=== PATIENT | male | born 1935 | race Caucasian/White ===

== ENCOUNTER 2019-11-10 13:42 | Outpatient (RCR) | payer MEDICARE, SELFPAY ==
[2019-11-17 15:25] VITALS: BMI 32.1
[2020-01-16 23:02] LABS: Glucose Urine UA NEG (NEG); Leukocyte Esterase Urine 3+ (NEG); Nitrite Urine POS (NEG); Specific Gravity - Urine 1.015 (1.005-1.025); Urine Blood 1+ (NEG); Urine Ketones NEG (NEG); Urine Protein NEG (NEG-TRACE)
[2020-01-16 23:07] LABS: Appearance Urine CLOUDY; Color Urine YELLOW
[2020-01-17 00:43] LABS: Bacteria Urine 1+ /LPF; Squamous Epithelial Cell Urine TRACE /LPF; WBC Clumps Urine NOTED; WBC Urine TNTC /HPF (0-4)
[2020-01-17 11:55] LABS: Influenza A PCR NEGATIVE (Negative); Influenza B PCR NEGATIVE (Negative); Resp Syncy Virus RNA Qual PCR NEGATIVE (Negative); SARS COV2 PCR INHOUSE NEGATIVE (Negative)
[2020-01-19 14:53] LABS: Influenza A PCR NEGATIVE (Negative); Influenza B PCR NEGATIVE (Negative); Resp Syncy Virus RNA Qual PCR NEGATIVE (Negative); SARS COV2 PCR INHOUSE NEGATIVE (Negative)
[2020-01-25 14:02] LABS: Influenza A PCR NEGATIVE (Negative); Influenza B PCR NEGATIVE (Negative); Resp Syncy Virus RNA Qual PCR NEGATIVE (Negative); SARS COV2 PCR INHOUSE NEGATIVE (Negative)
[2020-02-12 14:35] LABS: Influenza A PCR NEGATIVE (Negative); Influenza B PCR NEGATIVE (Negative); Resp Syncy Virus RNA Qual PCR NEGATIVE (Negative); SARS COV2 PCR INHOUSE NEGATIVE (Negative)
[2020-02-14 15:45] LABS: COVID-19 Test Negative (Negative); IDNOW Serial# 9DD0AD1C
[2020-02-16 11:40] LABS: COVID-19 Test Negative (Negative); IDNOW Serial# 9DD0AD1C
[2020-02-20 12:43] LABS: SARS-COV-2 PCR UMBRL Not Detected
[2020-02-22 09:39] LABS: SARS-COV-2 PCR UMBRL Not Detected
[2020-02-23 09:20] LABS: SARS-COV-2 PCR UMBRL Not Detected
[2020-02-29 09:58] LABS: SARS-COV-2 PCR UMBRL NOT DETECTED
--- NOTE | 2020-03-01 07:51 | PM.DS ---
DS: Providers Provider Date of Service: 03/01/20 DS: Transfer Hospital Acceptance Name of Facility: [facility] DS: Diagnosis Discharge Diagnosis (1) Dementia: Status: Acute (2) Parkinsons: Status: Acute (3) Postural drop in blood pressure on standing: Status: Acute (4) Rhinitis: Status: Acute (5) Factor 5 Leiden mutation, heterozygous: Status: Acute (6) Hyperlipidemia: Status: Acute (7) Osteopenia: Status: Acute (8) Vitamin B12 deficiency: Status: Acute (9) Anemia: Status: Acute (10) Lymphadenopathy: Status: Acute (11) BPH (benign prostatic hyperplasia): Status: Acute (12) Hyponatremia: Status: Acute DS: Medications Discharge Medications Home Medications: Previous Rx's Medication Instructions Recorded acetic acid 1 appl TOPICAL DAILY@0600 #30 ml 03/01/20 albuterol sulfate 2.5 mg INHALATION Q4H PRN #30 ml 03/01/20 alendronate 70 mg PO [place]@0630 #30 tab 03/01/20 bicalutamide 50 mg PO DAILY@1000 #30 tab 03/01/20 bisacodyl [Gentle Laxative 10 mg AL DAILY PRN #30 ea 03/01/20 (bisacodyl)] carbidopa-levodopa 1 tab PO 1000,1400,1800,2200 #30 03/01/20 tab cholecalciferol (vitamin D3) 25 mcg PO DAILY@1000 #30 tab 03/01/20 cyanocobalamin (vitamin B-12) 1,000 mcg PO DAILY@1000 #30 tab 03/01/20 [Vitamin B-12] finasteride [Proscar] 5 mg PO DAILY@1000 #30 tab 03/01/20 lisinopril 5 mg PO DAILY #30 tab 03/01/20 loperamide 2 mg PO QID PRN #30 cap 03/01/20 loratadine 10 mg PO DAILY PRN #30 tab 03/01/20 magnesium hydroxide [Milk of 30 ml PO BEDTIME PRN #30 ml 03/01/20 Magnesia] miconazole nitrate [Inzo 1 appl TOPICAL DAILY PRN #30 g 03/01/20 Antifungal] midodrine 5 mg PO BID@1000,2200 #30 tab 03/01/20 polyvinyl alcohol [Artificial 1 drp OPHTHALMIC (EYE) 03/01/20 Tears (polyvin alc)] BID@1000,2200 #30 ml quetiapine 12.5 mg PO BEDTIME@2200 #30 tab 03/01/20 ropinirole 1 mg PO BID@1000,2200 #30 tab 03/01/20 vits A and D-white pet-lanolin [A 1 appl TOPICAL DAILY PRN #30 g 03/01/20 and D (mily, pet)] zinc oxide 1 appl TOPICAL DAILY@0600 #30 g 03/01/20 DS: Summary Hospital Course Hospital Course: Mr. Bustos is an 84 year old gentleman with an extensive past medical and surgical history including dementia and parkinsons disease. He can ambulate with a wheeled walker with assistance and wheelchair follow. At baseline he has slurred speech and is alert, but confused. He also has a prior history of DVT with factor V leiden but is not on anticoagulation. He has prostate cancer an is taking casodex and followed by Dr. Haider at [facility] oncology. He is incontinent. He has a history of orthostatic hypotension as well as hypertension and is on lisinopril and midodrine simultaneously. BP should be checked prior to midodrine administration. Mr. Steve has a MOLST indicating he is DNR/I, and do not reshospitalize except for comfort. He had no hospitalizations or significant medical events under our care, and remains COVID negative. Time Spent with Patient Time attestation: Total time spent providing and/or coordinating discharge services: Discharge coordination time: Greater than 30 minutes Physical Exam Vital Signs: Vital Signs: Body Mass Index 32.1 DS: Data Data Completed and Pending Labs on day of discharge: Laboratory Tests 01/16/20 01/17/20 01/19/20 21:53 11:35 12:58 Urine Color YELLOW Urine Appearance CLOUDY Urine pH 6.0 Ur Specific [place] 1.015 Urine Protein NEG Urine Glucose (UA) NEG Urine Ketones NEG Urine Blood 1+ H Urine Nitrite POS H Ur Leukocyte Esterase 3+ H Urine RBC 1-4 Urine WBC TNTC H Urine WBC Clumps NOTED Ur Squamous Epith Cells TRACE Urine Bacteria 1+ Coronavirus (PCR) NEGATIVE NEGATIVE COVID-19 (JOY) COVID-19 Clin Com Influenza Type A (PCR) NEGATIVE NEGATIVE Influenza Type B (PCR) NEGATIVE NEGATIVE RSV RNA Qual (PCR) NEGATIVE NEGATIVE 12/09/20 12/27/20 12/29/20 12:55 12:10 15:00 Urine Color Urine Appearance Urine pH Ur Specific [place] Urine Protein Urine Glucose (UA) Urine Ketones Urine Blood Urine Nitrite Ur Leukocyte Esterase Urine RBC Urine WBC Urine WBC Clumps Ur Squamous Epith Cells Urine Bacteria Coronavirus (PCR) NEGATIVE NEGATIVE COVID-19 (JOY) Negative COVID-19 Clin Com See Note Influenza Type A (PCR) NEGATIVE NEGATIVE Influenza Type B (PCR) NEGATIVE NEGATIVE RSV RNA Qual (PCR) NEGATIVE NEGATIVE 02/16/20 11:00 Urine Color Urine Appearance Urine pH Ur Specific [place] Urine Protein Urine Glucose (UA) Urine Ketones Urine Blood Urine Nitrite Ur Leukocyte Esterase Urine RBC Urine WBC Urine WBC Clumps Ur Squamous Epith Cells Urine Bacteria Coronavirus (PCR) COVID-19 (JOY) Negative COVID-19 Clin Com See Note Influenza Type A (PCR) Influenza Type B (PCR) RSV RNA Qual (PCR) Discharge Plan Discharge Attending provider: Bairon Castrejon Additional Instructions: See summary sheet, re special needs regarding medication and ointments Crush meds in applesauce Medications: New quetiapine 25 mg Tablet 12.5 mg PO BEDTIME@2199 Qty: 30 RF: 0 bicalutamide 50 mg Tablet 50 mg PO DAILY@999 Qty: 30 RF: 0 ropinirole 1 mg Tablet 1 mg PO BID@999,2199 Qty: 30 RF: 0 albuterol sulfate 2.5 mg /3 mL (0.083 %) Solution For Nebulization 2.5 mg inhalation Q4H PRN (Reason: Shortness Of Breath/Wheezing) Qty: 30 RF: 0 loperamide 2 mg Capsule 2 mg PO QID PRN (Reason: Diarrhea) Qty: 30 RF: 0 miconazole nitrate [Inzo Antifungal] 2 % Cream 1 appl topical DAILY PRN (Reason: SKIN IRRITATION) Qty: 30 RF: 0 polyvinyl alcohol [Artificial Tears (polyvin alc)] 1.4 % Drops 1 drp ophthalmic (eye) BID@999,2199 Qty: 30 RF: 0 alendronate 70 mg Tablet 70 mg PO Hercules@0630 Qty: 30 RF: 0 midodrine 5 mg Tablet 5 mg PO BID@999,2199 Qty: 30 RF: 0 cyanocobalamin (vitamin B-12) [Vitamin B-12] 1,000 mcg Tablet 1,000 mcg PO DAILY@1000 Qty: 30 RF: 0 zinc oxide 20 % Ointment 1 appl topical DAILY@0600 Qty: 30 RF: 0 magnesium hydroxide [Milk of Magnesia] 400 mg/5 mL Suspension 30 ml PO BEDTIME PRN (Reason: Constipation) Qty: 30 RF: 0 bisacodyl [Gentle Laxative (bisacodyl)] 10 mg Suppository 10 mg AL DAILY PRN (Reason: Constipation) Qty: 30 RF: 0 acetic acid 0.25 % Solution 1 appl topical DAILY@0600 Qty: 30 RF: 0 lisinopril 5 mg Tablet 5 mg PO DAILY Qty: 30 RF: 0 carbidopa-levodopa 25-100 mg Tablet 1 tab PO 1000,1400,1800,2200 Qty: 30 RF: 0 finasteride [Proscar] 5 mg Tablet 5 mg PO DAILY@1000 Qty: 30 RF: 0 loratadine 10 mg Tablet 10 mg PO DAILY PRN (Reason: Runny Nose) Qty: 30 RF: 0 cholecalciferol (vitamin D3) 25 mcg (1,000 unit) Tablet 25 mcg PO DAILY@1000 Qty: 30 RF: 0 vits A and D-white pet-lanolin [A and D (mily, pet)] Ointment 1 appl topical DAILY PRN (Reason: DISCOMFORT) Qty: 30 RF: 0
== END 2020-03-01 13:58 | disposition home or self-care (01) ==
LOC: HO.SHU3 13:42
PROVIDERS: Internal Medicine; Visit Provider Hospitalist
DX: Z51.89 Encounter for other specified aftercare (principal)
CPT/HCPCS: 0241U; 36415; 81001; 87086; 87088; 87186; 87635; 99217; U0003

== ENCOUNTER 2020-03-02 06:11 | Outpatient (REF) | payer MEDICARE, MEDICAID, SELFPAY ==
[2020-03-02 08:04] LABS: Basophils Percent Auto 0.2 % (0-2); Eosinophils Absolute Auto 0.1 X10*3/uL (0.0-0.4); Eosinophils Percent Auto 2.1 % (0-4); Hematocrit 29.3 % (42-52); Hemoglobin 9.4 g/dl (14.0-18.0); Imm Gran Abs Auto 0.02 X10*3/uL (0.00-0.03); Imm Gran Pct Auto 0.3 % (0.0-0.4); Lymphocytes Absolute Auto 0.7 X10*3/uL (1.2-4.9); Lymphocytes Percent Auto 11.4 % (20-40); MANUAL DIFF FLAG SCAN; Mean Corpuscular HGB Conc 32.1 g/dl (31.0-36.0); Mean Corpuscular Volume 93.6 fL (80-98); Monocytes Absolute Auto 0.6 X10*3/uL (0.1-1.2); Monocytes Percent Auto 10.2 % (2-11); Neutrophils Absolute Auto 4.6 X10*3/uL (2.0-8.3); Neutrophils Percent Auto 75.8 % (45-73); Platelet Count 180 X10*3/uL (160-400); Red Blood Count 3.13 X10*6/uL (4.60-5.80); Red Cell Distribution Width 13.4 % (11.0-16.0); SCAN SMEAR FLAG 1; White Blood Count 6.1 X10*3/uL (4.8-10.8)
[2020-03-02 08:23] LABS: Alanine Aminotransferase < 6 U/L (0-40); Albumin Level 3.6 g/dL (3.5-5.0); Alkaline Phosphatase 56 U/L (39-117); Anion Gap 11 (12-20); Aspartate Amino Transferase 12 U/L (5-37); Bilirubin Total 0.5 mg/dL (0.0-1.0); Blood Urea Nitrogen 31 mg/dL (9-16); Calcium 8.5 mg/dL (8.4-10.2); Carbon Dioxide 29 mmol/L (22-29); Chloride 106 mmol/L (96-108); Estimated Glomerular Filt Rate 47; Glucose Fasting 88 mg/dL (60-99); Potassium 4.3 mmol/l (3.3-5.1); Sodium 142 mmol/L (135-145); Total Protein 6.2 g/dL (6.5-8.0)
[2020-03-02 08:43] LABS: SLIDE REVIEW VERIFIED
[2020-03-02 08:44] LABS: Thyroid Stimulating Hormone 0.64 uIU/mL (0.32-4.0); Vitamin D 25-OH Total 36.9 ng/mL (>30)
[2020-03-02 08:48] LABS: Vitamin B12 922 pg/mL (200-900)
== END 2020-03-02 06:12 | disposition home or self-care (01) ==
LOC: HO.HSH2E 06:11
PROVIDERS: Visit Provider Internal Medicine
DX: D64.9 Anemia, unspecified (principal); G20 Parkinson's disease; E78.5 Hyperlipidemia, unspecified
CPT/HCPCS: 36415; 80053; 82306; 82607; 84443; 85025

== ENCOUNTER 2020-03-19 12:33 | Inpatient (IN) | payer MEDICARE, MEDICAID, SELFPAY ==
[2020-03-19 12:41] VITALS: BP 176/100; PULSE 72; RESP 18; TEMP 36.8; O2SAT 99; BMI 38.0
--- NOTE | 2020-03-19 12:41 | XR_ITS ---
EXAMINATION: XR CHEST CLINICAL INFORMATION: Cough COMPARISON: Previous chest x-ray most recent September 2019 TECHNIQUE: Frontal view of the chest was obtained. FINDINGS: The cardiac and mediastinal contours are stable. There is atelectasis or small infiltrate at the left lung base. Similar to previous exam September 2019 and it is possible findings are chronic. The right lung is clear. There is no pleural effusion or pneumothorax. There are degenerative changes of the spine. XR/XR chest 1V IMPRESSION: Atelectasis or small infiltrate at the left lung base. This finding is similar to most recent chest x-ray September 2019 and may be chronic.
--- NOTE | 2020-03-19 12:41 | ECG_ITS ---
Test Reason : AMS Blood Pressure : / mmHG Vent. Rate : 072 BPM Atrial Rate : 072 BPM P-R Int : 186 ms QRS Dur : 088 ms QT Int : 410 ms P-R-T Axes : 063 007 015 degrees QTc Int : 448 ms Normal sinus rhythm Normal ECG No previous ECGs available Referred By: Wiley Celeste Electronically Signed By:TYSON DOS SANTOS MD
--- NOTE | 2020-03-19 12:45 | CT_ITS ---
EXAMINATION: CT HEAD WITHOUT CONTRAST CLINICAL INFORMATION: Lethargy per COMPARISON: None TECHNIQUE: Contiguous axial imaging was performed from the skull base to vertex without intravenous administration of contrast. This CT examination was performed using dose optimization techniques as appropriate, variously including the following: *Automated exposure control *Adjustment of mA and/or kV according to patient size (this includes techniques or standardized protocols for targeted exams where dose is matched to indication/reason for exam; i.e. extremities or head) *Use of iterative reconstruction technique DLP: 816 mGy-cm FINDINGS: There is no acute intra-axial, extra-axial bleed, masses or midline shift. There is no acute infarction in evolution. There is diffuse periventricular hypodensity in both cerebral hemispheres without mass effect. The lateral ventricles are asymmetrical but enlarged. Prominent bilateral cortical sulci noted. Atherosclerotic changes of basilar and internal carotid artery are noted. Bone windows reveal no calvarial abnormality. There is mild mucoperiosteal thickening left frontal and anterior ethmoid sinus. Rest of the paranasal sinuses are clear. No scalp soft tissue abnormality seen. CT/CT head/brain wo con IMPRESSION: No acute intracranial process seen. Age-related cerebral atrophy and chronic small vessel ischemic changes.
--- NOTE | 2020-03-19 13:05 | ED.GENADULT ---
HPI - General Adult General Chief complaint: Altered Mental Status Stated complaint: AMS,- COVID ON THURSDAY PER SNF Time Seen by Provider: 03/19/20 12:41 Source: EMS Mode of arrival: EMS History of Present Illness HPI narrative: Brought to the ED for worsening of the origin and AMS since Thursday. Patient at baseline is totally demented. Patient has recently discharged from [facility] this past Thursday for UTI. Negative for neuro deficit. As per EMS report patient usually Silva still cells but as per half-way since Thursday he has been more lethargic and altered. Patient also has had a slight cough. Patient COVID test on Thursday was negative. Patient's last known well as per EMS was this past Thursday. Related Data Home Medications Medication Instructions Recorded Confirmed levalbuterol tartrate [Xopenex HFA] 2 puff INHALATION Q4H 03/19/20 03/19/20 midodrine 5 mg PO BID PRN 03/19/20 03/19/20 Previous Rx's Medication Instructions Recorded acetic acid 1 appl TOPICAL DAILY@0600 #30 ml 03/01/20 alendronate 70 mg PO Hercules@0630 #30 tab 03/01/20 bicalutamide 50 mg PO DAILY@1000 #30 tab 03/01/20 bisacodyl [Gentle Laxative 10 mg [place] DAILY PRN #30 ea 03/01/20 (bisacodyl)] carbidopa-levodopa 1 tab PO 1000,1400,1800,2200 #30 03/01/20 tab cholecalciferol (vitamin D3) 25 mcg PO DAILY@1000 #30 tab 03/01/20 cyanocobalamin (vitamin B-12) 1,000 mcg PO DAILY@1000 #30 tab 03/01/20 [Vitamin B-12] finasteride [Proscar] 5 mg PO DAILY@1000 #30 tab 03/01/20 loperamide 2 mg PO QID PRN #30 cap 03/01/20 loratadine 10 mg PO DAILY PRN #30 tab 03/01/20 magnesium hydroxide [Milk of 30 ml PO BEDTIME PRN #30 ml 03/01/20 Magnesia] miconazole nitrate [Inzo 1 appl TOPICAL DAILY PRN #30 g 03/01/20 Antifungal] polyvinyl alcohol [Artificial 1 drp OPHTHALMIC (EYE) 03/01/20 Tears (polyvin alc)] BID@1000,2200 #30 ml quetiapine 12.5 mg PO BEDTIME@2200 #30 tab 03/01/20 ropinirole 1 mg PO BID@1000,2200 #30 tab 03/01/20 vits A and D-white pet-lanolin [A 1 appl TOPICAL DAILY PRN #30 g 03/01/20 and D (miyl, pet)] zinc oxide 1 appl TOPICAL DAILY@0600 #30 g 03/01/20 Allergies Allergy/AdvReac Type Severity Reaction Status Date / Time No Known Allergies Allergy Unverified 11/03/19 19:50 [No Known Allergies*] Review of Systems Review of Systems: Patient is not toxic appearing. Patient know his name. Patient does no one in the hospital. He Yes Unobtainable due to mental status (Dementia) [facility] Past Medical History Medical History Anemia BPH (benign prostatic hyperplasia) Carotid body tumor Dementia Factor 5 Leiden mutation, heterozygous Hyperlipidemia Hyponatremia Lymphadenopathy Osteopenia Parkinsons Postural drop in blood pressure on standing Prostate cancer Prostate cancer Rhinitis Vitamin B12 deficiency Surgical History H/O aortic aneurysm repair History of nephrectomy Total knee replacement status Social History Social History Alcohol intake: unknown Smoking Status: Unknown if ever smoked Use of substances other than those prescribed or required for medical reasons: Unknown Advance Directives: No Advance Directives Information Provided: No Physical Exam Vital Signs: Vital Signs: Last Vital Signs Temp 98.3 F 03/19/20 12:41 Pulse 84 03/19/20 15:55 Resp 20 03/19/20 15:55 BP 185/100 H 03/19/20 15:55 Pulse Ox 93 03/19/20 15:55 Body Mass Index 38.0 Const: General: cooperative, healthy appearing, comfortable and no acute distress HENMT: Head: Yes normal to inspection and Yes No palpable skull fracture present Eyes: General: appearance normal, both eyes and all related structures Neck: Neck: Yes normal visual inspection, Yes full ROM, Yes no lymphadenopathy, Yes no meningeal signs, Yes trachea midline, Yes supple and No tender Chest: Chest palpation & inspection: normal inspection of the chest Resp: Effort & Inspection: normal respiratory effort and able to speak in complete sentences Auscultation: clear to auscultation bilaterally Cardio: Jugular venous distension: no JVD Heart sounds: S1 normal heart sound present and S2 normal heart sound present GI: Inspection: Yes normal to inspection and No abdominal wall ecchymosis Palpation (GI): Soft to palpation, not firm, nontender, no guarding and not rigid : General: No CVA tenderness and Yes no CVA tenderness Back/Spine/Pelvis: Back: no CVA tenderness and No CVA tenderness Skin: General skin exam: no rashes or lesions noted Neuro: Other: Negative for any facial droop. Negative for any pronator drift. All extremities have equal strength. Patient baseline is demented. Negative for slurred speech General: no meningeal signs Extrem: General: Yes normal to inspection and Yes full ROM Psych: Other: Severe dementia Course Course Course Narrative: Patient will have evaluation for worsening altered mental status. Patient presently is not lethargic or toxic appearing. Patient will have chest x-ray, UA ordered. COVID, head CT, and labs including ammonia. EKG also ordered. Patient last known well was this past Thursday so patient is out the window if this is a stroke. Reevaluation(s) Reevaluation #1: Patient COVID cell came back negative. Patient's chest x-ray shows chronic atelectasis/infiltrate. Patient's troponin came back elevated. Will do repeat troponin in 3 hours. Patient presently not in any distress and denies any chest pain. Patient's initial EKG negative for STEMI Time: 14:15 Reevaluation #2: Due to patient's history factor 5 laden mutation which within and high risk of blood clot and patient not being on any blood thinners patient will be sent for chest CT to rule out PE. Patient will have a secondary troponin ordered also Time: 14:38 Reevaluation #3: Patient came back positive for PE. Patient given 1st dose of Lovenox. Spoke with who is the patient's health care proxy and she was informed of patient diagnosis. She requests only receive comfort care and continues Lovenox injection. She would like patient to congenitally be DNI and DNR. Son Amrit smith informed of diagnosis. Hospitalist Rhonda states she will call patient's , and discussed with her of patient going back to [facility] home with Lovenox injection if they only want comfort care. Time: 17:20 Additional Reevaluation(s): Hospitalist spoke with son Amrit smith who requests along with mother for patient to be admitted and patient will receive Lovenox injection. Case accepted by hospitalist. Medical Decision Making MDM Narrative Medical decision making narrative: Pumonary Embolus Lab Data Result diagrams: 03/19/20 13:15 03/19/20 13:15 Labs: Lab Results 03/19/20 03/19/20 03/19/20 Range/Units 13:13 13:14 13:14 WBC (4.8-10.8) X10*3/uL RBC (4.60-5.80) X10*6/uL Hgb (14.0-18.0) g/dl Hct (42-52) % MCV (80-98) fL MCH (27.0-33.0) pg MCHC (31.0-36.0) g/dl RDW (11.0-16.0) % Plt Count (160-400) X10*3/uL MPV (9.4-12.4) fL Immature Gran % (Auto) (0.0-0.4) % Neut % (Auto) (45-73) % Lymph % (Auto) (20-40) % Norman % (Auto) (2-11) % Eos % (Auto) (0-4) % Baso % (Auto) (0-2) % Lymph # (Auto) (1.2-4.9) X10*3/uL [place] # (Auto) (0.1-1.2) X10*3/uL Eos # (Auto) (0.0-0.4) X10*3/uL Baso # (Auto) (0.0-0.2) X10*3/uL Abs Immat Gran (auto) (0.00-0.03) X10*3/uL Absolute Neuts (auto) (2.0-8.3) X10*3/uL Absolute Nucleated RBC (0.0-0.012) X10*3/uL Nucleated RBC % (auto) (0.0-0.2) /100WBC PT (10.8-13.0) SEC INR (0.9-1.1) APTT (24.1-38.0) SEC Sodium (135-145) mmol/L Potassium (3.3-5.1) mmol/L Chloride (96-108) mmol/L Carbon Dioxide (22-29) mmol/L Anion Gap (12-20) BUN (9-16) mg/dL Creatinine (0.5-1.4) mg/dL Estim Creat Clear Calc Estimated GFR Random Glucose (60-115) mg/dL Lactic Acid 0.9 (0.5-2.0) mmol/L Calcium (8.4-10.2) mg/dL Ferritin (20-250) ng/mL Total Bilirubin (0.0-1.0) mg/dL Direct Bilirubin (0.0-0.5) mg/dL AST (5-37) U/L ALT (0-40) U/L Alkaline Phosphatase (39-117) U/L Ammonia 27 (13-55) umol/L Lactate Dehydrogenase (118-273) U/L Total Creatine Kinase (38-174) U/L Troponin I High Sens (<3.5-35.0) ng/L B-Natriuretic Peptide (<100) pg/mL Total Protein (6.5-8.0) g/dL Albumin (3.5-5.0) g/dL Procalcitonin ng/mL Urine Color YELLOW Urine Appearance CLEAR Urine pH 6.5 (5.0-8.0) Ur Specific [place] 1.020 (1.005-1.025) Urine Protein NEG (NEG-TRACE) MG/DL Urine Glucose (UA) NEG (NEG) MG/DL Urine Ketones NEG (NEG) MG/DL Urine Blood TRACE (NEG) Urine Nitrite NEG (NEG) Ur Leukocyte Esterase NEG (NEG) Urine RBC 5-9 H (0) /HPF Urine WBC 0 (0-4) /HPF Ur Squamous Epith Cells TRACE /LPF Urine Bacteria NONE /LPF Coronavirus (PCR) (Negative) Influenza Type A (PCR) (Negative) Influenza Type B (PCR) (Negative) RSV RNA Qual (PCR) (Negative) 03/19/20 03/19/20 03/19/20 Range/Units 13:15 13:15 13:15 WBC 6.3 (4.8-10.8) X10*3/uL RBC 3.73 L (4.60-5.80) X10*6/uL Hgb 11.0 L (14.0-18.0) g/dl Hct 35.1 L (42-52) % MCV 94.1 (80-98) fL MCH 29.5 (27.0-33.0) pg MCHC 31.3 (31.0-36.0) g/dl RDW 13.0 (11.0-16.0) % Plt Count 305 D (160-400) X10*3/uL MPV 9.7 (9.4-12.4) fL Immature Gran % (Auto) 0.3 (0.0-0.4) % Neut % (Auto) 80.8 H (45-73) % Lymph % (Auto) 11.2 L (20-40) % Norman % (Auto) 6.7 (2-11) % Eos % (Auto) 0.8 (0-4) % Baso % (Auto) 0.2 (0-2) % Lymph # (Auto) 0.7 L (1.2-4.9) X10*3/uL [place] # (Auto) 0.4 (0.1-1.2) X10*3/uL Eos # (Auto) 0.1 (0.0-0.4) X10*3/uL Baso # (Auto) 0.0 (0.0-0.2) X10*3/uL Abs Immat Gran (auto) 0.02 (0.00-0.03) X10*3/uL Absolute Neuts (auto) 5.1 (2.0-8.3) X10*3/uL Absolute Nucleated RBC 0.000 (0.0-0.012) X10*3/uL Nucleated RBC % (auto) 0.0 (0.0-0.2) /100WBC PT 12.2 (10.8-13.0) SEC INR 1.0 (0.9-1.1) APTT 32.4 (24.1-38.0) SEC Sodium 139 (135-145) mmol/L Potassium 5.1 (3.3-5.1) mmol/L Chloride 100 (96-108) mmol/L Carbon Dioxide 29 (22-29) mmol/L Anion Gap 15 (12-20) BUN 25 H (9-16) mg/dL Creatinine 0.87 (0.5-1.4) mg/dL Estim Creat Clear Calc 77.2 Estimated GFR > 60 Random Glucose 96 (60-115) mg/dL Lactic Acid (0.5-2.0) mmol/L Calcium 8.5 (8.4-10.2) mg/dL Ferritin (20-250) ng/mL Total Bilirubin 0.7 (0.0-1.0) mg/dL Direct Bilirubin 0.2 (0.0-0.5) mg/dL AST 23 D (5-37) U/L ALT 17 (0-40) U/L Alkaline Phosphatase 60 (39-117) U/L Ammonia (13-55) umol/L Lactate Dehydrogenase 208 (118-273) U/L Total Creatine Kinase 111 (38-174) U/L Troponin I High Sens (<3.5-35.0) ng/L B-Natriuretic Peptide (<100) pg/mL Total Protein 7.1 (6.5-8.0) g/dL Albumin 3.8 (3.5-5.0) g/dL Procalcitonin ng/mL Urine Color Urine Appearance Urine pH (5.0-8.0) Ur Specific [place] (1.005-1.025) Urine Protein (NEG-TRACE) MG/DL Urine Glucose (UA) (NEG) MG/DL Urine Ketones (NEG) MG/DL Urine Blood (NEG) Urine Nitrite (NEG) Ur Leukocyte Esterase (NEG) Urine RBC (0) /HPF Urine WBC (0-4) /HPF Ur Squamous Epith Cells /LPF Urine Bacteria /LPF Coronavirus (PCR) (Negative) Influenza Type A (PCR) (Negative) Influenza Type B (PCR) (Negative) RSV RNA Qual (PCR) (Negative) 03/19/20 03/19/20 03/19/20 Range/Units 13:15 13:15 13:15 WBC (4.8-10.8) X10*3/uL RBC (4.60-5.80) X10*6/uL Hgb (14.0-18.0) g/dl Hct (42-52) % MCV (80-98) fL MCH (27.0-33.0) pg MCHC (31.0-36.0) g/dl RDW (11.0-16.0) % Plt Count (160-400) X10*3/uL MPV (9.4-12.4) fL Immature Gran % (Auto) (0.0-0.4) % Neut % (Auto) (45-73) % Lymph % (Auto) (20-40) % [place] % (Auto) (2-11) % Eos % (Auto) (0-4) % Baso % (Auto) (0-2) % Lymph # (Auto) (1.2-4.9) X10*3/uL [place] # (Auto) (0.1-1.2) X10*3/uL Eos # (Auto) (0.0-0.4) X10*3/uL Baso # (Auto) (0.0-0.2) X10*3/uL Abs Immat Gran (auto) (0.00-0.03) X10*3/uL Absolute Neuts (auto) (2.0-8.3) X10*3/uL Absolute Nucleated RBC (0.0-0.012) X10*3/uL Nucleated RBC % (auto) (0.0-0.2) /100WBC PT (10.8-13.0) SEC INR (0.9-1.1) APTT (24.1-38.0) SEC Sodium (135-145) mmol/L Potassium (3.3-5.1) mmol/L Chloride (96-108) mmol/L Carbon Dioxide (22-29) mmol/L Anion Gap (12-20) BUN (9-16) mg/dL Creatinine (0.5-1.4) mg/dL Estim Creat Clear Calc Estimated GFR Random Glucose (60-115) mg/dL Lactic Acid (0.5-2.0) mmol/L Calcium (8.4-10.2) mg/dL Ferritin 413 H (20-250) ng/mL Total Bilirubin (0.0-1.0) mg/dL Direct Bilirubin (0.0-0.5) mg/dL AST (5-37) U/L ALT (0-40) U/L Alkaline Phosphatase (39-117) U/L Ammonia (13-55) umol/L Lactate Dehydrogenase (118-273) U/L Total Creatine Kinase (38-174) U/L Troponin I High Sens 95.9 H (<3.5-35.0) ng/L B-Natriuretic Peptide 320 H (<100) pg/mL Total Protein (6.5-8.0) g/dL Albumin (3.5-5.0) g/dL Procalcitonin ng/mL Urine Color Urine Appearance Urine pH (5.0-8.0) Ur Specific [place] (1.005-1.025) Urine Protein (NEG-TRACE) MG/DL Urine Glucose (UA) (NEG) MG/DL Urine Ketones (NEG) MG/DL Urine Blood (NEG) Urine Nitrite (NEG) Ur Leukocyte Esterase (NEG) Urine RBC (0) /HPF Urine WBC (0-4) /HPF Ur Squamous Epith Cells /LPF Urine Bacteria /LPF Coronavirus (PCR) NEGATIVE (Negative) Influenza Type A (PCR) NEGATIVE (Negative) Influenza Type B (PCR) NEGATIVE (Negative) RSV RNA Qual (PCR) NEGATIVE (Negative) 03/19/20 03/19/20 Range/Units 13:15 16:30 WBC (4.8-10.8) X10*3/uL RBC (4.60-5.80) X10*6/uL Hgb (14.0-18.0) g/dl Hct (42-52) % MCV (80-98) fL MCH (27.0-33.0) pg MCHC (31.0-36.0) g/dl RDW (11.0-16.0) % Plt Count (160-400) X10*3/uL MPV (9.4-12.4) fL Immature Gran % (Auto) (0.0-0.4) % Neut % (Auto) (45-73) % Lymph % (Auto) (20-40) % [place] % (Auto) (2-11) % Eos % (Auto) (0-4) % Baso % (Auto) (0-2) % Lymph # (Auto) (1.2-4.9) X10*3/uL [place] # (Auto) (0.1-1.2) X10*3/uL Eos # (Auto) (0.0-0.4) X10*3/uL Baso # (Auto) (0.0-0.2) X10*3/uL Abs Immat Gran (auto) (0.00-0.03) X10*3/uL Absolute Neuts (auto) (2.0-8.3) X10*3/uL Absolute Nucleated RBC (0.0-0.012) X10*3/uL Nucleated RBC % (auto) (0.0-0.2) /100WBC PT (10.8-13.0) SEC INR (0.9-1.1) APTT (24.1-38.0) SEC Sodium (135-145) mmol/L Potassium (3.3-5.1) mmol/L Chloride (96-108) mmol/L Carbon Dioxide (22-29) mmol/L Anion Gap (12-20) BUN (9-16) mg/dL Creatinine (0.5-1.4) mg/dL Estim Creat Clear Calc Estimated GFR Random Glucose (60-115) mg/dL Lactic Acid (0.5-2.0) mmol/L Calcium (8.4-10.2) mg/dL Ferritin (20-250) ng/mL Total Bilirubin (0.0-1.0) mg/dL Direct Bilirubin (0.0-0.5) mg/dL AST (5-37) U/L ALT (0-40) U/L Alkaline Phosphatase (39-117) U/L Ammonia (13-55) umol/L Lactate Dehydrogenase (118-273) U/L Total Creatine Kinase (38-174) U/L Troponin I High Sens 77.9 H (<3.5-35.0) ng/L B-Natriuretic Peptide (<100) pg/mL Total Protein (6.5-8.0) g/dL Albumin (3.5-5.0) g/dL Procalcitonin 0.07 ng/mL Urine Color Urine Appearance Urine pH (5.0-8.0) Ur Specific [place] (1.005-1.025) Urine Protein (NEG-TRACE) MG/DL Urine Glucose (UA) (NEG) MG/DL Urine Ketones (NEG) MG/DL Urine Blood (NEG) Urine Nitrite (NEG) Ur Leukocyte Esterase (NEG) Urine RBC (0) /HPF Urine WBC (0-4) /HPF Ur Squamous Epith Cells /LPF Urine Bacteria /LPF Coronavirus (PCR) (Negative) Influenza Type A (PCR) (Negative) Influenza Type B (PCR) (Negative) RSV RNA Qual (PCR) (Negative) ECG Data Interpretation: Normal sinus rhythm. Ventricular rate 72. Pr interval 186. QRS 88. QTC 448. Normal EKG. Negative STEMI Discharge Plan Discharge Clinical Impression: Pulmonary embolism Patient Disposition: Admitted As Inpatient
[2020-03-19 13:27] LABS: MANUAL DIFF FLAG NO
[2020-03-19 13:33] LABS: Prothrombin Time 12.2 SEC (10.8-13.0)
[2020-03-19 13:35] LABS: Basophils Percent Auto 0.2 % (0-2); Eosinophils Absolute Auto 0.1 X10*3/uL (0.0-0.4); Eosinophils Percent Auto 0.8 % (0-4); Hematocrit 35.1 % (42-52); Imm Gran Abs Auto 0.02 X10*3/uL (0.00-0.03); Imm Gran Pct Auto 0.3 % (0.0-0.4); Lymphocytes Absolute Auto 0.7 X10*3/uL (1.2-4.9); Lymphocytes Percent Auto 11.2 % (20-40); Mean Corpuscular HGB Conc 31.3 g/dl (31.0-36.0); Mean Corpuscular Hemoglobin 29.5 pg (27.0-33.0); Mean Corpuscular Volume 94.1 fL (80-98); Mean Platelet Volume 9.7 fL (9.4-12.4); Monocytes Absolute Auto 0.4 X10*3/uL (0.1-1.2); Monocytes Percent Auto 6.7 % (2-11); Neutrophils Absolute Auto 5.1 X10*3/uL (2.0-8.3); Neutrophils Percent Auto 80.8 % (45-73); Platelet Count 305 X10*3/uL (160-400); Red Blood Count 3.73 X10*6/uL (4.60-5.80); White Blood Count 6.3 X10*3/uL (4.8-10.8)
[2020-03-19 13:36] LABS: Partial Thromboplastin Time 32.4 SEC (24.1-38.0)
[2020-03-19 13:37] LABS: Glucose Urine UA NEG (NEG); Leukocyte Esterase Urine NEG (NEG); Nitrite Urine NEG (NEG); PH 6.5 (5.0-8.0); Urine Blood TRACE (NEG); Urine Ketones NEG (NEG); Urine Protein NEG (NEG-TRACE)
[2020-03-19 13:39] LABS: Appearance Urine CLEAR; Color Urine YELLOW
[2020-03-19] MEDS: 0.9 % Sodium Chloride 1,000 ML 999 ML IV (13:44)
[2020-03-19 13:45] LABS: Ammonia 27 umol/L (13-55)
[2020-03-19 13:46] LABS: Squamous Epithelial Cell Urine TRACE /LPF; WBC Urine 0 /HPF (0-4)
[2020-03-19 13:48] LABS: Lactic Acid 0.9 mmol/L (0.5-2.0)
[2020-03-19 13:54] LABS: Alanine Aminotransferase 17 U/L (0-40); Albumin Level 3.8 g/dL (3.5-5.0); Alkaline Phosphatase 60 U/L (39-117); Anion Gap 15 (12-20); Aspartate Amino Transferase 23 U/L (5-37); Bilirubin Direct 0.2 mg/dL (0.0-0.5); Bilirubin Total 0.7 mg/dL (0.0-1.0); Blood Urea Nitrogen 25 mg/dL (9-16); Calcium 8.5 mg/dL (8.4-10.2); Carbon Dioxide 29 mmol/L (22-29); Chloride 100 mmol/L (96-108); Creatinine Clr Calc Pharmacy 77.2; Estimated Glomerular Filt Rate > 60; Glucose Random 96 mg/dL (60-115); Lactate Dehydrogenase 208 U/L (118-273); Potassium 5.1 mmol/L (3.3-5.1); Sodium 139 mmol/L (135-145); Total Protein 7.1 g/dL (6.5-8.0)
[2020-03-19 14:05] LABS: Influenza A PCR NEGATIVE (Negative); Influenza B PCR NEGATIVE (Negative); Resp Syncy Virus RNA Qual PCR NEGATIVE (Negative); SARS COV2 PCR INHOUSE NEGATIVE (Negative)
[2020-03-19 14:08] LABS: B Type Natriuretic Peptide 320 pg/mL (<100); Troponin-I High Sensitivity 95.9 ng/L (<3.5-35.0)
[2020-03-19 14:11] LABS: Ferritin 413 ng/mL (20-250)
[2020-03-19 14:14] LABS: Procalcitonin 0.07 ng/mL
--- NOTE | 2020-03-19 14:36 | CT_ITS ---
EXAMINATION: CT ANGIOGRAM OF THE CHEST WITH AND WITHOUT CONTRAST (CT PULMONARY ANGIOGRAM FOR PE) EXAMINATION: CT CHEST PE STUDY CLINICAL INFORMATION: Positive troponin. Question PE. COMPARISON: Chest x-ray dated 03/19/2020. TECHNIQUE: Prior to contrast administration, localization images were obtained. After the administration of 65 mL of intravenous Omnipaque 350, multidetector CT volume acquisition of the chest was performed. 3-D postprocessing was performed with multiplanar reconstructions and MIP images obtained at the acquisition workstation under concurrent physician supervision. This CT examination was performed using dose optimization techniques as appropriate, variously including the following: *Automated exposure control *Adjustment of mA and/or kV according to patient size (this includes techniques or standardized protocols for targeted exams where dose is matched to indication/reason for exam; i.e. extremities or head) *Use of iterative reconstruction technique DLP: 427.8 mGy-cm. FINDINGS: Pulmonary arteries: The bolus timing on this study is suboptimal for visualization of the pulmonary arterial tree. Evaluation is, however, significantly limited due to extensive stairstep artifact through the pulmonary artery tree bilaterally related to dense contrast within the SVC. The study is, however, of sufficient diagnostic value. There is a large central pulmonary embolus in the distal right main pulmonary artery, extending into the interlobar pulmonary artery and right lower lobe segmental branches. There may also be a few small segmental filling defects within the right upper and middle lobe pulmonary arteries, though evaluation is limited by artifact. No evidence of elevated right heart pressures is seen. Interventricular septum is not deviated towards the left side and no intrahepatic reflux of contrast is noted. Lungs: There are bilateral scattered areas of linear and dependent atelectasis seen in the lungs bilaterally, most prominent in the left lower lobe with associated small left pleural effusion. Asymmetric elevation of the right hemidiaphragm is noted. No suspicious pulmonary nodules, masses or pneumothorax. The central airways are patent. Aorta and heart: The heart is normal in size. The thoracic aorta is aneurysmal with the ascending aorta measuring 4.3 cm of the level of the right main pulmonary artery and the descending aorta at the same level measuring 3.6 cm. The aortic arch just beyond the takeoff of the left subclavian artery measures 4 cm in diameter,. There is no pericardial effusion Lymphatic structures: There is no lymphadenopathy. Upper abdomen: Limited evaluation of the upper abdominal viscera demonstrates several calcified gallstones seen layering within the mildly distended gallbladder, which is otherwise unremarkable with no wall thickening or pericholecystic fluid seen. Solid organs and upper abdomen grossly unremarkable. Bones: Diffuse osteopenia, ossification along the anterior longitudinal ligament in the thoracolumbar spine and multilevel degenerative changes seen. CT/CT angio chest PE protocol IMPRESSION: 1. Large central pulmonary embolism is seen with extension into the right lower lobe. There may be additional smaller segmental filling defects within the right upper lobe and right middle lobe pulmonary arteries versus artifact related to beam hardening from the dense contrast bolus in the SVC. 2. Aneurysmal thoracic aorta with maximal AP diameter of the ascending aorta measuring 4.3 cm. 3. Scattered areas of atelectasis in the lungs bilaterally. VTE: Positive This critical result was discussed with Dr. Wiley Celeste, 03/19/2020, 3:58 PM and it was ascertained that the content and urgency of this report was understood at the time of direct communication.
[2020-03-19] MEDS: iohexoL 350 MG/ML 100 ML INFUS..BTL IV (15:31)
[2020-03-19 15:55] VITALS: BP 185/100; PULSE 84; RESP 20; O2SAT 93
[2020-03-19] MEDS: Enoxaparin Sodium 100 MG/ML SYRINGE 115 MG SUBCUT (16:25)
--- NOTE | 2020-03-19 16:32 | PC.NURSE ---
PT FOUND TO HAVE PE ON CTA, STARTED ON ANTICOAGULANT TX. REPEAT TROPONIN DRAWN, PT WILL BE ADMITTED INPT. PT IS EXHIBITING INCREASED IRRITABILITY AND AGITATION. PROVIDER AWARE. DAVID.
[2020-03-19 17:20] LABS: Troponin-I High Sensitivity 77.9 ng/L (<3.5-35.0)
--- NOTE | 2020-03-19 18:21 | PM.IMHP ---
History of Present Illness Date of Service: 03/19/20 Chief Complaint: Increasing lethargy This is a 84-year-old resident of the [facility] who presents to the hospital after he was sent in for increasing lethargy as reported by the ED providers. The patient himself does not talk much and so history is basically obtained from the ED doctors as well as the patient's family, and son over the phone. Per ER providers, the patient over the last 2-3 days has been increasingly lethargic and so was sent in [facility] [place] [facility]. There was some reports of a slight cough but otherwise patient basically at his baseline other than the lethargy. Upon arrival to the emergency room he was tested for multiple things. His troponin came back elevated and given his history of factor 5 Leiden deficiency a CTA was completed which showed a large central pulmonary embolism extending into the right side as well. The patient was not tachypneic, did not have any pain, was not hypoxic nor tachycardic. He was given a dose of Lovenox and admission was requested. I spoke with the patient's (Arianne @ [phone]) and son (Amrit Melendez @ [phone]) about the patient's current status as well as expected outcomes. We talked about treatment options for his clot with it included anticoagulation. I briefly discussed other more invasive options given the size of the clot reported on the CT scan, however they elected no invasive procedures which given his advanced age and dementia is reasonable. They also reported that he was previously on Coumadin but are not sure when and why he was taken off. I offered him the [facility] since they have elected not to do any intervention should his condition decline. However the opted for inpatient treatment and as such patient will be admitted to the hospital. Review of Systems Review of Systems: Unable to ROS due to the patient's baseline status. He does deny chest pain or shortness of breath. He denies being hungry at this time. [facility] Medical History (Updated 03/19/20 @ 18:33 by Jonn Reyes MD) Anemia BPH (benign prostatic hyperplasia) Carotid body tumor Dementia Factor 5 Leiden mutation, heterozygous Hyperlipidemia Hyponatremia Lymphadenopathy Osteopenia Parkinsons Postural drop in blood pressure on standing Prostate cancer Prostate cancer Rhinitis Vitamin B12 deficiency Functional capacity: wheelchair bound Pertinent family history: Unable to review due to patient's baseline status, dementia. Surgical History H/O aortic aneurysm repair History of nephrectomy Total knee replacement status Social History Alcohol intake: unknown Smoking Status: Unknown if ever smoked Use of substances other than those prescribed or required for medical reasons: Unknown Advance Directives: No Advance Directives Information Provided: No Meds Allergies Allergy/AdvReac Type Severity Reaction Status Date / Time No Known Allergies Allergy Unverified 11/03/19 19:50 [No Known Allergies*] Physical Exam Vital Signs and Narrative: Vital Signs: Last Vital Signs Temp 98.3 F 03/19/20 12:41 Pulse 84 03/19/20 15:55 Resp 20 03/19/20 15:55 BP 185/100 H 03/19/20 15:55 Pulse Ox 93 03/19/20 15:55 Body Mass Index 38.0 Const: Other: Constitutional - Awake and Alert, No apparent distress Eyes - PERRLA, EOMI Cardiovascular - S1S2, RRR, Respiratory - Normal lung expansion, Normal respiratory effort, No respiratory distress, CTA bilaterally Gastrointestinal - NT / ND; +BS; No rebound or guarding - No CVA tenderness Extremities - no calf tenderness bilaterally, no swelling Musculoskeletal - Normal inspection Skin - Warm/Dry Neurological - talks slowly, whispering; disoriented Psychological - Appropriate affect Results Labs CBC and Chem 7: 03/19/20 13:15 03/19/20 13:15 Labs: Laboratory Results - last 24 hr 03/19/20 03/19/20 03/19/20 13:13 13:14 13:14 MCV MCH MCHC RDW Plt Count MPV Immature Gran % (Auto) Neut % (Auto) Lymph % (Auto) Trinity % (Auto) Eos % (Auto) Baso % (Auto) Lymph # (Auto) Trinity # (Auto) Eos # (Auto) Baso # (Auto) Abs Immat Gran (auto) Absolute Neuts (auto) Absolute Nucleated RBC Nucleated RBC % (auto) PT INR APTT Anion Gap Estim Creat Clear Calc Estimated GFR Random Glucose Lactic Acid 0.9 Calcium Ferritin Total Bilirubin Direct Bilirubin AST ALT Alkaline Phosphatase Ammonia 27 Lactate Dehydrogenase Total Creatine Kinase Troponin I High Sens B-Natriuretic Peptide Total Protein Albumin Procalcitonin Urine Color YELLOW Urine Appearance CLEAR Urine pH 6.5 Ur Specific [place] 1.020 Urine Protein NEG Urine Glucose (UA) NEG Urine Ketones NEG Urine Blood TRACE Urine Nitrite NEG Ur Leukocyte Esterase NEG Urine RBC 5-9 H Urine WBC 0 Ur Squamous Epith Cells TRACE Urine Bacteria NONE Coronavirus (PCR) Influenza Type A (PCR) Influenza Type B (PCR) RSV RNA Qual (PCR) 03/19/20 03/19/20 03/19/20 13:15 13:15 13:15 MCV 94.1 MCH 29.5 MCHC 31.3 RDW 13.0 Plt Count 305 D MPV 9.7 Immature Gran % (Auto) 0.3 Neut % (Auto) 80.8 H Lymph % (Auto) 11.2 L Trinity % (Auto) 6.7 Eos % (Auto) 0.8 Baso % (Auto) 0.2 Lymph # (Auto) 0.7 L Trinity # (Auto) 0.4 Eos # (Auto) 0.1 Baso # (Auto) 0.0 Abs Immat Gran (auto) 0.02 Absolute Neuts (auto) 5.1 Absolute Nucleated RBC 0.000 Nucleated RBC % (auto) 0.0 PT 12.2 INR 1.0 APTT 32.4 Anion Gap 15 Estim Creat Clear Calc 77.2 Estimated GFR > 60 Random Glucose 96 Lactic Acid Calcium 8.5 Ferritin Total Bilirubin 0.7 Direct Bilirubin 0.2 AST 23 D ALT 17 Alkaline Phosphatase 60 Ammonia Lactate Dehydrogenase 208 Total Creatine Kinase 111 Troponin I High Sens B-Natriuretic Peptide Total Protein 7.1 Albumin 3.8 Procalcitonin Urine Color Urine Appearance Urine pH Ur Specific [place] Urine Protein Urine Glucose (UA) Urine Ketones Urine Blood Urine Nitrite Ur Leukocyte Esterase Urine RBC Urine WBC Ur Squamous Epith Cells Urine Bacteria Coronavirus (PCR) Influenza Type A (PCR) Influenza Type B (PCR) RSV RNA Qual (PCR) 03/19/20 03/19/20 03/19/20 13:15 13:15 13:15 MCV MCH MCHC RDW Plt Count MPV Immature Gran % (Auto) Neut % (Auto) Lymph % (Auto) Trinity % (Auto) Eos % (Auto) Baso % (Auto) Lymph # (Auto) Trinity # (Auto) Eos # (Auto) Baso # (Auto) Abs Immat Gran (auto) Absolute Neuts (auto) Absolute Nucleated RBC Nucleated RBC % (auto) PT INR APTT Anion Gap Estim Creat Clear Calc Estimated GFR Random Glucose Lactic Acid Calcium Ferritin 413 H Total Bilirubin Direct Bilirubin AST ALT Alkaline Phosphatase Ammonia Lactate Dehydrogenase Total Creatine Kinase Troponin I High Sens 95.9 H B-Natriuretic Peptide 320 H Total Protein Albumin Procalcitonin Urine Color Urine Appearance Urine pH Ur Specific [place] Urine Protein Urine Glucose (UA) Urine Ketones Urine Blood Urine Nitrite Ur Leukocyte Esterase Urine RBC Urine WBC Ur Squamous Epith Cells Urine Bacteria Coronavirus (PCR) NEGATIVE Influenza Type A (PCR) NEGATIVE Influenza Type B (PCR) NEGATIVE RSV RNA Qual (PCR) NEGATIVE 03/19/20 03/19/20 13:15 16:30 MCV MCH MCHC RDW Plt Count MPV Immature Gran % (Auto) Neut % (Auto) Lymph % (Auto) Trinity % (Auto) Eos % (Auto) Baso % (Auto) Lymph # (Auto) Trinity # (Auto) Eos # (Auto) Baso # (Auto) Abs Immat Gran (auto) Absolute Neuts (auto) Absolute Nucleated RBC Nucleated RBC % (auto) PT INR APTT Anion Gap Estim Creat Clear Calc Estimated GFR Random Glucose Lactic Acid Calcium Ferritin Total Bilirubin Direct Bilirubin AST ALT Alkaline Phosphatase Ammonia Lactate Dehydrogenase Total Creatine Kinase Troponin I High Sens 77.9 H B-Natriuretic Peptide Total Protein Albumin Procalcitonin 0.07 Urine Color Urine Appearance Urine pH Ur Specific [place] Urine Protein Urine Glucose (UA) Urine Ketones Urine Blood Urine Nitrite Ur Leukocyte Esterase Urine RBC Urine WBC Ur Squamous Epith Cells Urine Bacteria Coronavirus (PCR) Influenza Type A (PCR) Influenza Type B (PCR) RSV RNA Qual (PCR) Imaging Radiologist's Impressions: Impressions Chest X-Ray 03/19/20 12:41 IMPRESSION: Atelectasis or small infiltrate at the left lung base. This finding is similar to most recent chest x-ray September 2019 and may be chronic. Head CT 03/19/20 12:45 IMPRESSION: No acute intracranial process seen. Age-related cerebral atrophy and chronic small vessel ischemic changes. Chest CTA 03/19/20 14:36 IMPRESSION: 1. Large central pulmonary embolism is seen with extension into the right lower lobe. There may be additional smaller segmental filling defects within the right upper lobe and right middle lobe pulmonary arteries versus artifact related to beam hardening from the dense contrast bolus in the SVC. 2. Aneurysmal thoracic aorta with maximal AP diameter of the ascending aorta measuring 4.3 cm. 3. Scattered areas of atelectasis in the lungs bilaterally. VTE: Positive This critical result was discussed with Dr. Wiley Celeste, 03/19/2020, 3:58 PM and it was ascertained that the content and urgency of this report was understood at the time of direct communication. Assessment and Plan (1) Dementia: Status: Inactive (2) Parkinsons: Status: Inactive (3) Pulmonary embolism: Status: Acute (4) Elevated troponin: Status: Acute (5) Lethargy: Status: Acute (6) Elevated brain natriuretic peptide (BNP) level: Status: Acute This is a 84-year-old male with a history of Parkinson's, advanced dementia, prostate cancer, factor 5 Leiden deficiency and previous DVT who was previously on Coumadin and was taken off anticoagulation, unclear when and why and now presenting to the hospital with increasing lethargy. He is diagnosed with a large central pulmonary embolism which is extending into the right side. Family has elected for noninvasive treatment with anticoagulation and should his condition decline, they would likely make him comfort. 1. Large central pulmonary embolism In the setting of poor mobility and known Factor 5 Leiden deficiency. Tropes and BNP are elevated, however the patient is not hypoxic nor tachypneic. In either case, patient's family has elected for noninvasive treatment with anticoagulation. Will continue Lovenox for 24-48 hours and transition him to oral anticoagulation. Was previously on Coumadin, however would prefer the NOAC. Will defer cardiac monitoring and 2D echo as they are unlikely to change any management. Med rec pending, will continue his baseline home medications. Discussed at length with his son and .
[2020-03-19 19:11] VITALS: BP 183/83; PULSE 71; RESP 18; TEMP 36.6; O2SAT 95
[2020-03-19] MEDS: Carbidopa/Levodopa 25/100 TABLET 1 TAB PO (20:16)
[2020-03-19] MEDS: rOPINIRole HCL 1 MG TABLET PO (20:16)
[2020-03-19] MEDS: QUEtiapine Fumarate 25 MG TABLET 12.5 MG PO (20:16)
[2020-03-19 23:06] VITALS: BP 105/49; PULSE 54; RESP 17; O2SAT 95
[2020-03-19 23:39] VITALS: BP 104/57; PULSE 56; RESP 14; O2SAT 95
[2020-03-20] VITALS (7 sets, daily range): BP systolic 97–162; BP diastolic 51–94; PULSE 56–75; RESP 14–24; TEMP 36.3–36.8; O2SAT 95–100
[2020-03-20] MEDS: 0.9 % Sodium Chloride Flush 3 ML SYRINGE IVFLUSH ×4 (01:22→23:43)
[2020-03-20 06:51] LABS: MANUAL DIFF FLAG NO
[2020-03-20 07:00] LABS: Basophils Percent Auto 0.3 % (0-2); Eosinophils Absolute Auto 0.2 X10*3/uL (0.0-0.4); Eosinophils Percent Auto 3.3 % (0-4); Hematocrit 31.6 % (42-52); Hemoglobin 9.7 g/dl (14.0-18.0); Imm Gran Abs Auto 0.02 X10*3/uL (0.00-0.03); Imm Gran Pct Auto 0.3 % (0.0-0.4); Lymphocytes Absolute Auto 1.1 X10*3/uL (1.2-4.9); Lymphocytes Percent Auto 15.3 % (20-40); Mean Corpuscular HGB Conc 30.7 g/dl (31.0-36.0); Mean Corpuscular Hemoglobin 28.8 pg (27.0-33.0); Mean Corpuscular Volume 93.8 fL (80-98); Mean Platelet Volume 9.9 fL (9.4-12.4); Monocytes Absolute Auto 0.7 X10*3/uL (0.1-1.2); Monocytes Percent Auto 9.7 % (2-11); Neutrophils Absolute Auto 4.9 X10*3/uL (2.0-8.3); Neutrophils Percent Auto 71.1 % (45-73); Platelet Count 277 X10*3/uL (160-400); Red Blood Count 3.37 X10*6/uL (4.60-5.80); Red Cell Distribution Width 13.1 % (11.0-16.0); White Blood Count 6.9 X10*3/uL (4.8-10.8)
--- NOTE | 2020-03-20 07:42 | PC.NURSE ---
REPORT FROM [facility]. PT SLEEPING. WILL GIVE MORNING MEDS SHORTLY.
[2020-03-20] MEDS: rOPINIRole HCL 1 MG TABLET PO ×2 (08:18→21:26)
[2020-03-20] MEDS: Finasteride 5 MG TABLET PO (08:18)
[2020-03-20] MEDS: Bicalutamide 50 MG TABLET PO (08:19)
[2020-03-20] MEDS: Enoxaparin Sodium 100 MG/ML SYRINGE 115 MG SUBCUT (08:19)
[2020-03-20] MEDS: Carbidopa/Levodopa 25/100 TABLET 1 TAB PO ×4 (08:19→21:27)
--- NOTE | 2020-03-20 11:52 | MHC.CM.PN ---
Attempted to meet with patient in regards to discharge planning. Patient has advanced dementia. Spoke with patient's /HCP, Arianne via telephone at [phone]. 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 [facility] [place] [facility] [place] [facility]. Patient is dependent in care and is typically bed bound. PCP verified. COpy of HCP and MLOST provided by the [facility]. IMM explained and sent via certified mail. Anticipate patient will return to [facility] via BLS when medically stable. Continue to monitor for d/c needs.
--- NOTE | 2020-03-20 13:46 | PC.NURSE ---
Pt incont of urine- ro area cleaned, linen changed, barrier cream applied. Pt respositioned to L side as requested. Pt requires full assistance with eating- ate approx 25% of meal with 8oz of water. meds crushed and placed in applesauce of easer of administration
--- NOTE | 2020-03-20 15:38 | HO.PM.IMPN ---
Subjective Subjective Date of Service: 03/20/20 Interval History: Seen in f/u for acute PE, no sob, no other specific compln Review of Systems Review of Systems: Yes Unobtainable due to mental condition Physical Exam Vital Signs: Vital Signs: Last Vital Signs Temp 98.2 F 03/20/20 13:24 Pulse 59 03/20/20 13:24 Resp 14 03/20/20 13:24 BP 162/75 H 03/20/20 13:24 Pulse Ox 100 03/20/20 13:24 Body Mass Index 38.0 General: Oriented to self, no acute distress Resp: CTA bilateral CVS: S1,S2,RRR GI: +BS, NT, no distention Skin: No rash Neuro: motor grossly intact Psych: appropriate affect Objective Data Current Medications Generic Name Dose Route Start Last Admin Trade Name Freq PRN Reason Stop Dose Admin Acetaminophen 650 mg 03/19/20 18:20 Acetaminophen 325 Mg Tablet PO Q6H PRN Pain, Mild (Pain Scale 1-3) Bicalutamide 50 mg 03/20/20 09:00 03/20/20 08:19 Bicalutamide 50 Mg Tablet PO 50 mg DAILY JOE Administration Carbidopa/Levodopa 1 tab 03/19/20 21:00 03/20/20 13:26 Carbidopa/Levodopa 25/100 Tablet PO 1 tab QID JOE Administration Enoxaparin Sodium 115 mg 03/20/20 06:00 03/20/20 08:19 Enoxaparin Sodium 100 Mg/Ml Syringe 1 mg/kg (115 mg) 115 mg SUBCUT Administration Q12H JOE Finasteride 5 mg 03/20/20 09:00 03/20/20 08:18 Finasteride 5 Mg Tablet PO 5 mg DAILY JOE Administration Pharmacy Consult 1 each 03/19/20 18:08 Consult Rx Perform Med Rec MISCELLANE ONCE PRN Consult order Quetiapine Fumarate 12.5 mg 03/19/20 21:00 03/19/20 20:16 Quetiapine Fumarate 25 Mg Tablet PO 12.5 mg BEDTIME JEO Administration Ropinirole HCl 1 mg 03/19/20 21:00 03/20/20 08:18 Ropinirole Hcl 1 Mg Tablet PO 1 mg BID JOE Administration Sodium Chloride 3 ml 03/20/20 00:00 03/20/20 08:21 0.9 % Sodium Chloride Flush 3 Ml Syringe IVFLUSH 3 ml QSHIFT JOE Administration Labs CBC & Chem 7: 03/20/20 06:29 03/19/20 13:15 Microbiology Microbiology Results: Microbiology 03/19/20 13:15 Blood - Venous Blood Culture - Preliminary No growth after 24 hours. 03/19/20 13:15 Blood - Venous Blood Culture - Preliminary No growth after 24 hours. Assessment and Plan (1) Dementia: Status: Inactive (2) Parkinsons: Status: Inactive (3) Pulmonary embolism: Status: Acute (4) Elevated troponin: Status: Acute (5) Lethargy: Status: Acute (6) Elevated brain natriuretic peptide (BNP) level: Status: Acute Assessment and Plan: a 84-year-old male with a history of Parkinson's, advanced dementia, prostate cancer, factor 5 Leiden deficiency and previous DVT who was previously on Coumadin and was taken off anticoagulation, unclear when and why and now presenting to the hospital with increasing lethargy. He is diagnosed with a large central Pulmonary embolism which is extending into the right side. Family has elected for noninvasive treatment with anticoagulation and should his condition decline, they would likely make him comfort. 1. Large central pulmonary embolism in setting of history of malignancy and Factor Leiden In the setting of poor mobility and known Factor 5 Leiden deficiency. Tropes and BNP are elevated, however the patient is not hypoxic nor tachypneic. In either case, patient's family has elected for noninvasive treatment with anticoagulation. Given underlying malignancy and failed coumadin Lovenox is the prefered treatment option, although recent study shows that NOAC such Eliquis is just as good. Will defer cardiac monitoring and 2D echo as they are unlikely to change any management. Dr. Reyes discused at length with his son and , will discharge tomorrow .
--- NOTE | 2020-03-20 16:32 | PC.NURSE ---
x1 attempt to give report to med surg
[2020-03-20] MEDS: Apixaban 5 MG TABLET 10 MG PO (18:13)
[2020-03-20] MEDS: QUEtiapine Fumarate 25 MG TABLET 12.5 MG PO (21:26)
[2020-03-21] VITALS: BP 149/78; PULSE 65; RESP 20; TEMP 36.8; O2SAT 95
[2020-03-21 04:00] VITALS: BP 160/79; PULSE 61; RESP 20; TEMP 36.6; O2SAT 98
[2020-03-21] MEDS: Apixaban 5 MG TABLET 10 MG PO (06:26)
[2020-03-21 07:42] VITALS: BP 168/88; PULSE 60; RESP 19; TEMP 36.2; O2SAT 97
[2020-03-21] MEDS: Bicalutamide 50 MG TABLET PO (08:24)
[2020-03-21] MEDS: 0.9 % Sodium Chloride Flush 3 ML SYRINGE IVFLUSH (08:24)
[2020-03-21] MEDS: rOPINIRole HCL 1 MG TABLET PO (08:24)
[2020-03-21] MEDS: Carbidopa/Levodopa 25/100 TABLET 1 TAB PO ×2 (08:24→12:16)
[2020-03-21] MEDS: Finasteride 5 MG TABLET PO (08:24)
--- NOTE | 2020-03-21 09:45 | P.DS_ITS ---
DS: Providers Provider Date of Service: 06/16/20 Date of admission: 03/19/20 18:20 Primary care physician: Bairon Castrejon DO DS: Diagnosis Discharge Diagnosis (1) Dementia: Status: Inactive (2) Parkinsons: Status: Inactive (3) Pulmonary embolism: Status: Acute (4) Elevated troponin: Status: Acute (5) Lethargy: Status: Acute (6) Elevated brain natriuretic peptide (BNP) level: Status: Acute DS: Medications Discharge Medications Home Medications: Home Medications Medication Instructions Recorded Confirmed levalbuterol tartrate [Xopenex HFA] 2 puff INHALATION Q4H 03/19/20 03/19/20 midodrine 5 mg PO BID PRN 03/19/20 03/19/20 Previous Rx's Medication Instructions Recorded acetic acid 1 appl TOPICAL DAILY@0600 #30 ml 03/01/20 alendronate 70 mg PO Hercules@0630 #30 tab 03/01/20 bicalutamide 50 mg PO DAILY@1000 #30 tab 03/01/20 bisacodyl [Gentle Laxative 10 mg NV DAILY PRN #30 ea 03/01/20 (bisacodyl)] carbidopa-levodopa 1 tab PO 1000,1400,1800,2200 #30 03/01/20 tab cholecalciferol (vitamin D3) 25 mcg PO DAILY@1000 #30 tab 03/01/20 cyanocobalamin (vitamin B-12) 1,000 mcg PO DAILY@1000 #30 tab 03/01/20 [Vitamin B-12] finasteride [Proscar] 5 mg PO DAILY@1000 #30 tab 03/01/20 loperamide 2 mg PO QID PRN #30 cap 03/01/20 loratadine 10 mg PO DAILY PRN #30 tab 03/01/20 magnesium hydroxide [Milk of 30 ml PO BEDTIME PRN #30 ml 03/01/20 Magnesia] miconazole nitrate [Inzo 1 appl TOPICAL DAILY PRN #30 g 03/01/20 Antifungal] polyvinyl alcohol [Artificial 1 drp OPHTHALMIC (EYE) 03/01/20 Tears (polyvin alc)] BID@1000,2200 #30 ml quetiapine 12.5 mg PO BEDTIME@2200 #30 tab 03/01/20 ropinirole 1 mg PO BID@1000,2200 #30 tab 03/01/20 vits A and D-white pet-lanolin [A 1 appl TOPICAL DAILY PRN #30 g 03/01/20 and D (mily, pet)] zinc oxide 1 appl TOPICAL DAILY@0600 #30 g 03/01/20 DS: Summary Hospital Course Hospital Course: Chief Complaint: Increasing lethargy This is a 84-year-old resident of the [facility] who presents to the hospital after he was sent in for increasing lethargy as reported by the ED providers. The patient himself does not talk much and so history is basically obtained from the ED doctors as well as the patient's family, and son over the phone. Per ER providers, the patient over the last 2-3 days has been increasingly lethargic and so was sent in by the snf. There was some reports of a slight cough but otherwise patient basically at his baseline other than the lethargy. Upon arrival to the emergency room he was tested for multiple things. His troponin came back elevated and given his history of factor 5 Leiden deficiency a CTA was completed which showed a large central pulmonary embolism e xtending into the right side as well. The patient was not tachypneic, did not have any pain, was not hypoxic nor tachycardic. He was given a dose of Lovenox and admission was requested. I spoke with the patient's (Arianne @ [phone]) and son (Amrit Melendez @ [phone]) about the patient's current status as well as expected outcomes. We talked about treatment options for his clot with it included anticoagulation. I briefly discussed other more invasive options given the size of the clot reported on the CT scan, however they elected no invasive procedures which given his advanced age and dementia is reasonable. They also reported that he was previously on Coumadin but are not sure when and why he was taken off. I [facility] since they have elected not to do any intervention should his condition decline. However the opted for inpatient treatment and as such patient will be admitted to the hospital. Hospital course: a 84-year-old male with a history of Parkinson's, advanced dementia, prostate cancer, factor 5 Leiden deficiency and previous DVT who was previously on Coumadin and was taken off anticoagulation, unclear when and why and now presenting to the hospital with increasing lethargy. He is diagnosed with a large central Pulmonary embolism which is extending into the right side. Family has elected for noninvasive treatment with anticoagulation and should his condition decline, they would likely make him comfort. 1. Large central pulmonary embolism in setting of history of malignancy and Factor Leiden In the setting of poor mobility and known Factor 5 Leiden deficiency. Tropes and BNP are elevated, however the patient is not hypoxic nor tachypneic. In either case, patient's family has elected for noninvasive treatment with anticoagulation. Given underlying malignancy and failed coumadin, Lovenox is the prefered treatment option, although recent study shows that NOAC such Eliquis is just as good and therefore was switched from Lovenox to Eliquis and seem to be tolerating at this time and will discharge with Eliquis 10 bid for 7 days and then 5 bid Will defer cardiac monitoring and 2D echo as they are unlikely to change any management. Time Spent with Patient Time attestation: Total time spent providing and/or coordinating discharge services: Discharge coordination time: Greater than 30 minutes Physical Exam Vital Signs: Vital Signs: Last Vital Signs Temp 97.2 F 03/21/20 07:42 Pulse 60 03/21/20 07:42 Resp 19 03/21/20 07:42 BP 168/88 H 03/21/20 07:42 Pulse Ox 97 03/21/20 07:42 Body Mass Index 38.0 DS: Data Data Completed and Pending Labs on day of discharge: Laboratory Tests 03/19/20 03/19/20 03/19/20 13:13 13:14 13:14 WBC RBC Hgb Hct MCV MCH MCHC RDW Plt Count MPV Immature Gran % (Auto) Neut % (Auto) Lymph % (Auto) [place] % (Auto) Eos % (Auto) Baso % (Auto) Lymph # (Auto) [place] # (Auto) Eos # (Auto) Baso # (Auto) Abs Immat Gran (auto) Absolute Neuts (auto) Absolute Nucleated RBC Nucleated RBC % (auto) PT INR APTT Sodium Potassium Chloride Carbon Dioxide Anion Gap BUN Creatinine Estim Creat Clear Calc Estimated GFR Random Glucose Lactic Acid 0.9 Calcium Ferritin Total Bilirubin Direct Bilirubin AST ALT Alkaline Phosphatase Ammonia 27 Lactate Dehydrogenase Total Creatine Kinase Troponin I High Sens B-Natriuretic Peptide Total Protein Albumin Procalcitonin Urine Color YELLOW Urine Appearance CLEAR Urine pH 6.5 Ur Specific [place] 1.020 Urine Protein NEG Urine Glucose (UA) NEG Urine Ketones NEG Urine Blood TRACE Urine Nitrite NEG Ur Leukocyte Esterase NEG Urine RBC 5-9 H Urine WBC 0 Ur Squamous Epith Cells TRACE Urine Bacteria NONE Coronavirus (PCR) Influenza Type A (PCR) Influenza Type B (PCR) RSV RNA Qual (PCR) 03/19/20 03/19/20 03/19/20 13:15 13:15 13:15 WBC 6.3 RBC 3.73 L Hgb 11.0 L Hct 35.1 L MCV 94.1 MCH 29.5 MCHC 31.3 RDW 13.0 Plt Count 305 D MPV 9.7 Immature Gran % (Auto) 0.3 Neut % (Auto) 80.8 H Lymph % (Auto) 11.2 L [place] % (Auto) 6.7 Eos % (Auto) 0.8 Baso % (Auto) 0.2 Lymph # (Auto) 0.7 L [place] # (Auto) 0.4 Eos # (Auto) 0.1 Baso # (Auto) 0.0 Abs Immat Gran (auto) 0.02 Absolute Neuts (auto) 5.1 Absolute Nucleated RBC 0.000 Nucleated RBC % (auto) 0.0 PT 12.2 INR 1.0 APTT 32.4 Sodium 139 Potassium 5.1 Chloride 100 Carbon Dioxide 29 Anion Gap 15 BUN 25 H Creatinine 0.87 Estim Creat Clear Calc 77.2 Estimated GFR > 60 Random Glucose 96 Lactic Acid Calcium 8.5 Ferritin Total Bilirubin 0.7 Direct Bilirubin 0.2 AST 23 D ALT 17 Alkaline Phosphatase 60 Ammonia Lactate Dehydrogenase 208 Total Creatine Kinase 111 Troponin I High Sens B-Natriuretic Peptide Total Protein 7.1 Albumin 3.8 Procalcitonin Urine Color Urine Appearance Urine pH Ur Specific [place] Urine Protein Urine Glucose (UA) Urine Ketones Urine Blood Urine Nitrite Ur Leukocyte Esterase Urine RBC Urine WBC Ur Squamous Epith Cells Urine Bacteria Coronavirus (PCR) Influenza Type A (PCR) Influenza Type B (PCR) RSV RNA Qual (PCR) 03/19/20 03/19/20 03/19/20 13:15 13:15 13:15 WBC RBC Hgb Hct MCV MCH MCHC RDW Plt Count MPV Immature Gran % (Auto) Neut % (Auto) Lymph % (Auto) [place] % (Auto) Eos % (Auto) Baso % (Auto) Lymph # (Auto) [place] # (Auto) Eos # (Auto) Baso # (Auto) Abs Immat Gran (auto) Absolute Neuts (auto) Absolute Nucleated RBC Nucleated RBC % (auto) PT INR APTT Sodium Potassium Chloride Carbon Dioxide Anion Gap BUN Creatinine Estim Creat Clear Calc Estimated GFR Random Glucose Lactic Acid Calcium Ferritin 413 H Total Bilirubin Direct Bilirubin AST ALT Alkaline Phosphatase Ammonia Lactate Dehydrogenase Total Creatine Kinase Troponin I High Sens 95.9 H B-Natriuretic Peptide 320 H Total Protein Albumin Procalcitonin Urine Color Urine Appearance Urine pH Ur Specific [place] Urine Protein Urine Glucose (UA) Urine Ketones Urine Blood Urine Nitrite Ur Leukocyte Esterase Urine RBC Urine WBC Ur Squamous Epith Cells Urine Bacteria Coronavirus (PCR) NEGATIVE Influenza Type A (PCR) NEGATIVE Influenza Type B (PCR) NEGATIVE RSV RNA Qual (PCR) NEGATIVE 03/19/20 03/19/20 03/20/20 13:15 16:30 06:29 WBC 6.9 RBC 3.37 L Hgb 9.7 L Hct 31.6 L MCV 93.8 MCH 28.8 MCHC 30.7 L RDW 13.1 Plt Count 277 MPV 9.9 Immature Gran % (Auto) 0.3 Neut % (Auto) 71.1 Lymph % (Auto) 15.3 L [place] % (Auto) 9.7 Eos % (Auto) 3.3 Baso % (Auto) 0.3 Lymph # (Auto) 1.1 L [place] # (Auto) 0.7 Eos # (Auto) 0.2 Baso # (Auto) 0.0 Abs Immat Gran (auto) 0.02 Absolute Neuts (auto) 4.9 Absolute Nucleated RBC 0.000 Nucleated RBC % (auto) 0.0 PT INR APTT Sodium Potassium Chloride Carbon Dioxide Anion Gap BUN Creatinine Estim Creat Clear Calc Estimated GFR Random Glucose Lactic Acid Calcium Ferritin Total Bilirubin Direct Bilirubin AST ALT Alkaline Phosphatase Ammonia Lactate Dehydrogenase Total Creatine Kinase Troponin I High Sens 77.9 H B-Natriuretic Peptide Total Protein Albumin Procalcitonin 0.07 Urine Color Urine Appearance Urine pH Ur Specific [place] Urine Protein Urine Glucose (UA) Urine Ketones Urine Blood Urine Nitrite Ur Leukocyte Esterase Urine RBC Urine WBC Ur Squamous Epith Cells Urine Bacteria Coronavirus (PCR) Influenza Type A (PCR) Influenza Type B (PCR) RSV RNA Qual (PCR) Preliminary micro results at discharge 03/19/20 13:15 Blood Culture - Preliminary Blood - Venous No growth after 24 hours. 03/19/20 13:15 Blood Culture - Preliminary Blood - Venous No growth after 24 hours. Discharge Plan Discharge Anticipated Discharge Date/Time: 03/21/20 09:36 Patient Disposition: Xfer SNF Discharge Diagnosis: pE Referrals: [facility] [Outside] Bairon Castrejon DO [Primary Care Provider] - Discharge Medications: New Eliquis 5 mg tablet 5 mg PO BID Qty: 60 RF: 4 Continued quetiapine 25 mg Tablet 12.5 mg PO BEDTIME@2200 Qty: 30 RF: 0 bicalutamide 50 mg Tablet 50 mg PO DAILY@1000 Qty: 30 RF: 0 ropinirole 1 mg Tablet 1 mg PO BID@1000,2200 Qty: 30 RF: 0 loperamide 2 mg Capsule 2 mg PO QID PRN (Reason: Diarrhea) Qty: 30 RF: 0 miconazole nitrate [Inzo Antifungal] 2 % Cream 1 appl topical DAILY PRN (Reason: SKIN IRRITATION) Qty: 30 RF: 0 polyvinyl alcohol [Artificial Tears (polyvin alc)] 1.4 % Drops 1 drp ophthalmic (eye) BID@1000,2200 Qty: 30 RF: 0 alendronate 70 mg Tablet 70 mg PO Hercules@0630 Qty: 30 RF: 0 cyanocobalamin (vitamin B-12) [Vitamin B-12] 1,000 mcg Tablet 1,000 mcg PO DAILY@1000 Qty: 30 RF: 0 zinc oxide 20 % Ointment 1 appl topical DAILY@0600 Qty: 30 RF: 0 magnesium hydroxide [Milk of Magnesia] 400 mg/5 mL Suspension 30 ml PO BEDTIME PRN (Reason: Constipation) Qty: 30 RF: 0 bisacodyl [Gentle Laxative (bisacodyl)] 10 mg Suppository 10 mg NV DAILY PRN (Reason: Constipation) Qty: 30 RF: 0 acetic acid 0.25 % Solution 1 appl topical DAILY@0600 Qty: 30 RF: 0 carbidopa-levodopa 25-100 mg Tablet 1 tab PO 1000,1400,1800,2200 Qty: 30 RF: 0 finasteride [Proscar] 5 mg Tablet 5 mg PO DAILY@1000 Qty: 30 RF: 0 loratadine 10 mg Tablet 10 mg PO DAILY PRN (Reason: Runny Nose) Qty: 30 RF: 0 cholecalciferol (vitamin D3) 25 mcg (1,000 unit) Tablet 25 mcg PO DAILY@1000 Qty: 30 RF: 0 vits A and D-white pet-lanolin [A and D (mily, pet)] Ointment 1 appl topical DAILY PRN (Reason: DISCOMFORT) Qty: 30 RF: 0 levalbuterol tartrate [Xopenex HFA] 45 mcg/actuation Hfa Aerosol Inhaler 2 puff INHALATION Q4H RF: 0 midodrine 5 mg tablet 5 mg PO BID PRN (Reason: SBP <90) RF: 0 Discharge Orders: Discharge Order (Routine); Ordered 03/21/20 Ordered By: Julio Mensah Diet: advance to usual diet Activity on Discharge: As tolerated Stand Alone Forms: Patient Portal Discharge page Visit Report Forms: Patient Portal Discharge page Care Plan Goals: prevent complications of PE Health Concerns: blood clots Plan of Treatment: Take Eliquis as directed with 10 mg twice daily for 7 days, then 5 twice daily thereafter Assessment: PE Discharge Date/Time: 03/21/20 13:34
--- NOTE | 2020-03-21 11:13 | MHC.CM.PN ---
Patient has been medically cleared for dc to return to [facility] today at 1PM. Patient's /HCP is aware of and pleased with the dc plan.Last IMM addressed on 03/20/20.
[2020-03-21 11:19] VITALS: BP 115/62; PULSE 58; RESP 20; TEMP 36.1; O2SAT 93
--- NOTE | 2020-03-21 12:20 | MHC.INPTTRAN ---
Ambulates with walker and assist short distance. Is on aspiration precautions. thickened liq. Gricelda diet. Denies pain. Will cont with eliquis. see orders for dose change. MEds in applesauce. VSS. thanks.
== END 2020-03-21 13:34 | disposition skilled nursing facility (03) | DRG 176 ==
LOC: HO.ED 14:58 → HO.EDOVER 18:45 → HO.S3 03-20 16:00
PROVIDERS: Physician Assistant; Admitting Provider Family Medicine; Emergency Provider Emergency Medicine; PCP Hospitalist; Visit Provider Internal Medicine
DX: I26.99 Other pulmonary embolism without acute cor pulmonale (principal); D68.51 Activated protein C resistance; F02.81 Dementia in other diseases classified elsewhere, unspecified severity, with behavioral disturbance; E78.5 Hyperlipidemia, unspecified; G20 Parkinson's disease; Z85.46 Personal history of malignant neoplasm of prostate; Z20.822 Contact with and (suspected) exposure to COVID-19; Z79.01 Long term (current) use of anticoagulants; Z79.899 Other long term (current) drug therapy
CPT/HCPCS: 0241U; 36415; 70450; 71045; 71275; 80053; 80076; 81001; 82140; 82550; 82728; 83605; 83615; 83880; 84145; 84484; 85025; 85610; 85730; 87040; 93005; 96360; 96372; 99285; J1650; Q9967

== ENCOUNTER 2020-03-22 00:04 | Inpatient (IN) | payer MEDICARE, MEDICAID, SELFPAY ==
[2020-03-22] VITALS (8 sets, daily range): BP systolic 104–162; BP diastolic 50–78; PULSE 60–80; RESP 16–21; TEMP 36.2–37; O2SAT 90–99; BMI 33.5
--- NOTE | ~2020-03-22 | XR_ITS ---
EXAMINATION: PORTABLE CHEST 1 VIEW CLINICAL INFORMATION: ngt placement . COMPARISON: 03/19/2020. TECHNIQUE: Portable frontal view of the chest was obtained. FINDINGS: Lungs mildly hypoexpanded. Persistent obscuration left hemidiaphragm system with mild layering left-sided effusion and associated left basilar consolidation/atelectasis, better appreciated on the 03/19/2020 CT scan. Patient is rotated to the left. No overt edema or pneumothorax. Cardiac silhouette within normal limits for size with vascular calcification in the aorta. Nasogastric tube below level the diaphragm. XR/XR chest 1V IMPRESSION: Persistent left basilar airspace changes likely representing a component of small layering effusion and associated left basilar consolidation/atelectasis
--- NOTE | 2020-03-22 00:42 | ED_ITS ---
HPI - General Adult General Chief complaint: General Medical Stated complaint: GI BLEED Time Seen by Provider: 03/22/20 00:26 Source: family and EMS Mode of arrival: EMS Limitations: altered mental status History of Present Illness HPI narrative: [facility] Patient was discharged yesterday from this facility. Patient was admitted for a large pulmonary embolism, he was started on Lovenox and then switched to Eliquis. Patient's family did not want aggressive intervention for the large pulmonary embolism. Patient was discharged to the [facility]. Earlier this evening, they were doing rounds at the [facility], they noticed that the patient had black stool per rectum. He was brought to the emergency room for further evaluation and treatment. Patient's who is the healthcare proxy states that the patient is DNR DNI, if needed we can hospitalize the patient and blood transfusion if needed is acceptable as well. Patient is unable to give any history due to his advanced dementia. MD complaint: Rectal bleeding Related Data Home Medications Medication Instructions Recorded Confirmed levalbuterol tartrate [Xopenex HFA] 2 puff INHALATION Q4H 03/19/20 03/19/20 midodrine 5 mg PO BID PRN 03/19/20 03/19/20 Previous Rx's Medication Instructions Recorded acetic acid 1 appl TOPICAL DAILY@0600 #30 ml 03/01/20 alendronate 70 mg PO Hercules@0630 #30 tab 03/01/20 bicalutamide 50 mg PO DAILY@1000 #30 tab 03/01/20 bisacodyl [Gentle Laxative 10 mg NM DAILY PRN #30 ea 03/01/20 (bisacodyl)] carbidopa-levodopa 1 tab PO 1000,1400,1800,2200 #30 03/01/20 tab cholecalciferol (vitamin D3) 25 mcg PO DAILY@1000 #30 tab 03/01/20 cyanocobalamin (vitamin B-12) 1,000 mcg PO DAILY@1000 #30 tab 03/01/20 [Vitamin B-12] finasteride [Proscar] 5 mg PO DAILY@1000 #30 tab 03/01/20 loperamide 2 mg PO QID PRN #30 cap 03/01/20 loratadine 10 mg PO DAILY PRN #30 tab 03/01/20 magnesium hydroxide [Milk of 30 ml PO BEDTIME PRN #30 ml 01/14/21 Magnesia] miconazole nitrate [Inzo 1 appl TOPICAL DAILY PRN #30 g 03/01/20 Antifungal] polyvinyl alcohol [Artificial 1 drp OPHTHALMIC (EYE) 03/01/20 Tears (polyvin alc)] BID@1000,2200 #30 ml quetiapine 12.5 mg PO BEDTIME@2200 #30 tab 03/01/20 ropinirole 1 mg PO BID@1000,2200 #30 tab 03/01/20 vits A and D-white pet-lanolin [A 1 appl TOPICAL DAILY PRN #30 g 03/01/20 and D (mily, pet)] zinc oxide 1 appl TOPICAL DAILY@0600 #30 g 03/01/20 apixaban [Eliquis] 5 mg PO BID #60 tab 03/21/20 apixaban [Eliquis] 10 mg PO Q12H #24 tab 03/21/20 Allergies Allergy/AdvReac Type Severity Reaction Status Date / Time No Known Allergies Allergy Unverified 11/03/19 19:50 [No Known Allergies*] Review of Systems Review of Systems: Yes Unobtainable due to mental condition [facility] Past Medical History Medical History Anemia BPH (benign prostatic hyperplasia) Carotid body tumor Dementia Factor 5 Leiden mutation, heterozygous Hyperlipidemia Hyponatremia Lymphadenopathy Osteopenia Parkinsons Postural drop in blood pressure on standing Prostate cancer Prostate cancer Rhinitis Vitamin B12 deficiency Surgical History H/O aortic aneurysm repair History of nephrectomy Total knee replacement status Social History Social History Household Members: None Housing: Correction Alcohol intake: unknown Smoking Status: Unknown if ever smoked Advance Directives: No service: Yes Current occupational status: retired Physical Exam Vital Signs: Vital Signs: Last Vital Signs Temp 98.5 F 03/22/20 00:43 Pulse 60 03/22/20 00:43 Resp 16 03/22/20 00:43 BP 104/50 L 03/22/20 00:43 Pulse Ox 90 L 03/22/20 00:43 Body Mass Index 33.5 Appearance: Patient is awake, does not seem in distress, answers yes no questions Eyes: Pupils equal, round and reactive to light. ENT: Pharynx normal. Neck: Normal inspection. Neck supple. No lymph nodes noted. No crepitus CVS: Normal heart rate and rhythm. Pulses normal. Normal S1 and S2 Respiratory: No respiratory distress. Breath sounds normal. No Wheezing. No rales Abdomen: Soft, seems nontender. No rigidity. No distention. ROJAS: Moderate amount mucus mixed with blood in the diapers Skin: Skin warm and dry. Slightly pale, Normal skin turgor. Extremities: No lower extremity edema. No lower extremity edema. No Lacerations. No Rash Neuro: Moving all extermities. Course Course Course Narrative: Patient's H&H is stable at the moment, however he did have a fair amount of blood and mucus in his diapers. I discussed the patient with Dr. Templeton, we will go ahead and admit the patient. Of note, patient's oxygen saturation is 90 91% on room air, he is currently on nasal cannula at 2 L saturating at 99%. Low oxygen saturation likely secondary to the large pulmonary embolism. We discussed with the patient's that the patient may need a colonoscopy in the morning, states that if needed, the patient may get a colonoscopy Medical Decision Making Lab Data Result diagrams: 03/22/20 01:02 03/22/20 01:02 Labs: Lab Results 03/22/20 03/22/20 03/22/20 Range/Units 01:02 01:02 01:05 WBC 7.4 (4.8-10.8) X10*3/uL RBC 3.22 L (4.60-5.80) X10*6/uL Hgb 9.5 L (14.0-18.0) g/dl Hct 30.2 L (42-52) % MCV 93.8 (80-98) fL MCH 29.5 (27.0-33.0) pg MCHC 31.5 (31.0-36.0) g/dl RDW 13.0 (11.0-16.0) % Plt Count 273 (160-400) X10*3/uL MPV 9.6 (9.4-12.4) fL Immature Gran % (Auto) 0.3 (0.0-0.4) % Neut % (Auto) 82.2 H (45-73) % Lymph % (Auto) 8.4 L (20-40) % [place] % (Auto) 6.2 (2-11) % Eos % (Auto) 2.8 (0-4) % Baso % (Auto) 0.1 (0-2) % Lymph # (Auto) 0.6 L (1.2-4.9) X10*3/uL [place] # (Auto) 0.5 (0.1-1.2) X10*3/uL Eos # (Auto) 0.2 (0.0-0.4) X10*3/uL Baso # (Auto) 0.0 (0.0-0.2) X10*3/uL Abs Immat Gran (auto) 0.02 (0.00-0.03) X10*3/uL Absolute Neuts (auto) 6.1 (2.0-8.3) X10*3/uL Absolute Nucleated RBC 0.000 (0.0-0.012) X10*3/uL Nucleated RBC % (auto) 0.0 (0.0-0.2) /100WBC Smear Tech's Comments VERIFIED Sodium 142 (135-145) mmol/L Potassium 4.5 (3.3-5.1) mmol/L Chloride 104 (96-108) mmol/L Carbon Dioxide 28 (22-29) mmol/L Anion Gap 15 (12-20) BUN 27 H (9-16) mg/dL Creatinine 0.94 (0.5-1.4) mg/dL Estim Creat Clear Calc 67.0 Estimated GFR > 60 Random Glucose 107 (60-115) mg/dL Calcium 8.1 L (8.4-10.2) mg/dL Total Bilirubin 0.4 (0.0-1.0) mg/dL Direct Bilirubin 0.2 (0.0-0.5) mg/dL AST 17 (5-37) U/L ALT < 6 (0-40) U/L Alkaline Phosphatase 54 (39-117) U/L Total Protein 6.2 L (6.5-8.0) g/dL Albumin 3.3 L (3.5-5.0) g/dL Stool Occult Blood POS (NEG) Discharge Plan Discharge Clinical Impression: Bright red rectal bleeding Patient Disposition: Admitted As Inpatient
[2020-03-22 01:09] LABS: Basophils Percent Auto 0.1 % (0-2); Eosinophils Absolute Auto 0.2 X10*3/uL (0.0-0.4); Eosinophils Percent Auto 2.8 % (0-4); Hematocrit 30.2 % (42-52); Hemoglobin 9.5 g/dl (14.0-18.0); Imm Gran Abs Auto 0.02 X10*3/uL (0.00-0.03); Imm Gran Pct Auto 0.3 % (0.0-0.4); Lymphocytes Absolute Auto 0.6 X10*3/uL (1.2-4.9); Lymphocytes Percent Auto 8.4 % (20-40); MANUAL DIFF FLAG SCAN; Mean Corpuscular HGB Conc 31.5 g/dl (31.0-36.0); Mean Corpuscular Hemoglobin 29.5 pg (27.0-33.0); Mean Corpuscular Volume 93.8 fL (80-98); Mean Platelet Volume 9.6 fL (9.4-12.4); Monocytes Absolute Auto 0.5 X10*3/uL (0.1-1.2); Monocytes Percent Auto 6.2 % (2-11); Neutrophils Absolute Auto 6.1 X10*3/uL (2.0-8.3); Neutrophils Percent Auto 82.2 % (45-73); Platelet Count 273 X10*3/uL (160-400); Red Blood Count 3.22 X10*6/uL (4.60-5.80); SCAN SMEAR FLAG 1; White Blood Count 7.4 X10*3/uL (4.8-10.8)
[2020-03-22 01:09] LABS: OBS Int Ctl Valid YES; OBS1 POS (NEG)
[2020-03-22] MEDS: 0.9 % Sodium Chloride 1,000 ML 999 ML IVCONT (01:18)
[2020-03-22 01:28] LABS: SLIDE REVIEW VERIFIED
[2020-03-22 01:37] LABS: Alanine Aminotransferase < 6 U/L (0-40); Albumin Level 3.3 g/dL (3.5-5.0); Alkaline Phosphatase 54 U/L (39-117); Anion Gap 15 (12-20); Aspartate Amino Transferase 17 U/L (5-37); Bilirubin Direct 0.2 mg/dL (0.0-0.5); Bilirubin Total 0.4 mg/dL (0.0-1.0); Blood Urea Nitrogen 27 mg/dL (9-16); Calcium 8.1 mg/dL (8.4-10.2); Carbon Dioxide 28 mmol/L (22-29); Chloride 104 mmol/L (96-108); Estimated Glomerular Filt Rate > 60; Glucose Random 107 mg/dL (60-115); Potassium 4.5 mmol/L (3.3-5.1); Sodium 142 mmol/L (135-145); Total Protein 6.2 g/dL (6.5-8.0)
--- NOTE | 2020-03-22 02:11 | P.HPHOSP_ITS ---
History of Present Illness Date of Service: 03/22/20 Chief Complaint: BRBPR 84-year-old male with a past medical history of advanced dementia, factor 5 laden deficiency with a history of DVT, patient was just discharged on 03/21/2020 from the hospital. Patient was discharged on Eliquis for large central pulmonary embolism ER Dr. donaldson-> had an extensive discussion about the blood clots and treatment options with the patient's and finally decided to continue on conservative management with Eliquis. And sent back to [facility]. Patient presented to the hospital with a chief complaint of bright red blood per rectum. Patient is a poor historian secondary to dementia. Most of the history obtained from the ER team. I also spoke to the patient's Arianne at phone [phone]; ER course: ER team also mentioned that patient's hemoglobin was stable at 9.5; rectal exam showed guaiac-positive stool with blood clots and mucus. Blood pressure was 104/50-improved to 128/78 after IV fluids. Admitted to the hospital for further management [facility] [place] Medical History Anemia BPH (benign prostatic hyperplasia) Carotid body tumor Dementia Factor 5 Leiden mutation, heterozygous Hyperlipidemia Hyponatremia Lymphadenopathy Osteopenia Parkinsons Postural drop in blood pressure on standing Prostate cancer Prostate cancer Rhinitis Vitamin B12 deficiency Surgical History H/O aortic aneurysm repair History of nephrectomy Total knee replacement status Social History Household Members: None Housing: Custodial Alcohol intake: unknown Smoking Status: Unknown if ever smoked Advance Directives: No service: Yes Current occupational status: retired Meds Allergies Allergy/AdvReac Type Severity Reaction Status Date / Time No Known Allergies Allergy Unverified 11/03/19 19:50 [No Known Allergies*] Home Medications Medication Instructions Recorded Confirmed Type levalbuterol tartrate [Xopenex HFA] 2 puff INHALATION Q4H 03/19/20 03/22/20 History midodrine 5 mg PO BID PRN 03/19/20 03/22/20 History Physical Exam Vital Signs and Narrative: Vital Signs: Last Vital Signs Temp 98.5 F 03/22/20 00:43 Pulse 60 03/22/20 00:43 Resp 16 03/22/20 00:43 BP 104/50 L 03/22/20 00:43 Pulse Ox 90 L 03/22/20 00:43 Body Mass Index 33.5 Gen: Appears be in no acute distress HEENT: NCAT, Moist mucosa. Pulmonary: Vesicular breath sounds, fair air entry CVS: Normal S1-S2 Abdomen: BS+, Soft, Nontender Extremities: Warm well perfused Neuro: Alert and awake. Results Labs CBC and Chem 7: 03/22/20 01:02 03/22/20 01:02 Labs: Laboratory Results - last 24 hr 03/22/20 03/22/20 03/22/20 01:02 01:02 01:05 MCV 93.8 MCH 29.5 MCHC 31.5 RDW 13.0 Plt Count 273 MPV 9.6 Immature Gran % (Auto) 0.3 Neut % (Auto) 82.2 H Lymph % (Auto) 8.4 L [place] % (Auto) 6.2 Eos % (Auto) 2.8 Baso % (Auto) 0.1 Lymph # (Auto) 0.6 L [place] # (Auto) 0.5 Eos # (Auto) 0.2 Baso # (Auto) 0.0 Abs Immat Gran (auto) 0.02 Absolute Neuts (auto) 6.1 Absolute Nucleated RBC 0.000 Nucleated RBC % (auto) 0.0 Smear Tech's Comments VERIFIED Anion Gap 15 Estim Creat Clear Calc 67.0 Estimated GFR > 60 Random Glucose 107 Calcium 8.1 L Total Bilirubin 0.4 Direct Bilirubin 0.2 AST 17 ALT < 6 Alkaline Phosphatase 54 Total Protein 6.2 L Albumin 3.3 L Stool Occult Blood POS Assessment and Plan (1) Bright red rectal bleeding: Status: Acute 84-year-old male with a past medical history of hyperlipidemia, hypo natremia, osteopenia, Parkinson's, postural hypotension, vitamin B12 deficiency, BPH, advanced dementia, factor 5 laden mutation; was just discharged from the hospital on Eliquis for large pulmonary embolism; presented back to the hospital with a chief complaint of bright red blood per rectum. Bright red blood per rectum: Per ER physician rectal exam showed blood clots and mucus. Hemoglobin was 9.5. Given IV fluids. Monitor serial H&H. Gastroenterology consult. Ppi. I spoke to the patient's -Arianne; mentioned that she is agreeable for colonoscopy if deemed necessary by the swing type lathe operator. NPO Gentle IV fluids History of factor 5 laden deficiency/large central pulmonary embolism: Eliquis on hold in the setting of GI bleed. Will resume once cleared by Gastroenterology. History of postural hypotension patient on midodrine at home. Blood pressure currently stable. Will continue to monitor. For all other chronic conditions, home medications will be continued once med r ec is done. Will hold Eliquis as mentioned Code status: DNR/DNI. Spoke to the patient's . The
--- NOTE | 2020-03-22 02:11 | PC.NURSE ---
SPOKE WITH REGARDING COLONOSCOPY AND AGREES TO PROCEDURE IN THE MORNING. PT IS BEING ADMITTED FOR TONIGHT. PT RESTING IN STRETCHER AND DENIES ANY COMPLAINTS AT THIS TIME. WILL CONTINUE TO MONITOR PT.
--- NOTE | 2020-03-22 02:24 | PC.NURSE ---
MED REC DONE
[2020-03-22 03:46] LABS: COVID-19 Test Negative (Negative); IDNOW Serial# 9DD0AD1C
--- NOTE | 2020-03-22 03:54 | PC.NURSE ---
PT SLEEPING IN STRETCHER IN NAD. VS OBTAINED. PT DENIES ANY COMPLAINTS. NS UP AND RUNNING W/O, SITE INTACT. PT AWAITING FOR PENDING ADMISSION. WILL CONTINUE TO MONITOR PT. PT WAKES AND WHEN SPEAKING PT IS DIFFICULT TO UNDERSTAND. RESPIRATIONS EASY, N/L. SKIN W/D PT AWAITING FOR COLONOSCOPY.
[2020-03-22 04:21] LABS: Basophils Percent Auto 0.2 % (0-2); Eosinophils Absolute Auto 0.3 X10*3/uL (0.0-0.4); Eosinophils Percent Auto 3.4 % (0-4); Imm Gran Abs Auto 0.02 X10*3/uL (0.00-0.03); Imm Gran Pct Auto 0.2 % (0.0-0.4); Lymphocytes Absolute Auto 0.8 X10*3/uL (1.2-4.9); Lymphocytes Percent Auto 8.5 % (20-40); MANUAL DIFF FLAG NO; Mean Corpuscular HGB Conc 31.3 g/dl (31.0-36.0); Mean Corpuscular Hemoglobin 29.6 pg (27.0-33.0); Mean Corpuscular Volume 94.7 fL (80-98); Mean Platelet Volume 9.9 fL (9.4-12.4); Monocytes Absolute Auto 0.7 X10*3/uL (0.1-1.2); Monocytes Percent Auto 7.5 % (2-11); Neutrophils Absolute Auto 7.7 X10*3/uL (2.0-8.3); Neutrophils Percent Auto 80.2 % (45-73); Platelet Count 267 X10*3/uL (160-400); Red Blood Count 3.38 X10*6/uL (4.60-5.80); Red Cell Distribution Width 12.9 % (11.0-16.0); White Blood Count 9.5 X10*3/uL (4.8-10.8)
--- NOTE | 2020-03-22 04:22 | PC.NURSE ---
PT RESTING IN STRETCHER. VS OBTAINED. PT IS STRAIGHT CATH FOR URINE SAMPLE. LABS DRAWN TO LAB FOR EVAL. WILL CONTINUE TO MONITOR PT.
[2020-03-22 04:25] LABS: Glucose Urine UA NEG (NEG); Leukocyte Esterase Urine NEG (NEG); Nitrite Urine NEG (NEG); PH 5.5 (5.0-8.0); Urine Blood 3+ (NEG); Urine Ketones NEG (NEG); Urine Protein NEG (NEG-TRACE)
[2020-03-22 04:27] LABS: Appearance Urine CLEAR; Color Urine YELLOW
[2020-03-22 04:33] LABS: Amorphous Sediment Urine 2+ /LPF; Squamous Epithelial Cell Urine 2+ /LPF
--- NOTE | 2020-03-22 05:32 | PC.NURSE ---
PT WAKES TO VERBAL STIMULI, RESPIRAITONS EASY, N/L. SKIN W/D. WILL CONTINUE TO MONITOR PT. PT IN NAD.
--- NOTE | 2020-03-22 05:40 | PC.NURSE ---
SPOKE WITH JOSÉ, DELIVERY RN, FOR AN UPDATE.
[2020-03-22] MEDS: 0.9 % Sodium Chloride Flush 3 ML SYRINGE IVFLUSH ×2 (09:57→18:04)
--- NOTE | 2020-03-22 10:10 | PC.NURSE ---
unable to give morning meds r/t patient needs a swallow eval. pt failed bedside eval.
[2020-03-22] MEDS: Pantoprazole Sodium 40 MG/10 ML VIAL IVPUSH (10:16)
--- NOTE | 2020-03-22 11:31 | PC.NURSE ---
patient awakes to verbal stimulus, monitoring tech intact, vitals stable patient currently watching tv, will continue to monitor.
[2020-03-22 12:23] LABS: Hematocrit 33.3 % (42-52); Hemoglobin 10.4 g/dl (14.0-18.0)
--- NOTE | 2020-03-22 12:33 | PM.EVENT ---
Event Note Date of Service: 03/22/20 Event Note: GI consult dictated 84 yo with rectal bleeding on Eliquis for PE. hematocrit stable. discussed colonoscopy with pt's Arianne. scheduled for tomorrow after bowel prep.
--- NOTE | 2020-03-22 13:32 | CONS_ITS ---
DATE OF SERVICE: 03/22/2020 REFERRING PHYSICIAN: Cha Silva MD REASON FOR CONSULTATION: Rectal bleeding. HISTORY OF PRESENT ILLNESS: The patient is an 84-year-old man, who was admitted to the hospital after presenting to the emergency room with rectal bleeding. He has a history of dementia and the history is obtained from the medical record. He was recently discharged on Eliquis because of a pulmonary embolism and reportedly had rectal bleeding and was sent back to the emergency room. There were no complaints of abdominal pain. He was evaluated in the emergency department with a stable hematocrit. He was noted to have blood clots and mucus on rectal examination and in his diaper. He had no complaints of abdominal pain. He does have a family history of colon cancer in his father and his stated he had regular colonoscopies done in [place] prior to his admission to the [facility]. He has a history of dementia and is unable to provide any history, but does deny abdominal pain. PAST MEDICAL HISTORY: 1. Pulmonary embolism with recent therapy with Eliquis. 2. Postural hypotension. 3. BPH. 4. Hyperlipidemia. 5. Osteopenia. 6. Prostate cancer. 7. Heterozygous for factor 5 Leiden mutation. 8. Dementia. 9. Parkinson disease. 10. Neurogenic bladder. PAST SURGICAL HISTORY: Includes aortic aneurysm repair and knee replacement as well as nephrectomy. CURRENT MEDICATIONS: His current medication list is reviewed in the chart. His Eliquis has been held. ALLERGIES: THERE ARE NONE REPORTED. FAMILY HISTORY: Positive for colon cancer in his father. SOCIAL HISTORY: There is no current tobacco, alcohol, or substance abuse. He has been residing at the [facility]. REVIEW OF SYSTEMS: Not obtainable secondary to dementia. PHYSICAL EXAMINATION: GENERAL: Reveals a pleasant male, in no acute distress. He is lying in bed, watching television. VITAL SIGNS: Reviewed in the electronic medical record and are stable. SKIN: Pale. HEENT: Shows no scleral icterus. NECK: Without lymphadenopathy or thyromegaly. LUNGS: Clear. HEART: Regular rate and rhythm. S1, S2. No murmur. ABDOMEN: Soft without focal masses or tenderness. Bowel sounds are present. No organomegaly is noted. EXTREMITIES: Without edema. LABORATORY DATA: Shows a white blood cell count of 9.5, hematocrit 32. Chemistries show slight elevation of the BUN at 27. IMPRESSION: Gastrointestinal bleeding. The differential diagnosis for this includes diverticular bleeding, hemorrhoidal bleeding, AVMs, and malignancy. I discussed colonoscopy with the patient's including risks and benefits. She understands these and agrees to proceed. This will be arranged for tomorrow after a bowel prep today pending his clinical course. Thanks for asking me to see him. I will follow him in the hospital with you. MD FINESSE Shelton/TIM / [id number]
--- NOTE | 2020-03-22 13:51 | PC.NURSE ---
speech is here to perform swallow eval on patient.
--- NOTE | 2020-03-22 14:09 | PC.NURSE ---
speech suggests crushed meds, ground food with honey thick liquids, they will contact Dr. burnett regarding bowel prep that was ordered by GI.
--- NOTE | 2020-03-22 15:10 | PC.NURSE ---
attempted to call floor, no answer to give report
--- NOTE | 2020-03-22 15:10 | PC.NURSE ---
gi was called (dr. romero), if patient is not agreeable to NG tube to administer medication to call dr. romero back and he will change the patient to a flexible sigmoidoscopy with colace tonight and in the am, and will give enemas until clear in the am.
[2020-03-22] MEDS: PEG 3350/Na Sulf,Bicarb,Cl/KCL 4,000 ML SOLN.RECON 4000 ML PO (18:03)
--- NOTE | 2020-03-22 18:28 | PM.EVENT ---
Event Note Date of Service: 03/23/20 Event Note: Patient seen and examined already by the hospital service mushroom cultivator. Seen and examined again denies any chest pain or shortness of breath As per the staff-no new bloody bowel movement today. Stable around 10 Physical exam: Cvs: rrr, [id number] , no murmur res: clear to auscultation ,no rhonchii or wheezing abd: no rebound or guarding ,nt, bs present. ext pulses present , no cyanosis neuro: nonfocal. Assessment and plan coordinated in H&P Seen by GI: Planned for colonoscopy, patient colon prep was ordered by GI Continue to monitor If new episode of bleed, repeat H&H and also good if aggressive bleeding consider recalling GI
[2020-03-22] MEDS: QUEtiapine Fumarate 25 MG TABLET 12.5 MG PO (21:37)
[2020-03-22] MEDS: rOPINIRole HCL 1 MG TABLET PO (21:37)
[2020-03-23] VITALS (12 sets, daily range): BP systolic 97–162; BP diastolic 52–84; PULSE 53–70; RESP 14–20; TEMP 35.9–37.2; O2SAT 95–100; BMI 33.5
[2020-03-23 03:18] LABS: Hematocrit 30.5 % (42-52); Hemoglobin 9.4 g/dl (14.0-18.0); Mean Corpuscular HGB Conc 30.8 g/dl (31.0-36.0); Mean Corpuscular Hemoglobin 29.4 pg (27.0-33.0); Mean Corpuscular Volume 95.3 fL (80-98); Mean Platelet Volume 9.9 fL (9.4-12.4); Platelet Count 297 X10*3/uL (160-400); Red Cell Distribution Width 12.9 % (11.0-16.0); White Blood Count 9.3 X10*3/uL (4.8-10.8)
[2020-03-23 03:45] LABS: Anion Gap 14 (12-20); Blood Urea Nitrogen 18 mg/dL (9-16); Calcium 7.9 mg/dL (8.4-10.2); Carbon Dioxide 28 mmol/L (22-29); Chloride 105 mmol/L (96-108); Creatinine Clr Calc Pharmacy 76.8; Estimated Glomerular Filt Rate > 60; Glucose Random 87 mg/dL (60-115); Potassium 4.1 mmol/L (3.3-5.1); Sodium 143 mmol/L (135-145)
[2020-03-23] MEDS: Pantoprazole Sodium 40 MG/10 ML VIAL IVPUSH (06:00)
[2020-03-23] MEDS: 0.9 % Sodium Chloride Flush 3 ML SYRINGE IVFLUSH ×3 (06:00→20:20)
--- NOTE | 2020-03-23 08:49 | HO.ANESPROP2 ---
HPI - Anesthesia Eval Consult details Narrative: 84yo male patient here for coloniscopy. Recent diagnosis 03/19/2020 of large central pulmonary embolus. Started on eliquis(family elected no invasive treatment considerin patient's history)and he was [facility] on 03[facility]2020 but returned 03/22/2020 with GIB PMFSH Past Medical History Medical History (Updated 03/23/20 @ 09:26 by Lydia Meraz) Anemia BPH (benign prostatic hyperplasia) Carotid body tumor Dementia Factor 5 Leiden mutation, heterozygous Hematuria Hyperlipidemia Hyponatremia Lymphadenopathy Osteopenia Parkinsons Postural drop in blood pressure on standing Prostate cancer Prostate cancer Pulmonary embolism Rhinitis Vitamin B12 deficiency Surgical History Surgical History H/O aortic aneurysm repair History of nephrectomy Total knee replacement status Social History Social History Household Members: None Housing: Prison Unable to assess alcohol history related to: Unable to respond Alcohol intake: unknown Smoking Status: Unknown if ever smoked Smoked in Last 30 Days: No Patient Interested in Nicotine Replacement: No Patient Given Instructions on How to Stop Smoking: No Second Hand Smoke Exposure: No Use of substances other than those prescribed or required for medical reasons: Unknown Advance Directives: No Advance Directives Information Provided: No (DECLINED) Do you have thoughts of harming others: None Recently lost weight without trying: Unsure service: Yes Current occupational status: retired Meds Allergies Allergy/AdvReac Type Severity Reaction Status Date / Time No Known Allergies Allergy Unverified 11/03/19 19:50 [No Known Allergies*] Home Medications Medication Instructions Recorded Confirmed Type levalbuterol tartrate [Xopenex HFA] 2 puff INHALATION Q4H 03/19/20 03/22/20 History midodrine 5 mg PO BID PRN 03/19/20 03/22/20 History Exam Exam Date and Time: March 23, 2020 0849 Height,Weight and Vital Signs: Height 5 ft 8 in Weight 100 kg Last Vital Signs Temp 98.9 F 03/23/20 08:47 Pulse 64 03/23/20 08:47 Resp 16 03/23/20 08:47 BP 140/74 03/23/20 08:47 Pulse Ox 98 03/23/20 08:47 Pertinent Lab Results Pertinent Lab Results: Laboratory Tests 03/22/20 03/22/20 03/22/20 01:02 01:02 01:05 WBC 7.4 RBC 3.22 L Hgb 9.5 L Hct 30.2 L MCV 93.8 MCH 29.5 MCHC 31.5 RDW 13.0 Plt Count 273 MPV 9.6 Immature Gran % (Auto) 0.3 Neut % (Auto) 82.2 H Lymph % (Auto) 8.4 L [place] % (Auto) 6.2 Eos % (Auto) 2.8 Baso % (Auto) 0.1 Lymph # (Auto) 0.6 L [place] # (Auto) 0.5 Eos # (Auto) 0.2 Baso # (Auto) 0.0 Abs Immat Gran (auto) 0.02 Absolute Neuts (auto) 6.1 Absolute Nucleated RBC 0.000 Nucleated RBC % (auto) 0.0 Smear Tech's Comments VERIFIED Sodium 142 Potassium 4.5 Chloride 104 Carbon Dioxide 28 Anion Gap 15 BUN 27 H Creatinine 0.94 Estim Creat Clear Calc 67.0 Estimated GFR > 60 Random Glucose 107 Calcium 8.1 L Total Bilirubin 0.4 Direct Bilirubin 0.2 AST 17 ALT < 6 Alkaline Phosphatase 54 Total Protein 6.2 L Albumin 3.3 L Urine Color Urine Appearance Urine pH Ur Specific [place] Urine Protein Urine Glucose (UA) Urine Ketones Urine Blood Urine Nitrite Ur Leukocyte Esterase Urine RBC Urine WBC Ur Squamous Epith Cells Amorphous Sediment Urine Bacteria Stool Occult Blood POS COVID-19 (JOY) COVID-19 Clin Com Blood Type Antibody Screen 03/22/20 03/22/20 03/22/20 03:28 04:03 04:03 WBC 9.5 RBC 3.38 L Hgb 10.0 L Hct 32.0 L MCV 94.7 MCH 29.6 MCHC 31.3 RDW 12.9 Plt Count 267 MPV 9.9 Immature Gran % (Auto) 0.2 Neut % (Auto) 80.2 H Lymph % (Auto) 8.5 L [place] % (Auto) 7.5 Eos % (Auto) 3.4 Baso % (Auto) 0.2 Lymph # (Auto) 0.8 L [place] # (Auto) 0.7 Eos # (Auto) 0.3 Baso # (Auto) 0.0 Abs Immat Gran (auto) 0.02 Absolute Neuts (auto) 7.7 Absolute Nucleated RBC 0.000 Nucleated RBC % (auto) 0.0 Smear Tech's Comments Sodium Potassium Chloride Carbon Dioxide Anion Gap BUN Creatinine Estim Creat Clear Calc Estimated GFR Random Glucose Calcium Total Bilirubin Direct Bilirubin AST ALT Alkaline Phosphatase Total Protein Albumin Urine Color YELLOW Urine Appearance CLEAR Urine pH 5.5 Ur Specific [place] 1.020 Urine Protein NEG Urine Glucose (UA) NEG Urine Ketones NEG Urine Blood 3+ H Urine Nitrite NEG Ur Leukocyte Esterase NEG Urine RBC 5-9 H Urine WBC 1-4 Ur Squamous Epith Cells 2+ Amorphous Sediment 2+ Urine Bacteria NONE Stool Occult Blood COVID-19 (JOY) Negative COVID-19 Clin Com See Note Blood Type Antibody Screen 03/22/20 03/22/20 03/23/20 04:49 12:02 02:49 WBC 9.3 RBC 3.20 L Hgb 10.4 L 9.4 L Hct 33.3 L 30.5 L MCV 95.3 MCH 29.4 MCHC 30.8 L RDW 12.9 Plt Count 297 MPV 9.9 Immature Gran % (Auto) Neut % (Auto) Lymph % (Auto) [place] % (Auto) Eos % (Auto) Baso % (Auto) Lymph # (Auto) [place] # (Auto) Eos # (Auto) Baso # (Auto) Abs Immat Gran (auto) Absolute Neuts (auto) Absolute Nucleated RBC 0.000 Nucleated RBC % (auto) 0.0 Smear Tech's Comments Sodium Potassium Chloride Carbon Dioxide Anion Gap BUN Creatinine Estim Creat Clear Calc Estimated GFR Random Glucose Calcium Total Bilirubin Direct Bilirubin AST ALT Alkaline Phosphatase Total Protein Albumin Urine Color Urine Appearance Urine pH Ur Specific [place] Urine Protein Urine Glucose (UA) Urine Ketones Urine Blood Urine Nitrite Ur Leukocyte Esterase Urine RBC Urine WBC Ur Squamous Epith Cells Amorphous Sediment Urine Bacteria Stool Occult Blood COVID-19 (JOY) COVID-19 Clin Com Blood Type A Positive Antibody Screen NEGATIVE 03/23/20 02:49 WBC RBC Hgb Hct MCV MCH MCHC RDW Plt Count MPV Immature Gran % (Auto) Neut % (Auto) Lymph % (Auto) [place] % (Auto) Eos % (Auto) Baso % (Auto) Lymph # (Auto) [place] # (Auto) Eos # (Auto) Baso # (Auto) Abs Immat Gran (auto) Absolute Neuts (auto) Absolute Nucleated RBC Nucleated RBC % (auto) Smear Tech's Comments Sodium 143 Potassium 4.1 Chloride 105 Carbon Dioxide 28 Anion Gap 14 BUN 18 H Creatinine 0.82 Estim Creat Clear Calc 76.8 Estimated GFR > 60 Random Glucose 87 Calcium 7.9 L Total Bilirubin Direct Bilirubin AST ALT Alkaline Phosphatase Total Protein Albumin Urine Color Urine Appearance Urine pH Ur Specific [place] Urine Protein Urine Glucose (UA) Urine Ketones Urine Blood Urine Nitrite Ur Leukocyte Esterase Urine RBC Urine WBC Ur Squamous Epith Cells Amorphous Sediment Urine Bacteria Stool Occult Blood COVID-19 (JOY) COVID-19 Clin Com Blood Type Antibody Screen 12 lead EKG 03/19/2020: Test Reason : AMS Blood Pressure : / mmHG Vent. Rate : 072 BPM Atrial Rate : 072 BPM P-R Int : 186 ms QRS Dur : 088 ms QT Int : 410 ms P-R-T Axes : 063 007 015 degrees QTc Int : 448 ms Normal sinus rhythm Normal ECG No previous ECGs available CT CHEST PE STUDY 1. Large central pulmonary embolism is seen with extension into the right lower lobe. There may be additional smaller segmental filling defects within the right upper lobe and right middle lobe pulmonary arteries versus artifact related to beam hardening from the dense contrast bolus in the SVC. 2. Aneurysmal thoracic aorta with maximal AP diameter of the ascending aorta measuring 4.3 cm. 3. Scattered areas of atelectasis in the lungs bilaterally. VTE: Positive Narrative Narrative: Unable to assess airway. Patient with advanced dementia Airway Heart: Irregula Lungs: ? diminished left lung base Assessment and Plan Assessment Anesthesia Assessment: Anesthesia Plan Discussed and Chart Reviewed Final Anesthetic Review NPO: Yes ASA Class: IV Final Preanesthetic Review: No Changes in Pt Med Stat, Meds/Allgs Chart Reviewed, Consent Obtained/Reviewed, Anes Risks/Benef Reviewed and DNR Form (If Appl.) Patient Risk: High Procedure Risk: Intermediate Assessment/Block/Sedation in SS: Assess/Block/Sedation-SS Anesthetic Plan Anesthetic Plan: MAC: Disposition: Standard PACU
--- NOTE | 2020-03-23 08:57 | MHC.SHP ---
Pre-Procedural Eval Section A The patient is an INPATIENT: Yes Changes since office visit: No Cold of Flu in the past 2 weeks, No New Medical Problems, No Changes in Medication and No Patient answered all questions The History & Physical has been completed within 30 days and I have reviewed it.: Yes Section B Chief Complaint: BRBPR Allergies: Allergies Allergy/AdvReac Type Severity Reaction Status Date / Time No Known Allergies Allergy Unverified 11/03/19 19:50 [No Known Allergies*] Plan I have reviewed the history and physical and performed a pertinent physical examination on my patient. No changes have occurred unless specified.
--- NOTE | 2020-03-23 09:08 | MHC.CM.PN ---
pt is a resident at [facility]. pt's HCP is , delaney, ph: [phone]. dc plan is to return to [facility] when medically stable. cm to cont. to follow.
[2020-03-23] MEDS: Lactated Ringers 1,000 ML 100 ML IVCONT (09:09)
--- NOTE | 2020-03-23 09:36 | PM.OP ---
Brief Operative Note Date of Service: 03/23/20 Pre-op diagnosis: rectal bleeding Post-op diagnosis: same (colitis) Surgeon: Lucas Fernandez Anesthesia: MAC Estimated blood loss (mL): 5 Pathology: other (sigmoid biopsies) Condition: stable Disposition: PACU
--- NOTE | 2020-03-23 09:38 | PM.EVENT ---
Event Note Date of Service: 03/23/20 Event Note: colonoscopy shows sigmoid colitis, acute possibly ischemic. biopsies and culture obtained advance diet, f/u bx and culture results hold ac for now.
--- NOTE | 2020-03-23 09:59 | OP_ITS ---
SURGEON: Lucas Fernandez MD INDICATIONS: Rectal bleeding. PREOPERATIVE DIAGNOSIS: POSTOPERATIVE DIAGNOSIS: PROCEDURE PERFORMED: Colonoscopy to the terminal ileum with biopsy. ESTIMATED BLOOD LOSS: COMPLICATIONS: ANESTHESIA: ASSISTANTS: SPECIMENS: MEDICATIONS: Monitored anesthesia care. DESCRIPTION OF PROCEDURE: History and Physical was performed. The risks and benefits of the procedure were explained to the patient's and informed consent was obtained. The patient was placed in the left lateral decubitus position. A digital rectal exam was performed and was found to be normal. The Olympus pediatric video colonoscope was introduced into the rectum and advanced into the cecum without difficulty. The cecum was identified by transillumination, palpation, and identification of ileocecal valve. Examination was performed and the scope was removed. He tolerated the procedure well and was taken to recovery area in stable condition. FINDINGS: The terminal ileum was normal. The visualized colonic mucosa was normal until about 35 cm where colitis was noted. The colitis extended from 30 cm through the sigmoid and down to the last 5 cm of the rectum with relative rectal sparing. The colitis appeared acute, possibly ischemic in nature. Biopsies were obtained from the sigmoid. Retroflexed examination was normal. The prep was good. Liquid was suctioned for culture. IMPRESSION: Colitis. RECOMMENDATION: 1. Follow up with the biopsy results. 2. Stool for culture was obtained during the procedure. 3. Avoid anticoagulation for now. MD FINESSE Shelton/TIM / [id number] MTDD
--- NOTE | 2020-03-23 13:01 | P.CNHO_ITS ---
Subjective - Subjective Chief complaint: None Patient: new to practice Consult date: 03/23/20 Requesting Physician: Dr. Silva Primary Care Provider: Unknown Physician HPI - Consult Narrative Reason for consult: GI bleeding on Eliquis, recent pulmonary embolism Narrative: Amrit Steve is a 84 year old male who was is admitted with rectal bleeding on Eliquis. Patient was recently diagnosed with central pulmonary embolism and started on Eliquis this to few days ago. Patient is unable to give a history, obtained by chart review and talking to his Arianne. He has undergone a colonoscopy and found to have colitis. Anticoagulation/Eliquis is on hold. His hemoglobin is stable and his vital signs are stable with good oxygen saturation on 2 L nasal cannula. [facility] Medical History: Medical History (Last Updated 03/23/20 @ 09:26 by Lydia Meraz) Anemia BPH (benign prostatic hyperplasia) Carotid body tumor Dementia Factor 5 Leiden mutation, heterozygous Hematuria Hyperlipidemia Hyponatremia Lymphadenopathy Osteopenia Parkinsons Postural drop in blood pressure on standing Prostate cancer Prostate cancer Pulmonary embolism Rhinitis Vitamin B12 deficiency Surgical History: Surgical History (Last Reviewed 03/23/20 @ 08:50 by Lydia Meraz) H/O aortic aneurysm repair History of nephrectomy Total knee replacement status Social History: Social History (Last Reviewed 03/23/20 @ 08:50 by Lydia Meraz) Living Situation History: Household Members: None Housing: [facility] Alcohol History: Unable to assess alcohol history related to: Unable to respond Alcohol intake: unknown Tobacco History: Smoking Status: Unknown if ever smoked Smoked in Last 30 Days: No Patient Interested in Nicotine Replacement: No Patient Given Instructions on How to Stop Smoking: No Second Hand Smoke Exposure: No Substance Use History: Use of substances other than those prescribed or required for medical reasons : Unknown Currently Displaying Signs/Symptoms of Drug Intoxication Withdrawal: No Advance Directives: Advance Directives: No Advance Directives Information Provided: No Advance Directives Information Provided comment: DECLINED Homicidal Assessment: Do you have thoughts of harming others: None Do you have a plan to hurt others: No Plan Nutrition Assessment: Recently lost weight without trying: Unsure Eating poorly because of decreased appetite: Yes Nutrition Risks: Difficulty chewing Nutrition Risks: Difficulty swallowing Occupation Assessmet: service: Yes Current occupational status: retired Smoking status: Unknown if ever smoked Home Medications and Allergies Current Medications: Current Medications Generic Name Dose Route Start Last Admin Trade Name Freq PRN Reason Stop Dose Admin Acetaminophen 650 mg 03/22/20 02:07 Acetaminophen Supp 650 Mg Supp.Rect [place] Q6H PRN Pain, Mild (Pain Scale 1-3) Bicalutamide 50 mg 03/22/20 10:00 03/23/20 10:35 Bicalutamide 50 Mg Tablet PO Not Given DAILY@1000 [facility] Cyanocobalamin 1,000 mcg 03/22/20 10:00 03/23/20 10:36 Cyanocobalamin (Vitamin B-12) 1,000 Mcg Tablet PO Not Given DAILY@1000 [facility] Finasteride 5 mg 03/22/20 10:00 03/23/20 10:36 Finasteride 5 Mg Tablet PO Not Given DAILY@1000 [facility] Lactated Ringer's 1,000 mls @ 70 mls/hr 03/23/20 09:00 03/23/20 11:11 Lr IVCONT 70 mls/hr .[id number] [facility] Infusion Midodrine 5 mg 03/22/20 02:28 Midodrine Hcl 5 Mg Tablet PO BID PRN SBP <90 Ondansetron HCl 4 mg 03/23/20 09:36 Ondansetron Hcl 4 Mg/2 Ml Vial IVPUSH ONCE PRN Nausea and Vomiting Pantoprazole Sodium 40 mg 03/22/20 06:30 03/23/20 06:00 Pantoprazole Sodium 40 Mg/10 Ml Vial IVPUSH 40 mg DAILY@0630 [facility] Administration Quetiapine Fumarate 12.5 mg 03/22/20 22:00 03/22/20 21:37 Quetiapine Fumarate 25 Mg Tablet PO 12.5 mg BEDTIME@2200 [facility] Administration Ropinirole HCl 1 mg 03/22/20 10:23 03/23/20 10:36 Ropinirole Hcl 1 Mg Tablet PO Not Given BID@1000,2200 [facility] Sodium Chloride 3 ml 03/22/20 08:00 03/23/20 07:59 0.9 % Sodium Chloride Flush 3 Ml Syringe IVFLUSH 3 ml QSHIFT [facility] Administration Vitamin D 25 mcg 03/22/20 10:00 03/23/20 10:36 Cholecalciferol (Vitamin D3) 25 Mcg Tablet PO Not Given DAILY@1000 [facility] Home Medications Medication Instructions Recorded Confirmed Type levalbuterol tartrate [Xopenex HFA] 2 puff INHALATION Q4H 03/19/20 03/22/20 History midodrine 5 mg PO BID PRN 03/19/20 03/22/20 History Allergies Allergy/AdvReac Type Severity Reaction Status Date / Time No Known Allergies Allergy Unverified 11/03/19 19:50 [No Known Allergies*] Physical Exam Vital signs: Vital Signs Temp 96.6 F L 03/23/20 11:31 Pulse 69 03/23/20 11:31 Resp 20 03/23/20 11:31 BP 149/68 H 03/23/20 11:31 Pulse Ox 99 03/23/20 11:31 Intake & Output 03/22/20 03/23/20 03/23/20 18:59 06:59 18:59 Intake Total 1000 / 1000 228.333 / 228.333 Balance 1000 / 1000 228.333 / 228.333 Intake: Intake, Other Amount 25 / 25 Intake, IV Amount 1000 / 1000 203.333 / 203.333 0.9 % Sodium Chloride 1,000 ml 1000 / 1000 @ 999 mls/hr IVCONT .Q1H1M ONE Rx#:[id number] Lactated Ringers 1,000 ml @ 100 203.333 / 203.333 mls/hr IVCONT .Q10H JOE Rx#: [id number] Other: IV Intake, Intraoperative 100 Amount NPO Yes Number of Incontinent Voids 1 Number of Bowel Movements 1 Last Bowel Movement 03/22/20 03/23/20 03/23/20 Stool Incontinent Stool Amount Large Stool Color Huber Weight 100 kg - Constitutional Present: no acute distress Hem/Onc Consult Result - Labs CBC & Chem 7: 03/23/20 02:49 03/23/20 02:49 Labs: Short CBC 03/23/20 Range/Units 02:49 WBC 9.3 (4.8-10.8) X10*3/uL Hgb 9.4 L (14.0-18.0) g/dl Hct 30.5 L (42-52) % Plt Count 297 (160-400) X10*3/uL BMP 03/23/20 02:49 Sodium 143 Potassium 4.1 Chloride 105 Carbon Dioxide 28 BUN 18 H Creatinine 0.82 Calcium 7.9 L Assessment and Plan (1) Pulmonary embolism Status: Acute 1. This is an 84-year-old male with advanced dementia presenting with rectal bleeding after recent diagnosis large central pulmonary embolism on 03/19/2020. He carries a diagnosis of factor 5 laden mutation, his is not aware of it. She did say that about forty years ago he was on Lovenox for a blood clot, probably in his leg. She does not recall any other family members on his side with thromboembolism. Patient is found to have active colitis on colonoscopy, anticoagulation is on hold. His oxygen saturations are good. He will eventually need to be started back on Eliquis if possible for at least 3 months. Given his advanced age and comorbidities, he is at risk for bleeding. IVC filter could be considered in this situation to prevent further progression of thrombus. However there are complications of IVC filter placement including deep vein thrombosis at the insertion site, recurrent PE, filter erosion and migration. As he is hemodynamically stable it would probably be prudent to observe him for a few days and resume anticoagulation if possible. I thank you for this consultation.
--- NOTE | 2020-03-23 18:17 | P.PNIM_ITS ---
Subjective Subjective Date of Service: 03/24/20 Interval History: gi bleed Review of Systems Patient went for colonoscopy, Initially fell sleepy than seems awake more Physical Exam Vital Signs: Vital Signs: Last Vital Signs Temp 98.3 F 03/23/20 15:43 Pulse 65 03/23/20 15:43 Resp 18 03/23/20 15:43 BP 162/80 H 03/23/20 15:43 Pulse Ox 100 03/23/20 15:43 Body Mass Index 33.5 Physical exam Cvs: rrr, [id number] , no murmur res: clear to auscultation ,no rhonchii or wheezing abd: no rebound or guarding ,nt, bs present. ext pulses present , no cyanosis neuro: nonfocal. Objective Data Current Medications Generic Name Dose Route Start Last Admin Trade Name Freq PRN Reason Stop Dose Admin Acetaminophen 650 mg 03/22/20 02:07 Acetaminophen Supp 650 Mg Supp.Rect [place] Q6H PRN Pain, Mild (Pain Scale 1-3) Bicalutamide 50 mg 03/22/20 10:00 03/23/20 10:35 Bicalutamide 50 Mg Tablet PO Not Given DAILY@1000 [facility] Cyanocobalamin 1,000 mcg 03/22/20 10:00 03/23/20 10:36 Cyanocobalamin (Vitamin B-12) 1,000 Mcg Tablet PO Not Given DAILY@1000 [facility] Finasteride 5 mg 03/22/20 10:00 03/23/20 10:36 Finasteride 5 Mg Tablet PO Not Given DAILY@1000 [facility] Midodrine 5 mg 03/22/20 02:28 Midodrine Hcl 5 Mg Tablet PO BID PRN SBP <90 Ondansetron HCl 4 mg 03/23/20 09:36 Ondansetron Hcl 4 Mg/2 Ml Vial IVPUSH ONCE PRN Nausea and Vomiting Pantoprazole Sodium 40 mg 03/22/20 06:30 03/23/20 06:00 Pantoprazole Sodium 40 Mg/10 Ml Vial IVPUSH 40 mg DAILY@0630 [facility] Administration Quetiapine Fumarate 12.5 mg 03/22/20 22:00 03/22/20 21:37 Quetiapine Fumarate 25 Mg Tablet PO 12.5 mg BEDTIME@2200 [facility] Administration Ropinirole HCl 1 mg 03/22/20 10:23 03/23/20 10:36 Ropinirole Hcl 1 Mg Tablet PO Not Given BID@1000,2200 [facility] Sodium Chloride 3 ml 03/22/20 08:00 03/23/20 15:03 0.9 % Sodium Chloride Flush 3 Ml Syringe IVFLUSH Not Given QSHIFT [facility] Vitamin D 25 mcg 03/22/20 10:00 03/23/20 10:36 Cholecalciferol (Vitamin D3) 25 Mcg Tablet PO Not Given DAILY@1000 [facility] Labs CBC & Chem 7: 03/24/20 08:48 03/23/20 02:49 Assessment and Plan (1) Bright red rectal bleeding: Status: Acute (2) Pulmonary embolism: Status: Acute (3) Elevated troponin: Status: Acute (4) Lethargy: Status: Acute (5) Elevated brain natriuretic peptide (BNP) level: Status: Acute Assessment and Plan: 84-year-old male with a past medical history of hyperlipidemia, hyponatremia, osteopenia, Parkinson's, postural hypotension, vitamin B12 deficiency, BPH, advanced dementia, factor 5 laden mutation; was just discharged from the hospital on Eliquis for large pulmonary embolism; presented back to the hospital with a chief complaint of bright red blood per rectum. 1.Bright red blood per rectum: Per ER physician rectal exam showed blood clots and mucus. Hemoglobin was 9.5. Continue PPI H&H is stable so far Discussed with GI and hematology will hold off anticoagulation for now Status post colonoscopy-colonoscopy shows sigmoid colitis, acute possibly ischemic. Diet placed as per speech and Swallow.. History of factor 5 laden deficiency/large central pulmonary embolism: Eliquis on hold in the setting of GI bleed. Will resume once cleared by Gastroent erology. History of postural hypotension patient on midodrine at home. Blood pressure currently stable. Will continue to monitor. For all other chronic conditions, home medications will be continued once med rec is done. Will hold Eliquis as mentione .
[2020-03-23] MEDS: rOPINIRole HCL 1 MG TABLET PO (20:05)
[2020-03-23] MEDS: QUEtiapine Fumarate 25 MG TABLET 12.5 MG PO (20:05)
[2020-03-24] VITALS (8 sets, daily range): BP systolic 113–164; BP diastolic 61–78; PULSE 53–70; RESP 16–20; TEMP 36.1–36.9; O2SAT 93–100
[2020-03-24] MEDS: Pantoprazole Sodium 40 MG/10 ML VIAL IVPUSH (05:34)
[2020-03-24 09:02] LABS: Hematocrit 32.7 % (42-52); Hemoglobin 10.1 g/dl (14.0-18.0)
[2020-03-24] MEDS: 0.9 % Sodium Chloride Flush 3 ML SYRINGE IVFLUSH ×3 (09:22→21:20)
[2020-03-24] MEDS: rOPINIRole HCL 1 MG TABLET PO ×2 (09:23→21:19)
[2020-03-24] MEDS: Cyanocobalamin (Vitamin B-12) 1,000 MCG TABLET 1000 MCG PO (09:24)
[2020-03-24] MEDS: Cholecalciferol (Vitamin D3) 25 MCG TABLET PO (09:24)
[2020-03-24] MEDS: Finasteride 5 MG TABLET PO (09:25)
[2020-03-24] MEDS: Bicalutamide 50 MG TABLET PO (09:25)
--- NOTE | 2020-03-24 14:52 | P.PNIM_ITS ---
Subjective Subjective Date of Service: 03/25/20 Interval History: GI bleed probably related to ischemic colitis, recent pulmonary embolism history Review of Systems Patient does not seem to be short of breath, Answers only few question-does not seem to be short of breath. Discussed with the staff that he was only on 2 L oxygen or night also-we encourage the staff to taper down oxygen since is sats is 100% on on 2 L. Physical Exam Vital Signs: Vital Signs: Last Vital Signs Temp 97.8 F 03/24/20 11:40 Pulse 58 03/24/20 11:40 Resp 18 03/24/20 11:40 BP 113/61 03/24/20 11:40 Pulse Ox 100 03/24/20 11:40 Body Mass Index 33.5 Physical exam Cvs: rrr, [id number] , no murmur res: clear to auscultation ,no rhonchii or wheezing abd: no rebound or guarding ,nt, bs present. ext pulses present , no cyanosis neuro: axo3 , nonfocal. Objective Data Current Medications Generic Name Dose Route Start Last Admin Trade Name Freq PRN Reason Stop Dose Admin Acetaminophen 650 mg 03/22/20 02:07 Acetaminophen Supp 650 Mg Supp.Rect [place] Q6H PRN Pain, Mild (Pain Scale 1-3) Bicalutamide 50 mg 03/22/20 10:00 03/24/20 09:25 Bicalutamide 50 Mg Tablet PO 50 mg DAILY@1000 [facility] Administration Cyanocobalamin 1,000 mcg 03/22/20 10:00 03/24/20 09:24 Cyanocobalamin (Vitamin B-12) 1,000 Mcg Tablet PO 1,000 mcg DAILY@1000 [facility] Administration Finasteride 5 mg 03/22/20 10:00 03/24/20 09:25 Finasteride 5 Mg Tablet PO 5 mg DAILY@1000 [facility] Administration Midodrine 5 mg 03/22/20 02:28 Midodrine Hcl 5 Mg Tablet PO BID PRN SBP <90 Ondansetron HCl 4 mg 03/23/20 09:36 Ondansetron Hcl 4 Mg/2 Ml Vial IVPUSH ONCE PRN Nausea and Vomiting Pantoprazole Sodium 40 mg 03/22/20 06:30 03/24/20 05:34 Pantoprazole Sodium 40 Mg/10 Ml Vial IVPUSH 40 mg DAILY@0630 [facility] Administration Quetiapine Fumarate 12.5 mg 03/22/20 22:00 03/23/20 20:05 Quetiapine Fumarate 25 Mg Tablet PO 12.5 mg BEDTIME@2200 [facility] Administration Ropinirole HCl 1 mg 03/22/20 10:23 03/24/20 09:23 Ropinirole Hcl 1 Mg Tablet PO 1 mg BID@1000,2200 [facility] Administration Sodium Chloride 3 ml 03/22/20 08:00 03/24/20 09:22 0.9 % Sodium Chloride Flush 3 Ml Syringe IVFLUSH 3 ml QSHIFT [facility] Administration Vitamin D 25 mcg 03/22/20 10:00 03/24/20 09:24 Cholecalciferol (Vitamin D3) 25 Mcg Tablet PO 25 mcg DAILY@1000 [facility] Administration Labs CBC & Chem 7: 03/25/20 09:10 03/23/20 02:49 Microbiology Microbiology Results: Microbiology 03/23/20 09:28 Stool Stool Culture - Preliminary Normal so far. Assessment and Plan (1) Bright red rectal bleeding: Status: Acute (2) Pulmonary embolism: Status: Acute (3) Elevated troponin: Status: Acute (4) Lethargy: Status: Acute (5) Elevated brain natriuretic peptide (BNP) level: Status: Acute Assessment and Plan: 84-year-old male with a past medical history of hyperlipidemia, hyponatremia, osteopenia, Parkinson's, postural hypotension, vitamin B12 deficiency, BPH, advanced dementia, factor 5 laden mutation; was just discharged from the hospital on Eliquis for large pulmonary embolism; presented back to the hospital with a chief complaint of bright red blood per rectum. 1.Bright red blood per rectum: Per ER physician rectal exam showed blood clots and mucus. Hemoglobin was 9.5. Continue PPI H&H is stable so far Discussed with GI and hematology will hold off anticoagulation for now Status post colonoscopy-colonoscopy shows sigmoid colitis, acute possibly ischemic. 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 Will resume once cleared by Gastroenterology. Discussed with Hematology will check fecal occult blood again-before deciding about starting anticoagulation. 3.History of postural hypotension patient on midodrine at home. Blood pressure currently stable. Will continue to monitor. For all other chronic conditions, home medications will be continued once med rec is done. Will hold Eliquis as mentione .
--- NOTE | 2020-03-24 14:59 | W.MHC.ACPN ---
Advanced Care Planning Note Advanced Care Planning Note Narrative: Patient management including GI bleed, history of pulmonary embolism and anticoagulation de oliveira discussed in detail-with patient's son and patient's : After discussion with GI and Hematology will recheck occult blood and decide for anticoagulation if occult blood is negative. Otherwise collected decision to hold anticoagulation for now- patient family understand the risks and accord with above. Time spent on the phone is more than 16minutes when count collectively for patient is and son. Problems Discussed (1) Bright red rectal bleeding: (2) Pulmonary embolism: (3) Elevated troponin: (4) Lethargy: (5) Elevated brain natriuretic peptide (BNP) level:
--- NOTE | 2020-03-24 15:37 | HO.POSTANES ---
Post Anesthesia Evaluation Post Anesthesia Evaluation Vital Signs: Vital Signs Temp Pulse Resp BP Pulse Ox 03/24/20 11:40 97.8 F 58 18 113/61 100 03/24/20 09:36 95 03/24/20 07:26 97.4 F 62 18 159/76 H 95 03/24/20 04:00 97.9 F 61 20 164/69 H 93 Anesthesia: Monitored Mental Status: Awake Pain Control: Satisfactory Nausea/Vomiting: None Hydration: Adequate Anesthesia-Related Issues: No Anes. Related Issues
[2020-03-24] MEDS: polyethylene glycoL 3350 17 GM POWD.PACK PO (16:12)
[2020-03-24 17:29] LABS: OBS Int Ctl Valid YES; OBS1 NEG (NEG)
[2020-03-24 18:23] LABS: Hematocrit 31.5 % (42-52); Hemoglobin 9.9 g/dl (14.0-18.0); Mean Corpuscular HGB Conc 31.4 g/dl (31.0-36.0); Mean Corpuscular Volume 95.5 fL (80-98); Mean Platelet Volume 9.8 fL (9.4-12.4); Platelet Count 296 X10*3/uL (160-400); Red Cell Distribution Width 12.8 % (11.0-16.0); White Blood Count 8.2 X10*3/uL (4.8-10.8)
[2020-03-24 18:29] LABS: INTERNATIONAL NORM RATIO 1.1 (0.9-1.1); Prothrombin Time 13.2 SEC (10.8-13.0)
[2020-03-24 18:30] LABS: INTERNATIONAL NORM RATIO 1.1 (0.9-1.1); Prothrombin Time 13.1 SEC (10.8-13.0)
[2020-03-24 18:33] LABS: PTT Heparin Drip 29.5 SEC (53-77.9); Partial Thromboplastin Time 29.5 SEC (24.1-38.0)
[2020-03-24] MEDS: Heparin Sodium,Porcine/1/2NS 25,000 UNIT/250 ML IV.SOLN 10 UNIT IVCONT (19:22)
[2020-03-24] MEDS: QUEtiapine Fumarate 25 MG TABLET 12.5 MG PO (21:19)
[2020-03-25 02:12] LABS: PTT Heparin Drip 81.8 SEC (53-77.9)
[2020-03-25 04:00] VITALS: BP 154/80; PULSE 57; RESP 18; TEMP 37; O2SAT 94
--- NOTE | 2020-03-25 05:07 | PC.NURSE ---
3 am PTT-HD=81.8 drip decreased by 2 units to 8U/KG/H NEXT PTT-HD TO BE DRAWN AT 0900 NO S/S OF BLEEDING
[2020-03-25 07:17] LABS: Hematocrit 28.4 % (42-52); Hemoglobin 8.8 g/dl (14.0-18.0); Mean Corpuscular Hemoglobin 29.2 pg (27.0-33.0); Mean Corpuscular Volume 94.4 fL (80-98); Mean Platelet Volume 10.8 fL (9.4-12.4); Platelet Count 260 X10*3/uL (160-400); Red Blood Count 3.01 X10*6/uL (4.60-5.80); Red Cell Distribution Width 12.8 % (11.0-16.0); White Blood Count 6.5 X10*3/uL (4.8-10.8)
[2020-03-25 07:32] VITALS: BP 156/79; PULSE 62; RESP 18; TEMP 36.3; O2SAT 96
[2020-03-25 07:34] LABS: INTERNATIONAL NORM RATIO 1.2 (0.9-1.1); Prothrombin Time 14.3 SEC (10.8-13.0)
[2020-03-25 09:00] VITALS: O2SAT 96
[2020-03-25 10:17] LABS: Hematocrit 32.3 % (42-52); Hemoglobin 10.1 g/dl (14.0-18.0)
[2020-03-25 10:30] LABS: PTT Heparin Drip 99.9 SEC (53-77.9)
[2020-03-25] MEDS: Cholecalciferol (Vitamin D3) 25 MCG TABLET PO (10:54)
[2020-03-25] MEDS: rOPINIRole HCL 1 MG TABLET PO ×2 (10:55→21:37)
[2020-03-25] MEDS: Cyanocobalamin (Vitamin B-12) 1,000 MCG TABLET 1000 MCG PO (10:55)
[2020-03-25] MEDS: Bicalutamide 50 MG TABLET PO (10:56)
[2020-03-25] MEDS: Finasteride 5 MG TABLET PO (10:56)
[2020-03-25] MEDS: 0.9 % Sodium Chloride Flush 3 ML SYRINGE IVFLUSH ×3 (10:59→21:38)
[2020-03-25 11:23] VITALS: BP 153/75; PULSE 58; RESP 18; TEMP 36.8; O2SAT 97
--- NOTE | 2020-03-25 13:45 | HO.PM.IMPN ---
Subjective Subjective Date of Service: 03/25/20 Interval History: Gi bleed Review of Systems Patient seems to be awake , No new event overnight, as per the staff know episode of bleeding overnight. Physical Exam Vital Signs: Vital Signs: Last Vital Signs Temp 98.3 F 03/25/20 11:23 Pulse 58 03/25/20 11:23 Resp 18 03/25/20 11:23 BP 153/75 H 03/25/20 11:23 Pulse Ox 97 03/25/20 11:23 Body Mass Index 33.5 Physical exam: Constitutional: Not in acute distress Cvs: [id number], [id number] , no murmur res: clear to auscultation ,no rhonchii or wheezing abd: no rebound or guarding ,nt, bs present. ext pulses present , no cyanosis neuro: nonfocal. Objective Data Current Medications Generic Name Dose Route Start Last Admin Trade Name Freq PRN Reason Stop Dose Admin Acetaminophen 650 mg 03/22/20 02:07 Acetaminophen Supp 650 Mg Supp.Rect [place] Q6H PRN Pain, Mild (Pain Scale 1-3) Bicalutamide 50 mg 03/22/20 10:00 03/25/20 10:56 Bicalutamide 50 Mg Tablet PO 50 mg DAILY@1000 [facility] Administration Cyanocobalamin 1,000 mcg 03/22/20 10:00 03/25/20 10:55 Cyanocobalamin (Vitamin B-12) 1,000 Mcg Tablet PO 1,000 mcg DAILY@1000 [facility] Administration Finasteride 5 mg 03/22/20 10:00 03/25/20 10:56 Finasteride 5 Mg Tablet PO 5 mg DAILY@1000 [facility] Administration Heparin Sodium (Porcine) 40 - 80 unit 03/24/20 18:23 Heparin Sodium,Porcine 5,000 Unit/Ml Vial IVPUSH BOLUS PRN 40 unit/kg - Heparin Protocol Protocol Heparin Sodium/Sodium Chloride 25,000 unit in 250 mls @ 0 mls/hr 03/24/20 18:15 03/25/20 11:44 IVCONT 5 units/kg/hr .Q0M JOE 5 mls/hr Titration Protocol Per Protocol Midodrine 5 mg 03/22/20 02:28 Midodrine Hcl 5 Mg Tablet PO BID PRN SBP <90 Ondansetron HCl 4 mg 03/23/20 09:36 Ondansetron Hcl 4 Mg/2 Ml Vial IVPUSH ONCE PRN Nausea and Vomiting Quetiapine Fumarate 12.5 mg 03/22/20 22:00 03/24/20 21:19 Quetiapine Fumarate 25 Mg Tablet PO 12.5 mg BEDTIME@2200 [facility] Administration Ropinirole HCl 1 mg 03/22/20 10:23 03/25/20 10:55 Ropinirole Hcl 1 Mg Tablet PO 1 mg BID@1000,2200 [facility] Administration Sodium Chloride 3 ml 03/22/20 08:00 03/25/20 10:59 0.9 % Sodium Chloride Flush 3 Ml Syringe IVFLUSH 3 ml QSHIFT [facility] Administration Vitamin D 25 mcg 03/22/20 10:00 03/25/20 10:54 Cholecalciferol (Vitamin D3) 25 Mcg Tablet PO 25 mcg DAILY@1000 [facility] Administration Labs CBC & Chem 7: 03/25/20 09:10 03/23/20 02:49 Microbiology Microbiology Results: Microbiology 03/23/20 09:28 Stool Stool Culture - Preliminary Normal so far. Assessment and Plan (1) Pulmonary embolism: Status: Acute (2) Bright red rectal bleeding: Status: Acute (3) Elevated troponin: Status: Acute (4) Lethargy: Status: Acute (5) Elevated brain natriuretic peptide (BNP) level: Status: Acute Assessment and Plan: 84-year-old male with a past medical history of hyperlipidemia, hyponatremia, osteopenia, Parkinson's, postural hypotension, vitamin B12 deficiency, BPH, advanced dementia, factor 5 laden mutation; was just discharged from the hospital on Eliquis for large pulmonary embolism; presented back to the hospital with a chief complaint of bright red blood per rectum. 1.Bright red blood per rectum: Per ER physician rectal exam showed blood clots and mucus. Hemoglobin was 9.5. Continue PPI H&H is stable so far around 10 range . Status post colonoscopy-colonoscopy shows sigmoid colitis, acute possibly ischemic. 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 Discussed with Hematology will check fecal occult blood repeated neg: started on low dose heparin, will continue to moniter pt/ptt as per protocol. 3.History of postural hypotension patient on midodrine at home. Blood pressure currently stable. Will continue to monitor. Above management discussed with the family detail. .
--- NOTE | 2020-03-25 13:51 | W.MHC.ACPN ---
Advanced Care Planning Note Advanced Care Planning Note Time spent (in minutes): 16 Narrative: Patient management including GI bleed, history of pulmonary embolism and anticoagulation de oliveira discussed in detail-with patient's son and patient's : Discussed with GI and Hematology since patient's blood culture is negative and H&H stable, with further discussion patient family understand the risks -we started IV heparin. Will continue to monitor for bleeding. Time spent on the phone is more than 16minutes patient's is and son. Problems Discussed (1) Pulmonary embolism: (2) Bright red rectal bleeding: (3) Elevated troponin: (4) Lethargy: (5) Elevated brain natriuretic peptide (BNP) level:
[2020-03-25 15:19] VITALS: BP 109/63; PULSE 75; RESP 20; TEMP 36.7; O2SAT 95
[2020-03-25 19:09] VITALS: BP 157/76; PULSE 71; RESP 20; TEMP 36.7; O2SAT 95
[2020-03-25] MEDS: QUEtiapine Fumarate 25 MG TABLET 12.5 MG PO (21:37)
[2020-03-25 23:45] LABS: PTT Heparin Drip 57.5 SEC (53-77.9)
[2020-03-26] VITALS (10 sets, daily range): BP systolic 117–158; BP diastolic 57–77; PULSE 57–80; RESP 16–21; TEMP 35.8–37.1; O2SAT 93–99
--- NOTE | 2020-03-26 03:14 | PC.NURSE ---
PTT/HP 57.5 at 2330, no changes to current heparin drip. Drip still running 5ml/hr. Verified by second nurse. No petechiae noted. Some bruising noted on upper right arm above the AC. New PTT/HP lab draw scheduled for 0800 on 03/26/20.
[2020-03-26] MEDS: Heparin Sodium,Porcine/1/2NS 25,000 UNIT/250 ML IV.SOLN 5 UNIT IVCONT (05:03)
[2020-03-26 06:48] LABS: PTT Heparin Drip 52.4 SEC (53-77.9)
[2020-03-26] MEDS: Heparin Sodium,Porcine 5,000 UNIT/ML VIAL 4000 UNIT IVPUSH (07:55)
[2020-03-26 09:25] LABS: Hemoglobin 9.3 g/dl (14.0-18.0)
[2020-03-26] MEDS: Cholecalciferol (Vitamin D3) 25 MCG TABLET PO (09:40)
[2020-03-26] MEDS: Bicalutamide 50 MG TABLET PO (09:40)
[2020-03-26] MEDS: 0.9 % Sodium Chloride Flush 3 ML SYRINGE IVFLUSH ×3 (09:40→23:46)
[2020-03-26] MEDS: Omeprazole 20 MG CAPSULE.DR PO (09:40)
[2020-03-26] MEDS: Finasteride 5 MG TABLET PO (09:40)
[2020-03-26] MEDS: rOPINIRole HCL 1 MG TABLET PO ×2 (09:40→23:45)
[2020-03-26] MEDS: Cyanocobalamin (Vitamin B-12) 1,000 MCG TABLET 1000 MCG PO (09:40)
--- NOTE | 2020-03-26 11:23 | MHC.CM.PN ---
Patient is on a IV Heparin Drip and not yet medically cleared for dc. Goal is to return to LTC @ [facility] and CM will continue to follow.
[2020-03-26 14:42] LABS: PTT Heparin Drip 83.2 SEC (53-77.9)
--- NOTE | 2020-03-26 18:59 | HO.PM.IMPN ---
Subjective Subjective Date of Service: 03/26/20 Interval History: ischmeic colitis Review of Systems Seems more alert and awake denies any new complaints as per the staff know overnight bleeding events. Physical Exam Vital Signs: Vital Signs: Last Vital Signs Temp 98.8 F 03/26/20 16:00 Pulse 61 03/26/20 16:00 Resp 21 H 03/26/20 16:00 BP 140/69 H 03/26/20 16:00 Pulse Ox 97 03/26/20 16:00 Body Mass Index 33.5 Physical exam: Cvs: [id number], [id number] , no murmur res: clear to auscultation ,no rhonchii or wheezing abd: no rebound or guarding ,nt, bs present. ext pulses present , no cyanosis neuro: nonfocal. Objective Data Current Medications Generic Name Dose Route Start Last Admin Trade Name Freq PRN Reason Stop Dose Admin Acetaminophen 650 mg 03/22/20 02:07 Acetaminophen Supp 650 Mg Supp.Rect MT Q6H PRN Pain, Mild (Pain Scale 1-3) Apixaban 5 mg 03/26/20 21:00 Apixaban 5 Mg Tablet PO BID [facility] Bicalutamide 50 mg 03/22/20 10:00 03/26/20 09:40 Bicalutamide 50 Mg Tablet PO 50 mg DAILY@1000 [facility] Administration Cyanocobalamin 1,000 mcg 03/22/20 10:00 03/26/20 09:40 Cyanocobalamin (Vitamin B-12) 1,000 Mcg Tablet PO 1,000 mcg DAILY@1000 JOE Administration Finasteride 5 mg 03/22/20 10:00 03/26/20 09:40 Finasteride 5 Mg Tablet PO 5 mg DAILY@1000 [facility] Administration Heparin Sodium (Porcine) 8,000 unit 03/26/20 07:40 Heparin Sodium,Porcine 5,000 Unit/Ml Vial IVPUSH BOLUS PRN 80 unit/kg - Heparin Protocol Protocol Heparin Sodium (Porcine) 4,000 unit 03/26/20 07:43 03/26/20 07:55 Heparin Sodium,Porcine 5,000 Unit/Ml Vial 40 unit/kg (4000 unit) 4,000 unit IVPUSH Administration BOLUS PRN 40 unit/kg - Heparin Protocol Protocol Midodrine 5 mg 03/22/20 02:28 Midodrine Hcl 5 Mg Tablet PO BID PRN SBP <90 Omeprazole 20 mg 03/26/20 09:00 03/26/20 09:40 Omeprazole 20 Mg Capsule. PO 20 mg DAILY@0630 JOE Administration Ondansetron HCl 4 mg 03/23/20 09:36 Ondansetron Hcl 4 Mg/2 Ml Vial IVPUSH ONCE PRN Nausea and Vomiting Quetiapine Fumarate 12.5 mg 03/22/20 22:00 03/25/20 21:37 Quetiapine Fumarate 25 Mg Tablet PO 12.5 mg BEDTIME@2200 JOE Administration Ropinirole HCl 1 mg 03/22/20 10:23 03/26/20 09:40 Ropinirole Hcl 1 Mg Tablet PO 1 mg BID@1000,2200 JOE Administration Sodium Chloride 3 ml 03/22/20 08:00 03/26/20 15:56 0.9 % Sodium Chloride Flush 3 Ml Syringe IVFLUSH 3 ml QSHIFT JOE Administration Vitamin D 25 mcg 03/22/20 10:00 03/26/20 09:40 Cholecalciferol (Vitamin D3) 25 Mcg Tablet PO 25 mcg DAILY@1000 JOE Administration Labs CBC & Chem 7: 03/26/20 05:34 03/23/20 02:49 Microbiology Microbiology Results: Microbiology 03/23/20 09:28 Stool Stool Culture - Final Assessment and Plan (1) Pulmonary embolism: Status: Acute (2) Bright red rectal bleeding: Status: Acute (3) Elevated troponin: Status: Acute (4) Lethargy: Status: Acute (5) Elevated brain natriuretic peptide (BNP) level: Status: Acute Assessment and Plan: 84-year-old male with a past medical history of hyperlipidemia, hyponatremia, osteopenia, Parkinson's, postural hypotension, vitamin B12 deficiency, BPH, advanced dementia, factor 5 laden mutation; was just discharged from the hospital on Eliquis for large pulmonary embolism; presented back to the hospital with a chief complaint of bright red blood per rectum. 1.Bright red blood per rectum: Per ER physician rectal exam showed blood clots and mucus. Hemoglobin was 9.5. Continue PPI H&H is stable so far around 10 range . Status post colonoscopy-colonoscopy shows sigmoid colitis, acute possibly ischemic. 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 Discussed with Hematology will check fecal occult blood repeated neg: Discussed with family and GI, Hematology: Started back on Eliquis and will monitor H&H in the morning. 3.History of postural hypotension patient on midodrine at home. Blood pressure currently stable. Will continue to monitor. Above management discussed with the family detail. .
[2020-03-26] MEDS: Apixaban 5 MG TABLET PO (23:45)
[2020-03-26] MEDS: QUEtiapine Fumarate 25 MG TABLET 12.5 MG PO (23:45)
[2020-03-27 03:50] VITALS: BP 128/61; PULSE 57; RESP 18; TEMP 36.4; O2SAT 98
[2020-03-27] MEDS: Omeprazole 20 MG CAPSULE.DR PO (05:39)
[2020-03-27 06:26] LABS: Hemoglobin 9.2 g/dl (14.0-18.0)
[2020-03-27 07:46] VITALS: BP 135/71; PULSE 56; RESP 18; TEMP 36.4; O2SAT 91
[2020-03-27] MEDS: Finasteride 5 MG TABLET PO (07:46)
[2020-03-27] MEDS: Cyanocobalamin (Vitamin B-12) 1,000 MCG TABLET 1000 MCG PO (07:46)
[2020-03-27] MEDS: 0.9 % Sodium Chloride Flush 3 ML SYRINGE IVFLUSH (07:47)
[2020-03-27] MEDS: Bicalutamide 50 MG TABLET PO (07:47)
[2020-03-27] MEDS: Apixaban 5 MG TABLET PO (07:47)
[2020-03-27] MEDS: rOPINIRole HCL 1 MG TABLET PO (07:49)
[2020-03-27] MEDS: Cholecalciferol (Vitamin D3) 25 MCG TABLET PO (07:49)
[2020-03-27 09:00] VITALS: O2SAT 91
[2020-03-27 11:31] VITALS: BP 113/65; PULSE 60; RESP 18; TEMP 36.7; O2SAT 92
--- NOTE | 2020-03-27 11:47 | MHC.CM.PN ---
PER ROUNDS, Patient will be medically cleared for dc today, to return to the [facility], via [facility] at 2PM. Patient has Advanced Dementia; CM spoke with /HCP/Arianne at [phone], who is aware of and in agreement with the dc plan. Arianne indicated that she just received IMM sent out on admission and she requests that another NOT be sent again.
[2020-03-27 12:43] LABS: COVID-19 Test Negative (Negative); IDNOW Serial# 9DD0AD1C
--- NOTE | 2020-03-27 13:03 | P.DS_ITS ---
DS: Providers Provider Date of Service: 03/27/20 Date of admission: 03/22/20 02:07 Primary care physician: Unknown Physician Consults: 03/22/20 02:07 Consult to Gastroenterology Stat Consulting Provider: Amrit Luciano Reason for consultation: BRBPR; pt on eliquis for PE. Has provider been notified: No 03/22/20 10:23 Consult to Hematology / Oncology Routine Consulting Provider: Ryanne Powell Reason for consultation: hx of factor v laden /dvt,PE on apixiban-came recatal bleed Has provider been notified: No DS: Diagnosis Discharge Diagnosis (1) Pulmonary embolism: Status: Acute (2) Bright red rectal bleeding: Status: Acute (3) Elevated troponin: Status: Acute (4) Lethargy: Status: Acute (5) Elevated brain natriuretic peptide (BNP) level: Status: Acute DS: Medications Discharge Medications Home Medications: Home Medications Medication Instructions Recorded Confirmed levalbuterol tartrate [Xopenex HFA] 2 puff INHALATION Q4H 03/19/20 03/22/20 midodrine 5 mg PO BID PRN 03/19/20 03/22/20 Previous Rx's Medication Instructions Recorded acetic acid 1 appl TOPICAL DAILY@0600 #30 ml 03/01/20 alendronate 70 mg PO Hercules@0630 #30 tab 03/01/20 bicalutamide 50 mg PO DAILY@1000 #30 tab 03/01/20 bisacodyl [Gentle Laxative 10 mg ME DAILY PRN #30 ea 03/01/20 (bisacodyl)] carbidopa-levodopa 1 tab PO 1000,1400,1800,2200 #30 03/01/20 tab cholecalciferol (vitamin D3) 25 mcg PO DAILY@1000 #30 tab 03/01/20 cyanocobalamin (vitamin B-12) 1,000 mcg PO DAILY@1000 #30 tab 03/01/20 [Vitamin B-12] finasteride [Proscar] 5 mg PO DAILY@1000 #30 tab 03/01/20 loperamide 2 mg PO QID PRN #30 cap 03/01/20 loratadine 10 mg PO DAILY PRN #30 tab 03/01/20 magnesium hydroxide [Milk of 30 ml PO BEDTIME PRN #30 ml 03/01/20 Magnesia] miconazole nitrate [Inzo 1 appl TOPICAL DAILY PRN #30 g 03/01/20 Antifungal] polyvinyl alcohol [Artificial 1 drp OPHTHALMIC (EYE) 03/01/20 Tears (polyvin alc)] BID@1000,2200 #30 ml quetiapine 12.5 mg PO BEDTIME@2200 #30 tab 03/01/20 ropinirole 1 mg PO BID@1000,2200 #30 tab 03/01/20 vits A and D-white pet-lanolin [A 1 appl TOPICAL DAILY PRN #30 g 03/01/20 and D (mily, pet)] zinc oxide 1 appl TOPICAL DAILY@0600 #30 g 03/01/20 apixaban [Eliquis] 5 mg PO BID #60 tab 03/21/20 apixaban [Eliquis] 10 mg PO Q12H #24 tab 03/21/20 DS: Summary Hospital Course Hospital Course: 84-year-old male with a past medical history of hyperlipidemia, hyponatremia, osteopenia, Parkinson's, postural hypotension, vitamin B12 deficiency, BPH, advanced dementia, factor 5 laden mutation; was just discharged from the hospital on Eliquis for large pulmonary embolism; presented back to the hospital with a chief complaint of bright red blood per rectum. Hospital course:intially came withBright red blood per rectum: Patient is H&H was monitored as well as patient was started on PPI, and seen by his gastroenterology: Patient had colonoscopy will found to have ischemic colitis, Subsequently patient had no bleeding. H&H maintain between 9-10 range, we will continue PPI upon discharge. In addition patient has history of recent pulmonary embolism: Discussed with GI and hmeatolgy: Started back on anticoagulation initially IV heparin and subsequently switched to p.o. Eliquis: Patient did not had any repeat GI bleeding episode-after detailed discussion with family plan: Decided to continue anticoagulation for now Patient's CBC needs to monitor outpatient closely in next 2-3 days in the rehab closely and monitor any sign of bleeding. Above management discussed with the patient in detail length she understand and in agreement with the above plan, time spent 50 minutes and 50% time spent on counseling. Significant findings: As above. Procedures performed: None. Treatment and response: As above. Complications: None. Time Spent with Patient Time attestation: Total time spent providing and/or coordinating discharge services: Discharge coordination time: Greater than 30 minutes Physical Exam Vital Signs: Vital Signs: Last Vital Signs Temp 98.0 F 03/27/20 11:31 Pulse 60 03/27/20 11:31 Resp 18 03/27/20 11:31 BP 113/65 03/27/20 11:31 Pulse Ox 92 03/27/20 11:31 Body Mass Index 33.5 Physical exam: Constitutional: Noted acute dressed dress, pleasant male. HEENT: Eyes: Anicteric no discharge Neck supple Cvs: rrr, [id number] , no murmur res: clear to auscultation ,no rhonchii or wheezing abd: no rebound or guarding ,nt, bs present. ext pulses present , no cyanosis neuro: nonfocal DS: Data Data Completed and Pending Completed studies during hospitalization [Text1]: Pending at discharge 03/23/20 09:30 Surgical [PTH] Routine Labs on day of discharge: Laboratory Tests 03/22/20 03/22/20 03/22/20 01:02 01:02 01:05 WBC 7.4 RBC 3.22 L Hgb 9.5 L Hct 30.2 L MCV 93.8 MCH 29.5 MCHC 31.5 RDW 13.0 Plt Count 273 MPV 9.6 Immature Gran % (Auto) 0.3 Neut % (Auto) 82.2 H Lymph % (Auto) 8.4 L [place] % (Auto) 6.2 Eos % (Auto) 2.8 Baso % (Auto) 0.1 Lymph # (Auto) 0.6 L [place] # (Auto) 0.5 Eos # (Auto) 0.2 Baso # (Auto) 0.0 Abs Immat Gran (auto) 0.02 Absolute Neuts (auto) 6.1 Absolute Nucleated RBC 0.000 Nucleated RBC % (auto) 0.0 Smear Tech's Comments VERIFIED PT INR APTT PTT (Heparin Protocol) Sodium 142 Potassium 4.5 Chloride 104 Carbon Dioxide 28 Anion Gap 15 BUN 27 H Creatinine 0.94 Estim Creat Clear Calc 67.0 Estimated GFR > 60 Random Glucose 107 Calcium 8.1 L Total Bilirubin 0.4 Direct Bilirubin 0.2 AST 17 ALT < 6 Alkaline Phosphatase 54 Total Protein 6.2 L Albumin 3.3 L Urine Color Urine Appearance Urine pH Ur Specific [place] Urine Protein Urine Glucose (UA) Urine Ketones Urine Blood Urine Nitrite Ur Leukocyte Esterase Urine RBC Urine WBC Ur Squamous Epith Cells Amorphous Sediment Urine Bacteria Stool Occult Blood POS COVID-19 (JOY) COVID-19 Clin Com Blood Type Antibody Screen 03/22/20 03/22/20 03/22/20 03:28 04:03 04:03 WBC 9.5 RBC 3.38 L Hgb 10.0 L Hct 32.0 L MCV 94.7 MCH 29.6 MCHC 31.3 RDW 12.9 Plt Count 267 MPV 9.9 Immature Gran % (Auto) 0.2 Neut % (Auto) 80.2 H Lymph % (Auto) 8.5 L [place] % (Auto) 7.5 Eos % (Auto) 3.4 Baso % (Auto) 0.2 Lymph # (Auto) 0.8 L [place] # (Auto) 0.7 Eos # (Auto) 0.3 Baso # (Auto) 0.0 Abs Immat Gran (auto) 0.02 Absolute Neuts (auto) 7.7 Absolute Nucleated RBC 0.000 Nucleated RBC % (auto) 0.0 Smear Tech's Comments PT INR APTT PTT (Heparin Protocol) Sodium Potassium Chloride Carbon Dioxide Anion Gap BUN Creatinine Estim Creat Clear Calc Estimated GFR Random Glucose Calcium Total Bilirubin Direct Bilirubin AST ALT Alkaline Phosphatase Total Protein Albumin Urine Color YELLOW Urine Appearance CLEAR Urine pH 5.5 Ur Specific [place] 1.020 Urine Protein NEG Urine Glucose (UA) NEG Urine Ketones NEG Urine Blood 3+ H Urine Nitrite NEG Ur Leukocyte Esterase NEG Urine RBC 5-9 H Urine WBC 1-4 Ur Squamous Epith Cells 2+ Amorphous Sediment 2+ Urine Bacteria NONE Stool Occult Blood COVID-19 (JOY) Negative COVID-19 Clin Com See Note Blood Type Antibody Screen 03/22/20 03/22/20 03/23/20 04:49 12:02 02:49 WBC 9.3 RBC 3.20 L Hgb 10.4 L 9.4 L Hct 33.3 L 30.5 L MCV 95.3 MCH 29.4 MCHC 30.8 L RDW 12.9 Plt Count 297 MPV 9.9 Immature Gran % (Auto) Neut % (Auto) Lymph % (Auto) [place] % (Auto) Eos % (Auto) Baso % (Auto) Lymph # (Auto) [place] # (Auto) Eos # (Auto) Baso # (Auto) Abs Immat Gran (auto) Absolute Neuts (auto) Absolute Nucleated RBC 0.000 Nucleated RBC % (auto) 0.0 Smear Tech's Comments PT INR APTT PTT (Heparin Protocol) Sodium Potassium Chloride Carbon Dioxide Anion Gap BUN Creatinine Estim Creat Clear Calc Estimated GFR Random Glucose Calcium Total Bilirubin Direct Bilirubin AST ALT Alkaline Phosphatase Total Protein Albumin Urine Color Urine Appearance Urine pH Ur Specific [place] Urine Protein Urine Glucose (UA) Urine Ketones Urine Blood Urine Nitrite Ur Leukocyte Esterase Urine RBC Urine WBC Ur Squamous Epith Cells Amorphous Sediment Urine Bacteria Stool Occult Blood COVID-19 (JOY) COVID-19 Clin Com Blood Type A Positive Antibody Screen NEGATIVE 03/23/20 03/24/20 03/24/20 02:49 08:48 17:19 WBC RBC Hgb 10.1 L Hct 32.7 L MCV MCH MCHC RDW Plt Count MPV Immature Gran % (Auto) Neut % (Auto) Lymph % (Auto) [place] % (Auto) Eos % (Auto) Baso % (Auto) Lymph # (Auto) [place] # (Auto) Eos # (Auto) Baso # (Auto) Abs Immat Gran (auto) Absolute Neuts (auto) Absolute Nucleated RBC Nucleated RBC % (auto) Smear Tech's Comments PT INR APTT PTT (Heparin Protocol) Sodium 143 Potassium 4.1 Chloride 105 Carbon Dioxide 28 Anion Gap 14 BUN 18 H Creatinine 0.82 Estim Creat Clear Calc 76.8 Estimated GFR > 60 Random Glucose 87 Calcium 7.9 L Total Bilirubin Direct Bilirubin AST ALT Alkaline Phosphatase Total Protein Albumin Urine Color Urine Appearance Urine pH Ur Specific [place] Urine Protein Urine Glucose (UA) Urine Ketones Urine Blood Urine Nitrite Ur Leukocyte Esterase Urine RBC Urine WBC Ur Squamous Epith Cells Amorphous Sediment Urine Bacteria Stool Occult Blood NEG COVID-19 (JOY) COVID-19 Clin Com Blood Type Antibody Screen 03/24/20 03/24/20 03/24/20 18:02 18:16 18:16 WBC 8.2 RBC 3.30 L Hgb 9.9 L Hct 31.5 L MCV 95.5 MCH 30.0 MCHC 31.4 RDW 12.8 Plt Count 296 MPV 9.8 Immature Gran % (Auto) Neut % (Auto) Lymph % (Auto) [place] % (Auto) Eos % (Auto) Baso % (Auto) Lymph # (Auto) [place] # (Auto) Eos # (Auto) Baso # (Auto) Abs Immat Gran (auto) Absolute Neuts (auto) Absolute Nucleated RBC 0.000 Nucleated RBC % (auto) 0.0 Smear Tech's Comments PT 13.1 H 13.2 H INR 1.1 1.1 APTT 29.5 PTT (Heparin Protocol) 29.5 L Sodium Potassium Chloride Carbon Dioxide Anion Gap BUN Creatinine Estim Creat Clear Calc Estimated GFR Random Glucose Calcium Total Bilirubin Direct Bilirubin AST ALT Alkaline Phosphatase Total Protein Albumin Urine Color Urine Appearance Urine pH Ur Specific [place] Urine Protein Urine Glucose (UA) Urine Ketones Urine Blood Urine Nitrite Ur Leukocyte Esterase Urine RBC Urine WBC Ur Squamous Epith Cells Amorphous Sediment Urine Bacteria Stool Occult Blood COVID-19 (JOY) [employer] Blood Type Antibody Screen 03/25/20 03/25/20 03/25/20 01:51 05:53 05:53 WBC 6.5 RBC 3.01 L Hgb 8.8 L Hct 28.4 L MCV 94.4 MCH 29.2 MCHC 31.0 RDW 12.8 Plt Count 260 MPV 10.8 Immature Gran % (Auto) Neut % (Auto) Lymph % (Auto) [place] % (Auto) Eos % (Auto) Baso % (Auto) Lymph # (Auto) [place] # (Auto) Eos # (Auto) Baso # (Auto) Abs Immat Gran (auto) Absolute Neuts (auto) Absolute Nucleated RBC 0.000 Nucleated RBC % (auto) 0.0 Smear Tech's Comments PT 14.3 H INR 1.2 H APTT PTT (Heparin Protocol) 81.8 H D Sodium Potassium Chloride Carbon Dioxide Anion Gap BUN Creatinine Estim Creat Clear Calc Estimated GFR Random Glucose Calcium Total Bilirubin Direct Bilirubin AST ALT Alkaline Phosphatase Total Protein Albumin Urine Color Urine Appearance Urine pH Ur Specific [place] Urine Protein Urine Glucose (UA) Urine Ketones Urine Blood Urine Nitrite Ur Leukocyte Esterase Urine RBC Urine WBC Ur Squamous Epith Cells Amorphous Sediment Urine Bacteria Stool Occult Blood COVID-19 (JOY) [employer] Blood Type Antibody Screen 03/25/20 03/25/20 03/25/20 09:10 09:10 17:34 WBC RBC Hgb 10.1 L Hct 32.3 L MCV MCH MCHC RDW Plt Count MPV Immature Gran % (Auto) Neut % (Auto) Lymph % (Auto) [place] % (Auto) Eos % (Auto) Baso % (Auto) Lymph # (Auto) [place] # (Auto) Eos # (Auto) Baso # (Auto) Abs Immat Gran (auto) Absolute Neuts (auto) Absolute Nucleated RBC Nucleated RBC % (auto) Smear Tech's Comments PT INR APTT PTT (Heparin Protocol) 99.9 H D 64.0 D Sodium Potassium Chloride Carbon Dioxide Anion Gap BUN Creatinine Estim Creat Clear Calc Estimated GFR Random Glucose Calcium Total Bilirubin Direct Bilirubin AST ALT Alkaline Phosphatase Total Protein Albumin Urine Color Urine Appearance Urine pH Ur Specific [place] Urine Protein Urine Glucose (UA) Urine Ketones Urine Blood Urine Nitrite Ur Leukocyte Esterase Urine RBC Urine WBC Ur Squamous Epith Cells Amorphous Sediment Urine Bacteria Stool Occult Blood COVID-19 (JOY) [employer] Blood Type Antibody Screen 03/25/20 03/26/20 03/26/20 23:29 05:34 05:34 WBC RBC Hgb 9.3 L Hct 30.0 L MCV MCH MCHC RDW Plt Count MPV Immature Gran % (Auto) Neut % (Auto) Lymph % (Auto) [place] % (Auto) Eos % (Auto) Baso % (Auto) Lymph # (Auto) [place] # (Auto) Eos # (Auto) Baso # (Auto) Abs Immat Gran (auto) Absolute Neuts (auto) Absolute Nucleated RBC Nucleated RBC % (auto) Smear Tech's Comments PT INR APTT PTT (Heparin Protocol) 57.5 52.4 L Sodium Potassium Chloride Carbon Dioxide Anion Gap BUN Creatinine Estim Creat Clear Calc Estimated GFR Random Glucose Calcium Total Bilirubin Direct Bilirubin AST ALT Alkaline Phosphatase Total Protein Albumin Urine Color Urine Appearance Urine pH Ur Specific [place] Urine Protein Urine Glucose (UA) Urine Ketones Urine Blood Urine Nitrite Ur Leukocyte Esterase Urine RBC Urine WBC Ur Squamous Epith Cells Amorphous Sediment Urine Bacteria Stool Occult Blood COVID-19 (JOY) COVID-19 [employer] Blood Type Antibody Screen 03/26/20 03/27/20 03/27/20 13:59 05:40 Unknown WBC RBC Hgb 9.2 L Hct 30.0 L MCV MCH MCHC RDW Plt Count MPV Immature Gran % (Auto) Neut % (Auto) Lymph % (Auto) [place] % (Auto) Eos % (Auto) Baso % (Auto) Lymph # (Auto) [place] # (Auto) Eos # (Auto) Baso # (Auto) Abs Immat Gran (auto) Absolute Neuts (auto) Absolute Nucleated RBC Nucleated RBC % (auto) Smear Tech's Comments PT INR APTT PTT (Heparin Protocol) 83.2 H D Sodium Potassium Chloride Carbon Dioxide Anion Gap BUN Creatinine Estim Creat Clear Calc Estimated GFR Random Glucose Calcium Total Bilirubin Direct Bilirubin AST ALT Alkaline Phosphatase Total Protein Albumin Urine Color Urine Appearance Urine pH Ur Specific [place] Urine Protein Urine Glucose (UA) Urine Ketones Urine Blood Urine Nitrite Ur Leukocyte Esterase Urine RBC Urine WBC Ur Squamous Epith Cells Amorphous Sediment Urine Bacteria Stool Occult Blood COVID-19 (JOY) Negative COVID-19 Clin Com See Note Blood Type Antibody Screen Discharge Plan Discharge Patient Disposition: Xfer SNF Referrals: [facility] [Outside] Armando Dasilva MD [Physician] - 1 Week ([facility] will follow up with you.) Discharge Medications: Continued quetiapine 25 mg Tablet 12.5 mg PO BEDTIME@2200 Qty: 30 RF: 0 bicalutamide 50 mg Tablet 50 mg PO DAILY@1000 Qty: 30 RF: 0 ropinirole 1 mg Tablet 1 mg PO BID@1000,2200 Qty: 30 RF: 0 loperamide 2 mg Capsule 2 mg PO QID PRN (Reason: Diarrhea) Qty: 30 RF: 0 miconazole nitrate [Inzo Antifungal] 2 % Cream 1 appl topical DAILY PRN (Reason: SKIN IRRITATION) Qty: 30 RF: 0 polyvinyl alcohol [Artificial Tears (polyvin alc)] 1.4 % Drops 1 drp ophthalmic (eye) BID@1000,2200 Qty: 30 RF: 0 alendronate 70 mg Tablet 70 mg PO Hercules@0630 Qty: 30 RF: 0 cyanocobalamin (vitamin B-12) [Vitamin B-12] 1,000 mcg Tablet 1,000 mcg PO DAILY@1000 Qty: 30 RF: 0 zinc oxide 20 % Ointment 1 appl topical DAILY@0600 Qty: 30 RF: 0 magnesium hydroxide [Milk of Magnesia] 400 mg/5 mL Suspension 30 ml PO BEDTIME PRN (Reason: Constipation) Qty: 30 RF: 0 bisacodyl [Gentle Laxative (bisacodyl)] 10 mg Suppository 10 mg ME DAILY PRN (Reason: Constipation) Qty: 30 RF: 0 acetic acid 0.25 % Solution 1 appl topical DAILY@0600 Qty: 30 RF: 0 carbidopa-levodopa 25-100 mg Tablet 1 tab PO 1000,1400,1800,2200 Qty: 30 RF: 0 finasteride [Proscar] 5 mg Tablet 5 mg PO DAILY@1000 Qty: 30 RF: 0 loratadine 10 mg Tablet 10 mg PO DAILY PRN (Reason: Runny Nose) Qty: 30 RF: 0 cholecalciferol (vitamin D3) 25 mcg (1,000 unit) Tablet 25 mcg PO DAILY@1000 Qty: 30 RF: 0 vits A and D-white pet-lanolin [A and D (mily, pet)] Ointment 1 appl topical DAILY PRN (Reason: DISCOMFORT) Qty: 30 RF: 0 levalbuterol tartrate [Xopenex HFA] 45 mcg/actuation Hfa Aerosol Inhaler 2 puff INHALATION Q4H RF: 0 midodrine 5 mg tablet 5 mg PO BID PRN (Reason: SBP <90) RF: 0 Eliquis 5 mg tablet 5 mg PO BID Qty: 60 RF: 4 Discontinued Eliquis 5 mg Tablet 10 mg PO Q12H Qty: 24 RF: 0 Discharge Orders: Discharge Order (Routine); Ordered 03/27/20 Ordered By: Cha Silva Diet: advance to usual diet, diabetic diet, low fat, low cholesterol and low salt diet Activity on Discharge: As tolerated Stand Alone Forms: Patient Portal Discharge page Care Plan Goals: please see dc summary. Health Concerns: As above. Plan of Treatment: As above.
== END 2020-03-27 14:19 | disposition skilled nursing facility (03) | DRG 393 ==
LOC: HO.ED 02:05 → HO.EDOVER 03:12 → HO.IMC 14:41
PROVIDERS: Internal Medicine Gastroenterology; Admitting Provider Hospitalist; Emergency Provider Emergency Medicine; PCP Internal Medicine; Visit Provider Internal Medicine
PROC: 0DJD8ZZ Inspection of Lower Intestinal Tract, Via Natural or Artificial Opening Endoscopic (ICD-10-PCS; CPT 45378; principal; 2020-03-23 09:30)
DX: K55.039 Acute (reversible) ischemia of large intestine, extent unspecified (principal); I26.99 Other pulmonary embolism without acute cor pulmonale; D68.51 Activated protein C resistance; I95.1 Orthostatic hypotension; G20 Parkinson's disease; F02.80 Dementia in other diseases classified elsewhere, unspecified severity, without behavioral disturbance, psychotic disturbance, mood disturbance, and anxiety; Z20.822 Contact with and (suspected) exposure to COVID-19; Z79.01 Long term (current) use of anticoagulants; Z79.899 Other long term (current) drug therapy; Z66 Do not resuscitate
CPT/HCPCS: 36415; 71045; 80048; 80076; 81001; 82272; 85014; 85018; 85025; 85027; 85610; 85730; 86850; 86900; 86901; 87045; 87046; 87635; 88305; 92526; 92610; 96360; 97162; 99285; J2370

== ENCOUNTER 2020-04-03 16:29 | Outpatient (REF) | payer MEDICARE, MEDICAID, SELFPAY ==
[2020-04-03 16:42] LABS: MANUAL DIFF FLAG NO
[2020-04-03 16:43] LABS: Basophils Percent Auto 0.1 % (0-2); Eosinophils Absolute Auto 0.5 X10*3/uL (0.0-0.4); Eosinophils Percent Auto 6.9 % (0-4); Hematocrit 33.2 % (42-52); Hemoglobin 10.4 g/dl (14.0-18.0); Imm Gran Abs Auto 0.03 X10*3/uL (0.00-0.03); Imm Gran Pct Auto 0.4 % (0.0-0.4); Lymphocytes Percent Auto 13.7 % (20-40); Mean Corpuscular HGB Conc 31.3 g/dl (31.0-36.0); Mean Corpuscular Hemoglobin 29.7 pg (27.0-33.0); Mean Corpuscular Volume 94.9 fL (80-98); Mean Platelet Volume 9.9 fL (9.4-12.4); Monocytes Absolute Auto 0.5 X10*3/uL (0.1-1.2); Monocytes Percent Auto 6.7 % (2-11); Neutrophils Absolute Auto 5.1 X10*3/uL (2.0-8.3); Neutrophils Percent Auto 72.2 % (45-73); Platelet Count 292 X10*3/uL (160-400); Red Cell Distribution Width 13.4 % (11.0-16.0)
== END 2020-04-03 16:30 | disposition home or self-care (01) ==
LOC: HO.LNP 16:29
PROVIDERS: Visit Provider Internal Medicine Endocrinology, Diabetes & Metabolism
DX: R06.02 Shortness of breath (principal)
CPT/HCPCS: 85025

== ENCOUNTER 2020-05-20 16:33 | Emergency (ER) | payer MEDICARE, MEDICAID, SELFPAY ==
--- NOTE | ~2020-05-20 | XR_ITS ---
EXAMINATION: XR CHEST CLINICAL INFORMATION: Altered mental status COMPARISON: Multiple previous chest x-rays with the last chest x-ray dated 03/22/2020, chest CT of 03/19/2020 TECHNIQUE: Frontal view of the chest was obtained. FINDINGS: Patient's face obscures the portion of the bilateral lung apices. Lungs are hypoexpanded. Question artifact versus some scattered patchy opacities in the left upper lung and right lung base. Left retrocardiac opacity is again noted, probably mildly improved. No significant pleural effusion, pulmonary edema or pneumothorax in the visualized chest. No acute osseous abnormality. XR/XR chest 1V IMPRESSION: Hyperexpanded lungs. A few questionable scattered patchy opacities in the left upper lung and right lung base. Consider repeat chest x-ray with proper positioning, if possible in upright and lateral position. Persistent left retrocardiac opacity with possible mild interval improvement.
--- NOTE | ~2020-05-20 | CT_ITS ---
EXAMINATION: CT HEAD WITHOUT CONTRAST CLINICAL INFORMATION: Altered mental status on Coumadin COMPARISON: 03/19/2020 TECHNIQUE: Contiguous axial imaging was performed from the skull base to vertex without intravenous administration of contrast. This CT examination was performed using dose optimization techniques as appropriate, variously including the following: *Automated exposure control *Adjustment of mA and/or kV according to patient size (this includes techniques or standardized protocols for targeted exams where dose is matched to indication/reason for exam; i.e. extremities or head) *Use of iterative reconstruction technique DLP: 994 mGy-cm FINDINGS: There is no evidence of acute intracranial hemorrhage or territorial infarction. No abnormal mass effect or midline shift is seen. Price to white matter differentiation is well preserved. No extra-axial fluid collections are identified. The ventricles and sulci are similar in configuration to the prior study. No hydrocephalus. The pattern is consistent with age-appropriate diffuse parenchymal volume loss. Again seen is patchy periventricular and subcortical white matter hypodensity consistent with age-appropriate chronic microvascular white matter ischemic changes. The osseous structures and soft tissues are normal. The mastoid air cells and visualized portions of the paranasal sinuses are well aerated. There are atherosclerotic changes as the artery and cavernous internal carotid arteries bilaterally. CT/CT head/brain wo con IMPRESSION: No acute intracranial pathology. No significant change from prior study 03/19/2020. Similar appearance of age-appropriate chronic microvascular white matter ischemic changes and diffuse parenchymal volume loss.
[2020-05-20 16:37] VITALS: BP 149/83; PULSE 66
--- NOTE | 2020-05-20 16:37 | ECG_ITS ---
Test Reason : AMS Blood Pressure : / mmHG Vent. Rate : 069 BPM Atrial Rate : 069 BPM P-R Int : 000 ms QRS Dur : 086 ms QT Int : 408 ms P-R-T Axes : 000 000 017 degrees QTc Int : 437 ms Accelerated Junctional rhythm T wave abnormality, consider lateral ischemia Abnormal ECG When compared with ECG of 19-MAR-2020 12:53, Junctional rhythm has replaced Sinus rhythm T wave inversion now evident in Anterolateral leads Referred By: Alejandro Oneil Electronically Signed By:Eron Jurado
[2020-05-20 16:48] VITALS: BP 167/83; PULSE 69; RESP 16; TEMP 36.1; O2SAT 91; BMI 29.5
[2020-05-20 17:06] LABS: MANUAL DIFF FLAG NO
[2020-05-20 17:13] LABS: Basophils Percent Auto 0.2 % (0-2); Eosinophils Absolute Auto 0.6 X10*3/uL (0.0-0.4); Eosinophils Percent Auto 12.6 % (0-4); Hematocrit 37.8 % (42-52); Hemoglobin 11.8 g/dl (14.0-18.0); Imm Gran Abs Auto 0.01 X10*3/uL (0.00-0.03); Imm Gran Pct Auto 0.2 % (0.0-0.4); Lymphocytes Absolute Auto 0.9 X10*3/uL (1.2-4.9); Lymphocytes Percent Auto 17.4 % (20-40); Mean Corpuscular HGB Conc 31.2 g/dl (31.0-36.0); Mean Corpuscular Hemoglobin 29.6 pg (27.0-33.0); Mean Corpuscular Volume 94.7 fL (80-98); Mean Platelet Volume 9.8 fL (9.4-12.4); Monocytes Absolute Auto 0.6 X10*3/uL (0.1-1.2); Monocytes Percent Auto 11.3 % (2-11); Neutrophils Absolute Auto 2.9 X10*3/uL (2.0-8.3); Neutrophils Percent Auto 58.3 % (45-73); Platelet Count 212 X10*3/uL (160-400); Red Blood Count 3.99 X10*6/uL (4.60-5.80); Red Cell Distribution Width 12.8 % (11.0-16.0); White Blood Count 4.9 X10*3/uL (4.8-10.8)
[2020-05-20 17:19] LABS: INTERNATIONAL NORM RATIO 1.2 (0.9-1.1); Prothrombin Time 14.5 SEC (10.8-13.0)
[2020-05-20 17:20] LABS: Glucose Urine UA NEG (NEG); Leukocyte Esterase Urine NEG (NEG); Nitrite Urine NEG (NEG); PH 5.5 (5.0-8.0); Urine Blood NEG (NEG); Urine Ketones NEG (NEG); Urine Protein NEG (NEG-TRACE)
[2020-05-20 17:22] LABS: Partial Thromboplastin Time 33.5 SEC (24.1-38.0)
[2020-05-20 17:23] LABS: Appearance Urine CLEAR; Color Urine YELLOW
[2020-05-20 17:28] LABS: COVID-19 Test Negative (Negative)
[2020-05-20 17:37] LABS: Alanine Aminotransferase < 6 U/L (0-40); Albumin Level 3.9 g/dL (3.5-5.0); Alkaline Phosphatase 71 U/L (39-117); Anion Gap 14 (12-20); Aspartate Amino Transferase 21 U/L (5-37); Bilirubin Direct < 0.2 mg/dL (0.0-0.5); Bilirubin Total 0.4 mg/dL (0.0-1.0); Blood Urea Nitrogen 21 mg/dL (9-16); Calcium 8.9 mg/dL (8.4-10.2); Carbon Dioxide 31 mmol/L (22-29); Chloride 101 mmol/L (96-108); Creatinine Clr Calc Pharmacy 58.3; Estimated Glomerular Filt Rate > 60; Glucose Random 92 mg/dL (60-115); Sodium 141 mmol/L (135-145); Total Protein 7.1 g/dL (6.5-8.0)
[2020-05-20 17:42] LABS: Troponin-I High Sensitivity 10.2 ng/L (<3.5-35.0)
--- NOTE | 2020-05-20 17:54 | PC.NURSE ---
son jazzy updated [phone] son reports that pt has frequent utis and if not found goes into an unresponsive state.
--- NOTE | 2020-05-20 18:03 | ED.AMS ---
HPI - Altered Mental Status General Chief Complaint: Altered Mental Status Stated Complaint: stroke alert Time Seen by Provider: 05/20/20 16:36 Source: EMS Mode of arrival: EMS Limitations: altered mental status History of Present Illness HPI narrative: Patient with history of dementia multiple medical problems AFib on Eliquis sent from [facility] decreased responsiveness just prior to arrival no focal deficit was noticed by the EMS and on arrival patient was slightly lethargic. No seizures were noticed patient was afebrile saturating 91% at room air patient is on 2 L of oxygen and [facility] MD complaint: altered mental status Related Data Home Medications Medication Instructions Recorded Confirmed levalbuterol tartrate [Xopenex HFA] 2 puff INHALATION Q4H 03/19/20 03/22/20 midodrine 5 mg PO BID PRN 03/19/20 03/22/20 Previous Rx's Medication Instructions Recorded acetic acid 1 appl TOPICAL DAILY@0600 #30 ml 03/01/20 alendronate 70 mg PO Hercules@0630 #30 tab 03/01/20 bicalutamide 50 mg PO DAILY@1000 #30 tab 03/01/20 bisacodyl [Gentle Laxative 10 mg RI DAILY PRN #30 ea 03/01/20 (bisacodyl)] carbidopa-levodopa 1 tab PO 1000,1400,1800,2200 #30 03/01/20 tab cholecalciferol (vitamin D3) 25 mcg PO DAILY@1000 #30 tab 03/01/20 cyanocobalamin (vitamin B-12) 1,000 mcg PO DAILY@1000 #30 tab 03/01/20 [Vitamin B-12] finasteride [Proscar] 5 mg PO DAILY@1000 #30 tab 03/01/20 loperamide 2 mg PO QID PRN #30 cap 03/01/20 loratadine 10 mg PO DAILY PRN #30 tab 03/01/20 magnesium hydroxide [Milk of 30 ml PO BEDTIME PRN #30 ml 03/01/20 Magnesia] miconazole nitrate [Inzo 1 appl TOPICAL DAILY PRN #30 g 03/01/20 Antifungal] polyvinyl alcohol [Artificial 1 drp OPHTHALMIC (EYE) 03/01/20 Tears (polyvin alc)] BID@1000,2200 #30 ml quetiapine 12.5 mg PO BEDTIME@2200 #30 tab 03/01/20 ropinirole 1 mg PO BID@1000,2200 #30 tab 03/01/20 vits A and D-white pet-lanolin [A 1 appl TOPICAL DAILY PRN #30 g 03/01/20 and D (mily, pet)] zinc oxide 1 appl TOPICAL DAILY@0600 #30 g 03/01/20 Eliquis 5 mg PO BID #60 tab 03/21/20 Allergies Allergy/AdvReac Type Severity Reaction Status Date / Time No Known Allergies Allergy Unverified 11/03/19 19:50 [No Known Allergies*] Review of Systems Review of Systems: Yes Unobtainable due to mental status PMFSH Past Medical History Medical History Anemia BPH (benign prostatic hyperplasia) Carotid body tumor Dementia Factor 5 Leiden mutation, heterozygous Hematuria Hyperlipidemia Hyponatremia Lymphadenopathy Osteopenia Parkinsons Postural drop in blood pressure on standing Prostate cancer Prostate cancer Pulmonary embolism Rhinitis Vitamin B12 deficiency Surgical History H/O aortic aneurysm repair History of nephrectomy Total knee replacement status Social History Social History Household Members: None Housing: Prison Alcohol intake: never Smoking Status: Unknown if ever smoked Second Hand Smoke Exposure: No Use of substances other than those prescribed or required for medical reasons: No Advance Directives: No Advance Directives Information Provided: No service: Yes Current occupational status: retired Physical Exam Vital Signs: Vital Signs: Last Vital Signs Temp 98.7 F 05/20/20 19:38 Pulse 71 05/20/20 19:38 Resp 14 05/20/20 19:38 BP 171/91 H 05/20/20 19:38 Pulse Ox 96 05/20/20 19:38 Body Mass Index 29.5 Const: General: no acute distress, well developed and lethargic Nutritional Appearance: average body habitus Orientation/consciousness: oriented to person and lethargic Limitations: altered mental status HENMT: Head: Yes normocephalic and Yes atraumatic Eyes: General: appearance normal, both eyes and all related structures Sclerae: sclerae normal Corneas: corneas normal Neck: Neck: Yes normal visual inspection Chest: Chest palpation & inspection: normal inspection of the chest Resp: Effort & Inspection: normal respiratory effort Auscultation: clear to auscultation bilaterally Cardio: Palpation: normal PMI Rate: regular rate Rhythm: regular rhythm Heart sounds: S1 normal heart sound present and S2 normal heart sound present GI: Inspection: Yes normal to inspection Palpation (GI): Soft to palpation Auscultation: normal bowel sounds : General: Yes no CVA tenderness Back/Spine/Pelvis: Back: no CVA tenderness Skin: General skin exam: no rashes or lesions noted Neuro: Other: Patient dementia with limited neuro examination moving his all 4 extremities awake communicating able to understand moving all 4 extremities no focal deficit was noticed General: oriented to person, moves all extremities, no focal motor deficits and CN's II-XI intact bilaterally Extrem: General: Yes normal to inspection and Yes no pedal edema NIH Stroke Scale Internal: Initial- Upon Arrival Level of Consciousness: Alert Motor Arm (Right): No drift Motor Arm (Left): No drift Motor Leg (Right): Some effort against gravity Motor Leg (Left): Some effort against gravity Limb Ataxia: Absent Sensory: Normal Best Language: No aphasia Dysarthia: Normal Extinction and Inattention: No abnormality MDM - Altered Mental Status MDM Narrative Medical decision making narrative: Patient has significant dementia was in deep sleep not responsive at [facility] but on arrival he gradually woke up without any focal deficits CT scan of the head was done which was negative for any acute. Labs are stable at this time patient communicating understanding the conversation he is at baseline saturating 99% on 2 L oxygen will send him back to [facility] Differential Diagnosis Differential diagnosis: Likely altered mental status Medical Records Attestation: I reviewed the patient's medical records. Lab Data Attestation: I reviewed the patient's lab results. Result diagrams: 05/20/20 16:59 05/20/20 16:59 Labs: Lab Results 05/20/20 05/20/20 05/20/20 Range/Units 16:59 16:59 16:59 WBC 4.9 (4.8-10.8) X10*3/uL RBC 3.99 L (4.60-5.80) X10*6/uL Hgb 11.8 L (14.0-18.0) g/dl Hct 37.8 L (42-52) % MCV 94.7 (80-98) fL MCH 29.6 (27.0-33.0) pg MCHC 31.2 (31.0-36.0) g/dl RDW 12.8 (11.0-16.0) % Plt Count 212 D (160-400) X10*3/uL MPV 9.8 (9.4-12.4) fL Immature Gran % (Auto) 0.2 (0.0-0.4) % Neut % (Auto) 58.3 (45-73) % Lymph % (Auto) 17.4 L (20-40) % [place] % (Auto) 11.3 H (2-11) % Eos % (Auto) 12.6 H (0-4) % Baso % (Auto) 0.2 (0-2) % Lymph # (Auto) 0.9 L (1.2-4.9) X10*3/uL [place] # (Auto) 0.6 (0.1-1.2) X10*3/uL Eos # (Auto) 0.6 H (0.0-0.4) X10*3/uL Baso # (Auto) 0.0 (0.0-0.2) X10*3/uL Abs Immat Gran (auto) 0.01 (0.00-0.03) X10*3/uL Absolute Neuts (auto) 2.9 (2.0-8.3) X10*3/uL Absolute Nucleated RBC 0.000 (0.0-0.012) X10*3/uL Nucleated RBC % (auto) 0.0 (0.0-0.2) /100WBC PT 14.5 H (10.8-13.0) SEC INR 1.2 H (0.9-1.1) APTT 33.5 (24.1-38.0) SEC Sodium 141 (135-145) mmol/L Potassium 5.0 D (3.3-5.1) mmol/L Chloride 101 (96-108) mmol/L Carbon Dioxide 31 H (22-29) mmol/L Anion Gap 14 (12-20) BUN 21 H (9-16) mg/dL Creatinine 1.05 (0.5-1.4) mg/dL Estim Creat Clear Calc 58.3 Estimated GFR > 60 Random Glucose 92 (60-115) mg/dL Calcium 8.9 D (8.4-10.2) mg/dL Total Bilirubin 0.4 (0.0-1.0) mg/dL Direct Bilirubin < 0.2 (0.0-0.5) mg/dL AST 21 (5-37) U/L ALT < 6 (0-40) U/L Alkaline Phosphatase 71 D (39-117) U/L Troponin I High Sens (<3.5-35.0) ng/L Total Protein 7.1 (6.5-8.0) g/dL Albumin 3.9 (3.5-5.0) g/dL Urine Color Urine Appearance Urine pH (5.0-8.0) Ur Specific [place] (1.005-1.025) Urine Protein (NEG-TRACE) MG/DL Urine Glucose (UA) (NEG) MG/DL Urine Ketones (NEG) MG/DL Urine Blood (NEG) Urine Nitrite (NEG) Ur Leukocyte Esterase (NEG) COVID-19 (JOY) (Negative) COVID-19 Clin Com 05/20/20 05/20/20 05/20/20 Range/Units 16:59 16:59 17:10 WBC (4.8-10.8) X10*3/uL RBC (4.60-5.80) X10*6/uL Hgb (14.0-18.0) g/dl Hct (42-52) % MCV (80-98) fL MCH (27.0-33.0) pg MCHC (31.0-36.0) g/dl RDW (11.0-16.0) % Plt Count (160-400) X10*3/uL MPV (9.4-12.4) fL Immature Gran % (Auto) (0.0-0.4) % Neut % (Auto) (45-73) % Lymph % (Auto) (20-40) % [place] % (Auto) (2-11) % Eos % (Auto) (0-4) % Baso % (Auto) (0-2) % Lymph # (Auto) (1.2-4.9) X10*3/uL [place] # (Auto) (0.1-1.2) X10*3/uL Eos # (Auto) (0.0-0.4) X10*3/uL Baso # (Auto) (0.0-0.2) X10*3/uL Abs Immat Gran (auto) (0.00-0.03) X10*3/uL Absolute Neuts (auto) (2.0-8.3) X10*3/uL Absolute Nucleated RBC (0.0-0.012) X10*3/uL Nucleated RBC % (auto) (0.0-0.2) /100WBC PT (10.8-13.0) SEC INR (0.9-1.1) APTT (24.1-38.0) SEC Sodium (135-145) mmol/L Potassium (3.3-5.1) mmol/L Chloride (96-108) mmol/L Carbon Dioxide (22-29) mmol/L Anion Gap (12-20) BUN (9-16) mg/dL Creatinine (0.5-1.4) mg/dL Estim Creat Clear Calc Estimated GFR Random Glucose (60-115) mg/dL Calcium (8.4-10.2) mg/dL Total Bilirubin (0.0-1.0) mg/dL Direct Bilirubin (0.0-0.5) mg/dL AST (5-37) U/L ALT (0-40) U/L Alkaline Phosphatase (39-117) U/L Troponin I High Sens 10.2 D (<3.5-35.0) ng/L Total Protein (6.5-8.0) g/dL Albumin (3.5-5.0) g/dL Urine Color YELLOW Urine Appearance CLEAR Urine pH 5.5 (5.0-8.0) Ur Specific [place] 1.010 (1.005-1.025) Urine Protein NEG (NEG-TRACE) MG/DL Urine Glucose (UA) NEG (NEG) MG/DL Urine Ketones NEG (NEG) MG/DL Urine Blood NEG (NEG) Urine Nitrite NEG (NEG) Ur Leukocyte Esterase NEG (NEG) COVID-19 (JOY) Negative (Negative) COVID-19 Clin Com See Note ECG Data ECG #1: Attestation: I personally reviewed and interpreted this ECG as follows: Interpretation: Normal sinus rhythm with heart rate 69 beats per minute nonspecific ST T wave changes normal axis normal intervals impression no acute ischemia Discharge Plan Discharge Clinical Impression: Altered mental status Patient Disposition: Xfer [facility] Instructions: Altered Mental Status (ED) Additional Instructions: Patient had transient mental status changes likely from dementia or was in sleep. Patient had CT is negative for any acute bleed lab workup is stable urine is negative for infection please follow-up with your PCP Prescriptions: No Action quetiapine 25 mg Tablet 12.5 mg PO BEDTIME@2200 Qty: 30 RF: 0 bicalutamide 50 mg Tablet 50 mg PO DAILY@1000 Qty: 30 RF: 0 ropinirole 1 mg Tablet 1 mg PO BID@1000,2200 Qty: 30 RF: 0 loperamide 2 mg Capsule 2 mg PO QID PRN (Reason: Diarrhea) Qty: 30 RF: 0 miconazole nitrate [Inzo Antifungal] 2 % Cream 1 appl topical DAILY PRN (Reason: SKIN IRRITATION) Qty: 30 RF: 0 polyvinyl alcohol [Artificial Tears (polyvin alc)] 1.4 % Drops 1 drp ophthalmic (eye) BID@999,2200 Qty: 30 RF: 0 alendronate 70 mg Tablet 70 mg PO Hercules@0630 Qty: 30 RF: 0 cyanocobalamin (vitamin B-12) [Vitamin B-12] 1,000 mcg Tablet 1,000 mcg PO DAILY@1000 Qty: 30 RF: 0 zinc oxide 20 % Ointment 1 appl topical DAILY@0600 Qty: 30 RF: 0 magnesium hydroxide [Milk of Magnesia] 400 mg/5 mL Suspension 30 ml PO BEDTIME PRN (Reason: Constipation) Qty: 30 RF: 0 bisacodyl [Gentle Laxative (bisacodyl)] 10 mg Suppository 10 mg RI DAILY PRN (Reason: Constipation) Qty: 30 RF: 0 acetic acid 0.25 % Solution 1 appl topical DAILY@0600 Qty: 30 RF: 0 carbidopa-levodopa 25-100 mg Tablet 1 tab PO 1000,1400,1800,2200 Qty: 30 RF: 0 finasteride [Proscar] 5 mg Tablet 5 mg PO DAILY@1000 Qty: 30 RF: 0 loratadine 10 mg Tablet 10 mg PO DAILY PRN (Reason: Runny Nose) Qty: 30 RF: 0 cholecalciferol (vitamin D3) 25 mcg (1,000 unit) Tablet 25 mcg PO DAILY@1000 Qty: 30 RF: 0 vits A and D-white pet-lanolin [A and D (mily, pet)] Ointment 1 appl topical DAILY PRN (Reason: DISCOMFORT) Qty: 30 RF: 0 levalbuterol tartrate [Xopenex HFA] 45 mcg/actuation Hfa Aerosol Inhaler 2 puff INHALATION Q4H RF: 0 midodrine 5 mg tablet 5 mg PO BID PRN (Reason: SBP <90) RF: 0 Eliquis 5 mg tablet 5 mg PO BID Qty: 60 RF: 4 Interventions: ED Discharge Assessment Last Done: 05/20/20 19:49 Discharge Date/Time: 05/20/20 19:50
--- NOTE | 2020-05-20 18:21 | PC.NURSE ---
plan to dc back to , awaiting transport
[2020-05-20 19:38] VITALS: BP 171/91; PULSE 71; RESP 14; TEMP 37.1; O2SAT 96
== END 2020-05-20 19:50 | disposition skilled nursing facility (03) ==
PROVIDERS: Emergency Provider Internal Medicine
DX: R41.82 Altered mental status, unspecified (principal); G20 Parkinson's disease; F02.80 Dementia in other diseases classified elsewhere, unspecified severity, without behavioral disturbance, psychotic disturbance, mood disturbance, and anxiety; Z20.822 Contact with and (suspected) exposure to COVID-19; I48.91 Unspecified atrial fibrillation; D64.9 Anemia, unspecified; E78.5 Hyperlipidemia, unspecified; Z85.46 Personal history of malignant neoplasm of prostate; Z86.711 Personal history of pulmonary embolism; Z79.01 Long term (current) use of anticoagulants
CPT/HCPCS: 36415; 70450; 71045; 80048; 80076; 81003; 84484; 85025; 85610; 85730; 87635; 93005; 99284

== ENCOUNTER 2020-05-29 16:54 | Outpatient (REF) | payer MEDICARE, MEDICAID, SELFPAY ==
[2020-05-29 17:39] LABS: Glucose Urine UA NEG (NEG); Leukocyte Esterase Urine 2+ (NEG); Nitrite Urine POS (NEG); PH 8.5 (5.0-8.0); Urine Blood NEG (NEG); Urine Ketones NEG (NEG)
[2020-05-29 17:44] LABS: Appearance Urine TURBID; Color Urine YELLOW; Urine Protein 1+ MG/DL (NEG-TRACE)
[2020-05-29 18:11] LABS: Bacteria Urine 4+ /LPF; Mucus Urine 4+ /LPF; RBC Urine 0 /HPF (0); Triple Phosphate Crystal Urine 2+ /LPF; WBC Urine 50-75 /HPF (0-4)
== END 2020-05-29 16:55 | disposition home or self-care (01) ==
LOC: HO.LNP 16:54
PROVIDERS: Visit Provider Internal Medicine Endocrinology, Diabetes & Metabolism
DX: R36.9 Urethral discharge, unspecified (principal); R82.998 Other abnormal findings in urine
CPT/HCPCS: 81001; 81003; 87086; 87088; 87186

== ENCOUNTER 2020-08-15 10:39 | Outpatient (REF) | payer MEDICARE, MEDICAID, SELFPAY | END 2020-08-15 10:40 | disposition home or self-care (01) | LOC: HO.HSH2E 10:39 | PROVIDERS: Visit Provider Internal Medicine Medical Oncology | DX: L98.9 Disorder of the skin and subcutaneous tissue, unspecified (principal) | CPT/HCPCS: 88305 ==

== ENCOUNTER 2020-09-13 | Outpatient (REF) | payer MEDICARE, MEDICAID, SELFPAY ==
[2020-09-13 07:47] LABS: MANUAL DIFF FLAG NO
[2020-09-13 07:58] LABS: Basophils Percent Auto 0.2 % (0-2); Eosinophils Absolute Auto 0.4 X10*3/uL (0.0-0.4); Eosinophils Percent Auto 7.7 % (0-4); Hematocrit 35.5 % (42-52); Hemoglobin 11.5 g/dl (14.0-18.0); Imm Gran Abs Auto 0.02 X10*3/uL (0.00-0.03); Imm Gran Pct Auto 0.4 % (0.0-0.4); Lymphocytes Absolute Auto 0.9 X10*3/uL (1.2-4.9); Lymphocytes Percent Auto 17.8 % (20-40); Mean Corpuscular HGB Conc 32.4 g/dl (31.0-36.0); Mean Corpuscular Hemoglobin 30.6 pg (27.0-33.0); Mean Corpuscular Volume 94.4 fL (80-98); Mean Platelet Volume 10.2 fL (9.4-12.4); Monocytes Absolute Auto 0.6 X10*3/uL (0.1-1.2); Monocytes Percent Auto 11.7 % (2-11); Neutrophils Absolute Auto 3.1 X10*3/uL (2.0-8.3); Neutrophils Percent Auto 62.2 % (45-73); Platelet Count 214 X10*3/uL (160-400); Red Blood Count 3.76 X10*6/uL (4.60-5.80); Red Cell Distribution Width 13.2 % (11.0-16.0); White Blood Count 5.1 X10*3/uL (4.8-10.8)
[2020-09-13 08:12] LABS: Alanine Aminotransferase < 6 U/L (0-40); Albumin Level 3.9 g/dL (3.5-5.0); Alkaline Phosphatase 84 U/L (39-117); Anion Gap 12 (12-20); Aspartate Amino Transferase 17 U/L (5-37); Bilirubin Total 0.4 mg/dL (0.0-1.0); Blood Urea Nitrogen 21 mg/dL (9-16); Calcium 9.4 mg/dL (8.4-10.2); Carbon Dioxide 30 mmol/L (22-29); Chloride 101 mmol/L (96-108); Estimated Glomerular Filt Rate > 60; Glucose Fasting 80 mg/dL (60-99); Potassium 4.4 mmol/L (3.3-5.1); Sodium 139 mmol/L (135-145); Total Protein 6.7 g/dL (6.5-8.0)
[2020-09-13 08:31] LABS: Vitamin D 25-OH Total 35.5 ng/mL (>30)
[2020-09-13 09:06] LABS: Prostate Specific Antigen 15.21 ng/mL (<0.05-4.0)
== END 2020-09-13 00:01 | disposition home or self-care (01) ==
LOC: HO.HSH2E
PROVIDERS: Visit Provider Internal Medicine Medical Oncology
DX: Z12.5 Encounter for screening for malignant neoplasm of prostate (principal); C61 Malignant neoplasm of prostate
CPT/HCPCS: 36415; 80053; 82306; 84153; 85025

== ENCOUNTER 2020-09-19 | Outpatient (REF) | payer MEDICARE, MEDICAID, SELFPAY ==
[2020-09-19 07:44] LABS: MANUAL DIFF FLAG NO
[2020-09-19 07:46] LABS: Basophils Percent Auto 0.2 % (0-2); Eosinophils Absolute Auto 0.3 X10*3/uL (0.0-0.4); Eosinophils Percent Auto 5.2 % (0-4); Hematocrit 34.3 % (42-52); Hemoglobin 10.9 g/dl (14.0-18.0); Imm Gran Abs Auto 0.02 X10*3/uL (0.00-0.03); Imm Gran Pct Auto 0.4 % (0.0-0.4); Lymphocytes Absolute Auto 0.8 X10*3/uL (1.2-4.9); Lymphocytes Percent Auto 14.2 % (20-40); Mean Corpuscular HGB Conc 31.8 g/dl (31.0-36.0); Mean Corpuscular Hemoglobin 29.6 pg (27.0-33.0); Mean Corpuscular Volume 93.2 fL (80-98); Mean Platelet Volume 10.1 fL (9.4-12.4); Monocytes Absolute Auto 0.6 X10*3/uL (0.1-1.2); Monocytes Percent Auto 10.2 % (2-11); Neutrophils Absolute Auto 3.8 X10*3/uL (2.0-8.3); Neutrophils Percent Auto 69.8 % (45-73); Platelet Count 190 X10*3/uL (160-400); Red Blood Count 3.68 X10*6/uL (4.60-5.80); White Blood Count 5.4 X10*3/uL (4.8-10.8)
[2020-09-19 07:55] LABS: Glucose Urine UA NEG (NEG); Leukocyte Esterase Urine NEG (NEG); Nitrite Urine NEG (NEG); Urine Blood NEG (NEG); Urine Ketones NEG (NEG); Urine Protein NEG (NEG-TRACE)
[2020-09-19 07:56] LABS: Appearance Urine CLEAR; Color Urine YELLOW
[2020-09-19 08:00] LABS: Alanine Aminotransferase 7 U/L (0-40); Albumin Level 3.8 g/dL (3.5-5.0); Alkaline Phosphatase 89 U/L (39-117); Anion Gap 12 (12-20); Aspartate Amino Transferase 22 U/L (5-37); Bilirubin Total 0.5 mg/dL (0.0-1.0); Blood Urea Nitrogen 18 mg/dL (9-16); Calcium 9.1 mg/dL (8.4-10.2); Carbon Dioxide 30 mmol/L (22-29); Chloride 102 mmol/L (96-108); Estimated Glomerular Filt Rate > 60; Glucose Fasting 83 mg/dL (60-99); Sodium 139 mmol/L (135-145); Total Protein 6.5 g/dL (6.5-8.0)
== END 2020-09-19 00:01 | disposition home or self-care (01) ==
LOC: HO.HSH2E
PROVIDERS: Visit Provider Internal Medicine Medical Oncology
DX: N39.0 Urinary tract infection, site not specified (principal); Z79.899 Other long term (current) drug therapy
CPT/HCPCS: 36415; 80053; 81003; 85025; 87086; 87088; 87186

== ENCOUNTER 2020-10-23 07:41 | Outpatient (REF) | payer MEDICARE, MEDICAID, SELFPAY ==
[2020-10-23 08:44] LABS: MANUAL DIFF FLAG NO
[2020-10-23 08:54] LABS: Basophils Percent Auto 0.2 % (0-2); Eosinophils Absolute Auto 0.1 X10*3/uL (0.0-0.4); Eosinophils Percent Auto 2.8 % (0-4); Hematocrit 35.2 % (42-52); Hemoglobin 11.4 g/dl (14.0-18.0); Imm Gran Abs Auto 0.02 X10*3/uL (0.00-0.03); Imm Gran Pct Auto 0.5 % (0.0-0.4); Lymphocytes Absolute Auto 0.7 X10*3/uL (1.2-4.9); Lymphocytes Percent Auto 15.3 % (20-40); Mean Corpuscular HGB Conc 32.4 g/dl (31.0-36.0); Mean Corpuscular Hemoglobin 29.8 pg (27.0-33.0); Mean Corpuscular Volume 91.9 fL (80-98); Mean Platelet Volume 10.1 fL (9.4-12.4); Monocytes Absolute Auto 0.5 X10*3/uL (0.1-1.2); Monocytes Percent Auto 11.7 % (2-11); Neutrophils Percent Auto 69.5 % (45-73); Platelet Count 198 X10*3/uL (160-400); Red Blood Count 3.83 X10*6/uL (4.60-5.80); Red Cell Distribution Width 12.7 % (11.0-16.0); White Blood Count 4.3 X10*3/uL (4.8-10.8)
[2020-10-23 09:23] LABS: Alanine Aminotransferase 6 U/L (0-40); Albumin Level 3.9 g/dL (3.5-5.0); Alkaline Phosphatase 91 U/L (39-117); Amylase 53 U/L (28-100); Anion Gap 11 (12-20); Aspartate Amino Transferase 19 U/L (5-37); Bilirubin Direct 0.2 mg/dL (0.0-0.5); Bilirubin Total 0.5 mg/dL (0.0-1.0); Blood Urea Nitrogen 20 mg/dL (9-16); Calcium 8.9 mg/dL (8.4-10.2); Carbon Dioxide 31 mmol/L (22-29); Chloride 97 mmol/L (96-108); Estimated Glomerular Filt Rate > 60; Glucose Random 88 mg/dL (60-115); Lipase 19 U/L (8-78); Potassium 4.2 mmol/L (3.3-5.1); Sodium 135 mmol/L (135-145); Total Protein 6.7 g/dL (6.5-8.0)
== END 2020-10-23 07:42 | disposition home or self-care (01) ==
LOC: HO.HSH2E 07:41
PROVIDERS: Visit Provider Nurse Practitioner Acute Care
DX: I10 Essential (primary) hypertension (principal); D64.9 Anemia, unspecified
CPT/HCPCS: 36415; 80048; 80076; 82150; 83690; 85025

== ENCOUNTER 2020-10-23 11:02 | Emergency (ER) | payer MEDICARE, MEDICAID, SELFPAY ==
--- NOTE | ~2020-10-23 | CT_ITS ---
EXAMINATION: CT HEAD WITHOUT CONTRAST CLINICAL INFORMATION: Bleed. COMPARISON: None TECHNIQUE: Contiguous axial imaging was performed from the skull base to vertex without intravenous administration of contrast. This CT examination was performed using dose optimization techniques as appropriate, variously including the following: *Automated exposure control *Adjustment of mA and/or kV according to patient size (this includes techniques or standardized protocols for targeted exams where dose is matched to indication/reason for exam; i.e. extremities or head) *Use of iterative reconstruction technique DLP: 775 mGy-cm FINDINGS: There is no evidence of acute intracranial hemorrhage or territorial infarction. No abnormal mass effect or midline shift is seen. Price to white matter differentiation is well preserved. No extra-axial fluid collections are identified. The lateral ventricles are symmetrical but enlarged. There is diffuse periventricular hypodensity in both cerebral hemispheres without mass effect. The osseous structures and soft tissues are normal. The mastoid air cells and visualized portions of the paranasal sinuses are well aerated. CT/CT head/brain wo con IMPRESSION: No acute intracranial process seen. 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
--- NOTE | ~2020-10-23 | CT_ITS ---
EXAMINATION: CT ABDOMEN AND PELVIS WITH CONTRAST CLINICAL INFORMATION: Expanding chest wall ecchymosis. Evaluate for intra-abdominal injury. COMPARISON: None TECHNIQUE: Multidetector volumetric images were obtained from the superior aspect of the liver through the pubic symphysis following administration 85 mL of Omnipaque 350 intravenous contrast. Sagittal and coronal reformatted images were obtained on the technologist's workstation. Oral contrast: No This CT examination was performed using dose optimization techniques as appropriate, variously including the following: *Automated exposure control *Adjustment of mA and/or kV according to patient size (this includes techniques or standardized protocols for targeted exams where dose is matched to indication/reason for exam; i.e. extremities or head) *Use of iterative reconstruction technique DLP: 1047 mGy-cm FINDINGS: LUNG BASES: The visualized lung bases are unremarkable. LIVER, GALLBLADDER, AND BILIARY TREE: The liver is normal in size, shape, and attenuation. No focal hepatic lesion or biliary ductal dilatation is present. There are gallstones in the gallbladder. PANCREAS: Evaluation of the pancreas is limited due to marked motion artifact. There is low-attenuation seen in the head of the pancreas. It is possible this is artifactual due to motion, atrophy or fatty infiltration and partial volume averaging with fat. SPLEEN: Unremarkable. ADRENAL GLANDS: Unremarkable. KIDNEYS AND URETERS: The left kidney appears atrophic. There are multiple left renal calcifications. There is a small stone in the lower pole of the right kidney. There is mild right hydronephrosis. The right ureter is dilated down to the bladder. No ureteral stone or bladder stone is seen. BLADDER: Unremarkable. GASTROINTESTINAL TRACT: There is diverticulosis of the colon. Small and large bowel is otherwise unremarkable. The appendix is not identified. There is motion artifact and the stomach is not well evaluated. The appendix is unremarkable. ABDOMINAL WALL: There is no significant hernia. There is increased soft tissue seen in the left inguinal canal questionable for fluid versus possible undescended testicle. This is only partially visualized. LYMPH NODES: Normal. 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 There is evidence of severe atherosclerotic disease. PELVIC VISCERA: The prostate gland is slightly enlarged measuring 3.8 cm in AP and transverse dimension. OSSEOUS STRUCTURES: There are degenerative changes of the spine. There is arthritis at both hip joints. There is soft tissue calcification or ossification along the left iliopsoas tendon. There is adjacent fluid in the left iliopsoas bursa. CT/CT abdomen pelvis w con IMPRESSION: No evidence of intra-abdominal injury. Gallstones. Atrophic left kidney. Bilateral renal stones, left greater than right. Right hydronephrosis and ureteral dilatation down to the bladder. No ureteral or bladder stone seen. 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 Diverticulosis.
--- NOTE | ~2020-10-23 | CT_ITS ---
EXAMINATION: CT CHEST WITH CONTRAST CLINICAL INFORMATION: Chest wall ecchymoses. COMPARISON: Previous chest CTA March 2020 TECHNIQUE: Multidetector volumetric CT imaging of the chest was obtained after the administration of 65 mL of Omnipaque 350 intravenous contrast without immediate adverse reactions. Axial MIP volume rendering provided. Sagittal and coronal reformatted images were obtained. This CT examination was performed using dose optimization techniques as appropriate, variously including the following: *Automated exposure control *Adjustment of mA and/or kV according to patient size (this includes techniques or standardized protocols for targeted exams where dose is matched to indication/reason for exam; i.e. extremities or head) *Use of iterative reconstruction technique DLP: 434 mGy-cm FINDINGS: LUNGS: There is complete atelectasis of the left lower lobe. The lungs are otherwise clear. MEDIASTINUM: The heart is enlarged. There is no pericardial effusion. There is coronary artery calcification. The thoracic aorta and pulmonary arteries are upper normal in size. There are no enlarged hilar or mediastinal lymph nodes. PLEURA: There is no pleural effusion. There is no pneumothorax. AXILLA: There are no enlarged axillary lymph nodes. No chest wall mass or hematoma is seen. UPPER ABDOMEN: Unremarkable OSSEOUS STRUCTURES: There is a burst fracture of the T8 vertebral body. There are degenerative changes of the spine, ankylosis of the anterior longitudinal ligament and increased thoracic kyphosis. No rib fracture is seen. CT/CT chest w con IMPRESSION: Burst fracture of the T8 vertebral body. No chest wall hematoma or rib fracture seen. Complete atelectasis of the left lower lobe. Enlarged heart and coronary artery calcification.
[2020-10-23 11:14] VITALS: BP 115/63; BP 116/64; PULSE 59; PULSE 60; RESP 22; TEMP 36.7; O2SAT 96; BMI 27.2
--- NOTE | 2020-10-23 11:21 | ED.SKABFB ---
HPI - Skin/Abscess/Foreign Bdy General Chief complaint: Skin/Abscess/Foreign Body Stated complaint: ABD BRUISING X'S 7 DAYS, ON THINNERS Time Seen by Provider: 10/23/20 11:16 Source: patient Mode of arrival: ambulatory Limitations: no limitations History of Present Illness HPI narrative: Patient presents to ED for expanding ecchymosis abdomen. Patient area of ecchymosis and upper abdomen/chest has been present since the 17 of October. Related Data Home Medications Medication Instructions Recorded Confirmed levalbuterol tartrate 45 2 puff INHALATION Q4H 03/19/20 03/22/20 mcg/actuation aerosol inhaler (Xopenex HFA) midodrine 5 mg tablet 5 mg PO BID PRN 03/19/20 03/22/20 Previous Rx's Medication Instructions Recorded acetic acid 0.25 % irrigation 1 appl TOPICAL DAILY@0600 #30 ml 03/01/20 solution alendronate 70 mg tablet 70 mg PO Hercules@0630 #30 tab 03/01/20 bicalutamide 50 mg tablet 50 mg PO DAILY@1000 #30 tab 03/01/20 bisacodyl 10 mg rectal suppository 10 mg AK DAILY PRN #30 ea 03/01/20 (Gentle Laxative (bisacodyl)) carbidopa 25 mg-levodopa 100 mg 1 tab PO 1000,1400,1800,2200 #30 03/01/20 tablet tab cholecalciferol (vitamin D3) 25 25 mcg PO DAILY@1000 #30 tab 03/01/20 mcg (1,000 unit) tablet cyanocobalamin (vitamin B-12) 1,000 mcg PO DAILY@1000 #30 tab 03/01/20 1,000 mcg tablet (Vitamin B-12) finasteride 5 mg tablet (Proscar) 5 mg PO DAILY@1000 #30 tab 03/01/20 loperamide 2 mg capsule 2 mg PO QID PRN #30 cap 03/01/20 loratadine 10 mg tablet 10 mg PO DAILY PRN #30 tab 03/01/20 magnesium hydroxide 400 mg/5 mL 30 ml PO BEDTIME PRN #30 ml 03/01/20 oral suspension (Milk of Magnesia) miconazole nitrate 2 % topical 1 appl TOPICAL DAILY PRN #30 g 03/01/20 cream (Inzo Antifungal) polyvinyl alcohol 1.4 % eye drops 1 drp OPHTHALMIC (EYE) 01/14/21 (Artificial Tears (polyvinyl BID@1000,2200 #30 ml alcohol)) quetiapine 25 mg tablet 12.5 mg PO BEDTIME@2200 #30 tab 03/01/20 ropinirole 1 mg tablet 1 mg PO BID@1000,2200 #30 tab 03/01/20 vitamins A and D-white 1 appl TOPICAL DAILY PRN #30 g 03/01/20 petrolatum-lanolin topical ointment (A and D (mily, pet)) zinc oxide 20 % topical ointment 1 appl TOPICAL DAILY@0600 #30 g 03/01/20 apixaban 5 mg tablet (Eliquis) 5 mg PO BID #60 tab 03/21/20 Allergies Allergy/AdvReac Type Severity Reaction Status Date / Time No Known Allergies Allergy Verified 10/23/20 11:19 [No Known Allergies*] Review of Systems Review of Systems: Dementia Yes Unobtainable due to mental status (History of dementia and confusion baseline) [facility] Past Medical History Medical History Anemia BPH (benign prostatic hyperplasia) Carotid body tumor Dementia Factor 5 Leiden mutation, heterozygous Hematuria Hyperlipidemia Hyponatremia Lymphadenopathy Osteopenia Parkinsons Postural drop in blood pressure on standing Prostate cancer Prostate cancer Pulmonary embolism Rhinitis Vitamin B12 deficiency Surgical History H/O aortic aneurysm repair History of nephrectomy Total knee replacement status Social History Social History Household Members: None Housing: Longterm Housing Other:: [facility] Home Do you presently have visiting nurse or other home services: No Unable to assess alcohol history related to: Unable to respond Alcohol intake: never Patient Tobacco Use Status: Former Tobacco user Second Hand Smoke Exposure: No Use of substances other than those prescribed or required for medical reasons: No Advance Directives: Yes Advance Directives on File: Yes Advance Directives Date on File: 03/20/20 service: Yes Current occupational status: retired Physical Exam Vital Signs: Vital Signs: Last Vital Signs Temp 97.8 F 10/23/20 15:42 Pulse 66 10/23/20 18:25 Resp 18 10/23/20 18:25 BP 167/89 H 10/23/20 18:25 Pulse Ox 95 10/23/20 18:25 Body Mass Index 27.2 Const: Orientation/consciousness: patient oriented x3 HENMT: Head: Yes normal to inspection, Yes No palpable skull fracture present, Yes normocephalic and Yes atraumatic Neck: Neck: Yes normal visual inspection and Yes full ROM Chest: Chest palpation & inspection: normal inspection of the chest and normal palpation of entire chest wall Resp: Effort & Inspection: normal respiratory effort and able to speak in complete sentences Auscultation: clear to auscultation bilaterally GI: Other: Inspection: Yes normal to inspection and No abdominal wall ecchymosis Palpation (GI): Soft to palpation, not firm, nontender, no guarding and not rigid : General: No CVA tenderness and Yes no CVA tenderness Back/Spine/Pelvis: Back: no CVA tenderness, No CVA tenderness and No back tenderness Skin: General skin exam: no rashes or lesions noted and elasticity normal Neuro: Other: Patient at baseline is wheelchair-bound and is usually lifted up by gait belt. Patient at baseline mentally. General: patient oriented x3, gait normal and CN's II-XI intact bilaterally Cranial nerves: Yes CN's II-XII intact bilaterally Course Course Course Narrative: Patient have labs ordered images. Reevaluation(s) Reevaluation #1: Labs came back normal at baseline. Abdominal CT came back normal. Head CT negative for bleed. Chest CT negative for pneumothorax or any rib fractures, but positive for T8 burst fracture. Plan is to call [facility] for recommendation, but 1st we will speak with health proxy to see if they want patient to be transferred due to DNI DNR. Nurse Alcala spoke with nursing staff at [facility] and they deny any obvious trauma to patient, recent fall, or any blunt trauma. Time: 16:49 Reevaluation #2: Health proxy,, which is the , and daughter, were not able to make a decision if they want patient to receive surgery invasive recommend surgical intervention. He requests for me to call neurosurgeon to get more information on if information surgery while the risks and for me to call them back. Time: 17:30 Reevaluation #3: Spoke with orthopedic spine surgeon of [facility] Dr. Tomas who stated most times patient's with burst fracture in patient's age group are usually non operable and are usually placed in brace and given pain meds and there are few exceptions where surgery is indicated, But he states due to inability for him to see images done at [facility] due to different Radiology systems, he states the best solution if family prefer will be for patient to be transferred to [facility] ER so he could appropriately evaluate patient and view images. I informed him that I will speak to family and call him back. Patient's family including Health Proxy, Arianne Steve, was informed of discussion with Dr. Toams. They agree and prefer for patient to be transferred to [facility] to receive appropriate evaluation even if surgery may not be indicated. Spoke with [facility] and they accepted patient to be transfer to the ER. Patient accepted by Dr. Miles of ER and spine surgeon Dr. Tomas. Presently patient is neuro intact. Patient able to move toes and lower extremities and upper extremities. Time: 19:29 MDM - Skin/Abscess/Foreign Bdy MDM Narrative Medical decision making narrative: Burst T8 fracture Lab Data Result diagrams: 10/23/20 12:55 10/23/20 12:01 Labs: Lab Results 10/23/20 10/23/20 10/23/20 Range/Units 12:01 12:02 12:55 WBC 5.2 (4.8-10.8) X10*3/uL RBC 3.77 L (4.60-5.80) X10*6/uL Hgb 11.2 L (14.0-18.0) g/dl Hct 34.5 L (42-52) % MCV 91.5 (80-98) fL MCH 29.7 (27.0-33.0) pg MCHC 32.5 (31.0-36.0) g/dl RDW 12.6 (11.0-16.0) % Plt Count 179 (160-400) X10*3/uL MPV 9.8 (9.4-12.4) fL Immature Gran % (Auto) 0.2 (0.0-0.4) % Neut % (Auto) 71.7 (45-73) % Lymph % (Auto) 12.8 L (20-40) % [place] % (Auto) 12.4 H (2-11) % Eos % (Auto) 2.9 (0-4) % Baso % (Auto) 0.0 (0-2) % Lymph # (Auto) 0.7 L (1.2-4.9) X10*3/uL [place] # (Auto) 0.7 (0.1-1.2) X10*3/uL Eos # (Auto) 0.2 (0.0-0.4) X10*3/uL Baso # (Auto) 0.0 (0.0-0.2) X10*3/uL Abs Immat Gran (auto) 0.01 (0.00-0.03) X10*3/uL Absolute Neuts (auto) 3.8 (2.0-8.3) X10*3/uL Absolute Nucleated RBC 0.000 (0.0-0.012) X10*3/uL Nucleated RBC % (auto) 0.0 (0.0-0.2) /100WBC PT (9.9-13.0) SEC INR (0.9-1.1) APTT (24.1-38.0) SEC Sodium 134 L (135-145) mmol/L Potassium 5.1 D (3.3-5.1) mmol/L Chloride 99 (96-108) mmol/L Carbon Dioxide 26 (22-29) mmol/L Anion Gap 14 (12-20) BUN 22 H (9-16) mg/dL Creatinine 0.87 (0.5-1.4) mg/dL Estim Creat Clear Calc 64.0 Estimated GFR > 60 Random Glucose 92 (60-115) mg/dL Calcium 9.0 (8.4-10.2) mg/dL Total Bilirubin 0.5 (0.0-1.0) mg/dL AST 19 (5-37) U/L ALT 7 (0-40) U/L Alkaline Phosphatase 89 (39-117) U/L Total Protein 6.5 (6.5-8.0) g/dL Albumin 3.8 (3.5-5.0) g/dL Blood Type A Positive Antibody Screen NEGATIVE 10/23/20 Range/Units 12:55 WBC (4.8-10.8) X10*3/uL RBC (4.60-5.80) X10*6/uL Hgb (14.0-18.0) g/dl Hct (42-52) % MCV (80-98) fL MCH (27.0-33.0) pg MCHC (31.0-36.0) g/dl RDW (11.0-16.0) % Plt Count (160-400) X10*3/uL MPV (9.4-12.4) fL Immature Gran % (Auto) (0.0-0.4) % Neut % (Auto) (45-73) % Lymph % (Auto) (20-40) % [place] % (Auto) (2-11) % Eos % (Auto) (0-4) % Baso % (Auto) (0-2) % Lymph # (Auto) (1.2-4.9) X10*3/uL [place] # (Auto) (0.1-1.2) X10*3/uL Eos # (Auto) (0.0-0.4) X10*3/uL Baso # (Auto) (0.0-0.2) X10*3/uL Abs Immat Gran (auto) (0.00-0.03) X10*3/uL Absolute Neuts (auto) (2.0-8.3) X10*3/uL Absolute Nucleated RBC (0.0-0.012) X10*3/uL Nucleated RBC % (auto) (0.0-0.2) /100WBC PT 12.7 (9.9-13.0) SEC INR 1.1 (0.9-1.1) APTT 36.4 (24.1-38.0) SEC Sodium (135-145) mmol/L Potassium (3.3-5.1) mmol/L Chloride (96-108) mmol/L Carbon Dioxide (22-29) mmol/L Anion Gap (12-20) BUN (9-16) mg/dL Creatinine (0.5-1.4) mg/dL Estim Creat Clear Calc Estimated GFR Random Glucose (60-115) mg/dL Calcium (8.4-10.2) mg/dL Total Bilirubin (0.0-1.0) mg/dL AST (5-37) U/L ALT (0-40) U/L Alkaline Phosphatase (39-117) U/L Total Protein (6.5-8.0) g/dL Albumin (3.5-5.0) g/dL Blood Type Antibody Screen Discharge Plan Discharge Clinical Impression: Closed burst fracture of thoracic vertebra Patient Disposition: [facility] Transfer Details: [facility] Prescriptions: No Action quetiapine 25 mg Tablet 12.5 mg PO BEDTIME@2200 Qty: 30 RF: 0 bicalutamide 50 mg Tablet 50 mg PO DAILY@1000 Qty: 30 RF: 0 ropinirole 1 mg Tablet 1 mg PO BID@999,2199 Qty: 30 RF: 0 loperamide 2 mg Capsule 2 mg PO QID PRN (Reason: Diarrhea) Qty: 30 RF: 0 miconazole nitrate [Inzo Antifungal] 2 % Cream 1 appl topical DAILY PRN (Reason: SKIN IRRITATION) Qty: 30 RF: 0 polyvinyl alcohol [Artificial Tears (polyvin alc)] 1.4 % Drops 1 drp ophthalmic (eye) BID@999,2199 Qty: 30 RF: 0 alendronate 70 mg Tablet 70 mg PO Hercules@0630 Qty: 30 RF: 0 cyanocobalamin (vitamin B-12) [Vitamin B-12] 1,000 mcg Tablet 1,000 mcg PO DAILY@1000 Qty: 30 RF: 0 zinc oxide 20 % Ointment 1 appl topical DAILY@0600 Qty: 30 RF: 0 magnesium hydroxide [Milk of Magnesia] 400 mg/5 mL Suspension 30 ml PO BEDTIME PRN (Reason: Constipation) Qty: 30 RF: 0 bisacodyl [Gentle Laxative (bisacodyl)] 10 mg Suppository 10 mg AK DAILY PRN (Reason: Constipation) Qty: 30 RF: 0 acetic acid 0.25 % Solution 1 appl topical DAILY@0600 Qty: 30 RF: 0 carbidopa-levodopa 25-100 mg Tablet 1 tab PO 1000,1400,1800,2200 Qty: 30 RF: 0 finasteride [Proscar] 5 mg Tablet 5 mg PO DAILY@1000 Qty: 30 RF: 0 loratadine 10 mg Tablet 10 mg PO DAILY PRN (Reason: Runny Nose) Qty: 30 RF: 0 cholecalciferol (vitamin D3) 25 mcg (1,000 unit) Tablet 25 mcg PO DAILY@1000 Qty: 30 RF: 0 vits A and D-white pet-lanolin [A and D (mily, pet)] Ointment 1 appl topical DAILY PRN (Reason: DISCOMFORT) Qty: 30 RF: 0 levalbuterol tartrate [Xopenex HFA] 45 mcg/actuation Hfa Aerosol Inhaler 2 puff INHALATION Q4H RF: 0 midodrine 5 mg tablet 5 mg PO BID PRN (Reason: SBP <90) RF: 0 Eliquis 5 mg tablet 5 mg PO BID Qty: 60 RF: 4
[2020-10-23 11:44] VITALS: BP 126/72; PULSE 57; RESP 15; TEMP 36.6; O2SAT 96
[2020-10-23 12:08] VITALS: BP 126/72; PULSE 58; RESP 18
--- NOTE | 2020-10-23 12:10 | PC.NURSE ---
pt sleeping but easily arousable, pt coming from facility due to diffused upper abd bruising, bruising appears to be old in nature, some yellow tint to the bruising visible, pt is on eliquis, pt denies pain
[2020-10-23 12:28] LABS: Alanine Aminotransferase 7 U/L (0-40); Albumin Level 3.8 g/dL (3.5-5.0); Alkaline Phosphatase 89 U/L (39-117); Anion Gap 14 (12-20); Aspartate Amino Transferase 19 U/L (5-37); Bilirubin Total 0.5 mg/dL (0.0-1.0); Blood Urea Nitrogen 22 mg/dL (9-16); Carbon Dioxide 26 mmol/L (22-29); Chloride 99 mmol/L (96-108); Estimated Glomerular Filt Rate > 60; Glucose Random 92 mg/dL (60-115); Potassium 5.1 mmol/L (3.3-5.1); Sodium 134 mmol/L (135-145); Total Protein 6.5 g/dL (6.5-8.0)
[2020-10-23 13:11] LABS: Eosinophils Absolute Auto 0.2 X10*3/uL (0.0-0.4); Eosinophils Percent Auto 2.9 % (0-4); Hematocrit 34.5 % (42-52); Hemoglobin 11.2 g/dl (14.0-18.0); Imm Gran Abs Auto 0.01 X10*3/uL (0.00-0.03); Imm Gran Pct Auto 0.2 % (0.0-0.4); Lymphocytes Absolute Auto 0.7 X10*3/uL (1.2-4.9); Lymphocytes Percent Auto 12.8 % (20-40); Mean Corpuscular HGB Conc 32.5 g/dl (31.0-36.0); Mean Corpuscular Hemoglobin 29.7 pg (27.0-33.0); Mean Corpuscular Volume 91.5 fL (80-98); Mean Platelet Volume 9.8 fL (9.4-12.4); Monocytes Absolute Auto 0.7 X10*3/uL (0.1-1.2); Monocytes Percent Auto 12.4 % (2-11); Neutrophils Absolute Auto 3.8 X10*3/uL (2.0-8.3); Neutrophils Percent Auto 71.7 % (45-73); Platelet Count 179 X10*3/uL (160-400); Red Blood Count 3.77 X10*6/uL (4.60-5.80); Red Cell Distribution Width 12.6 % (11.0-16.0); White Blood Count 5.2 X10*3/uL (4.8-10.8)
[2020-10-23 13:23] LABS: INTERNATIONAL NORM RATIO 1.1 (0.9-1.1); Prothrombin Time 12.7 SEC (9.9-13.0)
[2020-10-23 13:26] LABS: Partial Thromboplastin Time 36.4 SEC (24.1-38.0)
[2020-10-23] MEDS: iohexoL 350 MG/ML 100 ML INFUS..BTL 85 ML IV (13:42)
[2020-10-23 13:56] VITALS: BP 163/79; PULSE 61; RESP 18; O2SAT 94
[2020-10-23 15:42] VITALS: BP 143/76; PULSE 62; RESP 20; TEMP 36.6; O2SAT 95
--- NOTE | 2020-10-23 17:19 | PC.NURSE ---
Called [facility] transger line at 1710,spoke to sammy ,stated they are closed to transfers. JYOTI cruz
[2020-10-23 18:25] VITALS: BP 167/89; PULSE 66; RESP 18; O2SAT 95
--- NOTE | 2020-10-23 18:27 | PC.NURSE ---
called [facility] transfer line at [phone]
[2020-10-23 19:46] LABS: COVID-19 Test Negative (Negative); IDNOW Serial# 08D9AD1C
--- NOTE | 2020-10-23 20:33 | PC.NURSE ---
report given to tiesha coley at [facility]
== END 2020-10-23 20:59 | disposition short-term general hospital (02) ==
PROVIDERS: Physician Assistant; Emergency Provider Emergency Medicine; PCP Internal Medicine Medical Oncology
DX: S22.061A Stable burst fracture of T7-T8 vertebra, initial encounter for closed fracture (principal); X58.XXXA Exposure to other specified factors, initial encounter; G20 Parkinson's disease; F02.80 Dementia in other diseases classified elsewhere, unspecified severity, without behavioral disturbance, psychotic disturbance, mood disturbance, and anxiety; Z20.822 Contact with and (suspected) exposure to COVID-19; Z86.711 Personal history of pulmonary embolism; Z85.46 Personal history of malignant neoplasm of prostate; Z79.01 Long term (current) use of anticoagulants; Z79.899 Other long term (current) drug therapy; Y93.9 Activity, unspecified; Y92.129 Unspecified place in nursing home as the place of occurrence of the external cause; Y99.9 Unspecified external cause status
CPT/HCPCS: 36415; 70450; 71260; 74177; 80053; 85025; 85610; 85730; 86850; 86900; 86901; 87635; 99285; Q9967

== ENCOUNTER 2021-01-08 13:19 | Outpatient (REF) | payer MEDICARE, MEDICAID, SELFPAY ==
[2021-01-08 13:26] LABS: MANUAL DIFF FLAG NO
[2021-01-08 13:42] LABS: Basophils Percent Auto 0.1 % (0-2); Eosinophils Absolute Auto 0.1 X10*3/uL (0.0-0.4); Eosinophils Percent Auto 1.3 % (0-4); Hematocrit 33.7 % (42.0-52.0); Hemoglobin 10.6 g/dl (14.0-18.0); Imm Gran Abs Auto 0.04 X10*3/uL (0.00-0.03); Imm Gran Pct Auto 0.5 % (0.0-0.4); Lymphocytes Absolute Auto 0.8 X10*3/uL (1.2-4.9); Lymphocytes Percent Auto 9.5 % (20-40); Mean Corpuscular HGB Conc 31.5 g/dl (31.0-36.0); Mean Corpuscular Hemoglobin 29.2 pg (27.0-33.0); Mean Corpuscular Volume 92.8 fL (80.0-98.0); Mean Platelet Volume 10.6 fL (9.4-12.4); Monocytes Absolute Auto 0.8 X10*3/uL (0.1-1.2); Monocytes Percent Auto 10.6 % (2-11); Neutrophils Absolute Auto 6.2 x10*3/uL (2.0-8.3); Platelet Count 232 X10*3/uL (160-400); Red Blood Count 3.63 X10*6/uL (4.60-5.80); Red Cell Distribution Width 13.7 % (11.0-16.0); White Blood Count 7.9 X10*3/uL (4.8-10.8)
[2021-01-08 14:11] LABS: Alanine Aminotransferase 12 U/L (0-40); Albumin Level 3.5 g/dL (3.5-5.0); Alkaline Phosphatase 65 U/L (39-117); Anion Gap 17 (12-20); Aspartate Amino Transferase 28 U/L (5-37); Bilirubin Total 0.4 mg/dL (0.0-1.0); Blood Urea Nitrogen 81 mg/dL (9-16); Calcium 8.9 mg/dL (8.4-10.2); Carbon Dioxide 25 mmol/L (22-29); Chloride 113 mmol/L (96-108); Estimated Glomerular Filt Rate 19; Glucose Random 96 mg/dL (60-115); Potassium 5.4 mmol/L (3.3-5.1); Sodium 150 mmol/L (135-145); Total Protein 6.9 g/dL (6.5-8.0)
[2021-01-08 14:20] LABS: Free T4 (Free Thyroxine) 1.01 ng/dL (0.71-1.85); Prostate Specific Antigen 35.27 ng/mL (<0.05-4.0); Thyroid Stimulating Hormone 0.82 uIU/mL (0.32-4.0)
[2021-01-08 14:42] LABS: Erythrocyte Sedimentation Rate 92 MM/HR (0-15)
[2021-01-08 15:13] LABS: Appearance Urine HAZY; Color Urine YELLOW; Glucose Urine UA NEG (NEG); Leukocyte Esterase Urine 3+ (NEG); Nitrite Urine NEG (NEG); PH 7.5 (5.0-8.0); UACC Culture Trigger YES; Urine Blood 1+ (NEG); Urine Ketones NEG (NEG); Urine Protein 1+ MG/DL (NEG-TRACE)
[2021-01-08 15:26] LABS: Bacteria Urine 1+ /LPF; WBC Clumps Urine NOTED
== END 2021-01-08 13:20 | disposition home or self-care (01) ==
LOC: HO.HSH2E 13:19
PROVIDERS: Visit Provider Internal Medicine Medical Oncology
DX: Z13.89 Encounter for screening for other disorder (principal)
CPT/HCPCS: 36415; 80053; 81001; 81003; 84153; 84439; 84443; 85025; 85652; 87086

== ENCOUNTER 2021-01-08 15:10 | Inpatient (IN) | payer MEDICARE, MEDICAID, SELFPAY ==
--- NOTE | ~2021-01-08 | XR_ITS ---
EXAMINATION: XR CHEST CLINICAL INFORMATION: Weakness COMPARISON: Previous chest x-ray most recent May [address] October 2020 TECHNIQUE: Frontal view of the chest was obtained. FINDINGS: The cardiac and mediastinal contours are stable. There is atelectasis or consolidation at the left lung base. There is blunting at the left lateral costophrenic angle questionable for a small left pleural effusion. The right lung is clear. There is no right pleural effusion. There is no pneumothorax. There are degenerative changes of the spine. XR/XR chest 1V IMPRESSION: Left lower lobe atelectasis or consolidation and question small left pleural effusion. Findings are similar to previous CT scan October 2020.
--- NOTE | ~2021-01-08 | CT_ITS ---
EXAMINATION: CT ABDOMEN AND PELVIS WITHOUT CONTRAST CLINICAL INFORMATION: Follow-up hydronephrosis. COMPARISON: 10/23/2020 and 01/08/2021 TECHNIQUE: Multidetector volumetric imaging was performed from the superior aspect of the liver through the pubic symphysis. Sagittal and coronal reformatted images were obtained on the technologist's workstation. This CT examination was performed using dose optimization techniques as appropriate, variously including the following: *Automated exposure control *Adjustment of mA and/or kV according to patient size (this includes techniques or standardized protocols for targeted exams where dose is matched to indication/reason for exam; i.e. extremities or head) *Use of iterative reconstruction technique DLP: 1098 mGy-cm FINDINGS: LUNG BASES: Atherosclerotic calcification of coronary arteries. No pericardial effusion. The collapsed left lower lobe is partially included in [id number]. The left lower lobe collapse is also present on the comparison imaging exams. Linear opacity of mild atelectasis is present in the right lower lobe. Trace left pleural effusion is present. LIVER: The liver has normal size, shape, and attenuation. No evidence of liver mass. GALLBLADDER AND BILIARY TREE: Gallbladder gallbladder contains multiple calculi. No gallbladder wall thickening or pericholecystic fluid. No dilated bile ducts. PANCREAS: No acute findings within the atrophied pancreas. SPLEEN: Normal. ADRENAL GLANDS: Normal. KIDNEYS AND URETERS: Chronically, severely atrophied, calcified left kidney. No left-sided hydroureteronephrosis. The right kidney is normal in size. Small, 0.2 x 0.4 cm calcification in the anterior right lower pole appears to represent a vascular calcification rather than renal stone. The right-sided hydronephrosis observed on prior exams has significantly improved. Currently, the right renal collecting system is only mildly dilated, and there are no stones within the renal pelvis or ureter. Mild residual hydroureter is noted. BLADDER: The urinary bladder is decompressed by a Rodriguez catheter. The urinary bladder wall is diffusely thickened and there is mild haziness of the perivesical fat. Consider possibility of active cystitis. No bladder calculi. BOWEL AND PERITONEUM: No dilated bowel loops. No evidence of acute inflammatory change or obstruction along the gastrointestinal tract. Diverticulosis of the sigmoid colon. No ascites or pneumoperitoneum. ABDOMINAL WALL: Unremarkable. VASCULATURE: Atherosclerotic calcification of the abdominal aorta and branch vessels. Infrarenal abdominal aorta measures up to 2.9 cm transverse diameter. The right and left common iliac arteries measure up to approximately 2.5 cm and 1.6 cm diameter. The chronically dilated right common femoral artery is approximately 2.7 cm transverse diameter. LYMPH NODES: No pathologic sized lymph nodes in the abdomen or pelvis. No inguinal lymphadenopathy. PELVIC VISCERA: Again noted is a mildly enlarged prostate gland. SKELETAL: Bones are diffusely osteoporotic. No acute abnormalities in the extensively degenerated spine. 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 CT/CT abdomen pelvis wo con IMPRESSION: * Rodriguez catheter is in satisfactory position. The urinary bladder wall is diffusely thickened and there is perivesical edema. These findings suggest possibility of cystitis. * Mild residual right hydroureteronephrosis is present. The dilatation of the right-sided urinary tract has significantly improved compared to 01/08/2021. There are no obstructing stones within the ureter. * Mild prostatomegaly. * The left lower lobe, partially included in the [id number], is chronically collapsed. 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 * Diverticulosis of the sigmoid colon without diverticulitis. * Cholelithiasis without cholecystitis.
--- NOTE | ~2021-01-08 | CT_ITS ---
EXAMINATION: CT abdomen pelvis wo con CLINICAL INFORMATION: Reason for Exam FLOWER R O obstruction COMPARISON: Prior CT October 2020 TECHNIQUE: Multidetector volumetric imaging was performed from the superior aspect of the liver through the pubic symphysis noncontrasted study Sagittal and coronal reformatted images were obtained on the technologist's workstation. This CT examination was performed using dose optimization techniques as appropriate, variously including the following: *Automated exposure control *Adjustment of mA and/or kV according to patient size (this includes techniques or standardized protocols for targeted exams where dose is matched to indication/reason for exam; i.e. extremities or head) *Use of iterative reconstruction technique DLP: 1008 mGy-cm FINDINGS: LOWER THORAX: There is collapse, atelectasis at left lung base, this has not changed. HEPATOBILIARY: No focal hepatic lesions. No biliary ductal dilatation. GALLBLADDER: There are gallstones. SPLEEN: Spleen is normal in size. PANCREAS: Pancreas is a small atrophic. STOMACH AND GASTROINTESTINAL TRACT: Stomach is grossly unremarkable. There is diverticulosis without CT evidence of acute diverticulitis. Evaluation of the bowel is limited due to lack of contrast. No CT evidence of appendicitis. ADRENALS: No adrenal nodules. KIDNEYS/URETERS: Left kidney is atrophic calcified, there is right renal hydronephrosis and hydroureter, the right ureter is markedly dilated throughout its length however no obstructing stone found along its course. This could be due to reflux or recently passed stone. There are vascular calcification and probably nonobstructing 3 mm stone middle calyx right kidney. URINARY BLADDER: Partially decompressed. PELVIC VISCERA: Unremarkable PERITONEUM: No free air or fluid. LYMPH NODES: No lymphadenopathy. VASCULAR:There are heavy aortic calcification, the aorta is mildly ectatic 3.8 cm nonaneurysmal. 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 Bilateral arthritis of the hip joints, there is intra-articular soft tissue calcification in the left hip with synovial fluid dissecting along the iliopsoas unchanged. CT/CT abdomen pelvis wo con IMPRESSION: 1. Exam is essentially unchanged from prior study. 2. Redemonstration of right renal hydronephrosis and hydroureter without CT evidence of calcified obstructing stone. This could be due to a recently passed a stone versus reflux. Left kidney is atrophic calcified unchanged. 3. No CT explanation for patient's symptoms otherwise. 4. Redemonstration of atelectasis of left lung left lower lobe. ATTENTION TO FOLLOW-UP CHEST X-RAY OR CT SCAN CHEST RECOMMENDED.. Other noncritical findings described above.
--- NOTE | 2021-01-08 15:30 | ECG_ITS ---
Test Reason : SEPSIS Blood Pressure : / mmHG Vent. Rate : 073 BPM Atrial Rate : 073 BPM P-R Int : 176 ms QRS Dur : 082 ms QT Int : 370 ms P-R-T Axes : 083 000 026 degrees QTc Int : 407 ms Normal sinus rhythm with sinus arrhythmia RSR' or QR pattern in V1 suggests right ventricular conduction delay Borderline ECG When compared with ECG of 20-MAY-2020 16:47, T wave inversion no longer evident in Anterolateral leads Referred By: Janeth Win Electronically Signed By:ALEXANDER DARLING MD
--- NOTE | 2021-01-08 15:31 | ED.WEAKNESS ---
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 intake. Per EMS patient was noted to be hypoxic 87% on room air. He had a a urine and chest x-ray done yesterday which are pending. He had labs done this morning which showed a BUN of 81 and creatinine of 3.16. His baseline creatinine is 0.8. Patient is a DNR/DNI, do not transfer to hospital unless needed for comfort. Related Data Home Medications Medication Instructions Recorded Confirmed levalbuterol tartrate 45 2 puff INHALATION Q4H 03/19/20 03/22/20 mcg/actuation aerosol inhaler (Xopenex HFA) midodrine 5 mg tablet 5 mg PO BID PRN 03/19/20 03/22/20 Previous Rx's Medication Instructions Recorded acetic acid 0.25 % irrigation 1 appl TOPICAL DAILY@0600 #30 ml 03/01/20 solution alendronate 70 mg tablet 70 mg PO Hercules@0630 #30 tab 03/01/20 bicalutamide 50 mg tablet 50 mg PO DAILY@1000 #30 tab 03/01/20 bisacodyl 10 mg rectal suppository 10 mg NC DAILY PRN #30 ea 03/01/20 (Gentle Laxative (bisacodyl)) carbidopa 25 mg-levodopa 100 mg 1 tab PO 1000,1400,1800,2200 #30 03/01/20 tablet tab cholecalciferol (vitamin D3) 25 25 mcg PO DAILY@1000 #30 tab 03/01/20 mcg (1,000 unit) tablet cyanocobalamin (vitamin B-12) 1,000 mcg PO DAILY@1000 #30 tab 03/01/20 1,000 mcg tablet (Vitamin B-12) finasteride 5 mg tablet (Proscar) 5 mg PO DAILY@1000 #30 tab 03/01/20 loperamide 2 mg capsule 2 mg PO QID PRN #30 cap 03/01/20 loratadine 10 mg tablet 10 mg PO DAILY PRN #30 tab 03/01/20 magnesium hydroxide 400 mg/5 mL 30 ml PO BEDTIME PRN #30 ml 03/01/20 oral suspension (Milk of Magnesia) miconazole nitrate 2 % topical 1 appl TOPICAL DAILY PRN #30 g 03/01/20 cream (Inzo Antifungal) polyvinyl alcohol 1.4 % eye drops 1 drp OPHTHALMIC (EYE) 03/01/20 (Artificial Tears (polyvinyl BID@1000,2200 #30 ml alcohol)) quetiapine 25 mg tablet 12.5 mg PO BEDTIME@2200 #30 tab 03/01/20 ropinirole 1 mg tablet 1 mg PO BID@1000,2200 #30 tab 03/01/20 vitamins A and D-white 1 appl TOPICAL DAILY PRN #30 g 03/01/20 petrolatum-lanolin topical ointment (A and D (mily, pet)) zinc oxide 20 % topical ointment 1 appl TOPICAL DAILY@0600 #30 g 03/01/20 apixaban 5 mg tablet (Eliquis) 5 mg PO BID #60 tab 03/21/20 Allergies Allergy/AdvReac Type Severity Reaction Status Date / Time No Known Allergies Allergy Verified 10/23/20 11:19 [No Known Allergies*] Review of Systems Review of Systems: Yes Unobtainable due to mental status Neurologic: Denies Abnormal speech present and Reports confusion Psychiatric: Psychiatric: Reports confusion PMFSH Past Medical History Attestation statement: The following information was validated with the patient. Source: old records reviewed and nursing notes reviewed Medical History Anemia BPH (benign prostatic hyperplasia) Carotid body tumor Dementia Factor 5 Leiden mutation, heterozygous Hematuria Hyperlipidemia Hyponatremia Lymphadenopathy Osteopenia Parkinsons Postural drop in blood pressure on standing Prostate cancer Prostate cancer Pulmonary embolism Rhinitis Vitamin B12 deficiency Surgical History H/O aortic aneurysm repair History of nephrectomy Total knee replacement status Social History Social History Household Members: None Housing: [facility] Housing Other:: [employer] [facility] Do you presently have visiting nurse or other home services: No Unable to assess alcohol history related to: Unable to respond Alcohol intake: never Patient Tobacco Use Status: Former Tobacco user Second Hand Smoke Exposure: No Advance Directives: Yes Advance Directives on File: Yes Advance Directives Date on File: 03/20/20 service: Yes Current occupational status: retired Physical Exam Vital Signs: Vital Signs: Last Vital Signs Temp 100.1 F 01/08/21 15:59 Pulse 79 01/08/21 15:59 Resp 20 01/08/21 15:59 BP 151/87 H 01/08/21 15:59 Pulse Ox 96 01/08/21 15:59 Body Mass Index 25.1 Const: Other: Eyes closed, rouses to verbal General: confusion Orientation/consciousness: confusion Limitations: altered mental status HENMT: Other: Very tacky mucous membrane Head: Yes normal to inspection Ears: hearing grossly normal bilaterally General nose exam: Normal external nose present Face and sinus: Yes normal facial exam Mouth: Normal oral and palatal mucosa present Throat: Yes posterior oropharynx normal Eyes: General: appearance normal, both eyes and all related structures Pupils: Equal, round and reactive pupils present Neck: Neck: Yes normal visual inspection, Yes full ROM, Yes no lymphadenopathy and Yes no meningeal signs Chest: Chest palpation & inspection: normal inspection of the chest Resp: Effort & Inspection: normal respiratory effort Auscultation: clear to auscultation bilaterally Cardio: Rate: regular rate Rhythm: regular rhythm Peripheral pulses: Peripheral pulses 2+ throughout GI: Inspection: Yes normal to inspection Palpation (GI): Soft to palpation and nontender Auscultation: normal bowel sounds Back/Spine/Pelvis: Thoracic/Lumbar Spine: thoracic and lumbar spine normal to inspection Skin: General skin exam: no rashes or lesions noted Neuro: General: no meningeal signs, no focal motor deficits, normal sensation to monofilament and confusion Cranial nerves: Yes Equal, round and reactive pupils present Cognition (Neuro): normal cognition Speech: No Abnormal speech present Gait exam (Neuro): Normal gait present Motor exam (neuro): 5/5 motor strength present throughout Extrem: General: Yes normal to inspection, Yes no pedal edema and Yes no calf tenderness Course Course Course Narrative: 85-year-old male coming from a [facility] with a history of dementia and nonverbal at baseline with lethargy over the last few days and decreased p.o. intake. This morning had a chest x-ray which was done, urine and labs outpatient. The chest x-ray is unavailable for review. The urine is consistent with a UTI. The labs show acute renal failure. Plan for labs today, chest x-ray, urine, blood cultures and lactic acid. At this time infection is suspected. Antibiotics ordered. The patient is a DNR, DNI, do not transfer to hospital as needed for comfort. I briefly spoke to his Arianne. She is agreeable for the patient to receive IV fluids and antibiotics at this time 1650-labs show a KI. Hypernatremia. Patient has a UTI. Patient will require admission for IV fluids and antibiotics. I spoke to the and she is agreeable with plan of care. Call out to medicine to discuss. 1730-Spoke to Rhonda WARREN who accepted admission. MDM - Weakness MDM Narrative Medical decision making narrative: UTI, PNA, anemia, sepsis, dehydration Medical Records Attestation: I reviewed the patient's medical records. Lab Data Attestation: I reviewed the patient's lab results. Result diagrams: 01/08/21 15:53 01/08/21 15:53 Labs: Lab Results 01/08/21 01/08/21 01/08/21 Range/Units 15:53 15:53 15:53 WBC 8.4 (4.8-10.8) X10*3/uL RBC 3.73 L (4.60-5.80) X10*6/uL Hgb 10.9 L (14.0-18.0) g/dl Hct 34.8 L (42.0-52.0) % MCV 93.3 (80.0-98.0) fL MCH 29.2 (27.0-33.0) pg MCHC 31.3 (31.0-36.0) g/dl RDW 13.7 (11.0-16.0) % Plt Count 227 (160-400) X10*3/uL MPV 10.4 (9.4-12.4) fL Immature Gran % (Auto) 0.5 H (0.0-0.4) % Neut % (Auto) 80.8 H (45-73) % Lymph % (Auto) 8.2 L (20-40) % [place] % (Auto) 9.4 (2-11) % Eos % (Auto) 1.0 (0-4) % Baso % (Auto) 0.1 (0-2) % Lymph # (Auto) 0.7 L (1.2-4.9) X10*3/uL [place] # (Auto) 0.8 (0.1-1.2) X10*3/uL Eos # (Auto) 0.1 (0.0-0.4) X10*3/uL Baso # (Auto) 0.0 (0.0-0.2) X10*3/uL Abs Immat Gran (auto) 0.04 H (0.00-0.03) X10*3/uL Absolute Neuts (auto) 6.8 (2.0-8.3) x10*3/uL Absolute Nucleated RBC 0.000 (0.0-0.012) X10*3/uL Nucleated RBC % (auto) 0.0 (0.0-0.2) /100WBC PT (9.9-13.0) SEC INR (0.9-1.1) Sodium 149 H (135-145) mmol/L Potassium 5.4 H (3.3-5.1) mmol/L Chloride 115 H (96-108) mmol/L Carbon Dioxide 22 (22-29) mmol/L Anion Gap 17 (12-20) BUN 80 H* (9-16) mg/dL Creatinine 2.93 H (0.5-1.4) mg/dL Estim Creat Clear Calc 19.6 Estimated GFR 21 Random Glucose 100 (60-115) mg/dL Lactic Acid (0.5-2.0) mmol/L Calcium 8.6 (8.4-10.2) mg/dL Magnesium 2.3 (1.6-2.6) mg/dL Total Bilirubin 0.4 (0.0-1.0) mg/dL Direct Bilirubin 0.2 (0.0-0.5) mg/dL AST 28 (5-37) U/L ALT 13 (0-40) U/L Alkaline Phosphatase 64 (39-117) U/L Troponin I High Sens 14.8 (<3.5-35.0) ng/L B-Natriuretic Peptide 83 (<100) pg/mL Total Protein 7.0 (6.5-8.0) g/dL Albumin 3.5 (3.5-5.0) g/dL COVID-19 (JOY) (Negative) COVID-19 Clin Com 01/08/21 01/08/21 01/08/21 Range/Units 15:53 15:53 15:53 WBC (4.8-10.8) X10*3/uL RBC (4.60-5.80) X10*6/uL Hgb (14.0-18.0) g/dl Hct (42.0-52.0) % MCV (80.0-98.0) fL MCH (27.0-33.0) pg MCHC (31.0-36.0) g/dl RDW (11.0-16.0) % Plt Count (160-400) X10*3/uL MPV (9.4-12.4) fL Immature Gran % (Auto) (0.0-0.4) % Neut % (Auto) (45-73) % Lymph % (Auto) (20-40) % [place] % (Auto) (2-11) % Eos % (Auto) (0-4) % Baso % (Auto) (0-2) % Lymph # (Auto) (1.2-4.9) X10*3/uL [place] # (Auto) (0.1-1.2) X10*3/uL Eos # (Auto) (0.0-0.4) X10*3/uL Baso # (Auto) (0.0-0.2) X10*3/uL Abs Immat Gran (auto) (0.00-0.03) X10*3/uL Absolute Neuts (auto) (2.0-8.3) x10*3/uL Absolute Nucleated RBC (0.0-0.012) X10*3/uL Nucleated RBC % (auto) (0.0-0.2) /100WBC PT 14.5 H (9.9-13.0) SEC INR 1.3 H (0.9-1.1) Sodium (135-145) mmol/L Potassium (3.3-5.1) mmol/L Chloride (96-108) mmol/L Carbon Dioxide (22-29) mmol/L Anion Gap (12-20) BUN (9-16) mg/dL Creatinine (0.5-1.4) mg/dL Estim Creat Clear Calc Estimated GFR Random Glucose (60-115) mg/dL Lactic Acid 1.2 (0.5-2.0) mmol/L Calcium (8.4-10.2) mg/dL Magnesium (1.6-2.6) mg/dL Total Bilirubin (0.0-1.0) mg/dL Direct Bilirubin (0.0-0.5) mg/dL AST (5-37) U/L ALT (0-40) U/L Alkaline Phosphatase (39-117) U/L Troponin I High Sens (<3.5-35.0) ng/L B-Natriuretic Peptide Cancelled (<100) pg/mL Total Protein (6.5-8.0) g/dL Albumin (3.5-5.0) g/dL COVID-19 (JOY) (Negative) COVID-19 Clin Com 01/08/21 Range/Units 16:41 WBC (4.8-10.8) X10*3/uL RBC (4.60-5.80) X10*6/uL Hgb (14.0-18.0) g/dl Hct (42.0-52.0) % MCV (80.0-98.0) fL MCH (27.0-33.0) pg MCHC (31.0-36.0) g/dl RDW (11.0-16.0) % Plt Count (160-400) X10*3/uL MPV (9.4-12.4) fL Immature Gran % (Auto) (0.0-0.4) % Neut % (Auto) (45-73) % Lymph % (Auto) (20-40) % [place] % (Auto) (2-11) % Eos % (Auto) (0-4) % Baso % (Auto) (0-2) % Lymph # (Auto) (1.2-4.9) X10*3/uL [place] # (Auto) (0.1-1.2) X10*3/uL Eos # (Auto) (0.0-0.4) X10*3/uL Baso # (Auto) (0.0-0.2) X10*3/uL Abs Immat Gran (auto) (0.00-0.03) X10*3/uL Absolute Neuts (auto) (2.0-8.3) x10*3/uL Absolute Nucleated RBC (0.0-0.012) X10*3/uL Nucleated RBC % (auto) (0.0-0.2) /100WBC PT (9.9-13.0) SEC INR (0.9-1.1) Sodium (135-145) mmol/L Potassium (3.3-5.1) mmol/L Chloride (96-108) mmol/L Carbon Dioxide (22-29) mmol/L Anion Gap (12-20) BUN (9-16) mg/dL Creatinine (0.5-1.4) mg/dL Estim Creat Clear Calc Estimated GFR Random Glucose (60-115) mg/dL Lactic Acid (0.5-2.0) mmol/L Calcium (8.4-10.2) mg/dL Magnesium (1.6-2.6) mg/dL Total Bilirubin (0.0-1.0) mg/dL Direct Bilirubin (0.0-0.5) mg/dL AST (5-37) U/L ALT (0-40) U/L Alkaline Phosphatase (39-117) U/L Troponin I High Sens (<3.5-35.0) ng/L B-Natriuretic Peptide (<100) pg/mL Total Protein (6.5-8.0) g/dL Albumin (3.5-5.0) g/dL COVID-19 (JOY) Negative (Negative) COVID-19 Clin Com See Note Imaging Data Chest x-ray: Attestation: I personally reviewed and interpreted this imaging study as follows: Radiologist's impression: FINDINGS: The cardiac and mediastinal contours are stable. There is atelectasis or consolidation at the left lung base. There is blunting at the left lateral costophrenic angle questionable for a small left pleural effusion. The right lung is clear. There is no right pleural effusion. There is no pneumothorax. There are degenerative changes of the spine. XR/XR chest 1V IMPRESSION: Left lower lobe atelectasis or consolidation and question small left pleural effusion. Findings are similar to previous CT scan October 2020. ECG Data Attestation: I personally reviewed and interpreted this ECG as follows: ECG interpretation date: 01/08/21 ECG interpretation time: 03:52 Interpretation: NSR with rate 73, normal pr, normal qrs, normal qtc Discharge Plan Discharge Clinical Impression: FLOWER (acute kidney injury), Acute hypernatremia, Acute UTI Patient Disposition: Admitted As Inpatient
[2021-01-08 15:59] VITALS: BP 151/87; PULSE 79; RESP 20; TEMP 37.8; O2SAT 96; BMI 25.1
[2021-01-08 15:59] LABS: MANUAL DIFF FLAG NO
[2021-01-08 16:05] LABS: Basophils Percent Auto 0.1 % (0-2); Eosinophils Absolute Auto 0.1 X10*3/uL (0.0-0.4); Hematocrit 34.8 % (42.0-52.0); Hemoglobin 10.9 g/dl (14.0-18.0); Imm Gran Abs Auto 0.04 X10*3/uL (0.00-0.03); Imm Gran Pct Auto 0.5 % (0.0-0.4); Lymphocytes Absolute Auto 0.7 X10*3/uL (1.2-4.9); Lymphocytes Percent Auto 8.2 % (20-40); Mean Corpuscular HGB Conc 31.3 g/dl (31.0-36.0); Mean Corpuscular Hemoglobin 29.2 pg (27.0-33.0); Mean Corpuscular Volume 93.3 fL (80.0-98.0); Mean Platelet Volume 10.4 fL (9.4-12.4); Monocytes Absolute Auto 0.8 X10*3/uL (0.1-1.2); Monocytes Percent Auto 9.4 % (2-11); Neutrophils Absolute Auto 6.8 x10*3/uL (2.0-8.3); Neutrophils Percent Auto 80.8 % (45-73); Platelet Count 227 X10*3/uL (160-400); Red Blood Count 3.73 X10*6/uL (4.60-5.80); Red Cell Distribution Width 13.7 % (11.0-16.0); White Blood Count 8.4 X10*3/uL (4.8-10.8)
[2021-01-08 16:17] LABS: INTERNATIONAL NORM RATIO 1.3 (0.9-1.1); Lactic Acid 1.2 mmol/L (0.5-2.0); Prothrombin Time 14.5 SEC (9.9-13.0)
[2021-01-08] MEDS: 0.9 % Sodium Chloride 1,000 ML 999 ML IV (16:19)
[2021-01-08 16:24] LABS: B Type Natriuretic Peptide 83 pg/mL (<100); Troponin-I High Sensitivity 14.8 ng/L (<3.5-35.0)
[2021-01-08 16:25] LABS: Alanine Aminotransferase 13 U/L (0-40); Albumin Level 3.5 g/dL (3.5-5.0); Alkaline Phosphatase 64 U/L (39-117); Anion Gap 17 (12-20); Aspartate Amino Transferase 28 U/L (5-37); Bilirubin Direct 0.2 mg/dL (0.0-0.5); Bilirubin Total 0.4 mg/dL (0.0-1.0); Blood Urea Nitrogen 80 mg/dL (9-16); Calcium 8.6 mg/dL (8.4-10.2); Carbon Dioxide 22 mmol/L (22-29); Chloride 115 mmol/L (96-108); Creatinine Clr Calc Pharmacy 19.6; Estimated Glomerular Filt Rate 21; Glucose Random 100 mg/dL (60-115); Magnesium 2.3 mg/dL (1.6-2.6); Potassium 5.4 mmol/L (3.3-5.1); Sodium 149 mmol/L (135-145)
[2021-01-08] MEDS: cefTRIAXone sodium 1 GM in 0.9 % Sodium Chloride 50 ML IV (16:43)
[2021-01-08 17:10] LABS: COVID-19 Test Negative (Negative)
--- NOTE | 2021-01-08 17:34 | PM.IMHP ---
History of Present Illness Date of Service: 01/08/21 <Rhonda Gibbs NP - Last Filed: 01/08/21 17:42> Attending physician on admission: Anali Figueroa <Rhonda Gibbs NP - Last Filed: 01/08/21 17:42> 85 year old man [facility]. Unfortunately has history of dementia and is unable to give any history. Apparently over the last few days he has had increased lethargy decreased intake. Sodium was noted to be elevated 149 potassium 5 4, creatinine 2.93 BUN 80, urinalysis positive, COVID negative. According to EMS and she was hypoxic at 87% upon to ER he was not noted to be all, chest x-ray did not show any consolidation. In the ER he was given a dose of Rocephin and 1 L fluids. Be admitted for further management and treatment of UTI and FLOWER. <Rhonda Gibbs NP - Last Filed: 01/08/21 17:42> Review of Systems Review of Systems: Denies any recent fever chills or decrease in appetite respiratory denies any shortness of breath coverage production cardiovascular is adjustment of any PND or edema gastrointestinal denies any dysphagia abdominal pain nausea vomiting or diarrhea genitourinary denies any dysuria frequency or hematuria musculoskeletal denies any joint pain or swelling neuropsych denies any weakness or seizures all other systems reviewed are negative <Rhonda Gibbs NP - Last Filed: 01/08/21 17:42> [facility] Medical History: Medical History (Updated 01/08/21 @ 17:39 by Rhonda Gibbs NP) Anemia BPH (benign prostatic hyperplasia) Carotid body tumor Dementia Factor 5 Leiden mutation, heterozygous Hematuria Hyperlipidemia Hyponatremia Lymphadenopathy Osteopenia Parkinsons Prostate cancer Pulmonary embolism Rhinitis Vitamin B12 deficiency <Rhonda Gibbs NP - Last Filed: 01/08/21 17:42> Pertinent family history: No cardiac hx according to the record <Rhonda Gibbs NP - Last Filed: 01/08/21 17:42> Surgical History: Surgical History H/O aortic aneurysm repair History of nephrectomy Total knee replacement status <Rhonda Gibbs NP - Last Filed: 01/08/21 17:42> Social History: Social History Household Members: None Housing: [facility] Other:: [facility] Do you presently have visiting nurse or other home services: No Unable to assess alcohol history related to: Unable to respond Alcohol intake: never Patient Tobacco Use Status: Former Tobacco user Second Hand Smoke Exposure: No Advance Directives: Yes Advance Directives on File: Yes Advance Directives Date on File: 03/20/20 service: Yes Current occupational status: retired <Rhonda Gibbs NP - Last Filed: 01/08/21 17:42> Meds Allergies/Adverse reactions: Allergies Allergy/AdvReac Type Severity Reaction Status Date / Time No Known Allergies Allergy Verified 10/23/20 11:19 [No Known Allergies*] <Rhonda Gibbs NP - Last Filed: 01/08/21 17:42> Active Medications: Current Medications Acetaminophen (Acetaminophen 325 Mg Tablet) 650 mg PO Q6H PRN PRN Reason: Pain, Mild (Pain Scale 1-3) Ceftriaxone Sodium 1 gm/ (Sodium Chloride) 50 mls @ 100 mls/hr IV Q24H JOE Dextrose (D5w) 1,000 mls @ 75 mls/hr IVCONT .[id number] JOE Ondansetron HCl (Ondansetron Hcl 4 Mg/2 Ml Vial) 4 mg IVPUSH Q8H PRN PRN Reason: Nausea and Vomiting Pharmacy Consult (Consult Rx Perform Med Rec) 1 each MISCELLANE ONCE PRN PRN Reason: Consult order Sodium Chloride (0.9 % Sodium Chloride Flush 3 Ml Syringe) 3 ml IVFLUSH QSHIFT JOE Sodium Polystyrene Sulfonate (Sodium Polystyrene Sulfon/Sorb 15 Gm/60 Ml Oral.Susp) 15 gm PO ONCE ONE Stop: 01/08/21 17:33 <Rhonda Gibbs NP - Last Filed: 01/08/21 17:42> Home medications: Home Medications Medication Instructions Recorded Confirmed Last Taken Type levalbuterol tartrate 45 2 puff INHALATION Q4H 03/19/20 01/08/21 03/19/20 History mcg/actuation aerosol inhaler (Xopenex HFA) midodrine 5 mg tablet 5 mg PO BID PRN 03/19/20 01/08/21 Unknown History amlodipine 2.5 mg tablet 1 tab PO DAILY 1101/08/21 01/08/21 History apixaban 2.5 mg tablet (Eliquis) 1 tab PO Q12H 01/08/21 01/08/21 01/08/21 History ropinirole 0.5 mg tablet 0.5 mg PO BID 01/08/21 01/08/21 01/08/21 History <Rhonda Gibbs NP - Last Filed: 01/08/21 17:42> Physical Exam Vital Signs and Narrative: Vital Signs: Last Vital Signs Temp 100.1 F 01/08/21 15:59 Pulse 79 01/08/21 15:59 Resp 20 01/08/21 15:59 BP 151/87 H 01/08/21 15:59 Pulse Ox 96 01/08/21 15:59 Body Mass Index 25.1 <Rhonda Gibbs NP - Last Filed: 01/08/21 17:42> Appearing in no acute distress head is normocephalic atraumatic eyes pupils are PERRLA sclera is anicteric mouth throat mucous membranes are intact and moist neck is supple no lymphadenopathy, no JVD noted lung sounds are clear to auscultation heart regular rate rhythm, clear S1, S2 positive bowel sounds, abdomen is soft, nontender neuro patient is alert, confused with hx of dementia <Rhonda Gibbs NP - Last Filed: 01/08/21 17:42> Results Labs CBC and Chem 7: : 01/08/21 15:53 01/08/21 15:53 <Rhonda Gibbs NP - Last Filed: 01/08/21 17:42> Labs: Laboratory Results - last 24 hr 01/08/21 01/08/21 01/08/21 15:53 15:53 15:53 MCV 93.3 MCH 29.2 MCHC 31.3 RDW 13.7 Plt Count 227 MPV 10.4 Immature Gran % (Auto) 0.5 H Neut % (Auto) 80.8 H Lymph % (Auto) 8.2 L [place] % (Auto) 9.4 Eos % (Auto) 1.0 Baso % (Auto) 0.1 Lymph # (Auto) 0.7 L [place] # (Auto) 0.8 Eos # (Auto) 0.1 Baso # (Auto) 0.0 Abs Immat Gran (auto) 0.04 H Absolute Neuts (auto) 6.8 Absolute Nucleated RBC 0.000 Nucleated RBC % (auto) 0.0 PT INR Anion Gap 17 Estim Creat Clear Calc 19.6 Estimated GFR 21 Random Glucose 100 Lactic Acid Calcium 8.6 Magnesium 2.3 Total Bilirubin 0.4 Direct Bilirubin 0.2 AST 28 ALT 13 Alkaline Phosphatase 64 Troponin I High Sens 14.8 B-Natriuretic Peptide 83 Total Protein 7.0 Albumin 3.5 COVID-19 (JOY) COVID-19 Clin Com 01/08/21 01/08/21 01/08/21 15:53 15:53 15:53 MCV MCH MCHC RDW Plt Count MPV Immature Gran % (Auto) Neut % (Auto) Lymph % (Auto) [place] % (Auto) Eos % (Auto) Baso % (Auto) Lymph # (Auto) [place] # (Auto) Eos # (Auto) Baso # (Auto) Abs Immat Gran (auto) Absolute Neuts (auto) Absolute Nucleated RBC Nucleated RBC % (auto) PT 14.5 H INR 1.3 H Anion Gap Estim Creat Clear Calc Estimated GFR Random Glucose Lactic Acid 1.2 Calcium Magnesium Total Bilirubin Direct Bilirubin AST ALT Alkaline Phosphatase Troponin I High Sens B-Natriuretic Peptide Cancelled Total Protein Albumin COVID-19 (JOY) COVID-19 Clin Com 01/08/21 16:41 MCV MCH MCHC RDW Plt Count MPV Immature Gran % (Auto) Neut % (Auto) Lymph % (Auto) [place] % (Auto) Eos % (Auto) Baso % (Auto) Lymph # (Auto) [place] # (Auto) Eos # (Auto) Baso # (Auto) Abs Immat Gran (auto) Absolute Neuts (auto) Absolute Nucleated RBC Nucleated RBC % (auto) PT INR Anion Gap Estim Creat Clear Calc Estimated GFR Random Glucose Lactic Acid Calcium Magnesium Total Bilirubin Direct Bilirubin AST ALT Alkaline Phosphatase Troponin I High Sens B-Natriuretic Peptide Total Protein Albumin COVID-19 (JOY) Negative COVID-19 Clin Com See Note <Rhonda Gibbs NP - Last Filed: 01/08/21 17:42> Imaging Radiologist's Impressions: Impressions Chest X-Ray 01/08/21 15:31 IMPRESSION: Left lower lobe atelectasis or consolidation and question small left pleural effusion. Findings are similar to previous CT scan October 2020. <Rhonda Gibbs NP - Last Filed: 01/08/21 17:42> Assessment and Plan (1) FLOWER (acute kidney injury): Status: Acute <Rhonda Gibbs NP - Last Filed: 01/08/21 17:42> (2) Acute hypernatremia: Status: Acute <Rhonda Gibbs NP - Last Filed: 01/08/21 17:42> (3) Acute UTI: Status: Acute <Rhonda Gibbs NP - Last Filed: 01/08/21 17:42> 85-year-old man admitted with UTI and FLOWER with history of dementia. UTI. History Proteus mirabilis in the past At will start Rocephin Follow blood cultures FLOWER likely secondary to dehydration IV fluids Follow BMP closely In if no improvement seen consider consulting Nephrology Hypernatremia. Likely secondary to dehydration and poor p.o. intake D5W, recheck sodium this evening History of factor 5 Leiden Continue home anticoagulation DVT prophylaxis with [facility] Attending Dr. Figueroa <Rhonda Gibbs NP - Last Filed: 01/08/21 17:42> Quality Stroke Does the patient have a stroke diagnosis?: No <Anali Figueroa MD - Last Filed: 01/08/21 18:18> VTE Prior VTE?: No <Anali Figueroa MD - Last Filed: 01/08/21 18:18> VTE Risk Level:: Medical - moderate - high <Rhonda Gibbs NP - Last Filed: 01/08/21 17:42> VTE Device Contraindication: N/A - Device Ordered <Rhonda Gibbs NP - Last Filed: 01/08/21 17:42> VTE Drug Contraindication: Treatment Not Indicated <Rhonda Gibbs NP - Last Filed: 01/08/21 17:42>
[2021-01-08 17:37] LABS: Appearance Urine CLOUDY; Color Urine YELLOW; Glucose Urine UA NEG (NEG); Leukocyte Esterase Urine 3+ (NEG); Nitrite Urine NEG (NEG); PH 7.5 (5.0-8.0); UACC Culture Trigger YES; Urine Blood 1+ (NEG); Urine Ketones NEG (NEG); Urine Protein 2+ MG/DL (NEG-TRACE)
[2021-01-08 17:47] LABS: Amorphous Sediment Urine TRACE /LPF; Squamous Epithelial Cell Urine TRACE /LPF
[2021-01-08 20:11] LABS: Anion Gap 16 (12-20); Blood Urea Nitrogen 77 mg/dL (9-16); Calcium 8.5 mg/dL (8.4-10.2); Carbon Dioxide 23 mmol/L (22-29); Chloride 116 mmol/L (96-108); Creatinine Clr Calc Pharmacy 19.9; Estimated Glomerular Filt Rate 21; Glucose Random 102 mg/dL (60-115); Potassium 5.2 mmol/L (3.3-5.1); Sodium 150 mmol/L (135-145)
[2021-01-08 20:53] VITALS: BP 153/87; PULSE 73; RESP 22; O2SAT 97
[2021-01-08] MEDS: Sodium Polystyrene Sulfon/Sorb 15 GM/60 ML ORAL.SUSP PO (21:01)
[2021-01-08] MEDS: Dextrose 5 % 1,000 ML 75 ML IVCONT (21:10)
[2021-01-08 22:00] VITALS: BMI 25.3
[2021-01-08 22:14] VITALS: BP 161/90; PULSE 72; RESP 14; TEMP 36.1
[2021-01-08] MEDS: Apixaban 2.5 MG TABLET PO (23:00)
[2021-01-08] MEDS: rOPINIRole HCL 0.5 MG TABLET PO (23:00)
[2021-01-08] MEDS: Carbidopa/Levodopa 25/100 TABLET 1 TAB PO (23:00)
[2021-01-08 23:20] VITALS: BP 158/78; PULSE 68; RESP 19; TEMP 36.6; O2SAT 94
[2021-01-09 05:46] LABS: MANUAL DIFF FLAG NO
[2021-01-09 05:50] LABS: Basophils Percent Auto 0.3 % (0-2); Eosinophils Percent Auto 0.4 % (0-4); Hematocrit 36.1 % (42.0-52.0); Hemoglobin 11.1 g/dl (14.0-18.0); Imm Gran Abs Auto 0.05 X10*3/uL (0.00-0.03); Imm Gran Pct Auto 0.6 % (0.0-0.4); Lymphocytes Absolute Auto 0.6 X10*3/uL (1.2-4.9); Lymphocytes Percent Auto 7.5 % (20-40); Mean Corpuscular HGB Conc 30.7 g/dl (31.0-36.0); Mean Corpuscular Hemoglobin 28.4 pg (27.0-33.0); Mean Corpuscular Volume 92.3 fL (80.0-98.0); Mean Platelet Volume 10.4 fL (9.4-12.4); Monocytes Absolute Auto 0.7 X10*3/uL (0.1-1.2); Monocytes Percent Auto 9.4 % (2-11); Neutrophils Absolute Auto 6.3 x10*3/uL (2.0-8.3); Neutrophils Percent Auto 81.8 % (45-73); Platelet Count 238 X10*3/uL (160-400); Red Blood Count 3.91 X10*6/uL (4.60-5.80); Red Cell Distribution Width 13.8 % (11.0-16.0); White Blood Count 7.8 X10*3/uL (4.8-10.8)
[2021-01-09 06:13] LABS: Anion Gap 17 (12-20); Blood Urea Nitrogen 73 mg/dL (9-16); Calcium 8.3 mg/dL (8.4-10.2); Carbon Dioxide 21 mmol/L (22-29); Chloride 116 mmol/L (96-108); Creatinine Clr Calc Pharmacy 20.9; Estimated Glomerular Filt Rate 22; Glucose Random 112 mg/dL (60-115); Potassium 4.6 mmol/L (3.3-5.1); Sodium 149 mmol/L (135-145)
[2021-01-09 08:00] VITALS: BP 165/88; PULSE 71; RESP 16; TEMP 36.2; O2SAT 94
[2021-01-09 09:11] VITALS: BP 165/88; PULSE 71
[2021-01-09] MEDS: Cyanocobalamin (Vitamin B-12) 1,000 MCG TABLET 1000 MCG PO (09:11)
[2021-01-09] MEDS: amLODIPine Besylate 2.5 MG TABLET PO (09:11)
[2021-01-09] MEDS: Finasteride 5 MG TABLET PO (09:11)
[2021-01-09] MEDS: Bicalutamide 50 MG TABLET PO (09:11)
[2021-01-09] MEDS: Cholecalciferol (Vitamin D3) 25 MCG TABLET PO (09:11)
[2021-01-09] MEDS: Apixaban 2.5 MG TABLET PO ×2 (09:11→19:59)
[2021-01-09] MEDS: rOPINIRole HCL 0.5 MG TABLET PO ×2 (09:11→19:59)
[2021-01-09] MEDS: Carbidopa/Levodopa 25/100 TABLET 1 TAB PO ×4 (09:18→19:59)
[2021-01-09] MEDS: Dextrose 5 % 1,000 ML 75 ML IVCONT (10:49)
[2021-01-09 11:36] VITALS: BMI 25.3
--- NOTE | 2021-01-09 11:42 | HO.PM.IMPN ---
Subjective Subjective Date of Service: 01/09/21 Interval History: the patient was seen and evaluated this morning Laying in bed, difficult to arouse, moaning Denies pain No reported other overnight events. Systemic review: Nonverbal communicate Physical Exam Vital Signs: Vital Signs: Last Vital Signs Temp 97.2 F 01/09/21 08:00 Pulse 71 01/09/21 09:11 Resp 16 01/09/21 08:00 BP 165/88 H 01/09/21 09:11 Pulse Ox 94 01/09/21 08:00 Body Mass Index 25.3 Const: Other: Constitutional : Altered, moaning, not in distress Neck : Normal inspection, Supple Cardiovascular : RRR, S1 S2, no lower extremity edema Respiratory : Fair bilateral air entry, days bilateral crackles, wheezes or rhonchi Gastrointestinal: soft, lax, Normal bowel sounds, Non tender Skin : Warm, Dry Neurological : Altered mentation, moaning, No focal deficit Objective Data Active Medications Acetaminophen (Acetaminophen 325 Mg Tablet) 650 mg PO Q6H PRN PRN Reason: Pain, Mild (Pain Scale 1-3) Amlodipine Besylate (Amlodipine Besylate 2.5 Mg Tablet) 2.5 mg PO DAILY [facility]; Protocol Last Admin: 01/09/21 09:11 Dose: 2.5 mg Documented by: RAYMOND Apixaban (Apixaban 2.5 Mg Tablet) 2.5 mg PO BID [facility] Last Admin: 01/09/21 09:11 Dose: 2.5 mg Documented by: RAYMOND Artificial Tears (Artificial Tears 15 Ml Drops) 1 drop EYE-BOTH BID@1000,2200 [facility] Last Admin: 01/09/21 09:12 Dose: Not Given Documented by: RAYMOND Non-Admin Reason: Med Not Available Bicalutamide (Bicalutamide 50 Mg Tablet) 50 mg PO DAILY@1000 [facility] Last Admin: 01/09/21 09:11 Dose: 50 mg Documented by: RAYMOND Bisacodyl (Bisacodyl 10 Mg Supp.Rect) 10 mg [place] DAILY PRN PRN Reason: Constipation Carbidopa/Levodopa (Carbidopa/Levodopa 25/100 Tablet) 1 tab PO 0800,1300,1600,2000 [facility] Last Admin: 01/09/21 09:18 Dose: 1 tab Documented by: RAYMOND Cyanocobalamin (Cyanocobalamin (Vitamin B-12) 1,000 Mcg Tablet) 1,000 mcg PO DAILY@1000 [facility] Last Admin: 01/09/21 09:11 Dose: 1,000 mcg Documented by: RAYMOND Finasteride (Finasteride 5 Mg Tablet) 5 mg PO DAILY@1000 [facility] Last Admin: 01/09/21 09:11 Dose: 5 mg Documented by: RAYMOND Ceftriaxone Sodium 1 gm/ (Sodium Chloride) 50 mls @ 100 mls/hr IV Q24H [facility] Dextrose (D5w) 1,000 mls @ 75 mls/hr IVCONT .[id number] [facility] Last Admin: 01/09/21 10:49 Dose: 75 mls/hr Documented by: RAYMOND Loperamide HCl (Loperamide Hcl 2 Mg Capsule) 2 mg PO QID PRN PRN Reason: Diarrhea Loratadine (Loratadine 10 Mg Tablet) 10 mg PO DAILY PRN PRN Reason: Runny Nose Magnesium Hydroxide (Milk Of Magnesia 30 Ml Oral.Susp) 30 ml PO BEDTIME PRN PRN Reason: Constipation Midodrine (Midodrine Hcl 5 Mg Tablet) 5 mg PO BID PRN PRN Reason: SBP <90 Ondansetron HCl (Ondansetron Hcl 4 Mg/2 Ml Vial) 4 mg IVPUSH Q8H PRN PRN Reason: Nausea and Vomiting Pharmacy Consult (Consult Rx Perform Med Rec) 1 each MISCELLANE ONCE PRN PRN Reason: Consult order Ropinirole HCl (Ropinirole Hcl 0.5 Mg Tablet) 0.5 mg PO BID [facility] Last Admin: 01/09/21 09:11 Dose: 0.5 mg Documented by: RAYMOND Sodium Chloride (0.9 % Sodium Chloride Flush 3 Ml Syringe) 3 ml IVFLUSH QSHIFT [facility] Last Admin: 01/09/21 09:19 Dose: Not Given Documented by: RAYMOND Non-Admin Reason: IV Running Vitamin D (Cholecalciferol (Vitamin D3) 25 Mcg Tablet) 25 mcg PO DAILY@1000 [facility] Last Admin: 01/09/21 09:11 Dose: 25 mcg Documented by: RAYMOND Labs CBC & Chem 7: 01/09/21 05:26 01/09/21 05:26 Labs: Laboratory Results - last 24 hr 1101/08/21 01/08/21 15:53 15:53 15:53 MCV 93.3 MCH 29.2 MCHC 31.3 RDW 13.7 Plt Count 227 MPV 10.4 Immature Gran % (Auto) 0.5 H Neut % (Auto) 80.8 H Lymph % (Auto) 8.2 L [place] % (Auto) 9.4 Eos % (Auto) 1.0 Baso % (Auto) 0.1 Lymph # (Auto) 0.7 L [place] # (Auto) 0.8 Eos # (Auto) 0.1 Baso # (Auto) 0.0 Abs Immat Gran (auto) 0.04 H Absolute Neuts (auto) 6.8 Absolute Nucleated RBC 0.000 Nucleated RBC % (auto) 0.0 PT INR Anion Gap 17 Estim Creat Clear Calc 19.6 Estimated GFR 21 Random Glucose 100 Lactic Acid Calcium 8.6 Magnesium 2.3 Total Bilirubin 0.4 Direct Bilirubin 0.2 AST 28 ALT 13 Alkaline Phosphatase 64 Troponin I High Sens 14.8 B-Natriuretic Peptide 83 Total Protein 7.0 Albumin 3.5 Urine Color Urine Appearance Urine pH Ur Specific [place] Urine Protein Urine Glucose (UA) Urine Ketones Urine Blood Urine Nitrite Ur Leukocyte Esterase Urine RBC Urine WBC Ur Squamous Epith Cells Amorphous Sediment Urine Bacteria COVID-19 (JOY) COVID-19 [employer] 01/08/21 01/08/21 01/08/21 15:53 15:53 15:53 MCV MCH MCHC RDW Plt Count MPV Immature Gran % (Auto) Neut % (Auto) Lymph % (Auto) [place] % (Auto) Eos % (Auto) Baso % (Auto) Lymph # (Auto) [place] # (Auto) Eos # (Auto) Baso # (Auto) Abs Immat Gran (auto) Absolute Neuts (auto) Absolute Nucleated RBC Nucleated RBC % (auto) PT 14.5 H INR 1.3 H Anion Gap Estim Creat Clear Calc Estimated GFR Random Glucose Lactic Acid 1.2 Calcium Magnesium Total Bilirubin Direct Bilirubin AST ALT Alkaline Phosphatase Troponin I High Sens B-Natriuretic Peptide Cancelled Total Protein Albumin Urine Color Urine Appearance Urine pH Ur Specific [place] Urine Protein Urine Glucose (UA) Urine Ketones Urine Blood Urine Nitrite Ur Leukocyte Esterase Urine RBC Urine WBC Ur Squamous Epith Cells Amorphous Sediment Urine Bacteria COVID-19 (JOY) COVID-19 [employer] 11/01/08/21 01/08/21 16:41 16:58 19:42 MCV MCH MCHC RDW Plt Count MPV Immature Gran % (Auto) Neut % (Auto) Lymph % (Auto) [place] % (Auto) Eos % (Auto) Baso % (Auto) Lymph # (Auto) [place] # (Auto) Eos # (Auto) Baso # (Auto) Abs Immat Gran (auto) Absolute Neuts (auto) Absolute Nucleated RBC Nucleated RBC % (auto) PT INR Anion Gap 16 Estim Creat Clear Calc 19.9 Estimated GFR 21 Random Glucose 102 Lactic Acid Calcium 8.5 Magnesium Total Bilirubin Direct Bilirubin AST ALT Alkaline Phosphatase Troponin I High Sens B-Natriuretic Peptide Total Protein Albumin Urine Color YELLOW Urine Appearance CLOUDY Urine pH 7.5 Ur Specific [place] 1.010 Urine Protein 2+ H Urine Glucose (UA) NEG Urine Ketones NEG Urine Blood 1+ H Urine Nitrite NEG Ur Leukocyte Esterase 3+ H Urine RBC 1-4 Urine WBC 76-150 H Ur Squamous Epith Cells TRACE Amorphous Sediment TRACE Urine Bacteria NONE COVID-19 (JOY) Negative COVID-19 Clin Com See Note 01/09/21 01/09/21 05:26 05:26 MCV 92.3 MCH 28.4 MCHC 30.7 L RDW 13.8 Plt Count 238 MPV 10.4 Immature Gran % (Auto) 0.6 H Neut % (Auto) 81.8 H Lymph % (Auto) 7.5 L [place] % (Auto) 9.4 Eos % (Auto) 0.4 Baso % (Auto) 0.3 Lymph # (Auto) 0.6 L [place] # (Auto) 0.7 Eos # (Auto) 0.0 Baso # (Auto) 0.0 Abs Immat Gran (auto) 0.05 H Absolute Neuts (auto) 6.3 Absolute Nucleated RBC 0.000 Nucleated RBC % (auto) 0.0 PT INR Anion Gap 17 Estim Creat Clear Calc 20.9 Estimated GFR 22 Random Glucose 112 Lactic Acid Calcium 8.3 L Magnesium Total Bilirubin Direct Bilirubin AST ALT Alkaline Phosphatase Troponin I High Sens B-Natriuretic Peptide Total Protein Albumin Urine Color Urine Appearance Urine pH Ur Specific [place] Urine Protein Urine Glucose (UA) Urine Ketones Urine Blood Urine Nitrite Ur Leukocyte Esterase Urine RBC Urine WBC Ur Squamous Epith Cells Amorphous Sediment Urine Bacteria COVID-19 (JOY) COVID-19 Clin Com Assessment and Plan (1) FLOWER (acute kidney injury): Status: Acute (2) Acute hypernatremia: Status: Acute (3) Acute UTI: Status: Acute Assessment and Plan: 85-year-old man admitted with UTI and FLOWER with history of dementia. UTI. History Proteus mirabilis in the past Continue start Rocephin Pending blood cultures FLOWER likely secondary to dehydration Improving slowly Continue IV fluids Follow BMP closely Nephrology consult pending Hypernatremia. Likely secondary to dehydration and poor p.o. intake Improving slowly 03/19/2048 Continue D5W Monitor sodium this afternoon Hydronephrosis, hydroureter Noted on CT scan Get urology to evaluate History of factor 5 Leiden Continue home anticoagulation DVT prophylaxis Eliquis Quality Stroke Does the patient have a stroke diagnosis?: No VTE Prior VTE?: No VTE Risk Level:: Medical - moderate - high VTE Device Contraindication: N/A - Device Ordered VTE Drug Contraindication: Treatment Not Indicated
--- NOTE | 2021-01-09 11:47 | MHC.CLN ---
NUTRITION CONSULT CONSULT DUE TO REDNESS, STAGE I TO BUTTOCKS. CHARLI=8. SIGNIFICANT, UNPLANNED WEIGHTL OSS X 9 MONTHS, -17.5%. DECLINE IN PO INTAKE NOTED. DIET=2 GRAM SODIUM. ADDING ENSURE BID TO PROVIDE ADDITIONAL 700 KCAL, 26 G PROTEIN.
--- NOTE | 2021-01-09 13:55 | PC.NURSE ---
Dr Roberts at bedside for urology consult. Recommends mondragon catheter for elevated creatinine and acute urinary retention. Mondragon catheter order placed and inserted at 1345. Pt tolerated well. Drained 800ml cloudy purulent urine with sediment. Will continue to monitor urine output and quality.
--- NOTE | 2021-01-09 15:53 | MHC.CM.PN ---
PATIENT IS IN FROM [facility] [address] [facility]. HE DOES NOT AMBULATE AND USES THE ASSIST OF A WHEELCHAIR. PATIENT ALSO IS AN ASSIST FOR FEED AND CARE. IMM DISCUSSED WITH HCP/ (ON FILE AND VERIFIED) NELDA @ [phone] IMM TO BE MAILED CERTIFIED PER CONVERSATION IS AWARE THAT PLAN IS FOR 2-3 DAYS HERE AND THEN RETURN TO [facility]. CALL TO [address] ([phone]) AND MESSAGE LEFT STATING THE SAME. CONTACT NUMBER FOR THIS [employer]TER LEFT ON [employer]. IMM 01/09 IN CHART.
[2021-01-09 16:00] VITALS: BP 142/81; PULSE 66; RESP 20; TEMP 36.1; O2SAT 96
--- NOTE | 2021-01-09 16:37 | P.CNUR_ITS ---
History of Present Illness Consult details Consult date: 01/09/21 Narrative: Amrit is a pleasant male from the [facility]. Consultation regarding right hydronephrosis in setting of solitary kidney and elevated creatinine Baseline creatinine is under 1 Current laboratories show creatinine 2.75, BUN 30, PSA 35 Recommendation would be placement of Rodriguez catheter and repeat ultrasound in 48 hours Adequate hydration should be performed to normalize BUN May need consideration for prostate biopsy as outpatient. Elevated PSA could be secondary to prostatitis. Does have known prostate cancer in his previously been treated with bicalutamide Microbiology positive with Gram-negative rods in urine Continue with antibiotics for minimum 2 weeks Review of Systems Constitutional: Constitutional: Denies chills and Denies fever(s) Cardiovascular: Cardiovascular: Reports no additional cardiovascular complaints and Denies syncope Respiratory: Respiratory: Denies cough Gastrointestinal: Gastrointestinal: Denies abdominal pain and Denies heartburn Genitourinary: Genitourinary: Reports as per HPI and Denies change in libido Neurologic: Denies syncope Psychiatric: Psychiatric: Denies change in libido Endocrine: Endocrine: Denies change in libido [facility] Past Medical History Medical History (Updated 01/09/21 @ 16:40 by Sage Garber MD) Anemia BPH (benign prostatic hyperplasia) Carotid body tumor Dementia Factor 5 Leiden mutation, heterozygous Hematuria Hyperlipidemia Hyponatremia Lymphadenopathy Osteopenia Parkinsons Prostate cancer Pulmonary embolism Rhinitis Vitamin B12 deficiency Surgical History Surgical History H/O aortic aneurysm repair History of nephrectomy Total knee replacement status Social History Social History Household Members: Other Housing: Other Housing Other:: [facility] Do you presently have visiting nurse or other home services: No Unable to assess alcohol history related to: Unknown Alcohol intake: never Patient Tobacco Use Status: Former Tobacco user Second Hand Smoke Exposure: No Advance Directives Date on File: 03/20/20 service: Yes Current occupational status: retired Meds Allergies Allergy/AdvReac Type Severity Reaction Status Date / Time No Known Allergies Allergy Verified 10/23/20 11:19 [No Known Allergies*] Active Medications: Current Medications Acetaminophen (Acetaminophen 325 Mg Tablet) 650 mg PO Q6H PRN PRN Reason: Pain, Mild (Pain Scale 1-3) Amlodipine Besylate (Amlodipine Besylate 2.5 Mg Tablet) 2.5 mg PO DAILY [facility]; Protocol Last Admin: 01/09/21 09:11 Dose: 2.5 mg Documented by: Apixaban (Apixaban 2.5 Mg Tablet) 2.5 mg PO BID [facility] Last Admin: 01/09/21 09:11 Dose: 2.5 mg Documented by: Artificial Tears (Artificial Tears 15 Ml Drops) 1 drop EYE-BOTH BID@1000,2200 [facility] Last Admin: 01/09/21 09:12 Dose: Not Given Documented by: Bicalutamide (Bicalutamide 50 Mg Tablet) 50 mg PO DAILY@1000 [facility] Last Admin: 01/09/21 09:11 Dose: 50 mg Documented by: Bisacodyl (Bisacodyl 10 Mg Supp.Rect) 10 mg MA DAILY PRN PRN Reason: Constipation Carbidopa/Levodopa (Carbidopa/Levodopa 25/100 Tablet) 1 tab PO 0800,1300,1600,2000 [facility] Last Admin: 01/09/21 15:57 Dose: 1 tab Documented by: Cyanocobalamin (Cyanocobalamin (Vitamin B-12) 1,000 Mcg Tablet) 1,000 mcg PO DAILY@1000 [facility] Last Admin: 01/09/21 09:11 Dose: 1,000 mcg Documented by: Finasteride (Finasteride 5 Mg Tablet) 5 mg PO DAILY@1000 [facility] Last Admin: 01/09/21 09:11 Dose: 5 mg Documented by: Ceftriaxone Sodium 1 gm/ (Sodium Chloride) 50 mls @ 100 mls/hr IV Q24H [facility] Dextrose (D5w) 1,000 mls @ 100 mls/hr IVCONT .Q10H [facility] Last Admin: 01/09/21 16:31 Dose: Not Given Documented by: Loperamide HCl (Loperamide Hcl 2 Mg Capsule) 2 mg PO QID PRN PRN Reason: Diarrhea Loratadine (Loratadine 10 Mg Tablet) 10 mg PO DAILY PRN PRN Reason: Runny Nose Magnesium Hydroxide (Milk Of Magnesia 30 Ml Oral.Susp) 30 ml PO BEDTIME PRN PRN Reason: Constipation Midodrine (Midodrine Hcl 5 Mg Tablet) 5 mg PO BID PRN PRN Reason: SBP <90 Ondansetron HCl (Ondansetron Hcl 4 Mg/2 Ml Vial) 4 mg IVPUSH Q8H PRN PRN Reason: Nausea and Vomiting Pharmacy Consult (Consult Rx Perform Med Rec) 1 each MISCELLANE ONCE PRN PRN Reason: Consult order Ropinirole HCl (Ropinirole Hcl 0.5 Mg Tablet) 0.5 mg PO BID [facility] Last Admin: 01/09/21 09:11 Dose: 0.5 mg Documented by: Sodium Chloride (0.9 % Sodium Chloride Flush 3 Ml Syringe) 3 ml IVFLUSH QSHIFT [facility] Last Admin: 01/09/21 15:55 Dose: Not Given Documented by: Vitamin D (Cholecalciferol (Vitamin D3) 25 Mcg Tablet) 25 mcg PO DAILY@1000 [facility] Last Admin: 01/09/21 09:11 Dose: 25 mcg Documented by: Home Medications Medication Instructions Recorded Confirmed Last Taken Type levalbuterol tartrate 45 2 puff INHALATION Q4H 03/19/20 01/08/21 03/19/20 History mcg/actuation aerosol inhaler (Xopenex HFA) midodrine 5 mg tablet 5 mg PO BID PRN 03/19/20 01/08/21 Unknown History amlodipine 2.5 mg tablet 1 tab PO DAILY 01/08/21 01/08/21 01/08/21 History apixaban 2.5 mg tablet (Eliquis) 1 tab PO Q12H 01/08/21 01/08/21 01/08/21 History ropinirole 0.5 mg tablet 0.5 mg PO BID 01/08/21 01/08/21 01/08/21 History Physical Exam Vital Signs: Vital Signs: Last Vital Signs Temp 97.2 F 01/09/21 08:00 Pulse 71 01/09/21 09:11 Resp 16 01/09/21 08:00 BP 165/88 H 01/09/21 09:11 Pulse Ox 94 01/09/21 08:00 Body Mass Index 25.3 Const: General: cooperative, healthy appearing, comfortable and no acute distress Orientation/consciousness: patient oriented x3 HENMT: Face and sinus: Yes normal facial exam Mouth: moist mucous membranes Neck: Neck: Yes normal visual inspection, Yes full ROM and Yes trachea midline Chest: Chest palpation & inspection: normal inspection of the chest Resp: Effort & Inspection: normal respiratory effort, able to speak in complete sentences and no respiratory distress GI: Inspection: Yes normal to inspection Back/Spine/Pelvis: Cervical Spine: normal cervical lordosis Thoracic/Lumbar Spine: thoracic and lumbar spine normal to inspection Skin: General skin exam: no rashes or lesions noted Neuro: General: patient oriented x3, gait normal, tone normal and moves all extremities Extrem: General: Yes normal to inspection and Yes capillary refill normal Results Labs Result diagrams: 01/09/21 05:26 01/09/21 05:26 Labs: Abnormal lab results 01/08/21 01/08/21 01/09/21 Range/Units 16:58 19:42 05:26 RBC 3.91 L (4.60-5.80) X10*6/uL Hgb 11.1 L (14.0-18.0) g/dl Hct 36.1 L (42.0-52.0) % MCHC 30.7 L (31.0-36.0) g/dl Immature Gran % (Auto) 0.6 H (0.0-0.4) % Neut % (Auto) 81.8 H (45-73) % Lymph % (Auto) 7.5 L (20-40) % Lymph # (Auto) 0.6 L (1.2-4.9) X10*3/uL Abs Immat Gran (auto) 0.05 H (0.00-0.03) X10*3/uL Sodium 150 H (135-145) mmol/L Potassium 5.2 H (3.3-5.1) mmol/L Chloride 116 H (96-108) mmol/L Carbon Dioxide (22-29) mmol/L BUN 77 H (9-16) mg/dL Creatinine 2.88 H (0.5-1.4) mg/dL Calcium (8.4-10.2) mg/dL Urine Protein 2+ H (NEG-TRACE) MG/DL Urine Blood 1+ H (NEG) Ur Leukocyte Esterase 3+ H (NEG) Urine WBC 76-150 H (0-4) /HPF 01/09/21 Range/Units 05:26 RBC (4.60-5.80) X10*6/uL Hgb (14.0-18.0) g/dl Hct (42.0-52.0) % MCHC (31.0-36.0) g/dl Immature Gran % (Auto) (0.0-0.4) % Neut % (Auto) (45-73) % Lymph % (Auto) (20-40) % Lymph # (Auto) (1.2-4.9) X10*3/uL Abs Immat Gran (auto) (0.00-0.03) X10*3/uL Sodium 149 H (135-145) mmol/L Potassium (3.3-5.1) mmol/L Chloride 116 H (96-108) mmol/L Carbon Dioxide 21 L (22-29) mmol/L BUN 73 H (9-16) mg/dL Creatinine 2.75 H (0.5-1.4) mg/dL Calcium 8.3 L (8.4-10.2) mg/dL Urine Protein (NEG-TRACE) MG/DL Urine Blood (NEG) Ur Leukocyte Esterase (NEG) Urine WBC (0-4) /HPF Short CBC 01/09/21 Range/Units 05:26 WBC 7.8 (4.8-10.8) X10*3/uL Hgb 11.1 L (14.0-18.0) g/dl Hct 36.1 L (42.0-52.0) % Plt Count 238 (160-400) X10*3/uL BMP 01/08/21 01/09/21 19:42 05:26 Sodium 150 H 149 H Potassium 5.2 H 4.6 Chloride 116 H 116 H Carbon Dioxide 23 21 L BUN 77 H 73 H Creatinine 2.88 H 2.75 H Calcium 8.5 8.3 L Urine 01/08/21 Range/Units 16:58 Urine Color YELLOW Urine Appearance CLOUDY Urine pH 7.5 (5.0-8.0) Ur Specific [place] 1.010 (1.005-1.025) Urine Protein 2+ H (NEG-TRACE) MG/DL Urine Glucose (UA) NEG (NEG) MG/DL All other labs normal. Assessment and Plan (1) Acute UTI: Status: Acute (2) FLOWER (acute kidney injury): Status: Acute (3) Elevated PSA: Status: Acute Rodriguez catheter to ensure bladder emptying Repeat imaging in 48 hours to review right hydronephrosis Antibiotics for complicated UTI and possible prostatitis Procedures Date of Service Date of Service: 01/09/21
[2021-01-09] MEDS: cefTRIAXone sodium 1 GM in 0.9 % Sodium Chloride 50 ML IV (16:39)
[2021-01-09 23:20] VITALS: BP 146/75; PULSE 56; RESP 20; TEMP 36.6; O2SAT 98
[2021-01-10] MEDS: Dextrose 5 % 1,000 ML 100 ML IVCONT (05:47)
[2021-01-10 07:03] LABS: Hematocrit 34.5 % (42.0-52.0); Hemoglobin 10.5 g/dl (14.0-18.0); Mean Corpuscular HGB Conc 30.4 g/dl (31.0-36.0); Mean Corpuscular Hemoglobin 28.5 pg (27.0-33.0); Mean Corpuscular Volume 93.8 fL (80.0-98.0); Mean Platelet Volume 10.6 fL (9.4-12.4); Platelet Count 252 X10*3/uL (160-400); Red Blood Count 3.68 X10*6/uL (4.60-5.80); Red Cell Distribution Width 13.6 % (11.0-16.0); White Blood Count 6.5 X10*3/uL (4.8-10.8)
[2021-01-10 07:30] LABS: Anion Gap 14 (12-20); Blood Urea Nitrogen 57 mg/dL (9-16); Calcium 8.3 mg/dL (8.4-10.2); Carbon Dioxide 26 mmol/L (22-29); Chloride 115 mmol/L (96-108); Creatinine Clr Calc Pharmacy 25.7; Estimated Glomerular Filt Rate 28; Glucose Random 89 mg/dL (60-115); Potassium 4.4 mmol/L (3.3-5.1); Sodium 151 mmol/L (135-145)
[2021-01-10 08:00] VITALS: BP 145/67; PULSE 67; RESP 19; TEMP 36; O2SAT 95
[2021-01-10] MEDS: Cyanocobalamin (Vitamin B-12) 1,000 MCG TABLET 1000 MCG PO (10:01)
[2021-01-10] MEDS: Bicalutamide 50 MG TABLET PO (10:01)
[2021-01-10] MEDS: Finasteride 5 MG TABLET PO (10:01)
[2021-01-10] MEDS: Cholecalciferol (Vitamin D3) 25 MCG TABLET PO (10:01)
[2021-01-10] MEDS: Apixaban 2.5 MG TABLET PO ×2 (10:01→19:43)
[2021-01-10] MEDS: rOPINIRole HCL 0.5 MG TABLET PO ×2 (10:01→19:43)
[2021-01-10] MEDS: amLODIPine Besylate 2.5 MG TABLET PO (10:02)
[2021-01-10] MEDS: Carbidopa/Levodopa 25/100 TABLET 1 TAB PO ×4 (10:03→19:43)
--- NOTE | 2021-01-10 10:21 | HO.PM.IMPN ---
Subjective Subjective Date of Service: 01/10/21 Interval History: the patient was seen and evaluated this morning Laying in bed, still difficult to arouse, not moaning the same way as yesterday Not responsive No reported other overnight events. Systemic review: Nonverbal communicate Physical Exam Vital Signs: Vital Signs: Last Vital Signs Temp 96.8 F 01/10/21 08:00 Pulse 67 01/10/21 08:00 Resp 19 01/10/21 08:00 BP 145/67 H 01/10/21 08:00 Pulse Ox 95 01/10/21 08:00 Body Mass Index 25.3 Const: Other: Constitutional : Altered, difficult to arouse, not in distress Neck : Normal inspection, Supple Cardiovascular : RRR, S1 S2, no lower extremity edema Respiratory : Fair bilateral air entry, no bilateral crackles, wheezes or rhonchi Gastrointestinal: soft, lax, Normal bowel sounds, Non tender Skin : Warm, Dry Neurological : Altered mentation, less moaning, No focal deficit Objective Data Active Medications Acetaminophen (Acetaminophen 325 Mg Tablet) 650 mg PO Q6H PRN PRN Reason: Pain, Mild (Pain Scale 1-3) Amlodipine Besylate (Amlodipine Besylate 2.5 Mg Tablet) 2.5 mg PO DAILY [facility]; Protocol Last Admin: 01/10/21 10:02 Dose: 2.5 mg Documented by: OLIVE Apixaban (Apixaban 2.5 Mg Tablet) 2.5 mg PO BID [facility] Last Admin: 01/10/21 10:01 Dose: 2.5 mg Documented by: OLIVE Artificial Tears (Artificial Tears 15 Ml Drops) 1 drop EYE-BOTH BID@1000,2200 [facility] Last Admin: 01/10/21 10:14 Dose: Not Given Documented by: OLIVE Non-Admin Reason: Med Not Available Bicalutamide (Bicalutamide 50 Mg Tablet) 50 mg PO DAILY@1000 [facility] Last Admin: 01/10/21 10:01 Dose: 50 mg Documented by: OLIVE Bisacodyl (Bisacodyl 10 Mg Supp.Rect) 10 mg NM DAILY PRN PRN Reason: Constipation Carbidopa/Levodopa (Carbidopa/Levodopa 25/100 Tablet) 1 tab PO 0800,1300,1600,2000 [facility] Last Admin: 01/10/21 10:03 Dose: 1 tab Documented by: OLIVE Cyanocobalamin (Cyanocobalamin (Vitamin B-12) 1,000 Mcg Tablet) 1,000 mcg PO DAILY@1000 [facility] Last Admin: 01/10/21 10:01 Dose: 1,000 mcg Documented by: OLIVE Finasteride (Finasteride 5 Mg Tablet) 5 mg PO DAILY@1000 [facility] Last Admin: 01/10/21 10:01 Dose: 5 mg Documented by: OLIVE Ceftriaxone Sodium 1 gm/ (Sodium Chloride) 50 mls @ 100 mls/hr IV Q24H [facility] Last Infusion: 01/09/21 17:34 Dose: 0 mls/hr Documented by: RAYMOND Dextrose (D5w) 1,000 mls @ 150 mls/hr IVCONT .Q6H40M [facility] Last Infusion: 01/10/21 07:49 Dose: 150 mls/hr Documented by: OLIVE Loperamide HCl (Loperamide Hcl 2 Mg Capsule) 2 mg PO QID PRN PRN Reason: Diarrhea Loratadine (Loratadine 10 Mg Tablet) 10 mg PO DAILY PRN PRN Reason: Runny Nose Magnesium Hydroxide (Milk Of Magnesia 30 Ml Oral.Susp) 30 ml PO BEDTIME PRN PRN Reason: Constipation Midodrine (Midodrine Hcl 5 Mg Tablet) 5 mg PO BID PRN PRN Reason: SBP <90 Ondansetron HCl (Ondansetron Hcl 4 Mg/2 Ml Vial) 4 mg IVPUSH Q8H PRN PRN Reason: Nausea and Vomiting Pharmacy Consult (Consult Rx Perform Med Rec) 1 each MISCELLANE ONCE PRN PRN Reason: Consult order Ropinirole HCl (Ropinirole Hcl 0.5 Mg Tablet) 0.5 mg PO BID [facility] Last Admin: 01/10/21 10:01 Dose: 0.5 mg Documented by: OLIVE Sodium Chloride (0.9 % Sodium Chloride Flush 3 Ml Syringe) 3 ml IVFLUSH QSHIFT [facility] Last Admin: 01/10/21 07:28 Dose: Not Given Documented by: OLIVE Non-Admin Reason: IV Running Vitamin D (Cholecalciferol (Vitamin D3) 25 Mcg Tablet) 25 mcg PO DAILY@1000 [facility] Last Admin: 01/10/21 10:01 Dose: 25 mcg Documented by: OLIVE Labs CBC & Chem 7: 01/10/21 05:48 01/10/21 05:48 Labs: Laboratory Results - last 24 hr 01/10/21 01/10/21 05:48 05:48 MCV 93.8 MCH 28.5 MCHC 30.4 L RDW 13.6 Plt Count 252 MPV 10.6 Absolute Nucleated RBC 0.000 Nucleated RBC % (auto) 0.0 Anion Gap 14 Estim Creat Clear Calc 25.7 Estimated GFR 28 Random Glucose 89 Calcium 8.3 L Microbiology Microbiology Results: Microbiology 01/08/21 16:41 Blood Culture - Preliminary Blood - Venous No growth after 24 hours. 01/08/21 15:53 Blood Culture - Preliminary Blood - Venous No growth after 24 hours. Assessment and Plan (1) ASHISH (acute kidney injury): Status: Acute (2) Acute hypernatremia: Status: Acute (3) Acute UTI: Status: Acute (4) Metabolic encephalopathy: Status: Acute Assessment and Plan: 85-year-old man admitted with UTI and ASHISH with history of dementia. Metabolic encephalopathy Secondary to hypernatremia, infection and possibly Ashish I His baseline function is low to start with Treat underlying causes Recurrent Re orientation UTI. History Proteus mirabilis in the past Continue Rocephin Pending blood cultures ASHISH likely secondary to dehydration Improving slowly Continue IV fluids Follow BMP closely Nephrology consult pending Hypernatremia. Likely secondary to dehydration and poor p.o. intake Improving slowly 151 this morning Continue D5W, increase the rate Monitor sodium this afternoon Hydronephrosis, hydroureter Noted on CT scan Urology input appreciated, place a Rodriguez and repeat images in 2 days History of factor 5 Leiden Continue home anticoagulation DVT prophylaxis Eliquis [facility] Stroke Does the patient have a stroke diagnosis?: No VTE Prior VTE?: No VTE Risk Level:: Medical - moderate - high VTE Device Contraindication: N/A - Device Ordered VTE Drug Contraindication: Treatment Not Indicated
[2021-01-10] MEDS: Dextrose 5 % 1,000 ML 150 ML IVCONT ×2 (12:22→18:26)
[2021-01-10 15:11] LABS: Anion Gap 15 (12-20); Blood Urea Nitrogen 49 mg/dL (9-16); Calcium 8.4 mg/dL (8.4-10.2); Carbon Dioxide 25 mmol/L (22-29); Chloride 110 mmol/L (96-108); Creatinine Clr Calc Pharmacy 28.3; Estimated Glomerular Filt Rate 31; Glucose Random 138 mg/dL (60-115); Potassium 3.6 mmol/L (3.3-5.1); Sodium 146 mmol/L (135-145)
[2021-01-10 16:00] VITALS: BP 111/54; PULSE 48; RESP 16; TEMP 36.7; O2SAT 97
[2021-01-10] MEDS: cefTRIAXone sodium 1 GM in 0.9 % Sodium Chloride 50 ML IV (16:07)
[2021-01-10 16:30] VITALS: PULSE 58
[2021-01-10 20:45] LABS: Anion Gap 14 (12-20); Blood Urea Nitrogen 46 mg/dL (9-16); Calcium 8.3 mg/dL (8.4-10.2); Carbon Dioxide 25 mmol/L (22-29); Chloride 108 mmol/L (96-108); Creatinine Clr Calc Pharmacy 30.9; Estimated Glomerular Filt Rate 35; Glucose Random 134 mg/dL (60-115); Potassium 3.5 mmol/L (3.3-5.1); Sodium 143 mmol/L (135-145)
--- NOTE | 2021-01-10 20:47 | PM.PNNEP ---
Subjective Subjective Date of Service: 01/10/21 Interval history: the patient was seen and evaluated this morning Laying in bed, Confused Na is better Systemic review: Nonverbal communicate Physical Exam Vital Signs: Vital Signs: Last Vital Signs Temp 98.1 F 01/10/21 16:00 Pulse 58 01/10/21 16:30 Resp 16 01/10/21 16:00 BP 111/54 L 01/10/21 16:00 Pulse Ox 97 01/10/21 16:00 Body Mass Index 25.3 Other:?Constitutional :? Altered, difficult to arouse, not in distress Neck : Normal inspection, Supple Cardiovascular : RRR, S1 S2, no lower extremity edema Respiratory :? Fair bilateral air entry,? no bilateral crackles, wheezes or rhonchi Gastrointestinal:? soft, lax, Normal bowel sounds, Non tender Skin : Warm, Dry Neurological :? Altered mentation, less moaning, No focal deficit Objective Data Labs CBC & Chem 7: 01/10/21 05:48 01/10/21 20:19 Labs: Laboratory Results - last 24 hr 01/10/21 01/10/21 01/10/21 05:48 05:48 14:42 WBC 6.5 RBC 3.68 L Hgb 10.5 L Hct 34.5 L MCV 93.8 MCH 28.5 MCHC 30.4 L RDW 13.6 Plt Count 252 MPV 10.6 Absolute Nucleated RBC 0.000 Nucleated RBC % (auto) 0.0 Sodium 151 H 146 H Potassium 4.4 3.6 Chloride 115 H 110 H Carbon Dioxide 26 25 Anion Gap 14 15 BUN 57 H 49 H Creatinine 2.23 H 2.03 H Estim Creat Clear Calc 25.7 28.3 Estimated GFR 28 31 Random Glucose 89 138 H D Calcium 8.3 L 8.4 01/10/21 20:19 WBC RBC Hgb Hct MCV MCH MCHC RDW Plt Count MPV Absolute Nucleated RBC Nucleated RBC % (auto) Sodium 143 Potassium 3.5 Chloride 108 Carbon Dioxide 25 Anion Gap 14 BUN 46 H Creatinine 1.86 H Estim Creat Clear Calc 30.9 Estimated GFR 35 Random Glucose 134 H Calcium 8.3 L Microbiology Microbiology Results: Microbiology 01/08/21 16:41 Blood - Venous Blood Culture - Preliminary No growth after 48 hours. 01/08/21 15:53 Blood - Venous Blood Culture - Preliminary No growth after 48 hours. Procedures Date of Service Date of Service: 01/10/21 Assessment & Plan Assessment and plan (1) FLOWER (acute kidney injury): Status: Acute Assessment and Plan: FLOWER Hypernatremia CKD Continue hypotonic fluids NA is better Avoid Nephrotoxins Thx Time Spent With Patient Time: Total time spent is greater than 50% in coordination of care (as documented) at patient's floor/unit and/or counseling patient: Progress Note: Quality Stroke Does the patient have a stroke diagnosis?: No
[2021-01-10] MEDS: Artificial Tears 15 ML DROPS 1 DROP EYE-BOTH (21:53)
[2021-01-11] VITALS: BP 128/72; PULSE 59; RESP 18; TEMP 36; O2SAT 100
[2021-01-11] MEDS: Dextrose 5 % 1,000 ML 150 ML IVCONT (00:47)
[2021-01-11 05:57] LABS: Hematocrit 31.5 % (42.0-52.0); Mean Corpuscular HGB Conc 31.7 g/dl (31.0-36.0); Mean Corpuscular Volume 91.3 fL (80.0-98.0); Mean Platelet Volume 10.2 fL (9.4-12.4); Platelet Count 210 X10*3/uL (160-400); Red Blood Count 3.45 X10*6/uL (4.60-5.80); Red Cell Distribution Width 13.3 % (11.0-16.0); White Blood Count 5.6 X10*3/uL (4.8-10.8)
[2021-01-11 06:25] LABS: Anion Gap 14 (12-20); Blood Urea Nitrogen 39 mg/dL (9-16); Calcium 8.2 mg/dL (8.4-10.2); Carbon Dioxide 25 mmol/L (22-29); Chloride 104 mmol/L (96-108); Creatinine Clr Calc Pharmacy 36.6; Estimated Glomerular Filt Rate 42; Glucose Random 119 mg/dL (60-115); Potassium 3.2 mmol/L (3.3-5.1); Sodium 140 mmol/L (135-145)
[2021-01-11 07:50] VITALS: BP 135/74; PULSE 50; RESP 18; TEMP 36; O2SAT 98
[2021-01-11] MEDS: rOPINIRole HCL 0.5 MG TABLET PO ×2 (08:06→20:03)
[2021-01-11] MEDS: Cyanocobalamin (Vitamin B-12) 1,000 MCG TABLET 1000 MCG PO (08:06)
[2021-01-11] MEDS: amLODIPine Besylate 2.5 MG TABLET PO (08:07)
[2021-01-11] MEDS: Finasteride 5 MG TABLET PO (08:07)
[2021-01-11] MEDS: Cholecalciferol (Vitamin D3) 25 MCG TABLET PO (08:07)
[2021-01-11] MEDS: Bicalutamide 50 MG TABLET PO (08:07)
[2021-01-11] MEDS: Apixaban 2.5 MG TABLET PO ×2 (08:07→20:03)
[2021-01-11] MEDS: KCl 20 mEq in 5% Dex/0.45% Sod 20 MEQ/1,000 ML IV.SOLN 100 MEQ IVCONT ×2 (08:08→20:02)
[2021-01-11] MEDS: Artificial Tears 15 ML DROPS 1 DROP EYE-BOTH ×2 (08:15→20:04)
[2021-01-11] MEDS: Carbidopa/Levodopa 25/100 TABLET 1 TAB PO ×4 (09:23→20:04)
--- NOTE | 2021-01-11 09:26 | P.PNIM_ITS ---
Subjective Subjective Date of Service: 01/11/21 Interval History: the patient was seen and evaluated this morning Laying in bed, more alert and interactive today Trying to say words but very difficult to understand what he is saying Follow commands and answers with yes and no No reported other overnight events. Systemic review: Nonverbal at baseline and very difficult to communicate but denied any pain Physical Exam Vital Signs: Vital Signs: Last Vital Signs Temp 96.8 F 01/11/21 07:50 Pulse 50 01/11/21 07:50 Resp 18 01/11/21 07:50 BP 135/74 01/11/21 07:50 Pulse Ox 98 01/11/21 07:50 Body Mass Index 25.3 Const: Other: Constitutional : Alert,, difficult to assess orientation, not in distress Neck : Normal inspection, Supple Cardiovascular : RRR, S1 S2, no lower extremity edema Respiratory : Fair bilateral air entry, no bilateral crackles, wheezes or rhonchi Gastrointestinal: soft, lax, Normal bowel sounds, Non tender Skin : Warm, Dry Neurological : Alert, interactive, difficult to assess of any focal deficit Objective Data Active Medications Acetaminophen (Acetaminophen 325 Mg Tablet) 650 mg PO Q6H PRN PRN Reason: Pain, Mild (Pain Scale 1-3) Amlodipine Besylate (Amlodipine Besylate 2.5 Mg Tablet) 2.5 mg PO DAILY [facility]; Protocol Last Admin: 01/11/21 08:07 Dose: 2.5 mg Documented by: CARON Apixaban (Apixaban 2.5 Mg Tablet) 2.5 mg PO BID [facility] Last Admin: 01/11/21 08:07 Dose: 2.5 mg Documented by: CARON Artificial Tears (Artificial Tears 15 Ml Drops) 1 drop EYE-BOTH BID@1000,2200 [facility] Last Admin: 01/11/21 08:15 Dose: 1 drop Documented by: CARON Bicalutamide (Bicalutamide 50 Mg Tablet) 50 mg PO DAILY@1000 [facility] Last Admin: 01/11/21 08:07 Dose: 50 mg Documented by: CARON Bisacodyl (Bisacodyl 10 Mg Supp.Rect) 10 mg MD DAILY PRN PRN Reason: Constipation Carbidopa/Levodopa (Carbidopa/Levodopa 25/100 Tablet) 1 tab PO 0800,1300,1600,2000 [facility] Last Admin: 01/11/21 09:23 Dose: 1 tab Documented by: CARON Cyanocobalamin (Cyanocobalamin (Vitamin B-12) 1,000 Mcg Tablet) 1,000 mcg PO DAILY@1000 [facility] Last Admin: 01/11/21 08:06 Dose: 1,000 mcg Documented by: CARON Finasteride (Finasteride 5 Mg Tablet) 5 mg PO DAILY@1000 [facility] Last Admin: 01/11/21 08:07 Dose: 5 mg Documented by: CARON Ceftriaxone Sodium 1 gm/ (Sodium Chloride) 50 mls @ 100 mls/hr IV Q24H [facility] Last Infusion: 01/10/21 16:42 Dose: 0 mls/hr Documented by: OLIVE Potassium Chloride/Dextrose/Sod Cl () 20 meq in 1,000 mls @ 100 mls/hr IVCONT .Q10H [facility] Last Admin: 01/11/21 08:08 Dose: 100 mls/hr Documented by: CARON Loperamide HCl (Loperamide Hcl 2 Mg Capsule) 2 mg PO QID PRN PRN Reason: Diarrhea Loratadine (Loratadine 10 Mg Tablet) 10 mg PO DAILY PRN PRN Reason: Runny Nose Magnesium Hydroxide (Milk Of Magnesia 30 Ml Oral.Susp) 30 ml PO BEDTIME PRN PRN Reason: Constipation Midodrine (Midodrine Hcl 5 Mg Tablet) 5 mg PO BID PRN PRN Reason: SBP <90 Ondansetron HCl (Ondansetron Hcl 4 Mg/2 Ml Vial) 4 mg IVPUSH Q8H PRN PRN Reason: Nausea and Vomiting Pharmacy Consult (Consult Rx Perform Med Rec) 1 each MISCELLANE ONCE PRN PRN Reason: Consult order Ropinirole HCl (Ropinirole Hcl 0.5 Mg Tablet) 0.5 mg PO BID [facility] Last Admin: 01/11/21 08:06 Dose: 0.5 mg Documented by: CARON Sodium Chloride (0.9 % Sodium Chloride Flush 3 Ml Syringe) 3 ml IVFLUSH QSHIFT [facility] Last Admin: 01/11/21 08:08 Dose: Not Given Documented by: CARON Non-Admin Reason: IV Running Vitamin D (Cholecalciferol (Vitamin D3) 25 Mcg Tablet) 25 mcg PO DAILY@1000 [facility] Last Admin: 01/11/21 08:07 Dose: 25 mcg Documented by: CARON Labs CBC & Chem 7: 01/11/21 05:42 01/11/21 05:42 Labs: Laboratory Results - last 24 hr 01/10/21 01/10/21 01/11/21 14:42 20:19 05:42 MCV 91.3 MCH 29.0 MCHC 31.7 RDW 13.3 Plt Count 210 MPV 10.2 Absolute Nucleated RBC 0.000 Nucleated RBC % (auto) 0.0 Anion Gap 15 14 Estim Creat Clear Calc 28.3 30.9 Estimated GFR 31 35 Random Glucose 138 H D 134 H Calcium 8.4 8.3 L 01/11/21 05:42 MCV MCH MCHC RDW Plt Count MPV Absolute Nucleated RBC Nucleated RBC % (auto) Anion Gap 14 Estim Creat Clear Calc 36.6 Estimated GFR 42 Random Glucose 119 H Calcium 8.2 L Microbiology Microbiology Results: Microbiology 01/08/21 16:41 Blood Culture - Preliminary Blood - Venous No growth after 48 hours. 01/08/21 15:53 Blood Culture - Preliminary Blood - Venous No growth after 48 hours. Assessment and Plan (1) Metabolic encephalopathy: Status: Acute (2) Elevated PSA: Status: Acute (3) ASHISH (acute kidney injury): Status: Acute (4) Acute UTI: Status: Acute (5) Acute hypernatremia: Status: Acute Assessment and Plan: 85-year-old man admitted with UTI and ASHISH with history of dementia. Metabolic encephalopathy Secondary to hypernatremia, infection and possibly Ashish I Improving, baseline is almost nonverbal Treat underlying causes Recurrent Re orientation UTI. History Proteus mirabilis in the past Continue Rocephin Negative blood culture, urine is growing Proteus ASHISH likely secondary to dehydration Improving slowly to 1.57 Continue IV fluids Follow BMP closely Nephrology input appreciated Hypernatremia. Likely secondary to dehydration and poor p.o. intake Improved to 140 this morning Change IV fluid to D5 with half-normal saline Monitor sodium this afternoon Hypokalemia To give replacement and follow BMP Hydronephrosis, hydroureter Noted on CT scan Urology input appreciated, place a Rodriguez and repeat images in 2 [address] catheter in place to repeat CT scan today History of factor 5 Leiden Continue home anticoagulation DVT prophylaxis Eliquis Quality Stroke Does the patient have a stroke diagnosis?: No VTE Prior VTE?: No VTE Risk Level:: Medical - moderate - high VTE Device Contraindication: N/A - Device Ordered VTE Drug Contraindication: Treatment Not Indicated
--- NOTE | 2021-01-11 11:24 | CONS_ITS ---
DATE OF SERVICE: 01/09/2021 REASON FOR CONSULTATION: Consult requested by the hospitalist team to evaluate and help in management of patient with acute kidney injury and hypernatremia. HISTORY OF PRESENT ILLNESS: The patient is an 85-year-old male with past medical history of BPH, history of anemia, history of hyperlipidemia, who is from [facility], who presented to the hospital with lethargy. The patient was admitted on 01/08/2021. Apparently, he had increased lethargy and decreased p.o. intake. His lab work showed that the sodium level was elevated at 149, potassium at 5.4, and a creatinine of 2.93. His COVID testing was negative. He had altered mental status and was hypoxemic upon arrival to the ER. Chest x-ray did not show any acute findings. He was given a dose of Rocephin and admitted to the hospital with diagnosis of UTI and acute kidney injury. The patient was initiated on IV fluids and his creatinine level is slightly better at 2.75. REVIEW OF SYSTEMS: Difficult to obtain because of the patient's overall mental status. PAST MEDICAL HISTORY: History of anemia, BPH, carotid body tumor, dementia, factor V Leiden mutation which is heterozygous, hematuria, hyperlipidemia, lymphadenopathy, osteopenia, Parkinson disease, prostate CA, and pulmonary embolism. He also has history of B12 deficiency. PAST SURGICAL HISTORY: Aortic aneurysm repair, history of nephrectomy, and total knee replacement. The exact information regarding his nephrectomy is unclear, though this is from the history and physical. PERSONAL/SOCIAL HISTORY: The patient is from [facility] facility. Does not drink and he is a former smoker. ALLERGIES: THE PATIENT HAS NO KNOWN DRUG ALLERGIES. CURRENT MEDICATIONS: Tylenol, ceftriaxone, ondansetron, and Kayexalate. Outpatient medications were also reviewed. PHYSICAL EXAMINATION: GENERAL: The patient is resting on the floor bed. VITAL SIGNS: Blood pressure was 165/88, pulse 71, afebrile. HEENT: Sclerae anicteric. Mucosa dry. NECK: Supple. No thyromegaly is noted. CARDIOVASCULAR SYSTEM: S1 and S2 without rub or murmur. RESPIRATORY SYSTEM: decreased in the bases. ABDOMEN: Soft, obese, and nontender. Bowel sounds normal. EXTREMITIES: No edema. NEURO EXAM: The patient was alert, but confused, and he has history of dementia. DIAGNOSTIC DATA: CT of the abdomen showed the patient had atrophic left kidney, and right kidney there was hydronephrosis and hydroureters, but there was no obstructing stone. LABORATORY DATA: Labs done today; WBC 7.8, hemoglobin 11.1, hematocrit 36.1, and platelets were 238. INR 1.3. Sodium 149, potassium 4.6, chloride 116, CO2 of 21, BUN 73, creatinine 2.75, estimated GFR was 22, calcium 8.3. Admission potassium was 5.4. Urinalysis shows yellow urine, cloudy, specific gravity 1.010, protein 2+, blood 1+, wbc's IMPRESSION: 1. An 85-year-old male with acute kidney injury. Review of patient's lab shows patient's creatinine in October 2020 was 0.87. On admission, the patient's creatinine was 3.16. The acute kidney injury in this patient is likely secondary to multifactorial reasons, mainly due to obstructive uropathy. He has atrophic left kidney and right kidney, which is hydronephrotic and has hydroureter, which is worse than the past CAT scans. He is also clinically prerenal. I do not see any nephrotoxic agents on his [facility] medication list. He has urinary tract infection and he could have renal hypoperfusion associated with the urinary tract infection. 2. Atrophic left kidney with right-sided hydronephroureter. 3. Hypernatremia due to free water deficit. 4. Urinary tract infection. 5. Dementia. RECOMMENDATIONS: At this juncture, I recommend checking spot urine for electrolytes, protein, creatinine. I discussed with the medical team and advised them to contact Urology for urology consultation. In regard to UTI, the patient has been initiated on Rocephin. The patient has hypernatremia and I agree with D5 water. We should check his electrolyte, renal function in a.m. The patient had hyperkalemia and potassium level is improved with Kayexalate. We will continue to follow the patient with you closely. Thank you for allowing me to participate in medical management of this patient. MD TAVON Mueller/TIM / [id number]
--- NOTE | 2021-01-11 12:53 | MHC.CM.PN ---
Addendum entered by Jil King 01/11/21 12:59: SUCCESSFUL CALL TO 2 [facility]. RN, OCTAVIA, AWARE AND ASK THAT DC SUMMARY BE FAXED TO [facility] @ [phone] Original Note: PER MEDICAL ROUNDS, PATIENT WILL HAVE CT SCAN TODAY. PLAN IS RETURN TO THE [facility] (POSSIBLY THURSDAY) BY THURSDAY. CALL TO [facility] @ [phone]. NO ANSWER NO ABILITY TO LEAVE A MESSAGE FOR THE HOSPITAL DIRECTOR, MAILBOX IS FULL CASE MANAGEMENT TO RE-ATTEMPT TO INFORM [facility].
--- NOTE | 2021-01-11 15:25 | MHC.CLN ---
F/U PATIENT WITH USUALLY POOR INTAKE. DIET=2 GRAM SODUM, PUREE, WITH NECTAR THICK LIQUIDS. CONTINUE ENSURE BID. CHARLI IMPROVED FROM 8 (01/09) TO 17 (01/11). CONTINUE TO MONITOR INTAKE AND DIET TOLERANCE.
[2021-01-11 16:00] VITALS: BP 109/55; PULSE 66; RESP 18; TEMP 35.7; O2SAT 96
[2021-01-11] MEDS: cefTRIAXone sodium 1 GM in 0.9 % Sodium Chloride 50 ML IV (16:50)
[2021-01-11] MEDS: 0.9 % Sodium Chloride Flush 3 ML SYRINGE IVFLUSH (16:50)
--- NOTE | 2021-01-11 20:47 | PM.PNNEP ---
Subjective Subjective Date of Service: 01/11/21 Interval history: the patient was seen and examined Laying in bed, more alert and interactive today Systemic review: Nonverbal at baseline and very difficult to communicate but denied any pain Physical Exam Vital Signs: Vital Signs: Last Vital Signs Temp 96.2 F L 01/11/21 16:00 Pulse 66 01/11/21 16:00 Resp 18 01/11/21 16:00 BP 109/55 L 01/11/21 16:00 Pulse Ox 96 01/11/21 16:00 Other:?Constitutional :? Alert,, difficult to assess orientation, not in distress Neck : Normal inspection, Supple Cardiovascular : RRR, S1 S2, no lower extremity edema Respiratory :? Fair bilateral air entry,? no bilateral crackles, wheezes or rhonchi Gastrointestinal:? soft, lax, Normal bowel sounds, Non tender Skin : Warm, Dry Neurological :? Alert, interactive, difficult to assess of any focal deficit Body Mass Index 25.3 Objective Data Labs CBC & Chem 7: 01/11/21 05:42 01/11/21 05:42 Labs: Laboratory Results - last 24 hr 01/11/21 01/11/21 05:42 05:42 WBC 5.6 RBC 3.45 L Hgb 10.0 L Hct 31.5 L MCV 91.3 MCH 29.0 MCHC 31.7 RDW 13.3 Plt Count 210 MPV 10.2 Absolute Nucleated RBC 0.000 Nucleated RBC % (auto) 0.0 Sodium 140 Potassium 3.2 L Chloride 104 Carbon Dioxide 25 Anion Gap 14 BUN 39 H Creatinine 1.57 H Estim Creat Clear Calc 36.6 Estimated GFR 42 Random Glucose 119 H Calcium 8.2 L Microbiology Microbiology Results: Microbiology 01/08/21 16:41 Blood - Venous Blood Culture - Preliminary No growth after 48 hours. 01/08/21 15:53 Blood - Venous Blood Culture - Preliminary No growth after 48 hours. Procedures Date of Service Date of Service: 01/11/21 Assessment & Plan Assessment and plan (1) FLOWER (acute kidney injury): Status: Acute Assessment and Plan: 1. An 85-year-old male with acute kidney injury.? Review of patient's lab shows patient's creatinine in October 2020 was 0.87.? The acute kidney injury in this patient is likely secondary to multifactorial reasons, mainly due to obstructive uropathy.? He has atrophic left kidney and right kidney, which is hydronephrotic and has hydroureter, which is worse than the past CAT scans.? He is also clinically prerenal.? I do not see any nephrotoxic agents on his [facility] medication list.? He has urinary tract infection and he could have renal hypoperfusion associated with the urinary tract infection. 2. Atrophic left kidney with right-sided hydronephroureter. 3. Hypernatremia due to free water deficit. 4. Urinary tract infection. 5. Dementia. ? RECOMMENDATIONS:? Contineu IVF In regard to UTI, the patient has been initiated on Rocephin. ? The patient has hypernatremia and I agree with continuing D5 water.? We should check his electrolyte, renal function in a.m. ? The patient had hyperkalemia and potassium level is improved with Kayexalate. ? We will continue to follow the patient with you closely. ? Thank you for allowing me to participate in medical management of this patient. ? ? ? Juan David Sorenson MD (2) Acute hypernatremia: Status: Acute Time Spent With Patient Time: Total time spent is greater than 50% in coordination of care (as documented) at patient's floor/unit and/or counseling patient: Progress Note: Quality Stroke Does the patient have a stroke diagnosis?: No
[2021-01-11 23:02] VITALS: BP 107/65; PULSE 59; RESP 19; TEMP 36.2; O2SAT 95
[2021-01-12] MEDS: KCl 20 mEq in 5% Dex/0.45% Sod 20 MEQ/1,000 ML IV.SOLN 100 MEQ IVCONT (05:39)
[2021-01-12 07:56] VITALS: BP 131/70; PULSE 57; RESP 18; TEMP 36; O2SAT 96
[2021-01-12 09:04] VITALS: BP 131/70; PULSE 57
[2021-01-12] MEDS: amLODIPine Besylate 2.5 MG TABLET PO (09:04)
[2021-01-12] MEDS: Cholecalciferol (Vitamin D3) 25 MCG TABLET PO (09:04)
[2021-01-12] MEDS: rOPINIRole HCL 0.5 MG TABLET PO (09:04)
[2021-01-12] MEDS: Apixaban 2.5 MG TABLET PO (09:05)
[2021-01-12] MEDS: Cyanocobalamin (Vitamin B-12) 1,000 MCG TABLET 1000 MCG PO (09:05)
[2021-01-12] MEDS: Finasteride 5 MG TABLET PO (09:06)
[2021-01-12] MEDS: Bicalutamide 50 MG TABLET PO (09:06)
[2021-01-12 09:16] LABS: Anion Gap 13 (12-20); Blood Urea Nitrogen 27 mg/dL (9-16); Calcium 8.1 mg/dL (8.4-10.2); Carbon Dioxide 25 mmol/L (22-29); Chloride 105 mmol/L (96-108); Creatinine Clr Calc Pharmacy 43.2; Estimated Glomerular Filt Rate 51; Glucose Random 110 mg/dL (60-115); Potassium 3.7 mmol/L (3.3-5.1); Sodium 139 mmol/L (135-145)
[2021-01-12] MEDS: Artificial Tears 15 ML DROPS 1 DROP EYE-BOTH (09:20)
[2021-01-12] MEDS: Carbidopa/Levodopa 25/100 TABLET 1 TAB PO (09:21)
--- NOTE | 2021-01-12 10:10 | P.PNIM_ITS ---
Subjective Subjective Date of Service: 01/12/21 Physical Exam Vital Signs: Vital Signs: Last Vital Signs Temp 96.8 F 01/12/21 07:56 Pulse 57 01/12/21 09:04 Resp 18 01/12/21 07:56 BP 131/70 01/12/21 09:04 Pulse Ox 96 01/12/21 07:56 Body Mass Index 25.3 Objective Data Active Medications Acetaminophen (Acetaminophen 325 Mg Tablet) 650 mg PO Q6H PRN PRN Reason: Pain, Mild (Pain Scale 1-3) Amlodipine Besylate (Amlodipine Besylate 2.5 Mg Tablet) 2.5 mg PO DAILY [facility]; Protocol Last Admin: 01/12/21 09:04 Dose: 2.5 mg Documented by: GERTRUDIS Apixaban (Apixaban 2.5 Mg Tablet) 2.5 mg PO BID [facility] Last Admin: 01/12/21 09:05 Dose: 2.5 mg Documented by: GERTRUDIS Artificial Tears (Artificial Tears 15 Ml Drops) 1 drop EYE-BOTH BID@1000,2200 [facility] Last Admin: 01/12/21 09:20 Dose: 1 drop Documented by: GERTRUDIS Bicalutamide (Bicalutamide 50 Mg Tablet) 50 mg PO DAILY@1000 [facility] Last Admin: 01/12/21 09:06 Dose: 50 mg Documented by: GERTRUDIS Bisacodyl (Bisacodyl 10 Mg Supp.Rect) 10 mg OK DAILY PRN PRN Reason: Constipation Carbidopa/Levodopa (Carbidopa/Levodopa 25/100 Tablet) 1 tab PO 0800,1300,1600,2000 [facility] Last Admin: 01/12/21 09:21 Dose: 1 tab Documented by: GERTRUDIS Cyanocobalamin (Cyanocobalamin (Vitamin B-12) 1,000 Mcg Tablet) 1,000 mcg PO DAILY@1000 [facility] Last Admin: 01/12/21 09:05 Dose: 1,000 mcg Documented by: GERTRUDIS Finasteride (Finasteride 5 Mg Tablet) 5 mg PO DAILY@1000 [facility] Last Admin: 01/12/21 09:06 Dose: 5 mg Documented by: GERTRUDIS Ceftriaxone Sodium 1 gm/ (Sodium Chloride) 50 mls @ 100 mls/hr IV Q24H [facility] Last Infusion: 01/11/21 17:26 Dose: 0 mls/hr Documented by: TOBIAS Potassium Chloride/Dextrose/Sod Cl () 20 meq in 1,000 mls @ 100 mls/hr IVCONT .Q10H [facility] Last Admin: 01/12/21 05:39 Dose: 100 mls/hr Documented by: MAYO Loperamide HCl (Loperamide Hcl 2 Mg Capsule) 2 mg PO QID PRN PRN Reason: Diarrhea Loratadine (Loratadine 10 Mg Tablet) 10 mg PO DAILY PRN PRN Reason: Runny Nose Magnesium Hydroxide (Milk Of Magnesia 30 Ml Oral.Susp) 30 ml PO BEDTIME PRN PRN Reason: Constipation Midodrine (Midodrine Hcl 5 Mg Tablet) 5 mg PO BID PRN PRN Reason: SBP <90 Ondansetron HCl (Ondansetron Hcl 4 Mg/2 Ml Vial) 4 mg IVPUSH Q8H PRN PRN Reason: Nausea and Vomiting Pharmacy Consult (Consult Rx Perform Med Rec) 1 each MISCELLANE ONCE PRN PRN Reason: Consult order Ropinirole HCl (Ropinirole Hcl 0.5 Mg Tablet) 0.5 mg PO BID [facility] Last Admin: 01/12/21 09:04 Dose: 0.5 mg Documented by: GERTRUDIS Sodium Chloride (0.9 % Sodium Chloride Flush 3 Ml Syringe) 3 ml IVFLUSH QSHIFT [facility] Last Admin: 01/12/21 09:21 Dose: Not Given Documented by: GERTRUDIS Non-Admin Reason: IV Running Vitamin D (Cholecalciferol (Vitamin D3) 25 Mcg Tablet) 25 mcg PO DAILY@1000 [facility] Last Admin: 01/12/21 09:04 Dose: 25 mcg Documented by: GERTRUDIS Labs CBC & Chem 7: 01/11/21 05:42 01/12/21 08:56 Labs: Laboratory Results - last 24 hr 01/12/21 08:56 Anion Gap 13 Estim Creat Clear Calc 43.2 Estimated GFR 51 Random Glucose 110 Calcium 8.1 L Assessment and Plan Assessment and Plan: 85-year-old man admitted with UTI and FLOWER with history of dementia.? Metabolic encephalopathy Secondary to hypernatremia, infection and possibly Flower Improving, baseline is almost nonverbal Treat underlying causes Recurrent Re orientation UTI.?Proteus mirabilis Continue Rocephin Negative blood culture FLOWER likely secondary to dehydration Improving slowly Continue IV fluids Follow BMP closely Nephrology input appreciated Hypernatremia.?Resolved Likely secondary to dehydration and poor p.o. intake Hypokalemia. resolved To give replacement and follow BMP as needed Hydronephrosis, hydroureter Noted on CT scan Urology input appreciated Rodriguez catheter in place History of factor 5 Leiden Continue home anticoagulation DVT prophylaxis Constantin Attending Dr. Marin Quality Stroke Does the patient have a stroke diagnosis?: No VTE Prior VTE?: No VTE Risk Level:: Medical - moderate - high VTE Device Contraindication: N/A - Device Ordered VTE Drug Contraindication: Treatment Not Indicated
--- NOTE | 2021-01-12 11:41 | P.PNNP_ITS ---
Subjective Subjective Date of Service: 01/12/21 Interval history: the patient was seen and examined Laying in bed, more alert and interactive today Systemic review: Nonverbal at baseline and very difficult to communicate but denied any pain Physical Exam Vital Signs: Vital Signs: Last Vital Signs Temp 96.8 F 01/12/21 07:56 Pulse 57 01/12/21 09:04 Resp 18 01/12/21 07:56 BP 131/70 01/12/21 09:04 Pulse Ox 96 01/12/21 07:56 Body Mass Index 25.3 Objective Data Labs CBC & Chem 7: 01/11/21 05:42 01/12/21 08:56 Labs: Laboratory Results - last 24 hr 01/12/21 08:56 Sodium 139 Potassium 3.7 Chloride 105 Carbon Dioxide 25 Anion Gap 13 BUN 27 H Creatinine 1.33 Estim Creat Clear Calc 43.2 Estimated GFR 51 Random Glucose 110 Calcium 8.1 L Microbiology Microbiology Results: Microbiology 01/08/21 16:41 Blood - Venous Blood Culture - Preliminary No growth after 48 hours. 01/08/21 15:53 Blood - Venous Blood Culture - Preliminary No growth after 48 hours. Procedures Date of Service Date of Service: 01/12/21 Assessment & Plan Assessment and plan (1) FLOWER (acute kidney injury): Status: Acute Assessment and Plan: 1. An 85-year-old male with acute kidney injury.? Review of patient's lab shows patient's creatinine in October 2020 was 0.87.?? The acute kidney injury in this patient is likely secondary to multifactorial reasons, mainly due to obstructive uropathy.? He has atrophic left kidney and right kidney, which is hydronephrotic and has hydroureter, which is worse than the past CAT scans.? He is also clinically prerenal.? I do not see any nephrotoxic agents on his assisted medication list.? He has urinary tract infection and he could have renal hypoperfusion associated with the urinary tract infection. 2. Atrophic left kidney with right-sided hydronephroureter. 3. Hypernatremia due to free water deficit. 4. Urinary tract infection. 5. Dementia. ? RECOMMENDATIONS:? Contineu IVF- Lowered rate to 60 ml/ Hr Can d/c IVF if pt able to take po In regard to UTI,Ax as per medical team The patient has hypernatremia - Now improved Watch K level ? We will continue to follow the patient with you closely. ? Thank you for allowing me to participate in medical management of this patient. ? ? (2) Metabolic encephalopathy: Status: Acute Time Spent With Patient Time: Total time spent is greater than 50% in coordination of care (as documented) at patient's floor/unit and/or counseling patient: Progress Note: Quality Stroke Does the patient have a stroke diagnosis?: No
--- NOTE | 2021-01-12 11:43 | PM.DS ---
DS: Providers Provider Date of Service: 01/12/21 Date of admission: 01/08/21 17:28 Primary care physician: Amrit Iniguez MD Consults: 01/09/21 08:08 Consult to Nephrology Routine Consulting Provider: Juan David Sorenson Reason for consultation: FLOWER for your eval. Consult to Urology Routine Consulting Provider: Sage Garber Reason for consultation: Rt hydronephrosis + hydroureter, FLOWER, no stones. Attending physician on discharge: Mariano Marin Discharging clinician: Rhonda Gibbs DS: Diagnosis Discharge Diagnosis (1) FLOWER (acute kidney injury): Status: Acute (2) Acute hypernatremia: Status: Acute DS: Summary Hospital Course Hospital Course: HP as per admitting provider 85 year old man [facility].? Unfortunately has history of dementia and is unable to give any history. Apparently over the last few days he has had increased lethargy decreased intake. Sodium was noted to be elevated 149 potassium 5 4, creatinine 2.93 BUN 80, urinalysis positive, COVID negative. According to EMS and she was hypoxic at 87% upon to ER he was not noted to be all, chest x-ray did not show any consolidation.? In the ER he was given a dose of Rocephin and 1 L fluids.? Be admitted for further management and treatment of UTI and FLOWER Metabolic encephalopathy. Secondary to hypernatremia, infection and possibly Flower. Improving, baseline is almost nonverbal. UTI.?Proteus mirabilis, treated with Rocephin, will send with oral Ceftin. Negative blood culture FLOWER. likely secondary to dehydration. Treated with IV fluids Hypernatremia.?Resolved.Likely secondary to dehydration and poor p.o. intake Hypokalemia. resolved Hydronephrosis, hydroureter. Noted on CT scan initially but improved. Can follow up with urology as outpatient if necessary. Rodriguez removed. History of factor 5 Leiden. Continue home anticoagulation Time Spent with Patient Time attestation: Total time spent providing and/or coordinating discharge services: Discharge coordination time: Greater than 30 minutes Quality: Stroke Does the patient have a stroke diagnosis?: No Physical Exam Vital Signs: Vital Signs: Last Vital Signs Temp 96.8 F 01/12/21 07:56 Pulse 57 01/12/21 09:04 Resp 18 01/12/21 07:56 BP 131/70 01/12/21 09:04 Pulse Ox 96 01/12/21 07:56 Body Mass Index 25.3 Appearing in no acute distress head is normocephalic atraumatic eyes pupils are PERRLA sclera is anicteric mouth throat mucous membranes are intact and moist neck is supple no lymphadenopathy, no JVD noted lung sounds are clear to auscultation heart regular rate rhythm, clear S1, S2 positive bowel sounds, abdomen is soft, nontender neuro patient is alert, confused DS: Data Data Completed and Pending Completed studies during hospitalization [Text1]: Procedures Drainage of Sigmoid Colon, Via Natural or Artificial Opening Endoscopic, Diagnostic (03/22/20) Excision of Sigmoid Colon, Via Natural or Artificial Opening Endoscopic, Diagnostic (03/22/20) Labs on day of discharge: Laboratory Results - last 24 hr 01/12/21 08:56 Sodium 139 Potassium 3.7 Chloride 105 Carbon Dioxide 25 Anion Gap 13 BUN 27 H Creatinine 1.33 Estim Creat Clear Calc 43.2 Estimated GFR 51 Random Glucose 110 Calcium 8.1 L Preliminary micro results at discharge 01/08/21 16:41 Blood Culture - Preliminary Blood - Venous No growth after 48 hours. 01/08/21 15:53 Blood Culture - Preliminary Blood - Venous No growth after 48 hours. Discharge Plan Discharge Anticipated Discharge Date/Time: 01/12/21 11:35 Patient Disposition: er [facility] Discharge Diagnosis: UTI FLOWER on CKD [facility]errals: [facility] [Outside[facility] - 1 Week Amrit Iniguez MD [Primary Care Provider] - 1 Week Discharge Medications: New cefuroxime axetil 500 mg tablet 500 mg PO BID Qty: 8 RF: 0 Continued bicalutamide 50 mg Tablet 50 mg PO DAILY@1000 Qty: 30 RF: 0 loperamide 2 mg Capsule 2 mg PO QID PRN (Reason: Diarrhea) Qty: 30 RF: 0 miconazole nitrate [Inzo Antifungal] 2 % Cream 1 appl topical DAILY PRN (Reason: SKIN IRRITATION) Qty: 30 RF: 0 polyvinyl alcohol [Artificial Tears (polyvin alc)] 1.4 % Drops 1 drp ophthalmic (eye) BID@1000,2200 Qty: 30 RF: 0 alendronate 70 mg Tablet 70 mg PO Hercules@0630 Qty: 30 RF: 0 cyanocobalamin (vitamin B-12) [Vitamin B-12] 1,000 mcg Tablet 1,000 mcg PO DAILY@1000 Qty: 30 RF: 0 magnesium hydroxide [Milk of Magnesia] 400 mg/5 mL Suspension 30 ml PO BEDTIME PRN (Reason: Constipation) Qty: 30 RF: 0 bisacodyl [Gentle Laxative (bisacodyl)] 10 mg Suppository 10 mg NM DAILY PRN (Reason: Constipation) Qty: 30 RF: 0 carbidopa-levodopa 25-100 mg Tablet 1 tab PO 1000,1400,1800,2200 Qty: 30 RF: 0 finasteride [Proscar] 5 mg Tablet 5 mg PO DAILY@1000 Qty: 30 RF: 0 loratadine 10 mg Tablet 10 mg PO DAILY PRN (Reason: Runny Nose) Qty: 30 RF: 0 cholecalciferol (vitamin D3) 25 mcg (1,000 unit) Tablet 25 mcg PO DAILY@1000 Qty: 30 RF: 0 levalbuterol tartrate [Xopenex HFA] 45 mcg/actuation Hfa Aerosol Inhaler 2 puff INHALATION Q4H RF: 0 midodrine 5 mg tablet 5 mg PO BID PRN (Reason: SBP <90) RF: 0 amlodipine 2.5 mg tablet 1 tab PO DAILY RF: 0 ropinirole 0.5 mg Tablet 0.5 mg PO BID RF: 0 Eliquis 2.5 mg tablet 1 tab PO Q12H RF: 0 Discharge Orders: Discharge Order (Routine); Ordered 01/12/21 Ordered By: Rhonda Gibbs Diet: advance to usual diet Activity on Discharge: As tolerated Stand Alone Forms: Patient Portal Discharge page Care Plan Goals: resolution of urinary symptoms Health Concerns: UTI FLOWER on CKD Plan of Treatment: continue Ceftin for 4 more days Assessment: see discharge summary
--- NOTE | 2021-01-12 12:02 | MHC.CM.PN ---
PT IS CLEARED TO DISCHARGE. CM CONTACTED [facility] [employer], PADILLA ([phone]) WHO REQUESTED PT RETURN EARLY POSSIBLE DUE TO SHORT STAFFING ON SECOND SHIFT. SHE ALSO REQUESTED THE DC SUMMARY BE FAXED AHEAD OF PT TO [phone] AND THE NURSE TO NURSE REPORT BE CALLED TO PHONE NUMBER [phone] PT WILL BE DISCHARGED AT 1300 HOURS, BACK TO [facility]IA [facility]. A VM MESSAGE WAS LEFT FOR PTS , NELDA ([phone]) INFORMING HER OF DC TIME AND DELIVERING FOLLOW UP IMM. PTS NURSE WAS GIVEN THE NUMBER FOR REPORT AND INFORMED OF SCHEDULED TRANSPORT TIME.
--- NOTE | 2021-01-12 14:30 | MHC.INPTTRAN ---
Patient was seen for UTI and FLOWER, symptoms resolved.Patient is alert, oriented to self. Vital signs stable, calm and cooperative, skin is fine. Rodriguez catheter removed on 01/12 at 13:30. Patient had not yet voided after removal, before departure. Uses wheelchair at baseline, 2 assist for repositioning and transfer. Incontinent of both stool and urine.
== END 2021-01-12 15:04 | disposition skilled nursing facility (03) | DRG 689 ==
LOC: HO.ED 16:08 → HO.EDOVER 17:43 → HO.S3 19:08
PROVIDERS: Nurse Practitioner Family; Student in an Organized Health Care Education/Training Program; Admitting Provider Nurse Practitioner Acute Care; Emergency Provider Emergency Medicine; PCP Internal Medicine Medical Oncology; Visit Provider Nurse Practitioner Acute Care
DX: N13.6 Pyonephrosis (principal); G93.41 Metabolic encephalopathy; D68.51 Activated protein C resistance; E87.0 Hyperosmolality and hypernatremia; G93.40 Encephalopathy, unspecified; N17.9 Acute kidney failure, unspecified; N40.0 Benign prostatic hyperplasia without lower urinary tract symptoms; G20 Parkinson's disease; E86.0 Dehydration; N26.1 Atrophy of kidney (terminal); F02.80 Dementia in other diseases classified elsewhere, unspecified severity, without behavioral disturbance, psychotic disturbance, mood disturbance, and anxiety; B96.4 Proteus (mirabilis) (morganii) as the cause of diseases classified elsewhere; E78.5 Hyperlipidemia, unspecified; C61 Malignant neoplasm of prostate; N18.9 Chronic kidney disease, unspecified; E87.6 Hypokalemia; M19.90 Unspecified osteoarthritis, unspecified site; Z87.440 Personal history of urinary (tract) infections; Z20.822 Contact with and (suspected) exposure to COVID-19; Z87.891 Personal history of nicotine dependence; Z79.01 Long term (current) use of anticoagulants; Z79.899 Other long term (current) drug therapy; Z66 Do not resuscitate
CPT/HCPCS: 36415; 71045; 74176; 80048; 80053; 80076; 81001; 83605; 83735; 83880; 84153; 84439; 84443; 84484; 85025; 85027; 85610; 85652; 87040; 87086; 87088; 87186; 87635; 93005; 99285; C1758; J0696

== ENCOUNTER 2021-01-23 09:56 | Inpatient (IN) | payer MEDICARE, MEDICAID, SELFPAY ==
--- NOTE | ~2021-01-23 | XR_ITS ---
EXAMINATION: XR CHEST CLINICAL INFORMATION: Weakness COMPARISON: Previous chest x-ray most recent December 2020, chest CT October 2020 TECHNIQUE: Frontal view of the chest was obtained. FINDINGS: The cardiac and mediastinal contours are stable. There is slight volume loss to the left hemithorax that is unchanged. There is left lower lobe atelectasis or consolidation. This appears unchanged. The right lung is clear. There is blunting at the left lateral costophrenic angle questionable for a small left pleural effusion. There is no right pleural effusion. There is no pneumothorax. There are degenerative changes of the spine. XR/XR chest 1V IMPRESSION: Stable volume loss left hemithorax and left lower lobe atelectasis/consolidation.
--- NOTE | ~2021-01-23 | CT_ITS ---
EXAMINATION: CT HEAD WITHOUT CONTRAST CLINICAL INFORMATION: Acute mental status change. Patient on blood thinning medicine. COMPARISON: Previous head CT scans most recent October 2020 TECHNIQUE: Contiguous axial imaging was performed from the skull base to vertex without intravenous administration of contrast. This CT examination was performed using dose optimization techniques as appropriate, variously including the following: *Automated exposure control *Adjustment of mA and/or kV according to patient size (this includes techniques or standardized protocols for targeted exams where dose is matched to indication/reason for exam; i.e. extremities or head) *Use of iterative reconstruction technique DLP: 782 mGy-cm FINDINGS: There is no evidence of an extra-axial collection. There is no evidence of intra-axial or extra-axial hemorrhage. The ventricles and extra-axial CSF spaces are prominent suggestive of mild generalized atrophy. There is nonspecific periventricular white matter disease. No mass, mass effect or infarct is seen. There is evidence of atherosclerotic disease. Review of bone windows is normal. No skull fracture is seen. Visualized paranasal sinuses, mastoid air cells and middle ears are clear. CT/CT head/brain wo con IMPRESSION: No acute intracranial findings. No change from October 2020 exam.
[2021-01-23 10:03] VITALS: BP 107/60; PULSE 62; RESP 12; TEMP 36.1; O2SAT 95; BMI 32.3
--- NOTE | 2021-01-23 10:12 | ED_ITS ---
HPI - Weakness General Chief complaint: General Medical Stated complaint: LETHARGY,FTT Time Seen by Provider: 01/23/21 10:07 Source: patient, EMS and old records reviewed Mode of arrival: EMS Limitations: altered mental status (cognitive impairment) History of Present Illness Complaint: generalized weakness Onset (ago): day(s) (2) Duration: progressively worsening Location: generalized Migration: none Severity: moderate Relieving factors: none Exacerbating factors: none Context: recent illness (01/13 dx with proteus UTI and FLOWER sent back on ceftin) Associated symptoms: denies other symptoms Related Data Home Medications Medication Instructions Recorded Confirmed midodrine 5 mg tablet 5 mg PO BID PRN 03/19/20 01/23/21 amlodipine 2.5 mg tablet 1 tab PO DAILY 01/08/21 01/23/21 ropinirole 0.5 mg tablet 0.5 mg PO BID 01/08/21 01/23/21 apixaban 2.5 mg tablet 2.5 mg PO BID 01/23/21 01/23/21 carbidopa 25 mg-levodopa 100 mg 1 tab PO 0800,1300,1600,2000 01/23/21 01/23/21 tablet Previous Rx's Medication Instructions Recorded alendronate 70 mg tablet 70 mg PO Hercules@0630 #30 tab 03/01/20 bicalutamide 50 mg tablet 50 mg PO DAILY@1000 #30 tab 03/01/20 bisacodyl 10 mg rectal suppository 10 mg NV DAILY PRN #30 ea 03/01/20 (Gentle Laxative (bisacodyl)) cholecalciferol (vitamin D3) 25 25 mcg PO DAILY@1000 #30 tab 03/01/20 mcg (1,000 unit) tablet cyanocobalamin (vitamin B-12) 1,000 mcg PO DAILY@1000 #30 tab 03/01/20 1,000 mcg tablet (Vitamin B-12) finasteride 5 mg tablet (Proscar) 5 mg PO DAILY@1000 #30 tab 03/01/20 magnesium hydroxide 400 mg/5 mL 30 ml PO BEDTIME PRN #30 ml 03/01/20 oral suspension (Milk of Magnesia) polyvinyl alcohol 1.4 % eye drops 1 drp OPHTHALMIC (EYE) 03/01/20 (Artificial Tears (polyvinyl BID@1000,2200 #30 ml alcohol)) Allergies Allergy/AdvReac Type Severity Reaction Status Date / Time No Known Allergies Allergy Verified 10/23/20 11:19 [No Known Allergies*] Review of Systems Review of Systems: ROS unable to be obtained due cognitive impairment [facility] Past Medical History Attestation statement: The following information was validated with the patient. Medical History Anemia BPH (benign prostatic hyperplasia) Carotid body tumor Dementia Elevated PSA Factor 5 Leiden mutation, heterozygous Hematuria Hyperlipidemia Hyponatremia Lymphadenopathy Osteopenia Parkinsons Prostate cancer Pulmonary embolism Rhinitis Vitamin B12 deficiency Surgical History H/O aortic aneurysm repair History of nephrectomy Total knee replacement status Social History Social History Household Members: Other Housing: Other Housing Other:: [facility] Do you presently have visiting nurse or other home services: No Unable to assess alcohol history related to: Unknown Alcohol intake: never Patient Tobacco Use Status: Former Tobacco user Second Hand Smoke Exposure: No Advance Directives: Yes Advance Directives on File: Yes Advance Directives Date on File: 03/20/20 service: Yes Current occupational status: retired Physical Exam Vital Signs: Vital Signs: Last Vital Signs Temp 97.0 F 01/23/21 10:03 Pulse 62 01/23/21 10:03 Resp 12 01/23/21 10:03 BP 107/60 01/23/21 10:03 Pulse Ox 95 01/23/21 10:03 BMI result Body Mass Index 32.3 Appearance: Alert. Oriented X1. No acute distress. Eyes: Pupils equal, round and reactive to light. mild bilateral conjunctival injection ENT: Pharynx mild dry MM Neck: Normal inspection. Neck supple. CVS: Normal heart rate and rhythm. Pulses normal. Respiratory: No respiratory distress. Breath sounds diminished at bases, coarse upper airway sounds Abdomen: Soft and non-tender. Skin: Skin warm and dry. pale skin color. Extremities: No lower extremity edema. Neuro: Oriented X 1. No motor deficit. No sensory deficit. no focal deficits appears diffusely weak, follows commands Course Course Course Narrative: 2L of IVF ordered, empiric cefepime, afebrile no WBC count, doubt MRSA pneumonia I did speak to his and she notes that without encouragement he will not eat MDM - Weakness MDM Narrative Medical decision making narrative: 85 yo male [facility] hx of PE on eliquis, BPH, UTI, recent admit for UTI and FLOWER comes in with weakness and lethargy for 2 days at this time will need labs, cultures, CT head given eliquis use to r/o ICH, CXR for pneumonia, UA for UTI, IVF< empiric cefepime for possible pna/uti - dispo per result and findings. had negative COVID PCR today per facility. Lab Data Result diagrams: 01/23/21 10:30 01/23/21 10:30 Labs: Lab Results 01/23/21 01/23/21 01/23/21 Range/Units 10:30 10:30 10:30 WBC 6.0 (4.8-10.8) X10*3/uL RBC 3.22 L (4.60-5.80) X10*6/uL Hgb 9.4 L (14.0-18.0) g/dl Hct 30.2 L (42.0-52.0) % MCV 93.8 (80.0-98.0) fL MCH 29.2 (27.0-33.0) pg MCHC 31.1 (31.0-36.0) g/dl RDW 14.1 (11.0-16.0) % Plt Count 175 (160-400) X10*3/uL MPV 9.8 (9.4-12.4) fL Immature Gran % (Auto) 0.3 (0.0-0.4) % Neut % (Auto) 78.4 H (45-73) % Lymph % (Auto) 9.7 L (20-40) % [place] % (Auto) 9.3 (2-11) % Eos % (Auto) 2.0 (0-4) % Baso % (Auto) 0.3 (0-2) % Lymph # (Auto) 0.6 L (1.2-4.9) X10*3/uL [place] # (Auto) 0.6 (0.1-1.2) X10*3/uL Eos # (Auto) 0.1 (0.0-0.4) X10*3/uL Baso # (Auto) 0.0 (0.0-0.2) X10*3/uL Abs Immat Gran (auto) 0.02 (0.00-0.03) X10*3/uL Absolute Neuts (auto) 4.7 (2.0-8.3) x10*3/uL Absolute Nucleated RBC 0.000 (0.0-0.012) X10*3/uL Nucleated RBC % (auto) 0.0 (0.0-0.2) /100WBC Sodium 148 H (135-145) mmol/L Potassium 5.0 D (3.3-5.1) mmol/L Chloride 113 H (96-108) mmol/L Carbon Dioxide 23 (22-29) mmol/L Anion Gap 17 (12-20) BUN 97 H (9-16) mg/dL Creatinine 3.98 H (0.5-1.4) mg/dL Estim Creat Clear Calc 16.2 Estimated GFR 14 Random Glucose 117 H (60-115) mg/dL Lactic Acid (0.5-2.0) mmol/L Calcium 8.7 D (8.4-10.2) mg/dL Magnesium 2.1 (1.6-2.6) mg/dL Total Bilirubin 0.2 (0.0-1.0) mg/dL Direct Bilirubin 0.2 (0.0-0.5) mg/dL AST 14 D (5-37) U/L ALT 6 (0-40) U/L Alkaline Phosphatase 68 (39-117) U/L Troponin I High Sens (<3.5-35.0) ng/L Total Protein 6.5 (6.5-8.0) g/dL Albumin 3.3 L (3.5-5.0) g/dL Urine Color Urine Appearance Urine pH (5.0-8.0) Ur Specific [place] (1.005-1.025) Urine Protein (NEG-TRACE) MG/DL Urine Glucose (UA) (NEG) MG/DL Urine Ketones (NEG) MG/DL Urine Blood (NEG) Urine Nitrite (NEG) Ur Leukocyte Esterase (NEG) Urine RBC (0) /HPF Urine WBC (0-4) /HPF Ur Squamous Epith Cells /LPF Amorphous Sediment /LPF Urine Bacteria /LPF COVID-19 (JOY) Negative (Negative) COVID-19 Clin Com See Note 01/23/21 01/23/21 01/23/21 Range/Units 10:30 10:30 11:36 WBC (4.8-10.8) X10*3/uL RBC (4.60-5.80) X10*6/uL Hgb (14.0-18.0) g/dl Hct (42.0-52.0) % MCV (80.0-98.0) fL MCH (27.0-33.0) pg MCHC (31.0-36.0) g/dl RDW (11.0-16.0) % Plt Count (160-400) X10*3/uL MPV (9.4-12.4) fL Immature Gran % (Auto) (0.0-0.4) % Neut % (Auto) (45-73) % Lymph % (Auto) (20-40) % [place] % (Auto) (2-11) % Eos % (Auto) (0-4) % Baso % (Auto) (0-2) % Lymph # (Auto) (1.2-4.9) X10*3/uL [place] # (Auto) (0.1-1.2) X10*3/uL Eos # (Auto) (0.0-0.4) X10*3/uL Baso # (Auto) (0.0-0.2) X10*3/uL Abs Immat Gran (auto) (0.00-0.03) X10*3/uL Absolute Neuts (auto) (2.0-8.3) x10*3/uL Absolute Nucleated RBC (0.0-0.012) X10*3/uL Nucleated RBC % (auto) (0.0-0.2) /100WBC Sodium (135-145) mmol/L Potassium (3.3-5.1) mmol/L Chloride (96-108) mmol/L Carbon Dioxide (22-29) mmol/L Anion Gap (12-20) BUN (9-16) mg/dL Creatinine (0.5-1.4) mg/dL Estim Creat Clear Calc Estimated GFR Random Glucose (60-115) mg/dL Lactic Acid 1.5 (0.5-2.0) mmol/L Calcium (8.4-10.2) mg/dL Magnesium (1.6-2.6) mg/dL Total Bilirubin (0.0-1.0) mg/dL Direct Bilirubin (0.0-0.5) mg/dL AST (5-37) U/L ALT (0-40) U/L Alkaline Phosphatase (39-117) U/L Troponin I High Sens 12.4 (<3.5-35.0) ng/L Total Protein (6.5-8.0) g/dL Albumin (3.5-5.0) g/dL Urine Color YELLOW Urine Appearance CLEAR Urine pH 5.5 (5.0-8.0) Ur Specific [place] 1.010 (1.005-1.025) Urine Protein NEG (NEG-TRACE) MG/DL Urine Glucose (UA) NEG (NEG) MG/DL Urine Ketones NEG (NEG) MG/DL Urine Blood TRACE (NEG) Urine Nitrite NEG (NEG) Ur Leukocyte Esterase TRACE H (NEG) Urine RBC 0-2 (0) /HPF Urine WBC 5-9 H (0-4) /HPF Ur Squamous Epith Cells NONE /LPF Amorphous Sediment 1+ /LPF Urine Bacteria NONE /LPF COVID-19 (JOY) (Negative) COVID-19 Clin Com ECG Data Attestation: I personally reviewed and interpreted this ECG as follows: ECG interpretation date: 01/23/21 ECG interpretation time: 11:07 Interpretation: Rate: 60 Rhythm: NSR [place]: left Normal P waves. Normal CANDIDO. Normal QRS complex. ST T wave : no SARAVANAN< normal qTC: normal prior studies: no acute ischemia The study has been interpreted contemporaneously by me. . Discharge Plan Discharge Clinical Impression: FLOWER (acute kidney injury), Elevated BUN, Weakness Patient Disposition: Admitted As Inpatient
--- NOTE | 2021-01-23 10:15 | ECG_ITS ---
Test Reason : GEN MED Blood Pressure : / mmHG Vent. Rate : 060 BPM Atrial Rate : 060 BPM P-R Int : 186 ms QRS Dur : 086 ms QT Int : 406 ms P-R-T Axes : 077 -15 012 degrees QTc Int : 406 ms Normal sinus rhythm Normal ECG When compared with ECG of 08-JAN-2021 15:52, No significant change was found Referred By: Lyubov Gracia Electronically Signed By:Eron Jurado
--- NOTE | 2021-01-23 10:26 | PHA.MEDREC ---
Pharmacy Consult ? Medication Reconciliation Pharmacy has completed the medication reconciliation. Patient came from [facility] with a medication list. Afsaneh Javier, BillyD
[2021-01-23 10:37] LABS: MANUAL DIFF FLAG NO
[2021-01-23 10:39] LABS: Basophils Percent Auto 0.3 % (0-2); Eosinophils Absolute Auto 0.1 X10*3/uL (0.0-0.4); Hematocrit 30.2 % (42.0-52.0); Hemoglobin 9.4 g/dl (14.0-18.0); Imm Gran Abs Auto 0.02 X10*3/uL (0.00-0.03); Imm Gran Pct Auto 0.3 % (0.0-0.4); Lymphocytes Absolute Auto 0.6 X10*3/uL (1.2-4.9); Lymphocytes Percent Auto 9.7 % (20-40); Mean Corpuscular HGB Conc 31.1 g/dl (31.0-36.0); Mean Corpuscular Hemoglobin 29.2 pg (27.0-33.0); Mean Corpuscular Volume 93.8 fL (80.0-98.0); Mean Platelet Volume 9.8 fL (9.4-12.4); Monocytes Absolute Auto 0.6 X10*3/uL (0.1-1.2); Monocytes Percent Auto 9.3 % (2-11); Neutrophils Absolute Auto 4.7 x10*3/uL (2.0-8.3); Neutrophils Percent Auto 78.4 % (45-73); Platelet Count 175 X10*3/uL (160-400); Red Blood Count 3.22 X10*6/uL (4.60-5.80); Red Cell Distribution Width 14.1 % (11.0-16.0)
[2021-01-23 10:50] LABS: Lactic Acid 1.5 mmol/L (0.5-2.0)
[2021-01-23 10:54] LABS: COVID-19 Test Negative (Negative)
[2021-01-23 11:00] LABS: Alanine Aminotransferase 6 U/L (0-40); Albumin Level 3.3 g/dL (3.5-5.0); Alkaline Phosphatase 68 U/L (39-117); Anion Gap 17 (12-20); Aspartate Amino Transferase 14 U/L (5-37); Bilirubin Direct 0.2 mg/dL (0.0-0.5); Bilirubin Total 0.2 mg/dL (0.0-1.0); Blood Urea Nitrogen 97 mg/dL (9-16); Calcium 8.7 mg/dL (8.4-10.2); Carbon Dioxide 23 mmol/L (22-29); Chloride 113 mmol/L (96-108); Creatinine Clr Calc Pharmacy 16.2; Estimated Glomerular Filt Rate 14; Glucose Random 117 mg/dL (60-115); Magnesium 2.1 mg/dL (1.6-2.6); Sodium 148 mmol/L (135-145); Total Protein 6.5 g/dL (6.5-8.0)
[2021-01-23 11:01] LABS: Troponin-I High Sensitivity 12.4 ng/L (<3.5-35.0)
[2021-01-23] MEDS: 0.9 % Sodium Chloride 1,000 ML 999 ML IVCONT ×2 (11:41→12:40)
[2021-01-23] MEDS: cefEPime HCl 2 GM in 0.9 % Sodium Chloride 50 ML IV (11:41)
[2021-01-23 11:48] LABS: Appearance Urine CLEAR; Color Urine YELLOW; Glucose Urine UA NEG (NEG); Leukocyte Esterase Urine TRACE (NEG); Nitrite Urine NEG (NEG); PH 5.5 (5.0-8.0); UACC Culture Trigger YES; Urine Blood TRACE (NEG); Urine Ketones NEG (NEG); Urine Protein NEG (NEG-TRACE)
[2021-01-23 12:09] LABS: Amorphous Sediment Urine 1+ /LPF; RBC Urine 0-2 /HPF (0)
--- NOTE | 2021-01-23 14:22 | P.HPHOSP_ITS ---
History of Present Illness Date of Service: 01/23/21 Attending physician on admission: [facility] Chief Complaint: weakness 85-year-old man presenting with progressive weakness. Recently discharged from [facility] and treated for a urinary tract infection. He is nonverbal therefore unable to obtain any information from him. In the ER he was not noted to have any fever or leukocytosis. His sodium was noted to be elevated at 148, creatinine 3.98, urinalysis negative. In the ER he was given a dose of cefepime and L of IV fluids. Will be admitted for further management and treatment of hypernatremia, FLOWER and CKD secondary to dehydration. Review of Systems Verdana 4l Review of Systems: Yes Unobtainable due to mental status Verdana 4d [facility] Medical History Anemia BPH (benign prostatic hyperplasia) Carotid body tumor Dementia Elevated PSA Factor 5 Leiden mutation, heterozygous Hematuria Hyperlipidemia Hyponatremia Lymphadenopathy Osteopenia Parkinsons Prostate cancer Pulmonary embolism Rhinitis Vitamin B12 deficiency Pertinent family history: No cardiac history according to the record Surgical History H/O aortic aneurysm repair History of nephrectomy Total knee replacement status Social History Household Members: Other Housing: Other Housing Other:: [facility] Do you presently have visiting nurse or other home services: No Unable to assess alcohol history related to: Unknown Alcohol intake: never Patient Tobacco Use Status: Former Tobacco user Second Hand Smoke Exposure: No Advance Directives: Yes Advance Directives on File: Yes Advance Directives Date on File: 03/20/20 service: Yes Current occupational status: retired [employer] Allergies Allergy/AdvReac Type Severity Reaction Status Date / Time No Known Allergies Allergy Verified 10/23/20 11:19 [No Known Allergies*] Active Medications: Current Medications Pharmacy Consult (Consult Rx Perform Med Rec) 1 each MISCELLANE ONCE PRN PRN Reason: Consult order Home Medications Medication Instructions Recorded Confirmed Last Taken Type midodrine 5 mg 5 mg PO BID PRN 03/19/20 01/23/21 Unknown History tablet amlodipine 2.5 mg 1 tab PO DAILY 01/08/21 01/23/21 01/23/21 History tablet ropinirole 0.5 mg 0.5 mg PO BID 01/08/21 01/23/21 01/23/21 History tablet apixaban 2.5 mg 2.5 mg PO BID 01/23/21 01/23/21 01/23/21 History tablet carbidopa 25 1 tab PO 01/23/21 01/23/21 01/23/21 History mg-levodopa 100 0800,1300,1600,2 mg 000 tablet Physical Exam Verdana 4l Vital Signs and Narrative: Verdana 4d Verdana 4d Vital Signs: Verdana 4d Verdana 4Bd Last Vital Signs Verdana 4d Corporate Risk Analyst New 4d Corporate Risk Analyst New 4d Temp 97.0 F 01/23/21 10:03 Corporate Risk Analyst New 4d Pulse 62 01/23/21 10:03 Corporate Risk Analyst NewNew 4d Resp 12 01/23/21 10:03 BP 107/60 01/23/21 10:03 Pulse Ox 95 01/23/21 10:03 BMI result Body Mass Index 32.3 Appearing in no acute distress, non verbal head is normocephalic atraumatic eyes pupils are PERRLA sclera is anicteric mouth throat mucous membranes are intact and moist neck is supple no lymphadenopathy, no JVD noted lung sounds are clear to auscultation heart regular rate rhythm, clear S1, S2 positive bowel sounds, abdomen is soft, nontender neuro patient is alert, nonverbal ectropic eye lids Results Labs CBC and Chem 7: 01/23/21 10:30 01/23/21 10:30 Labs: Laboratory Results - last 24 hr 01/23/21 01/23/21 01/23/21 10:30 10:30 10:30 MCV 93.8 MCH 29.2 MCHC 31.1 RDW 14.1 Plt Count 175 MPV 9.8 Immature Gran % (Auto) 0.3 Neut % (Auto) 78.4 H Lymph % (Auto) 9.7 L [place] % (Auto) 9.3 Eos % (Auto) 2.0 Baso % (Auto) 0.3 Lymph # (Auto) 0.6 L [place] # (Auto) 0.6 Eos # (Auto) 0.1 Baso # (Auto) 0.0 Abs Immat Gran (auto) 0.02 Absolute Neuts (auto) 4.7 Absolute Nucleated RBC 0.000 Nucleated RBC % (auto) 0.0 Anion Gap 17 Estim Creat Clear Calc 16.2 Estimated GFR 14 Random Glucose 117 H Lactic Acid Calcium 8.7 D Magnesium 2.1 Total Bilirubin 0.2 Direct Bilirubin 0.2 AST 14 D ALT 6 Alkaline Phosphatase 68 Troponin I High Sens Total Protein 6.5 Albumin 3.3 L Urine Color Urine Appearance Urine pH Ur Specific [place] Urine Protein Urine Glucose (UA) Urine Ketones Urine Blood Urine Nitrite Ur Leukocyte Esterase Urine RBC Urine WBC Ur Squamous Epith Cells Amorphous Sediment Urine Bacteria COVID-19 (JOY) Negative COVID-19 Clin Com See Note 01/23/21 01/23/21 01/23/21 10:30 10:30 11:36 MCV MCH MCHC RDW Plt Count MPV Immature Gran % (Auto) Neut % (Auto) Lymph % (Auto) [place] % (Auto) Eos % (Auto) Baso % (Auto) Lymph # (Auto) [place] # (Auto) Eos # (Auto) Baso # (Auto) Abs Immat Gran (auto) Absolute Neuts (auto) Absolute Nucleated RBC Nucleated RBC % (auto) Anion Gap Estim Creat Clear Calc Estimated GFR Random Glucose Lactic Acid 1.5 Calcium Magnesium Total Bilirubin Direct Bilirubin AST ALT Alkaline Phosphatase Troponin I High Sens 12.4 Total Protein Albumin Urine Color YELLOW Urine Appearance CLEAR Urine pH 5.5 Ur Specific [place] 1.010 Urine Protein NEG Urine Glucose (UA) NEG Urine Ketones NEG Urine Blood TRACE Urine Nitrite NEG Ur Leukocyte Esterase TRACE H Urine RBC 0-2 Urine WBC 5-9 H Ur Squamous Epith Cells NONE Amorphous Sediment 1+ Urine Bacteria NONE COVID-19 (JOY) COVID-19 Clin Com Imaging Radiologist's Impressions: Impressions Head CT 01/23/21 10:52 IMPRESSION: No acute intracranial findings. No change from October 2020 exam. Chest X-Ray 01/23/21 10:57 IMPRESSION: Stable volume loss left hemithorax and left lower lobe atelectasis/consolidation. Assessment and Plan (1) FLOWER (acute kidney injury): Status: Acute (2) Weakness: Status: Acute (3) Hypernatremia: Status: Acute 85-year-old [facility] admitted with FLOWER on CKD and hypernatremia. recent admission for similar symptoms including UTI that was treated with ceftin FLOWER on CKD Likely related to dehydration IV fluids Follow BMP closely Hypernatremia Likely related to dehydration D5W Recheck sodium this evening if no improvement consider consulting Nephrology Recent UTI treated with Ceftin o/p hold abx for now follow urine cx History of factor 5 Leiden Continue home anticoagulation Parkinson's dementia Continue Sinemet Hypertension. Stable blood pressure Continue amlodipine DVT prophylaxis with apixaban Attending Dr. Mensah Quality Stroke Does the patient have a stroke diagnosis?: No VTE Prior VTE?: No VTE Risk Level:: Medical - moderate - high VTE Device Contraindication: Treatment Not Indicated VTE Drug Contraindication: N/A - Med Ordered
[2021-01-23] MEDS: Dextrose 5 % 1,000 ML 80 ML IVCONT (15:49)
--- NOTE | 2021-01-23 18:52 | MHC.CM.PN ---
CM attempted to meet with patient. Pt is awake, alert to name, non-verbal and non-ambulatory. Pt has advancing dementia and Parkinson's. CM called /HCP/POA Arianne Evi for CM assessment. IMM reviewed and signed per protocol with HCP 01/23/21@6239. Copy left at bedside and with medical records. According to Arianne, pt has had a steady decline over the past year, unable to speak and wheelchair bound. Pt has dysphagia and drinks thickened liquids and eats pureed foods. States he has to be reminded to eat and drink. Pt lives at the [facility]. HCP, MOLST and POA are on file. D/C plan is to return to [facility] when medically stable. Transportation by S. CM to follow for d/c needs.
[2021-01-23 20:01] LABS: Anion Gap 20 (12-20); Blood Urea Nitrogen 93 mg/dL (9-16); Calcium 8.8 mg/dL (8.4-10.2); Carbon Dioxide 22 mmol/L (22-29); Chloride 117 mmol/L (96-108); Creatinine Clr Calc Pharmacy 16.6; Estimated Glomerular Filt Rate 15; Glucose Random 102 mg/dL (60-115); Potassium 5.8 mmol/L (3.3-5.1); Sodium 153 mmol/L (135-145)
[2021-01-23 20:38] VITALS: BP 142/84; PULSE 70; RESP 17; O2SAT 96
[2021-01-23] MEDS: rOPINIRole HCL 0.5 MG TABLET PO (21:47)
[2021-01-23] MEDS: Apixaban 2.5 MG TABLET PO (21:47)
[2021-01-23] MEDS: Artificial Tears 15 ML DROPS 1 DROP EYE-BOTH (21:57)
[2021-01-23 23:38] VITALS: BP 155/82; PULSE 68; RESP 17; TEMP 36.2; O2SAT 97
[2021-01-24] VITALS (7 sets, daily range): BP systolic 120–182; BP diastolic 61–94; PULSE 61–68; RESP 16–20; TEMP 36.1–37.3; O2SAT 94–98
[2021-01-24] MEDS: Dextrose 5 % 1,000 ML 80 ML IVCONT ×2 (05:10→16:08)
[2021-01-24 06:20] LABS: MANUAL DIFF FLAG NO
[2021-01-24 06:28] LABS: Basophils Percent Auto 0.3 % (0-2); Eosinophils Absolute Auto 0.2 X10*3/uL (0.0-0.4); Eosinophils Percent Auto 2.8 % (0-4); Hematocrit 30.2 % (42.0-52.0); Hemoglobin 9.3 g/dl (14.0-18.0); Imm Gran Abs Auto 0.04 X10*3/uL (0.00-0.03); Imm Gran Pct Auto 0.6 % (0.0-0.4); Lymphocytes Absolute Auto 0.7 X10*3/uL (1.2-4.9); Lymphocytes Percent Auto 11.3 % (20-40); Mean Corpuscular HGB Conc 30.8 g/dl (31.0-36.0); Mean Corpuscular Volume 94.1 fL (80.0-98.0); Mean Platelet Volume 10.5 fL (9.4-12.4); Monocytes Absolute Auto 0.4 X10*3/uL (0.1-1.2); Monocytes Percent Auto 6.9 % (2-11); Neutrophils Percent Auto 78.1 % (45-73); Platelet Count 189 X10*3/uL (160-400); Red Blood Count 3.21 X10*6/uL (4.60-5.80); Red Cell Distribution Width 13.9 % (11.0-16.0); White Blood Count 6.4 X10*3/uL (4.8-10.8)
[2021-01-24 06:48] LABS: Anion Gap 15 (12-20); Blood Urea Nitrogen 88 mg/dL (9-16); Calcium 8.6 mg/dL (8.4-10.2); Carbon Dioxide 21 mmol/L (22-29); Chloride 115 mmol/L (96-108); Creatinine Clr Calc Pharmacy 17.1; Estimated Glomerular Filt Rate 15; Glucose Random 93 mg/dL (60-115); Potassium 4.9 mmol/L (3.3-5.1); Sodium 146 mmol/L (135-145)
[2021-01-24] MEDS: rOPINIRole HCL 0.5 MG TABLET PO (08:26)
[2021-01-24] MEDS: 0.9 % Sodium Chloride Flush 3 ML SYRINGE IVFLUSH (08:26)
[2021-01-24] MEDS: Apixaban 2.5 MG TABLET PO (08:26)
[2021-01-24] MEDS: Carbidopa/Levodopa 25/100 TABLET 1 TAB PO ×3 (08:26→16:07)
[2021-01-24] MEDS: amLODIPine Besylate 2.5 MG TABLET PO (08:27)
[2021-01-24] MEDS: Bicalutamide 50 MG TABLET PO (10:25)
[2021-01-24] MEDS: Finasteride 5 MG TABLET PO (10:25)
[2021-01-24] MEDS: Artificial Tears 15 ML DROPS 1 DROP EYE-BOTH (10:25)
[2021-01-24] MEDS: Cyanocobalamin (Vitamin B-12) 1,000 MCG TABLET 1000 MCG PO (10:25)
[2021-01-24] MEDS: Cholecalciferol (Vitamin D3) 25 MCG TABLET PO (10:25)
--- NOTE | 2021-01-24 15:11 | HO.PM.IMPN ---
Subjective Subjective Date of Service: 01/24/21 Interval History: COnitnues to decline since admit;minimal response to verbal stimuli Review of Systems staff notes no complaints of chest leslee Physical Exam Vital Signs: Vital Signs: Last Vital Signs Temp 97.9 F 01/24/21 11:43 Pulse 61 01/24/21 11:43 Resp 18 01/24/21 11:43 BP 120/64 01/24/21 11:43 Pulse Ox 97 01/24/21 11:43 BMI result Body Mass Index 32.3 Const: Other: responds minimally to verbal stimuli Resp: Other: clear to auscultation bilaterally no rales rhonchi or wheezes Cardio: Other: no S4; positive S1-S2; no S3 murmurs rubs g Extrem: Other: no edema bilateral Objective Data Active Medications Acetaminophen (Acetaminophen 325 Mg Tablet) 650 mg PO Q6H PRN PRN Reason: Pain, Mild (Pain Scale 1-3) Alendronate Sodium (Alendronate Sodium 70 Mg Tablet) 70 mg PO Hercules@0630 PENDING SALE TO [facility] Amlodipine Besylate (Amlodipine Besylate 2.5 Mg Tablet) 2.5 mg PO DAILY PENDING SALE TO [facility]; Protocol Last Admin: 01/24/21 08:27 Dose: 2.5 mg Documented by: LOLI Apixaban (Apixaban 2.5 Mg Tablet) 2.5 mg PO BID PENDING SALE TO [facility] Last Admin: 01/24/21 08:26 Dose: 2.5 mg Documented by: LOLI Artificial Tears (Artificial Tears 15 Ml Drops) 1 drop EYE-BOTH BID@1000,2200 PENDING SALE TO [facility] Last Admin: 01/24/21 10:25 Dose: 1 drop Documented by: LOLI Bicalutamide (Bicalutamide 50 Mg Tablet) 50 mg PO DAILY@1000 PENDING SALE TO [facility] Last Admin: 01/24/21 10:25 Dose: 50 mg Documented by: LOLI Bisacodyl (Bisacodyl 10 Mg Supp.Rect) 10 mg MA DAILY PRN PRN Reason: Constipation Carbidopa/Levodopa (Carbidopa/Levodopa 25/100 Tablet) 1 tab PO 0800,1300,1600,2000 PENDING SALE TO [facility] Last Admin: 01/24/21 12:41 Dose: 1 tab Documented by: LOLI Cyanocobalamin (Cyanocobalamin (Vitamin B-12) 1,000 Mcg Tablet) 1,000 mcg PO DAILY@1000 PENDING SALE TO [facility] Last Admin: 01/24/21 10:25 Dose: 1,000 mcg Documented by: LOLI Finasteride (Finasteride 5 Mg Tablet) 5 mg PO DAILY@1000 PENDING SALE TO [facility] Last Admin: 01/24/21 10:25 Dose: 5 mg Documented by: LOLI Dextrose (D5w) 1,000 mls @ 80 mls/hr IVCONT .[id number] PENDING SALE TO [facility] Last Admin: 01/24/21 05:10 Dose: 80 mls/hr Documented by: BOLA Magnesium Hydroxide (Milk Of Magnesia 30 Ml Oral.Susp) 30 ml PO BEDTIME PRN PRN Reason: Constipation Midodrine (Midodrine Hcl 5 Mg Tablet) 5 mg PO BID PRN PRN Reason: SBP <90 Ondansetron HCl (Ondansetron Hcl 4 Mg/2 Ml Vial) 4 mg IVPUSH Q8H PRN PRN Reason: Nausea and Vomiting Pharmacy Consult (Consult Rx Perform Med Rec) 1 each MISCELLANE ONCE PRN PRN Reason: Consult order Ropinirole HCl (Ropinirole Hcl 0.5 Mg Tablet) 0.5 mg PO BID PENDING SALE TO [facility] Last Admin: 01/24/21 08:26 Dose: 0.5 mg Documented by: LOLI Sodium Chloride (0.9 % Sodium Chloride Flush 3 Ml Syringe) 3 ml IVFLUSH QSHIFT PENDING SALE TO [facility] Last Admin: 01/24/21 08:26 Dose: 3 ml Documented by: LOLI Vitamin D (Cholecalciferol (Vitamin D3) 25 Mcg Tablet) 25 mcg PO DAILY@1000 PENDING SALE TO [facility] Last Admin: 01/24/21 10:25 Dose: 25 mcg Documented by: LOLI Labs CBC & Chem 7: 01/24/21 05:50 01/24/21 05:50 Labs: Laboratory Results - last 24 hr 01/23/21 01/24/21 01/24/21 17:51 05:50 05:50 MCV 94.1 MCH 29.0 MCHC 30.8 L RDW 13.9 Plt Count 189 MPV 10.5 Immature Gran % (Auto) 0.6 H Neut % (Auto) 78.1 H Lymph % (Auto) 11.3 L [place] % (Auto) 6.9 Eos % (Auto) 2.8 Baso % (Auto) 0.3 Lymph # (Auto) 0.7 L [place] # (Auto) 0.4 Eos # (Auto) 0.2 Baso # (Auto) 0.0 Abs Immat Gran (auto) 0.04 H Absolute Neuts (auto) 5.0 Absolute Nucleated RBC 0.000 Nucleated RBC % (auto) 0.0 Anion Gap 20 15 Estim Creat Clear Calc 16.6 17.1 Estimated GFR 15 15 Random Glucose 102 93 Calcium 8.8 8.6 Microbiology Microbiology Results: Microbiology 01/23/21 11:33 Blood Culture - Preliminary Blood - Venous No growth after 24 hours. 01/23/21 11:26 Blood Culture - Preliminary Blood - Venous No growth after 24 hours. 01/23/21 Unknown Urine Culture - Final Urine clean catch - Urine spain top No growth. Assessment and Plan (1) Parkinsons disease: Status: Acute Assessment and Plan: long discussion with patient's who is proxy. She recounts this is his 3rd or 4th admission in the last 2 months and states she is unable to keep up with that. She states that she has been trying to keep [facility] oral [facility], but is not having effect slowing his hospitalizations. Discussed [employer] status; she states this is exactly what he would want and she wishes to make W[employer] R[employer]ER. Code status changed to cm own patient will be discharged [facility] with the morning. Continue current plan as ordered Quality Stroke Does the patient have a stroke diagnosis?: No VTE Prior VTE?: No VTE Risk Level:: Medical - moderate - high VTE Device Contraindication: Treatment Not Indicated VTE Drug Contraindication: N/A - Med Ordered
--- NOTE | 2021-01-24 16:14 | MHC.CM.PN ---
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 per hospitalist p[atient will return back to the [facility] as comfort measures only telephone cll to the [facility] discharge plan - return back to the [facility] , ([place] with his nurse allen bowman and they can take him back as com, fax number to the floor is [phone] transport via [facility] has HCP And molst form on file patient is dnr/dni medicare imm was completed on 01/23/21 with . per [id number]
[2021-01-25] MEDS: Dextrose 5 % 1,000 ML 80 ML IVCONT (03:50)
--- NOTE | 2021-01-25 08:40 | P.CDIC_ITS ---
CDI Concurrent Query Documentation Clarification: PHYSICIAN'S DOCUMENTATION REQUEST Date of Query: 01/25/21 0841 Patient Name: Amrit Steve Admit Date: 01/23/21 Dear Doctor, A review of the medical record indicates additional documentation may be needed. Please review below and update the documentation accordingly. Risk Factors/Clinical Indicators/Treatments H&P: 01/23 - FLOWER on CKD secondary to dehydration. IV fluids. Follow BMP closely. Cr. 3.98 Gfr 14 Please clarify which of the following accurately represents the patient's renal status: * Acute renal failure on Chronic Kidney Disease (CKD) - Stages * CKD, please provide stages * Other (please specify) * Unable to determine Criteria for FLOWER* Stages of Chronic Kidney Disease* 1. Increase in serum creatinine by ? 0.3 mg/dL Level Description GFR (?26.5 micromol/L) within 48 hours, or G1 Normal or High > 90 2. Increase in serum creatinine to ?1.5 times baseline, G2 Mildly decreased 60 ? 89 which is known or presumed to have occurred within 7 days, or G3a Mildly to moderately decreased 45 ? 59 3. Urine volume <0.5 mL/kg/hour for six hours G3b Moderately to severely decreased 30 - 44 G4 Severely decreased 15 ? 29 G5 Kidney failure < 15 *Source: Kidney Disease: Improving Global Outcomes (KDIGO) 2012 Use of terms such as suspected, likely, concern for, or probable (associated with a specific diagnosis that is being evaluated, monitored, or treated as if it exists) are acceptable and can be coded in the inpatient setting, when documented at the time of discharge. Thank you, Dariana Ferguson [facility], CDIS Extension: [phone] Please use your independent medical judgment in providing your response. THIS QUERY IS PART OF THE PERMANENT MEDICAL RECORD Provider Response: CKD Stage 4 Other Diagnosis: CKD level G4
--- NOTE | 2021-01-25 09:50 | MHC.CM.PN ---
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 D/C PLAN: RETURN TO [facility] ON CABLE SUPERVISOR, [facility] TRANSPORT
[2021-01-25] MEDS: Apixaban 2.5 MG TABLET PO (11:25)
[2021-01-25] MEDS: Cholecalciferol (Vitamin D3) 25 MCG TABLET PO (11:25)
[2021-01-25] MEDS: rOPINIRole HCL 0.5 MG TABLET PO (11:25)
[2021-01-25] MEDS: Cyanocobalamin (Vitamin B-12) 1,000 MCG TABLET 1000 MCG PO (11:26)
[2021-01-25 11:27] VITALS: BP 146/81; PULSE 68
[2021-01-25] MEDS: amLODIPine Besylate 2.5 MG TABLET PO (11:27)
[2021-01-25 11:29] VITALS: BP 146/81; PULSE 65; RESP 16; TEMP 36.6; O2SAT 92
[2021-01-25] MEDS: Artificial Tears 15 ML DROPS 1 DROP EYE-BOTH (11:33)
--- NOTE | 2021-01-25 11:52 | MHC.CLN ---
NUTRITION CHANGING DIET CONSISTENCY PER RECENT DISCHARGE. DIET=2 GRAM SODIUM, PUREE, NECTAR THICK LIQUIDS. 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
--- NOTE | 2021-01-25 12:14 | PM.DS ---
DS: Providers Provider Date of Service: 01/25/21 Date of admission: 01/23/21 14:20 Primary care physician: Martha Martin MD DS: Diagnosis Discharge Diagnosis (1) Parkinsons disease: Status: Acute (2) Hypernatremia: Status: Acute DS: Summary Hospital Course Hospital Course: 85-year-old male admitted through the emergency room [id number] with diagnosis of hypernatremia related to dehydration in the backdrop of CKD. 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 He was recently admitted 01/08/2021 through 01/12/2021 for same complaints. Per her account, has been attempting to maintain volume status by feeding tsp of fluid while back at SNF. Patient admits to the hospital, falling repleted, divalents and creatinine return to baseline. Donal discussion undertaken with patient's ; she recounted that both she and her have spoke many times about end of life issues and neither 1 would want heroics or G-tube insertion to be kept alive. Mr. Steve is DNR DNI; she does not wish him to be transferred to the hospital rather to [facility]. At this point in time, I do not feel comfort measures is appropriate however a do not transfer order would be reasonable to meet their wishes. 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 He will be transferred with a MOLST form stating DNR/DNI /DNT. Time Spent with Patient Time attestation: Total time spent providing and/or coordinating discharge services: Discharge coordination time: Greater than 30 minutes Quality: Stroke Does the patient have a stroke diagnosis?: No Physical Exam Vital Signs: Vital Signs: Last Vital Signs Temp 97.9 F 01/25/21 11:29 Pulse 65 01/25/21 11:29 Resp 16 01/25/21 11:29 BP 146/81 H 01/25/21 11:29 Pulse Ox 92 01/25/21 11:29 BMI result Body Mass Index 32.3 Const: Other: responds minimally to verbal stimuli Resp: Other: clear to auscultation bilaterally no rales rhonchi or wheezes Cardio: Other: no S4; positive S1-S2; no S3 murmurs rubs g Extrem: Other: no edema bilateral DS: Data Data Completed and Pending Completed studies during hospitalization [Text1]: Procedures Drainage of Sigmoid Colon, Via Natural or Artificial Opening Endoscopic, Diagnostic (03/22/20) Excision of Sigmoid Colon, Via Natural or Artificial Opening Endoscopic, Diagnostic (03/22/20) Labs on day of discharge: Preliminary micro results at discharge 01/23/21 11:33 Blood Culture - Preliminary Blood - Venous No growth after 24 hours. 01/23/21 11:26 Blood Culture - Preliminary Blood - Venous No growth after 24 hours. 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 ) Martha Martin MD [Primary Care Provider] - 1 Week Discharge Medications: Continued bicalutamide 50 mg Tablet 50 mg PO DAILY@1000 Qty: 30 RF: 0 polyvinyl alcohol [Artificial Tears (polyvin alc)] 1.4 % Drops 1 drp ophthalmic (eye) BID@1000,2200 Qty: 30 RF: 0 alendronate 70 mg Tablet 70 mg PO Hercules@0630 Qty: 30 RF: 0 cyanocobalamin (vitamin B-12) [Vitamin B-12] 1,000 mcg Tablet 1,000 mcg PO DAILY@1000 Qty: 30 RF: 0 magnesium hydroxide [Milk of Magnesia] 400 mg/5 mL Suspension 30 ml PO BEDTIME PRN (Reason: Constipation) Qty: 30 RF: 0 bisacodyl [Gentle Laxative (bisacodyl)] 10 mg Suppository 10 mg ME DAILY PRN (Reason: Constipation) Qty: 30 RF: 0 finasteride [Proscar] 5 mg Tablet 5 mg PO DAILY@1000 Qty: 30 RF: 0 cholecalciferol (vitamin D3) 25 mcg (1,000 unit) Tablet 25 mcg PO DAILY@1000 Qty: 30 RF: 0 midodrine 5 mg tablet 5 mg PO BID PRN (Reason: SBP <90) RF: 0 amlodipine 2.5 mg tablet 1 tab PO DAILY RF: 0 ropinirole 0.5 mg Tablet 0.5 mg PO BID RF: 0 apixaban 2.5 mg Tablet 2.5 mg PO BID RF: 0 carbidopa-levodopa 25-100 mg tablet 1 tab PO 0800,1300,1600,2000 RF: 0 Discharge Orders: Discharge Order (Routine); Ordered 01/25/21 Ordered By: Bairon Castrejon Diet: advance to usual diet Activity on Discharge: As tolerated Stand Alone Forms: Patient Portal Discharge page Care Plan Goals: discussed at length with . Mr Steve will remain DNR DNI; will add qualifier of do not transfer to hospital. Would continue medication as ordered and move to comfort measures only when appropriate. Mrs. Steve is in agreement Health Concerns: maintain comfort Plan of Treatment: plan as ordered; no further transfers back to hospital Assessment: end-stage Parkinson's disease
[2021-01-25 12:19] VITALS: BMI 32.3
== END 2021-01-25 14:40 | DRG 683 ==
LOC: HO.ED 11:23 → HO.EDOVER 14:30 → HO.S3 19:20
PROVIDERS: Admitting Provider Nurse Practitioner Acute Care; Emergency Provider Emergency Medicine; PCP Internal Medicine; Visit Provider Hospitalist
DX: N17.9 Acute kidney failure, unspecified (principal); D68.51 Activated protein C resistance; E87.0 Hyperosmolality and hypernatremia; E86.0 Dehydration; N18.4 Chronic kidney disease, stage 4 (severe); Z86.711 Personal history of pulmonary embolism; Z87.891 Personal history of nicotine dependence; G20 Parkinson's disease; N40.0 Benign prostatic hyperplasia without lower urinary tract symptoms; Z87.440 Personal history of urinary (tract) infections; F02.80 Dementia in other diseases classified elsewhere, unspecified severity, without behavioral disturbance, psychotic disturbance, mood disturbance, and anxiety; Z79.01 Long term (current) use of anticoagulants; Z79.899 Other long term (current) drug therapy; Z66 Do not resuscitate
CPT/HCPCS: 36415; 70450; 71045; 80048; 80076; 81001; 83605; 83735; 84484; 85025; 87040; 87086; 87635; 93005; 99285; J0692